=== PATIENT | male | born 1955 | race Caucasian/White ===

== ENCOUNTER 2023-05-31 08:40 | Outpatient (OUT) | payer MEDICARE, SELFPAY ==
--- NOTE | 2023-05-31 08:54 | PM.CN ---
Consult Note: HPI Data of Consult Patient: known to practice within the last 3 years Consult date: 05/31/23 Requesting Physician: CARINE LAZARO NP Primary Care Provider: Non-Staff Physician, MD Consult Narrative Narrative: Patient is here for f/u of chronic low back pain . Pain today is bilat lower lumbar area. He is still recieving good relief from RFA done 01/2022. He has stopped his gabapentin since last visit and is doing well wit this change. Denies new sensorimotor or bowel or bladder issues. Denies medication adverse SE. Pain medication regimen assists patient in better ability to complete ADLs. He did fall from a ladder 05/13. He was seen in the ED for this and had possible head CT done. He states he did not injure his back or neck. Last UDS was positive for thc. He states this was secondhand exposure. UDS completed today. cc:: CC: CARINE LAZARO NP Review of Systems ROS Status of ROS 10 or more systems reviewed and unremarkable except as noted in history and below Musculoskeletal Reports: back pain Exam Constitutional Documenting provider has reviewed patient's vital signs: yes Common normals: no apparent distress, average body habitus, oriented x3, no limitations, healthy appearing, alert and well nourished General appearance: cooperative, comfortable and well developed Orientation/consciousness: Yes awake, Yes oriented to person, Yes oriented to place and Yes oriented to time [facility]ENMT Common normals: normocephalic and moist oral mucous membranes Respiratory Common normals: normal respiratory effort, no retractions and no use of accessory muscles Effort & inspection: able to speak in complete sentences and symmetric chest movement Back & Pelvis Lumbar spine/lower back: normal to inspection, ROM limited, pain with ROM, paraspinal muscle tenderness and straight leg raise negative bilaterally Other: positive facet load pain bilat lumbar muscle strength 5/5 bilat LE with intact sensation Assessment and Plan Assessment and Plan (1) Lumbar spondylosis: Plan f/u in 3 months UDS pending
== END 2023-05-31 08:41 | disposition home or self-care (01) ==
LOC: PM 08:41
PROVIDERS: Visit Provider Nurse Practitioner
DX: M47.816 Spondylosis without myelopathy or radiculopathy, lumbar region (principal)
CPT/HCPCS: G0463

== ENCOUNTER 2023-08-23 08:50 | Outpatient (OUT) | payer MEDICARE, SELFPAY ==
--- NOTE | 2023-08-23 09:14 | P.CN_ITS ---
Consult Note: HPI Data of Consult Requesting Physician: Jenny Machuca NP Primary Care Provider: Non-Staff Physician, Consult Narrative Reason for consult: f/u Narrative: Neville Schmitz a pleasant 67 year old male presents for evaluation and management of chronic back pain. Today rating pain 3/10. Patient has noticed increase in low back pain over the last few months. Would like to discuss treatment options. Patient has benefitted from tylenol #3 BID PRN, ran out of mobic but experienced GERD with this. cc:: CC: Jenny Machuca NP Review of Systems ROS Status of ROS 10 or more systems reviewed and unremarkable except as noted in history and below Musculoskeletal Reports: back pain Meds Home Medications and Allergies Home Medications Medication Instructions Recorded Confirmed Type acetaminophen 300 mg-codeine 30 mg 1 tab PO BID 05/31/23 05/31/23 History tablet acetaminophen 325 mg capsule 325 mg PO Q6H PRN pain 05/31/23 05/31/23 History (Tylenol) aspirin 81 mg capsule 81 mg PO DAILY 05/31/23 05/31/23 History atorvastatin 80 mg tablet (Lipitor) 80 mg PO DAILY 05/31/23 05/31/23 History gabapentin 300 mg capsule 300 mg PO .HS 05/31/23 05/31/23 History Allergies Allergy/AdvReac Type Severity Reaction Status Date / Time No Known Drug Allergies Allergy Verified 05/31/23 09:45 Exam Constitutional Documenting provider has reviewed patient's vital signs: yes Common normals: no apparent distress, average body habitus, oriented x3, no limitations, healthy appearing, alert and well nourished General appearance: cooperative, comfortable and well developed Orientation/consciousness: Yes awake, Yes oriented to person, Yes oriented to place and Yes oriented to time HENDE Common normals: normocephalic and moist oral mucous membranes Respiratory Common normals: normal respiratory effort, no retractions and no use of accessory muscles Effort & inspection: able to speak in complete sentences and symmetric chest movement Back & Pelvis Thoracic spine/upper back: ROM limited, pain with ROM and thoracic spinal tenderness Lumbar spine/lower back: normal to inspection, ROM limited, pain with ROM, lumbar spinal tenderness and straight leg raise negative bilaterally Other: positive facet load pain bilat lumbar muscle strength 5/5 bilat LE with intact sensation Extremity Common normals: normal to inspection and full ROM Neuro Common normals: oriented x3, CN's II-XII intact bilaterally, moves all extremities, no focal motor deficits, no sensory deficits noted, deep tendon reflexes 2+ bilaterally and gait normal Assessment and Plan Assessment and Plan (1) GERD (gastroesophageal reflux disease): (2) Thoracic back pain: (3) Lumbar spondylosis: (4) Osteoarthritis: (5) Chronic prescription opiate use: Assessment and Plan: I feel these medications are improving the patient's quality of life and allow them to tolerate activities of daily living as well as participate in recreational activity.? The patient does not report intolerable side effects. The patient is NOT opioid naive and non-pharmacologic and non-opioid treatment has failed to significantly relieve the patient's pain and improve functionality. The patient has a diagnosis that is related to a somatic or visceral pain etiology. ? ?? I reviewed with the patient the potential risks and side effects with the use of? opioid medications including but not limited to respiratory depression,? sedation, and even . I verified the patient has access to naloxone should? these effects occur. I advised the patient to avoid the use of any other? sedation substances including alcohol, THC, and benzodiazepines while? taking opioid medications due to the risk of compounding side effects and? detrimental outcomes. I reviewed the FAMILY RESOURCE SPECIALIST, pain treatment agreement, urine? drug screen, and opioid start talking forms. The patient was advised to let? their family know they had Naloxone in case they would need to administer? the medication.? ?? A drug screen was completed within the last year, and no aberrancies were noted regarding their use of controlled substances. The patient understands they are subject to the terms and conditions of the pain contract that they have signed. ? ?? I have checked an OARRS report on this patient today and there are no aberrancies noted in the prescribing history.? Plan update xray imaging of thoracic and lumbar spine' start duloxetine 60mg HS avoid NSAIDs with hx of GERD and intolerance to NSAIDs continue OTC acetaminophen continue Tylenol #3 BID PRN moderate to severe pain continue HEP f/u 2 months, consider RFA
== END 2023-08-23 08:51 | disposition home or self-care (01) ==
LOC: PM 08:51
PROVIDERS: Visit Provider Nurse Practitioner
DX: K21.9 Gastro-esophageal reflux disease without esophagitis (principal); M54.6 Pain in thoracic spine; M47.816 Spondylosis without myelopathy or radiculopathy, lumbar region; M19.90 Unspecified osteoarthritis, unspecified site; Z79.899 Other long term (current) drug therapy
CPT/HCPCS: G0463

== ENCOUNTER 2023-10-25 08:50 | Outpatient (OUT) | payer OTHER, SELFPAY ==
--- NOTE | 2023-10-25 08:58 | PM.CN ---
Consult Note: HPI Data of Consult Patient: known to practice within the last 3 years Requesting Physician: Jenny Machuca NP Primary Care Provider: Non-Staff Physician, Consult Narrative Reason for consult: f/u Narrative: Neville Schmitz a pleasant 67 year old male presents for evaluation and management of chronic back pain. Today rating pain 2/10. Patient has noticed improvement in his pain since his last visit, finding benefit from duloxetine 30mg daily tylenol #3 BID PRN without side effects. cc:: CC: Jenny Machuca NP Review of Systems ROS Status of ROS 10 or more systems reviewed and unremarkable except as noted in history and below Musculoskeletal Reports: back pain Meds Home Medications and Allergies Home Medications Medication Instructions Recorded Confirmed Type acetaminophen 300 mg-codeine 30 mg 1 tab PO BID 05/31/23 05/31/23 History tablet acetaminophen 325 mg capsule 325 mg PO Q6H PRN pain 05/31/23 05/31/23 History (Tylenol) aspirin 81 mg capsule 81 mg PO DAILY 05/31/23 05/31/23 History atorvastatin 80 mg tablet (Lipitor) 80 mg PO DAILY 05/31/23 05/31/23 History gabapentin 300 mg capsule 300 mg PO .HS 05/31/23 05/31/23 History Allergies Allergy/AdvReac Type Severity Reaction Status Date / Time No Known Drug Allergies Allergy Verified 05/31/23 09:45 Exam Constitutional Documenting provider has reviewed patient's vital signs: yes Common normals: no apparent distress, oriented x3, healthy appearing, alert and well nourished General appearance: cooperative Orientation/consciousness: Yes awake, Yes oriented to person, Yes oriented to place and Yes oriented to time [facility] Common normals: normocephalic, hearing grossly normal bilaterally and moist oral mucous membranes Head and scalp: normocephalic Eye Common normals: PERRL Pupil: PERRL Neck & C-Spine Common normals: full ROM General: normal visual inspection Chest Common normals: inspection of chest normal Respiratory Common normals: normal respiratory effort, no retractions and no use of accessory muscles Effort & inspection: able to speak in complete sentences and symmetric chest movement Back & Pelvis Thoracic spine/upper back: ROM limited, pain with ROM and thoracic spinal tenderness Lumbar spine/lower back: normal to inspection, ROM limited, pain with ROM, lumbar spinal tenderness and straight leg raise negative bilaterally Other: positive facet load pain bilat lumbar muscle strength 5/5 bilat LE with intact sensation Extremity Common normals: normal to inspection and full ROM Neuro Common normals: oriented x3, CN's II-XII intact bilaterally, moves all extremities, no focal motor deficits, no sensory deficits noted, deep tendon reflexes 2+ bilaterally and gait normal Sensorium/orientation: alert Motor exam: strength 5/5 throughout and no movement abnormalities noted Psych Common normals: mental status grossly normal, thought process normal, cooperative, affect normal, speech normal and activity/motor behavior normal Speech: normal speech Thought process: normal thought process Results Additional Findings Additional findings: I have checked an OARRS report on this patient today and there are no aberrancies noted in the prescribing history.?? A drug screen was completed and reviewed within the last year, and if there has not been a drug screen completed we ordered one today to monitor higher risk, state monitored pain medication use. As part of providing excellent, safe, comprehensive care, the following was completed at our patient's visit: 1. A medication reconciliation and review to ensure accurate knowledge of current/active medications, including asking our patients to inform us about any [id number] medications or herbal remedies/nutritional supplements/alternative remedies. 2. A review to specifically ensure our patients have had annual screening for: elevated body mass index (BMI), tobacco use, screening for depression, and screening for unhealthy alcohol use. When screening is concerning, patients are provided with education and the specific recommendation to discuss the concerning health issue and treatment options with their primary care provider. Assessment and Plan Assessment and Plan (1) Lumbar spondylosis: (2) Thoracic back pain: (3) Osteoarthritis: (4) Chronic prescription opiate use: Assessment and Plan: I feel these medications are improving the patient's quality of life and allow them to tolerate activities of daily living as well as participate in recreational activity.? The patient does not report intolerable side effects. The patient is*NOT opioid naive and non-pharmacologic and non-opioid treatment has failed to significantly relieve the patient's pain and improve functionality. The patient has a diagnosis that is related to a somatic or visceral pain etiology. ? ?? I reviewed with the patient the potential risks and side effects with the use of? opioid medications including but not limited to respiratory depression,? sedation, and even . I verified the patient has access to naloxone should? these effects occur. I advised the patient to avoid the use of any other? sedation substances including alcohol, THC, and benzodiazepines while? taking opioid medications due to the risk of compounding side effects and? detrimental outcomes. I reviewed the MEDICAL LEGAL INVESTIGATOR, pain treatment agreement, urine? drug screen, and opioid start talking forms. The patient was advised to let? their family know they had Naloxone in case they would need to administer? the medication.? ?? A drug screen was completed within the last year, and no aberrancies were noted regarding their use of controlled substances. The patient understands they are subject to the terms and conditions of the pain contract that they have signed. ? ?? I have checked an OARRS report on this patient today and there are no aberrancies noted in the prescribing history.? (5) Myofascial pain: Plan continue current medications f/u 3 months
--- OUTSIDE RECORDS SUMMARY | 2023-10-25 09:08 | XMS_ITS | CCD ---
Author Name Unknown Address [address] [place] [address] Organization [facility] Care Team Providers Care Medical Physicist Name Role Phone MITZI GALEAS Admitting Unavailable ESQUIVEL SARAH L Primary Care Unavailable KATLIN KNOWLES Attending Unavailabl e PATTI ESQUIVELNY L Primary Care Unavailable Esquivel Sarah L Primary Care Provider Nicolasa MITCHELL Admitting Unavailable Nicolasa MITCHELL Attending Unavailable ESQUIVEL SARAH L Primary Care Unavailable Esquivel Sarah L Primary Care Provider JAYLON ., DR FRANCK Chaparro Admitting Unavailable IYER ., DR FRANCK Chaparro Attending Unavailable [facility] Primary Care Unavailable VALDEZ ., DORIE Consulting Unavailable IYER ., DR FRANCK Chaparro Admitting Unavailable IYER ., DR FRANCK hCaparro Attending Unavailable [facility] Primary Care Unavailable VALDEZ ., DORIE Consulting Unavailable IYER ., DR FRANCK Chaparro Admitting Unavailable IYER ., DR FRANCK Chaparro Attending Unavailable [facility] Primary Care Unavailable VALDEZ ., DORIE Consulting Unavailable IYER ., DR FRANCK Chaparro Admitting Unavailable IYER ., DR FRANCK Chaparro Attending Unavailable [facility] Primary Care Unavailable VALDEZ ., DORIE Consulting Unavailable LAKSHMIPATHY ., NARENDMOI Admitting Angelica vailable LAKSHMIPATHY ., JAYLEEN Attending Angelica vailable [facility] Primary Care Unavailable HALKER .CARINE Consulting Unavailable PHILIPPE OROSCO Referring Unavailable Medications Current Medications Medication Drug Class(es) Dates Sig (Normalized) Sig (Original) acetaminophen 300 mg / codeine phosphate 30 mg oral tablet (2 sources) Opioid Agonist Start: 06-20-2016 acetaminophen-codei ne (TYLENOL #3) 300-30 mg per tablet Take by mouth every 6 (six) hours as needed. 0 06/20/2016 Active aspirin 81 mg delayed release oral tablet (2 sources) Platelet Aggregation Inhibitor, Nonsteroidal Anti-inflammatory Drug take 1 tablet by mouth once daily aspirin 81 MG EC tablet Take 81 mg by mouth daily. 0 Active folic acid 1 mg oral tablet (2 sources) take 1 tablet by mouth once daily folic acid (FOLVITE) 1 MG tablet Take 1 mg by mouth daily. 0 Active methocarbamol 500 mg oral tablet (2 sources) Muscle Relaxant Start: 06-20-2016 take 1 tablet by mouth four times daily as needed methocarbamol (ROBAXIN) 500 MG tablet Take 500 mg by mouth 4 (four) times a day as needed. 0 06/20/2016 Active pravastatin sodium 40 mg oral tablet (2 sources) HMG-CoA Reductase Inhibitor take 1 tablet by mouth once daily pravastatin (PRAVACHOL) 40 MG tablet Take 40 mg by mouth daily. 0 Active Problems Active Problems Problem Classification Problem Date Documented Da te Episodic/Chronic Spondylosis; intervertebral disc disorders; other back problems (6 sources) Spondylosis without myelopathy or radiculopathy, lumbar region; Translations: [Other spondylosis with radiculopathy, lumbar region] Onset: 03-15-2022 Chronic Spondylosis; intervertebral disc disorders; other back problems (10 sources) Low back pain; Translations: [Intervertebral disc disorders with radiculopathy, lumbar region] Onset: 06-01-2022 Episodic Unclassified (4 sources) LOW BACK PAIN, UNSPECIFIED; Translations: [LOW BACK PAIN, UNSPECIFIED] Onset: 08-31-2022 Past or Other Problems Problem Classification Problem Date Documented Da te Episodic/Chronic Other connective tissue disease (1 source) Other muscle spasm; Translations: [OTHER MUSCLE SPASM] Onset: 03-15-2022 Episodic Unclassified (1 source) LOW BACK PAIN, UNSPECIFIED; Translations: [LOW BACK PAIN, UNSPECIFIED] Onset: 11-30-2022 Results Test Name Value Interpretation Reference Range Facility XR LUMBAR SPINE 4+ VIEWS WIT H FLEXION EXTENSIONon 09-18-2023 XR LUMBAR SPINE 4+ VIEWS WITH FLEXION EXTENSION FINDINGS: Anterior wedge compression fracture L1. Posterior disc space narrowing T12-L1 through L5-S1. Alignment maintained on flexion, extension, and neutral position. No bone lesion is identified. IMPRESSION: Impression: Anterior wedge compression fracture L1. Moderate degenerative change lumbar spine. ELECTRONICALLY SIGNED BY: Lan Rivas MD Normal Not Available XR THORACIC SPINE 2 VIEWSon 09-18-2023 XR THORACIC SPINE 2 VIEWS FINDINGS: Thoracic vertebral bodies are normal in height and alignment. No fracture, dislocation, bone lesion. Mild disc space narrowing upper thoracic spine. Remote internal fixation lower cervical spine. IMPRESSION: Impression: Mild degenerative change upper thoracic spine. ELECTRONICALLY SIGNED BY: Lan Rivas MD Normal Not Available TSH w/ Reflex to Free T4on 0 02-21-2022 TSH 1.180 uIU/mL Normal 0.400-4.500 [facility] [employer] Comment on above: Performed By: #### T SH reflex FT4 #### [facility] [address], [place] [id number] US Aorta Screeningon 022 US Aorta Screening FINDINGS: Proximal Aorta2.9 x 2.3 cm Mid Aorta1.6 x 2.1 cm Distal Aorta1.3 x 1.3 cm Right Common Iliac9 x 10 mm Left Common Iliac10 x 13 mm No aneurysmal dilatation is identified. No neighboring fluid collections are seen. IMPRESSION: No significant aneurysmal formation. Report reported and signed by Kenneth Kan on 01/27/2022 0911 Normal [facility] Comprehensive Metabolic Pane zee 01-20-2022 Albumin [Mass/Vol] 4.5 g/dL Normal 3.6-5.1 [facility] Comment on above: Performed By: #### L IPD, CMP #### [facility] [address], [place] [id number] Albumin/Globulin [Mass ratio] 2.4 {ratio} Normal 1.0-2.5 [facility] Comment on above: Performed By: #### L IPD, CMP #### [facility] [address], [place] [id number] ALP [Catalytic activity/Vol] 69 U/L Normal 40-129 [facility] Comment on above: Performed By: #### L IPD, CMP #### [facility] [address], [place] [id number] ALT [Catalytic activity/Vol] 23 U/L Normal 9-46 [facility] Comment on above: Result Comment: 09/21 Female reference range changed. Performed By: #### L IPD, CMP #### [facility] [address], [place] [id number] Anion gap [Moles/Vol] 15 mmol/L Normal 12-20 [facility] Comment on above: Result Comment: Javid ctive 10/27/2019 reference range changed. Performed By: #### L IPD, CMP #### [facility] [address] [facility] [place] [id number] AST [Catalytic activity/Vol] 18 U/L Normal 10-40 [facility] Comment on above: Performed By: #### L IPD, CMP #### [facility] [address] [facility] [place] [id number] Bilirubin [Mass/Vol] 0.80 mg/dL Normal 0.30-1.20 [facility] Comment on above: Performed By: #### L IPD, CMP #### [facility] [address], [place] [id number] BUN/CREA 25 Ratio High 6-22 [facility] Comment on above: Performed By: #### L IPD, CMP #### [facility] [address], [place] [id number] Calcium [Mass/Vol] 9.9 mg/dL Normal 8.6-10.2 [facility] Comment on above: Performed By: #### L IPD, CMP #### [facility] [address], [place] [id number] Chloride [Moles/Vol] 106 mmol/L Normal 98-107 [facility] Comment on above: Performed By: #### L IPD, CMP #### [facility] [address] [facility] [id number] CO2 [Moles/Vol] 25 mmol/L Normal 20-31 [facility] Comment on above: Performed By: #### L IPD, CMP #### [facility] [address] [facility] [place] [id number] Creatinine [Mass/Vol] 0.9 mg/dL Normal 0.7-1.4 [facility] Comment on above: Performed By: #### L IPD, CMP #### [facility] [address] [facility] [place] [id number] eGFRAA 102 mL/min/1.73m2 Normal >60 [facility] [employer] Comment on above: Performed By: #### L IPD, CMP #### [facility] [address], [place] [id number] eGFRNAA 84 mL/min/1.73m2 Normal >60 [facility] [employer] Comment on above: Performed By: #### L IPD, CMP #### [facility] [address], [place] [id number] Globulin (S) [Mass/Vol] 1.9 g/dL Normal 1.9-3.7 [facility] [employer] Comment on above: Performed By: #### L IPD, CMP #### [facility] [address], [place] [id number] Glucose [Mass/Vol] 101 mg/dL High 65-99 [facility] [employer] Comment on above: Result Comment: For FASTING Glucose --- ADA reference ranges: Normal 65-99 mg/dl Prediabetes 100-125 Diabetes >/= 126 Performed By: #### L IPD, CMP #### [facility] [address], [place] [id number] Potassium [Moles/Vol] 4.3 mmol/L Normal 3.5-5.5 [facility] [employer] Comment on above: Performed By: #### L IPD, CMP #### [facility] [address], [place] [id number] Protein [Mass/Vol] 6.4 g/dL Normal 6.1-8.1 [facility] [employer] Comment on above: Performed By: #### L IPD, CMP #### [facility] [address], [place] [id number] Sodium [Moles/Vol] 142 mmol/L Normal 135-146 [facility] [employer] Comment on above: Performed By: #### L IPD, CMP #### [facility] [address], [place] [id number] Urea nitrogen [Mass/Vol] 22 mg/dL Normal 7-25 [facility] [employer] Comment on above: Performed By: #### L IPD, CMP #### [facility] [address], [place] [id number] Lipid Panelon 01-20-2022 Cholesterol [Mass/Vol] 239 mg/dL High 125-200 [facility] Special[facility] Comment on above: Result Comment: Low risk < 200mg/dL Borderline risk 201-239 mg/dl High risk > or equal to 240 Performed By: #### L IPD, CMP #### [facility] [address], [place] [id number] Cholesterol in HDL [Mass/Vol] 66 mg/dL Normal >40 [facility] Special[facility] Comment on above: Result Comment: High Cardiovascular Risk HDL <40 mg/dL Low Cardiovascular Risk HDL > or equal to 60 mg/dl Performed By: #### L IPD, CMP #### [facility] [address], [place] [id number] Cholesterol in LDL [Mass/Vol] 149 mg/dL Normal [facility] Specialist Comment on above: Result Comment: LDL ATP III CLASSIFICATION LDL less than 100 mg/dl Optimal LDL 100-129 mg/dl Near or above optimal LDL 130-159 Borderline high LDL 160-189 High LDL greater than 189 mg/dl Very High Performed By: #### L IPD, CMP #### [facility] [address], [place] [id number] Cholesterol in VLDL [Mass/Vol] 24 mg/dL Normal [facility] Specialist Comment on above: Performed By: #### L IPD, CMP #### [facility] [address], [place] [id number] Cholesterol.total/Ch olesterol in HDL [Mass ratio] 4 {ratio} Normal [facility] Specialist Comment on above: Performed By: #### L IPD, CMP #### [facility] [address], [place] [id number] Triglyceride [Mass/Vol] 119 mg/dL Normal 30-150 [facility] Specialist Comment on above: Result Comment: TRIG ATPIII CLASSIFICATIONS TRIG less than 150 mg/dl Normal TRIG 150-199 mg/dl Borderline High TRIG 200-500 mg/dl High TRIG greather than 500 mg/dl Very High Performed By: #### L IPD, CMP #### [facility] [address], [place] [id number] PSA SCREEN (MEDICARE)on TPSA 1.110 ng/mL Normal <4.000 [facility] Comment on above: Result Comment: PSA Test Method: ECLIA/Bre e 601 Performed By: #### P [facility] #### [facility] [address], [place] [id number] CV IR EPIDURAL STEROID INJon 03-04-2020 Fluoroscopically guided lumbar epidural steroid injection as outlined above. [employer] Workstation ID: [id number] [facility] HISTORY/CLINICAL DATA: Lumbago EXAMINATION: VIA A POSTERIOR APPROACH 1. FLUOROSCOPICALLY GUIDED LUMBAR EPIDURAL STEROID INJECTION. COMPARISON: None. APPLICATION DEVELOPMENT SPECIALIST(S): Nicolasa Mitchell MD. PROCEDURE: FLUOROSCOPY TIME: 0.2 minutes. Ka, R, mGy: 2.0 mGy. Risks, benefits, and alternatives were discussed. Informed written consent was obtained. The patient was placed in the prone position. The back was prepped and draped in the usual sterile fashion. All elements of maximal sterile barrier techniques were followed and when used sterile ultrasound preparation was utilized. Pause and Confirm, timeout was performed. Under local anesthesia and fluoroscopic guidance a 22-gauge needle was directed into the L5-S1 interspace. Contrast was injected confirming needle position within the epidural space. 80 mg of Kenalog and 2 mL of 0.25% Sensorcaine were injected. This was followed by injection of 3 mL of preservative free saline. The needle was removed. Dressing was applied. The patient tolerated the procedure well without immediate postprocedural complications. [facility] Interface, Rad [facility] 03/04/2020 10:35 AM EDT HISTORY/CLINICAL DATA: Lumbago EXAMINATION: VIA A POSTERIOR APPROACH 1. FLUOROSCOPICALLY GUIDED LUMBAR EPIDURAL STEROID INJECTION. COMPARISON: None. APPLICATION DEVELOPMENT SPECIALIST(S): Nicolasa Mitchell MD. PROCEDURE: FLUOROSCOPY TIME: 0.2 minutes. Ka, R, mGy: 2.0 mGy. Risks, benefits, and alternatives were discussed. Informed written consent was obtained. The patient was placed in the prone position. The back was prepped and draped in the usual sterile fashion. All elements of maximal sterile barrier techniques were followed and when used sterile ultrasound preparation was utilized. Pause and Confirm, timeout was performed. Under local anesthesia and fluoroscopic guidance a 22-gauge needle was directed into the L5-S1 interspace. Contrast was injected confirming needle position within the epidural space. 80 mg of Kenalog and 2 mL of 0.25% Sensorcaine were injected. This was followed by injection of 3 mL of preservative free saline. The needle was removed. Dressing was applied. The patient tolerated the procedure well without immediate postprocedural complications. IMPRESSION: Fluoroscopically guided lumbar epidural steroid injection as outlined above. [employer] Workstation ID: [id number] [facility] PT/INRon 03-04-2020 INR Coag (PPP) [Relative time] 1.0 {INR} [facility] Interpretation and review of laboratory results Normal [facility] PT Coag (PPP) [Time] 12.4 s [facility] During the induction phase of oral anticoagulation, the INR may not reflect the anticoagulation status of the patient. Therapeutic ranges for INR's are: Most clinical situations: INR 2.0-3.0 Mechanical Prosthetic Valve: INR 2.5-3.5 Critical: INR >5.0 [facility] Platelet Counton 03-04-2020 Interpretation and review of laboratory results Normal [facility] Platelet mean volume (Bld) [Entitic vol] 11.0 fL 9 - 15.5 fL [facility] Platelets (Bld) [#/Vol] 178 10*3/uL [facility] CV IR EPIDURAL STEROID INJon 02-24-2020 CV IR EPIDURAL STEROID INJ HISTORY/CLINICAL DATA: Lumbago EXAMINATION: VIA A POSTERIOR APPROACH 1. FLUOROSCOPICALLY GUIDED LUMBAR EPIDURAL STEROID INJECTION. COMPARISON: None. APPLICATION DEVELOPMENT SPECIALIST(S): Nicolasa Mitchell MD. PROCEDURE: FLUOROSCOPY TIME: 0.2 minutes. Ka, R, mGy: 2.0 mGy. Risks, benefits, and alternatives were discussed. Informed written consent was obtained. The patient was placed in the prone position. The back was prepped and draped in the usual sterile fashion. All elements of maximal sterile barrier techniques were followed and when used sterile ultrasound preparation was utilized. Pause and Confirm, timeout was performed. Under local anesthesia and fluoroscopic guidance a 22-gauge needle was directed into the L5-S1 interspace. Contrast was injected confirming needle position within the epidural space. 80 mg of Kenalog and 2 mL of 0.25% Sensorcaine were injected. This was followed by injection of 3 mL of preservative free saline. The needle was removed. Dressing was applied. The patient tolerated the procedure well without immediate postprocedural complications. IMPRESSION: Fluoroscopically guided lumbar epidural steroid injection as outlined above. [employer] Workstation ID: [id number] Dictated by: Nicolasa MITCHELL on SunMarch 04, 2020 10:21:09 AM EDT Transcribed by: FIGUEROA GUTIERREZ on SunMarch 04, 2020 10:25:58 AM EDT Finalized by: Nicolasa MITCHELL on SunMarch 04, 2020 10:33:02 AM EDT Normal [facility] Vital Signs Date Time Vital Sign Value Performing Clinician Mera pritchard 03-04-2020 10:26-0400 Body Temperature 98.4 [degF] Nicolasa [facility] 03-04-2020 10:26-0400 BP Diastolic 83 mm[Hg] Nicolasa [facility] 03-04-2020 10:26-0400 BP Systolic 146 mm[Hg] [facility]-04-[facility] 10:26-0400 Pulse (Heart Rate) 53 /min [place] 03-04-2020 10:26-0400 Pulse Oximetry 97 % [place] 03-04-2020 10:26-0400 Respiratory Rate 14 /min [place] 03-04-2020 08:15-0400 BMI (Body Mass Index) 31.57 kg/m2 [place] 03-04-2020 08:15-0400 Body weight 99.79 kg [place] 03-04-2020 08:15-0400 Height 177.8 cm [place] Encounters Encounter Date Encounter Type Care Provider Facility Start: 09-18-2023 End: 09-19-2023 ambulatory PHILIPPE OROSCO Not Available Start: 03-01-2023 End: 03-02-2023 ambulatory JAYLEEN WRIGHT . Facility:[facility] Start: 11-30-2022 End: 12-01-[address] FRANCK IYER . Facility:[facility] Start: 08-24-2022 End: 08-25-[address] FRANCK IYER . Facility:[facility] Start: 06-01-2022 End: 06-02-[address] FRANCK IYER . Facility:[facility] Start: 03-09-2022 End: 03-10-[address] FRANCK IYER . Facility: Start: 12-16-2020 End: 12-16-2020 Orders Only Jayshree Solano Work Phone: [facility] Start: 03-04-2020 End: 03-04-2020 Patient encounter procedure Nicolasa MITCHELL [facility] Start: 03-04-2020 End: 03-04-2020 Subsequent hospital visit by physician Nicolasa Mitchell Work Phone: [facility] Comment on above: Lumbago Start: 06-24-2019 Patient encounter procedure KATLIN KNOWLES [facility] Start: 06-12-2019 End: 06-16-2019 Patient encounter procedure MITZI RosalesJenny DANIELSADAL [facility] Procedures Date Procedure Procedure Detail Performing Clinician Start: 03-04-2020 Epidural steroid injection Nicolasa Mitchell Work Phone: Start: 03-04-2020 Platelets [#/volume] in Blood by Automated count Nicolasa Mitchell Work Phone: Start: 03-04-2020 INR in Platelet poor plasma by Coagulation assay Nicolasa Mitchell Work Phone: Start: 06-10-2018 Colonoscopy Jayshree anaya Plan of Treatment Date Care Activity Detail Author Start: 06-10-2028 Screening for malign ant neoplasm of colon [facility] Start: 10-12-2025 Tetanus vaccination Tetanus: Every 1 0yrs [facility] Start: 06-22-2020 Influ[facility] Start: 2019 Pneumococcal vaccination Pneum ococcal Vaccine Age 65+ (1 of 2 - PCV13) [facility] Start: 12-07-2015 Administration of he rpes zoster vaccine Zoster Vaccines (2 of 3) [facility] Start: 2004 Screening for malign ant neoplasm of colon [facility] Start: 1972 Hepatitis C antibody , confirmatory test Hepatitis C Screening [facility] Start: 1970 COVID-19 Vaccine (1 of 2) COVID-19 V accine (1 of 2) [facility] Start: 1966 Adolescent depressio n screening assessment Depression Screening (PHQ9) [facility] Start: 1957 History and physical examination, annual for health [facility] Wellness Visit [facility] Start: 1954 Fall risk assessment Falls Risk Asse ssment [facility] Start: 1954 Hepatitis C antibody , confirmatory test Hepatitis C Screening [facility] Start: 1954 Prostate specific an tigen measurement PSA Level [facility] Start: 1954 US scan of abdominal aorta Abdominal Aortic Ultrasound [facility] Payers Date Payer Category Payer Unknown [id number] 2015 Unknown [employer] BCBS OUT OF STATE [facility] xxxxxxxxxxxxxx 2015-Present xxxxxxxxxxxxxx [id number] 2015 Unknown [employer] BCBS OUT OF STATE [facility] [id number] 2015-Present [id number] 2009 Unknown [id number] 1959 Unknown [id number] 1954 Unknown [id number] 1954 Unknown [id number] 1954 Unknown [id number] 1954 Unknown [id number] 1954 Unknown [id number] 1954 Unknown [id number] 1954 Unknown [id number] 1954 Unknown [id number] 1954 Unknown [id number] 9 1954 Unknown [id number] 9 Social History Date Type Detail Facility Start: 03-04-2020 End: 03-05-2020 Tobacco smoking status NHIS Former smoker [facility] Start: 03-04-2020 End: 03-05-2020 Alcohol intake Current drinker of alcohol (finding) [facility] Start: 10-02-2016 Alcohol Comment occasional [facility] Sex Assigned At Not on file [facility] Start: 03-05-2020 Tobacco use and exposure Never used [facility] Consultation note 11-30-2022 Note Date & Type Note Facility 11-30-2022 Note CONSULTATION CONSULTATION DATE: 11/30/2022 HISTORY OF PRESENT ILLNESS: This is a 67-year-old gentleman who returns to the clinic for a three month follow up for chronic lower back pain. He was last seen on 08/24/2022 and, at that time, he was having lower back pain that started to increase since his lumbar radiofrequency ablation that was completed in January of 2022. Today, with activity, he states his pain is 3-4/10. It is increased by pushing, pulling, standing, walking, housework and lifting. He does use [id number] menthol patches which help decrease his pain. At his last appointment he was started on gabapentin 300 mg q.h.s. and Mobic 50 mg daily. The patient took it for a short time but did not get refills. He did state he had relief with those medications. He does have bilateral anterior thigh hypoesthesia, but it does not go below the knee. Currently, he just takes a multivitamin and a baby aspirin. He denies any recent falls or injury. Patient's REVIEW OF SYSTEMS / PAST MEDICAL HISTORY / ALLERGIES and IMAGES have been reviewed and noted on the chart. PHYSICAL EXAM: VITAL SIGNS: Blood pressure is 146/69. Heart rate is 76. Temperature is 97.7. He is 5'10 , weighs 102 kg. GENERAL IMPRESSION: Pleasant, appropriate, in no acute distress. FOCUSED EXAM - BACK: Range of motion is functional in lateral rotation and flexion/extension. Reproduction of spinal axial pain noted on the left of L2, L3 and L4, L5 and mild to the same levels on the right. Left paravertebral muscles are taut. Suraj's point non-tender bilaterally with negative FABERs and compression test.. NEUROLOGICALLY: Patchy hypoesthesia to bilateral thighs along the L2, L3, L4 distribution. It does not extend below the knees. +2 patellar and Achilles reflexes bilaterally. MUSCULOSKELETAL: Motor is intact, 4/5 bilaterally. He ambulates unassisted with a stable, antalgic gait. DIAGNOSIS: Chronic lower back pain, lumbar spondylosis, lumbar degenerative disc disease, lumbar neuritis. PLAN: We will restart the patient on Mobic 15 mg daily and gabapentin 300 mg q. h.s. He will also be prescribed Tylenol #3 b.i.d. p.r.n. Education was given in regards to heat and stretches. I did discuss considering repeating the radiofrequency ablation at the one year sangeeta, which would be January 2023. At this time, patient would like to trial the medications. We will bring him back in three months' time, unless otherwise indicated. U-Tox will be done in the office today. [facility] Consultation note 08-24-2022 Note Date & Type Note Facility 08-24-2022 Note CONSULTATION CONSULTATION DATE: 08/24/2022 HISTORY OF PRESENT ILLNESS: This is a 66-year-old gentleman returning to the clinic for a three month follow up for his chronic lower back pain. His last office visit was on 06/01/2022 and, at that time, he received a right lumbar trigger point injection. The patient states it was very helpful and it lasted approximately four weeks. Medications include Mobic 15 mg daily which was initiated at his last office visit, gabapentin 300 mg q.h.s. Patient feels the Mobic is beneficial in addressing joint and lower back pain, and the patient recently ran out of gabapentin. He states he has noticed a difference with his radicular pain returning. 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 He does not use heat on his back, as he states it aggravates it. Occasionally, he will use ice. He denies any recent falls or injury. He does have diffuse hypoesthesia to bilateral lower extremities. Patient's REVIEW OF SYSTEMS / PAST MEDICAL HISTORY / ALLERGIES and IMAGES have been reviewed and they are noted on the chart. PHYSICAL EXAM: VITAL SIGNS: Blood pressure 130/75, heart rate is 63. Temperature is 97. He is 5'10 and weighs 99.6 kg. GENERAL IMPRESSION: Pleasant, appropriate, no acute distress. FOCUSED EXAM - BACK: Range of motion is functional in lateral rotation and flexion/extension. Paravertebral muscles are non-spasmodic. Minimal spinal axial pain to L4-L5 compression to the right and is non-radiating. Suraj's point is non-tender. Negative FABERs and compression test. MUSCULOSKELETAL: Motor is 4/5 and intact bilaterally. Does not use an assistive device to ambulate. He walks with a steady gait with no vasomotor weakness noted. NEUROLOGICAL: Diffuse polyneuropathy bilateral lower extremities to the level of the feet. +1 bilateral patellar and Achilles reflexes. DIAGNOSIS: Lumbar radiculitis, lumbar spondylosis, lumbar degenerative disc disease and chronic lower back pain. PLAN: We will restart his gabapentin 300 mg q.h.s. and maintain his Mobic at 15 mg daily. Education was given in regards to use of Aleve with the Mobic. I did stress the use of his vitamins and daily exercise outside of work. Patient will be seen in three months' time, unless otherwise indicated, and patient agrees with this plan. [facility] Consultation note 06-01-2022 Note Date & Type Note Facility 06-01-2022 Note CONSULTATION CONSULTATION DATE: 06/01/2022 This is a 66-year-old gentleman who returns to the clinic for a 3-month follow-up for his lower back pain and right hip pain. The patient had radiofrequency ablation of his lumbar area back in January of 2022. He has since reported presently 50 to 60% relief from those injections. The gentleman is very active in the summer months and due to increased activity, he feels his lower back pain is aggravated. 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 At rest his pain is 3 with overt exercise and activity. It will go up to 10. The pain is located in his right lower lumbar area and he is having radiating pain to his anterior lateral aspect of his right side that does not go below the knee. The numbness and paresthesia were initially mitigated with RFAs but it is returning. Medications include Robaxin 500 mg q.h.s., multivitamin, baby aspirin and Aleve p.r.n. He denies any vasomotor changes. REVIEW OF SYSTEMS, PAST MEDICAL HISTORY, ALLERGIES AND IMAGES: Have been reviewed and noted in the chart. PHYSICAL EXAM: VITAL SIGNS: Blood pressure 129/788, heart rate is 56, temperature is 97.7. Height is 5'10 , weighs 98 kg. GENERAL APPEARANCE: Pleasant, appropriate in no acute distress, while sitting in the room. FOCUSED EXAM: BACK: Range of motion is functional, lateral rotation and flexion/extension. Reproduction of spinoaxial pain to right, L4, L5 facet with radiating pain to the right buttock and lateral aspect of the right thigh, mid femur level. Paravertebral muscles are spasmodic to the right with the trigger point identified lateral to L4. MUSCULOSKELETAL: Motor is intact 4 out of 5 bilaterally. Good muscle tone. No vasomotor weakness. NEUROLOGICAL: Bilateral patellar reflexes are +2 bilaterally, patchy hypesthesia noted along L4-5 dermatome to the right but does not extend below the knee. DIAGNOSIS: Lumbar neuritis, lumbar spondylosis, lumbar degenerative disk, spinoaxial lower back pain, lumbar spasms. PLAN: The patient received right lumbar trigger point injections in the clinic today. We are going to trial him on gabapentin 300 mg q.h.s. to help his neuritis nerve pain. He will also be stared on Mobic 15 mg q. a.m. and it was stressed to the patient to take it with food. Vitamin importance and nutrition was discussed as well. The patient agrees with the plan of care and would like to proceed. We will see him in 2 months' time unless otherwise indicated. [facility] Consultation note 06-01-2022 Note Date & Type Note Facility 06-01-2022 Note CONSULTATION PROCEDURE DATE: 06/01/2022 PRE AND POSTOPERATIVE DIAGNOSIS: Lumbar paravertebral spasms. PROCEDURE: Right lumbar trigger point injections. Subsequent to obtaining informed consent, the patient was placed in the upright standing forward flexion position. Alcohol prep was used to sterilize the site. 25-gauge needle with 0.125% Marcaine and 40 mg of Kenalog was used in one location for a total of 3 mL. The needle was placed to rest inside the trigger zone, negative heme. Medication was injected slowly in the fan-like pattern and the patient tolerated the procedure well and will be followed up in the office. [facility] Consultation note 03-09-2022 Note Date & Type Note Facility 03-09-2022 Note CONSULTATION CONSULTATION DATE: 03/09/2022 This is a 66-year-old gentleman who returns to the clinic status post bilateral RFA of L2, L3 and L4, L5 completed on 01/31/2022 that afforded him at this time 50% relief. The patient states the radicular pain to his lower extremities has dissipated and he is able to be more active with chores around the house. He complains of soreness and some slight dull muscle tightness. He denies any new radicular pain or vasomotor changes. Morning hours are the worst for him but as he moves around during the day the pain decreases. Medications include multivitamins, magnesium, aspirin and Lipitor. Occasionally he will use an Aleve. He was on Baclofen in the past as a muscle relaxer but began taking a prior Robaxin prescription with he is finding helpful. He is requesting a refill of that today. REVIEW OF SYSTEMS, PAST MEDICAL HISTORY, ALLERGIES AND IMAGES: Have been reviewed and noted in the chart. PHYSICAL EXAM: VITAL SIGNS: Blood pressure 146/77, heart rate is 70, temperature is 97.5. Height is 5'10 , weighs 99 kg. GENERAL APPEARANCE: Pleasant and appropriate, no acute distress. Sitting in the chair. FOCUSED EXAM: BACK: Paravertebral muscles are taut but non-spasmodic. Range of motion is functional in lateral rotation and flexion/extension. No reproduction of spinoaxial pain to direct compression along the lumbar facets. Suraj's point is nontender. MUSCULOSKELETAL: Motor is intact, 4 out of 5 bilaterally. Good muscle tone. Stable gait. NEUROLOGICAL: Negative polyneuropathy, +1 bilateral patellar reflexes. DIAGNOSIS: Lumbar spondylosis, lumbar degenerative disk disease, spinoaxial lower back pain, paravertebral spasm. PLAN: A refill for Robaxin 500 mg q. day was given and the patient was instructed to take it at night. He is to continue with his stretches and is highly encouraged to start using heat with a menthol heat rub daily. Nutrition and vitamin importance was discussed. The patient agrees to the plan of care and we will see him in two months' time to re-evaluate. The patient agrees and all questions were answered. [facility] Signed and Approved by: DORIE VALDEZ . 03/13/2022 15:06:00 [facility] Clinical Note 01-27-2022 Note Date & Type Note Facility 01-27-2022 Note PROCEDURE: Without I V contrast axial helical 1.25 mm slice thickness low dose images of the chest performed for lung cancer screening. FINDINGS: No suspicious lung nodule, mass, or consolidation. No pleural or pericardial effusion. No significant mediastinal or hilar lymphadenopathy. IMPRESSION: Category 1: Negative LUNG- RADS: CATEGORIES Category 0: Incomplete: Additional imaging Categories 1 &2: Negative/Benign: Continue annual screening Category 3: Probable benign:6 months LDCT Category 3s:Clinically significant or potentially clinically significant findings Category 4A/B Suspicious: 4A: 3 month LDCT; PET/CT when >8 mm solid nodule component exists 4B: Chest CT w/wo contrast; PET/CT and/or biopsy Report reported and signed by Kenneth Kan on 01/27/2022 0938 [facility] Specialist Clinical Note 10-28-2021 Note Date & Type Note Facility 10-28-2021 Note PROCEDURE: [place] VCT 64, 5.0 mm slice axial images were acquire with coronal reconstruction through brain without contrast. HISTORY: Memory changes. FINDINGS: No worrisome intra- or extra-axial mass lesions, mass effect or hemorrhage are identified. No evidence of major vessel ischemia is noted. Ventricular size is normal for this age, and commensurate with the cerebral sulci. Deep basal ganglia calcifications, incidental finding. Calvarium, mastoid air cells, paranasal sinuses and orbital contents are unremarkable. IMPRESSION: 1. No intracranial hemorrhage, ischemia or mass effect. 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 * Lumbar Epidural Steroid Injections: General Info (Cuban) * Post-op Infection (Cuban) documented in this encounter Assessments Diagnosis Lumbago Additional Source Comments (unrecognized sect ion and content) No Status Records FoundNo Status Records FoundNo Status Records FoundNo Status Records FoundNo Status Records FoundNo Status Records Found INFORMATION SOURCE (unrecogn ized section and content) DATE CREATED AUTHOR 06/16/2019 [facility] DATE CREATED AUTHOR AUTHOR'S ORGANIZ ATION 06/25/2019 [facility] DATE CREATED AUTHOR AUTHOR'S ORGANIZ ATION 03/10/2020 [facility] DATE CREATED AUTHOR AUTHOR'S ORGANIZ ATION 02/23/2022 [facility] dical Specialist DATE CREATED AUTHOR AUTHOR'S ORGANIZ ATION 03/05/2023 [facility] DATE CREATED AUTHOR AUTHOR'S ORGANIZ ATION 09/24/2023 [facility] dical Specialists EPIC Reason for Visit (unrecogniz ed section and content) Status Reason Specialty Diagnoses / Procedures Referre d By Contact Referred To Contact Diagnoses Lumbago Lumbago [M54.5] Procedures IR EPIDURAL STEROID INJ Nicolasa Mitchell MD - 03/04/2020 10:11 AM EDT Procedure Notes (unrecognize d section and content) Vascular & Interventional Radiology Provided By [facility] (Diagnostic Radiology, Interventional and Neurointerventional Radiology and Vascular Medicine) Interventional Radiology Department @ [facility]: [phone] 14/05 VIR physician contact: [phone] Weekday VIR nurse practitioner contact @ [facility]: [phone] [facility]: [phone] [email or web address] [facility] DEVICE SALES CONSULTANT DIRECTORY PROCEDURE: Fluoroscopic guided lumbar epidural steroid injection @ L5-S1 PLAN: Repeat epidural steroid injection can be offered, as needed Date: 03/04/2020 Patient Name: Neville Schmitz Patient : 1955 Physician: Nicolasa Mitchell MD Sedation Plan: None [place] Protocol: Pre-Procedural verification: Correct patient, correct site and correct procedure confirmed. H&P or interval update complete and in medical record. Informed consent form completed and signed. Radiology images, labs and pathology reviewed with appropriate identifiers (when applicable). Site Marking: N/A Time Out: PERFORMED Technique: The site was prepped. With fluoroscopic guidance, a 22g spinal needle was advanced to the L5-S1 space via interlaminar technique. Kenalog and marcaine was injected. The needle was removed and a bandage was applied. The patient tolerated the procedure well without complication. Complications: None Full report to follow documented in this encounter FOR RECORDS PERTAINING TO PATIENTS WHO ARE OR HAVE BEEN ENROLLED IN A CHEMICAL DEPENDENCY/SUBSTANCEABUSE PROGRAM, SOME INFORMATION MAY BE OMITTED. This clinical summary was aggregated from multiple sources. Caution should be exercised in using it in the provision of clinical care. This summary normalizes information from multiple sources, and as a consequence, information in this document may materially change the coding, format and clinical context of patient data. In addition, data may be omitted in some cases. CLINICAL DECISIONS SHOULD BE BASED ON THE PRIMARY CLINICAL RECORDS. [employer] [facility]. provides no warranty or guarantee of the accuracy or completeness of information in this document.
== END 2023-10-25 08:51 | disposition home or self-care (01) ==
LOC: PM 08:52
PROVIDERS: Visit Provider Nurse Practitioner
DX: M47.816 Spondylosis without myelopathy or radiculopathy, lumbar region (principal); M54.6 Pain in thoracic spine; M19.90 Unspecified osteoarthritis, unspecified site; Z79.891 Long term (current) use of opiate analgesic; M79.18 Myalgia, other site
CPT/HCPCS: G0463

== ENCOUNTER 2024-01-23 08:43 | Outpatient (OUT) | payer OTHER, SELFPAY ==
--- NOTE | 2024-01-23 08:46 | PM.CN ---
Consult Note: HPI Data of Consult Patient: known to practice within the last 3 years Requesting Physician: Jenny Machuca NP Primary Care Provider: Non-Staff Physician, Consult Narrative Reason for consult: f/u Narrative: Neville Schmitz a pleasant 67 year old male presents for evaluation and management of chronic back pain. Today rating pain 2/10, pain increases to 8/10 at its worst. Patient continues to benefit from tylenol #3 BID PRN without side effects. Patient stopped duloxetine 30mg daily since last visit as he had severe brain fog and sexual dysfunction, patient reports they did significantly manage his pain and he would like to discuss retrialing. Prior visit pain was well controlled, patient notices mid thoracic and low back pain is increasing in intensity/frequency. Denies numbness/tingling/weakness BLE. cc:: CC: Jenny Machuca NP Review of Systems ROS Status of ROS 10 or more systems reviewed and unremarkable except as noted in history and below Musculoskeletal Reports: back pain Meds Home Medications and Allergies Home Medications ?Medication ?Instructions ?Recorded ?Confirmed ?Type acetaminophen 300 mg-codeine 30 mg 1 tab PO BID 05/31/23 05/31/23 History tablet acetaminophen 325 mg capsule 325 mg PO Q6H PRN pain 05/31/23 05/31/23 History (Tylenol) aspirin 81 mg capsule 81 mg PO DAILY 05/31/23 05/31/23 History atorvastatin 80 mg tablet (Lipitor) 80 mg PO DAILY 05/31/23 05/31/23 History gabapentin 300 mg capsule 300 mg PO .HS 05/31/23 05/31/23 History Allergies Allergy/AdvReac Type Severity Reaction Status Date / Time No Known Drug Allergies Allergy Verified 05/31/23 09:45 Exam Constitutional Documenting provider has reviewed patient's vital signs: yes Common normals: no apparent distress, oriented x3, healthy appearing, alert and well nourished General appearance: cooperative Orientation/consciousness: Yes awake, Yes oriented to person, Yes oriented to place and Yes oriented to time HENMT Common normals: normocephalic, hearing grossly normal bilaterally and moist oral mucous membranes Head and scalp: normocephalic Eye Common normals: PERRL Pupil: PERRL Neck & C-Spine Common normals: full ROM General: normal visual inspection Chest Common normals: inspection of chest normal Respiratory Common normals: normal respiratory effort, no retractions and no use of accessory muscles Effort & inspection: able to speak in complete sentences and symmetric chest movement Back & Pelvis Thoracic spine/upper back: ROM limited, pain with ROM and thoracic spinal tenderness Lumbar spine/lower back: normal to inspection, ROM limited, pain with ROM, lumbar spinal tenderness and straight leg raise negative bilaterally Other: positive facet load pain bilat lumbar and thoracic pain over T7,8,9 bilateral facet joints notable tenderness over L1 on exam muscle strength 5/5 bilat LE with intact sensation Extremity Common normals: normal to inspection and full ROM Neuro Common normals: oriented x3, CN's II-XII intact bilaterally, moves all extremities, no focal motor deficits, no sensory deficits noted, deep tendon reflexes 2+ bilaterally and gait normal Sensorium/orientation: alert Motor exam: strength 5/5 throughout and no movement abnormalities noted Psych Common normals: mental status grossly normal, thought process normal, cooperative, affect normal, speech normal and activity/motor behavior normal Speech: normal speech Thought process: normal thought process Results Additional Findings Additional findings: If on a controlled substance or opioids, I have checked an OARRS report on this patient and there are no aberrancies noted in the prescribing history.??If on a controlled substance or opioid a drug screen was completed and reviewed within the last year, and if there has not been a drug screen completed we ordered one today to monitor higher risk, state monitored pain medication use. As part of providing excellent, safe, comprehensive care, the following was completed at our patient's visit: 1. A medication reconciliation and review to ensure accurate knowledge of current/active medications, including asking our patients to inform us about any [id number] medications or herbal remedies/nutritional supplements/alternative remedies. 2. A review to specifically ensure our patients have had annual screening for screening for depression, screening for tobacco use, and screening for unhealthy alcohol use. For concerning screenings had a discussion with the patient, provided patient education, and recommended follow-up with primary care provider when appropriate. If patient noted with a risk of falling, they received education on strength, gait, and balance training to prevent future risk of falling. Assessment and Plan Assessment and Plan (1) Fracture of lumbar spine: Assessment and Plan: anterior wedge compression fx at L1 and moderate degenerative changes of lumbar spine noted on lumbar xray 09/13 (2) Lumbar spondylosis: (3) Thoracic back pain: (4) Osteoarthritis: (5) Chronic prescription opiate use: Assessment and Plan: I feel these medications are improving the patient's quality of life and allow them to tolerate activities of daily living as well as participate in recreational activity.? The patient does not report intolerable side effects. The patient is NOT opioid naive and non-pharmacologic and non-opioid treatment has failed to significantly relieve the patient's pain and improve functionality. The patient has a diagnosis that is related to a somatic or visceral pain etiology. ? ?? I reviewed with the patient the potential risks and side effects with the use of? opioid medications including but not limited to respiratory depression,? sedation, and even . I verified the patient has access to naloxone should? these effects occur. I advised the patient to avoid the use of any other? sedation substances including alcohol, THC, and benzodiazepines while? taking opioid medications due to the risk of compounding side effects and? detrimental outcomes. I reviewed the FINANCIAL OFFICER, pain treatment agreement, urine? drug screen, and opioid start talking forms. The patient was advised to let? their family know they had Naloxone in case they would need to administer? the medication.? ?? A drug screen was completed within the last year, and no aberrancies were noted regarding their use of controlled substances. The patient understands they are subject to the terms and conditions of the pain contract that they have signed. ? ?? I have checked an OARRS report on this patient today and there are no aberrancies noted in the prescribing history.? (6) Myofascial pain: Plan refer to Dr Shelton to discuss surgical options for L1 anterior wedge compression fx, patient hesitant to proceed with sx. restart duloxetine 20mg HS continue tylenol #3 BID PRN moderate to severe pain declining bilateral T7,8,9 facet medial branch blocks at this time, consider in the future f/u 3 months
--- OUTSIDE RECORDS SUMMARY | 2024-01-23 09:00 | XMS_ITS | CCD ---
Author Organization [facility] Care Team Providers Care Hostess Party Sales Representative Name Role Phone MITZI GALEAS Admitting Unavailable ESQUIVEL, SARAH L Primary Care Unavailable KATLIN KNOWLES Attending Unavailabl e ESQUIVEL, SARAH L Primary Care Unavailable Esquivel, Sarah L Primary Care Provider Nicolasa MITCHELL Admitting Unavailable Nicolasa MITCHELL Attending Unavailable ESQUIVEL, SARAH L Primary Care Unavailable Esquivel Sarah L Primary Care Provider JAYLON ., DR FRANCK Chaparro Admitting Unavailable IYER ., DR FRANCK Chaparro Attending Unavailable [facility] Primary Care Unavailable VALDEZ ., DORIE Consulting Unavailable IYER ., DR FRANCK Chaparro Admitting Unavailable IYER ., DR FRANCK Chaparro Attending Unavailable [facility] Primary Care Unavailable VALDEZ ., DORIE Consulting Unavailable IYER ., DR FRANCK Chaparro Admitting Unavailable IYER ., DR FRANCK Chaparro Attending Unavailable [facility] Primary Care Unavailable VALDEZ ., DORIE Consulting Unavailable IYER ., DR FRANCK Chaparro Admitting Unavailable IYER ., DR FRANCK Chaparro Attending Unavailable [facility] Primary Care Unavailable VALDEZ ., DORIE Consulting Unavailable LAKSHMIPATHY ., JAYLEEN Admitting Angelica vailable LAKSHMIPATHY ., JAYLEEN Attending Angelica vailable [facility] Primary Care Unavailable HALSOTO .CARINE Consulting Unavailable PHILIPPE OROSCO Referring Unavailable [...] 0 02-21-2022 TSH 1.180 uIU/mL Normal 0.400-4.500 [facility] Comment on above: Performed By: #### T SH reflex FT4 #### [facility] [address], [place] [id number] US Aorta Screeningon 022 US Aorta Screening FINDINGS: Proximal Aorta2.9 x 2.3 cm Mid Aorta1.6 x 2.1 cm Distal Aorta1.3 x 1.3 cm Right Common Iliac9 x 10 mm Left Common Iliac10 x 13 mm No aneurysmal dilatation is identified. No neighboring fluid collections are seen. IMPRESSION: No significant aneurysmal formation. Report reported and signed by Kenneth Kan on 01/27/2022 0911 Normal [facility] Comprehensive Metabolic Pane zee 01-20-2022 Albumin [Mass/Vol] 4.5 g/dL Normal 3.6-5.1 [facility] Comment on above: Performed By: #### L IPD, CMP #### [facility] [address], [place] [id number] Albumin/Globulin [Mass ratio] 2.4 {ratio} Normal 1.0-2.5 [facility] Comment on above: Performed By: #### L IPD, CMP #### [facility] [address], [place] [id number] ALP [Catalytic activity/Vol] 69 U/L Normal 40-129 [facility] Comment on above: Performed By: #### L IPD, CMP #### [facility] [address], [place] [id number] ALT [Catalytic activity/Vol] 23 U/L Normal 9-46 [facility] Comment on above: Result Comment: 09/21 Female reference range changed. Performed By: #### L IPD, CMP #### [facility] [address], [place] [id number] Anion gap [Moles/Vol] 15 mmol/L Normal 12-20 [facility] Special[facility] Comment on above: Result Comment: Effgarcía ctive 10/27/2019 reference range changed. Performed By: #### L IPD, CMP #### [facility] [address], [place] [id number] AST [Catalytic activity/Vol] 18 U/L Normal 10-40 [facility] Comment on above: Performed By: #### L IPD, CMP #### [facility] [address], [place] [id number] Bilirubin [Mass/Vol] 0.80 mg/dL Normal 0.30-1.20 [facility] Comment on above: Performed By: #### L IPD, CMP #### [facility] [address], [place] [id number] BUN/CREA 25 Ratio High 6-22 [facility] Comment on above: Performed By: #### L IPD, CMP #### [facility] [address], [place] [id number] Calcium [Mass/Vol] 9.9 mg/dL Normal 8.6-10.2 [facility] Comment on above: Performed By: #### L IPD, CMP #### [facility] [address], [place] [id number] Chloride [Moles/Vol] 106 mmol/L Normal 98-107 [facility] Comment on above: Performed By: #### L IPD, CMP #### [facility] [address], [place] [id number] CO2 [Moles/Vol] 25 mmol/L Normal 20-31 [facility] Comment on above: Performed By: #### L IPD, CMP #### [facility] [address], [place] [id number] Creatinine [Mass/Vol] 0.9 mg/dL Normal 0.7-1.4 [facility] Comment on above: Performed By: #### L IPD, CMP #### [facility] [address], [place] [id number] eGFRAA 102 mL/min/1.73m2 Normal >60 [facility] [place] [facility] Comment on above: Performed By: #### L IPD, CMP #### [facility] [address], [place] [id number] eGFRNAA 84 mL/min/1.73m2 Normal >60 [facility] Specialist Comment on above: Performed By: #### L IPD, CMP #### [facility] [address], [place] [id number] Globulin (S) [Mass/Vol] 1.9 g/dL Normal 1.9-3.7 [facility]ist Comment on above: Performed By: #### L IPD, CMP #### [facility] [address], [place] [id number] Glucose [Mass/Vol] 101 mg/dL High 65-99 [facility] Specialist Comment on above: Result Comment: For FASTING Glucose --- ADA reference ranges: Normal 65-99 mg/dl Prediabetes 100-125 Diabetes >/= 126 Performed By: #### L IPD, CMP #### [facility] [address], [place] [id number] Potassium [Moles/Vol] 4.3 mmol/L Normal 3.5-5.5 [facility] Comment on above: Performed By: #### L IPD, CMP #### [facility] [address], [place] [id number] Protein [Mass/Vol] 6.4 g/dL Normal 6.1-8.1 [facility] Comment on above: Performed By: #### L IPD, CMP #### [facility] [address], [place] [id number] Sodium [Moles/Vol] 142 mmol/L Normal 135-146 [facility]ist Comment on above: Performed By: #### L IPD, CMP #### [facility] [address], [place] [id number] Urea nitrogen [Mass/Vol] 22 mg/dL Normal 7-25 [facility] Comment on above: Performed By: #### L IPD, CMP #### [facility] [address], [place] [id number] Lipid Panelon 01-20-2022 Cholesterol [Mass/Vol] 239 mg/dL High 125-200 [facility] Comment on above: Result Comment: Low risk < 200mg/dL Borderline risk 201-239 mg/dl High risk > or equal to 240 Performed By: #### L IPD, CMP #### [facility] [address], [place] [id number] Cholesterol in HDL [Mass/Vol] 66 mg/dL Normal >40 [facility] Comment on above: Result Comment: High Cardiovascular Risk HDL <40 mg/dL Low Cardiovascular Risk HDL > or equal to 60 mg/dl Performed By: #### L IPD, CMP #### [facility] [address], [place] [id number] Cholesterol in LDL [Mass/Vol] 149 mg/dL Normal [facility] Comment on above: Result Comment: LDL ATP III CLASSIFICATION LDL less than 100 mg/dl Optimal LDL 100-129 mg/dl Near or above optimal LDL 130-159 Borderline high LDL 160-189 High LDL greater than 189 mg/dl Very High Performed By: #### L IPD, CMP #### [facility] [address], [place] [id number] Cholesterol in VLDL [Mass/Vol] 24 mg/dL Normal [facility] Comment on above: Performed By: #### L IPD, CMP #### [facility] [address], [place] [id number] Cholesterol.total/Ch olesterol in HDL [Mass ratio] 4 {ratio} Normal [facility] Comment on above: Performed By: #### L IPD, CMP #### [facility] [address], [place] [id number] Triglyceride [Mass/Vol] 119 mg/dL Normal 30-150 [facility] Comment on above: Result Comment: TRIG ATPIII CLASSIFICATIONS TRIG less than 150 mg/dl Normal TRIG 150-199 mg/dl Borderline High TRIG 200-500 mg/dl High TRIG greather than 500 mg/dl Very High Performed By: #### L IPD, CMP #### [facility] [address], [place] [id number] PSA SCREEN (MEDICARE)on TPSA 1.110 ng/mL Normal <4.000 [facility] Special[facility] Comment on above: Result Comment: PSA Test Method: ECLIA/Bre e 601 Performed By: #### P SA #### [facility] [address], [place] [id number] CV IR EPIDURAL STEROID INJon 03-04-2020 Fluoroscopically guided lumbar epidural steroid injection as outlined above. NICKY/sandhya Workstation ID: [id number] [facility] HISTORY/CLINICAL DATA: Lumbago EXAMINATION: VIA A POSTERIOR APPROACH 1. FLUOROSCOPICALLY GUIDED LUMBAR EPIDURAL STEROID INJECTION. COMPARISON: None. MANUAL TESTER(S): Nicolasa Mitchell MD. PROCEDURE: FLUOROSCOPY TIME: 0.2 [...] the procedure well without immediate postprocedural complications. [facility] Interface, Rad In Sandra Speechq - 03/04/2020 10:35 AM EDT HISTORY/CLINICAL DATA: Lumbago EXAMINATION: VIA A POSTERIOR APPROACH 1. FLUOROSCOPICALLY GUIDED LUMBAR EPIDURAL STEROID INJECTION. COMPARISON: None. MANUAL TESTER(S): Nicolasa Mitchell MD. PROCEDURE: FLUOROSCOPY TIME: 0.2 [...] lumbar epidural steroid injection as outlined above. [employer] Workstation ID: [id number] [facility] PT/INRon 03-04-2020 INR Coag (PPP) [Relative time] 1.0 {INR} [facility] Interpretation and review of laboratory results Normal [facility] PT Coag (PPP) [Time] 12.4 s [facility] During the induction phase of oral anticoagulation, the INR may not reflect the anticoagulation status of the patient. Therapeutic ranges for INR's are: Most clinical situations: INR 2.0-3.0 Mechanical Prosthetic Valve: INR 2.5-3.5 Critical: INR >5.[address] [facility] Platelet Counton 03-04-2020 Interpretation and review of laboratory results Normal [facility] Platelet mean volume (Bld) [Entitic vol] 11.0 fL 9 - 15.[address] [facility] Platelets (Bld) [#/Vol] 178 10*3/uL [facility] CV IR EPIDURAL STEROID INJon 02-24-2020 CV IR EPIDURAL STEROID INJ HISTORY/CLINICAL DATA: Lumbago EXAMINATION: VIA A POSTERIOR APPROACH 1. FLUOROSCOPICALLY GUIDED LUMBAR EPIDURAL STEROID INJECTION. COMPARISON: None. MANUAL TESTER(S): Nicolasa Mitchell MD. PROCEDURE: FLUOROSCOPY TIME: 0.2 [...] lumbar epidural steroid injection as outlined above. [employer] Workstation ID: [id number] Dictated by: Nicolasa MITCHELL on SunMarch 04, 2020 10:21:09 AM EDT Transcribed by: FIGUEROA GUTIERREZ on SunMarch 04, 2020 10:25:58 AM EDT Finalized by: Nicolasa MITCHELL on SunMarch 04, 2020 10:33:02 AM EDT Normal [facility] Vital Signs Date Time Vital Sign Value Performing Clinician Colini francheska 03-04-2020 10:26-0400 Body Temperature 98.4 [degF] Nicolasa [facility] 03-04-2020 10:26-0400 BP Diastolic 83 mm[Hg] Nicolasa [facility] 03-04-2020 10:26-0400 BP Systolic 146 mm[Hg] Nicolasa [facility] 03-04-2020 10:26-0400 Pulse (Heart Rate) 53 /min Jenny [facility] 03-04-2020 10:26-0400 Pulse Oximetry 97 % Nicolasa [facility] 03-04-2020 10:26-0400 Respiratory Rate 14 /[facility] 03-04-2020 08:15-0400 BMI (Body Mass Index) 31.57 kg/m2 [facility] 03-04-2020 08:15-0400 Body weight 99.79 kg [facility] 03-04-2020 08:15-0400 Height 177.8 cm [facility] Encounters Encounter Date Encounter Type Care Provider [...] End: 03-10-[address] FRANCK IYER . Facility:[facility] Start: 12-16-2020 End: 12-16-2020 Orders Only Jayshree Lynnette Solano Work Phone: [facility] Start: 03-04-2020 End: 03-04-2020 Patient encounter procedure Nicolasa MITCHELL [facility] Start: 03-04-2020 End: 03-04-2020 Subsequent hospital visit by physician Nicolasa Mitchell Work Phone: [facility] Comment on above: Lumbago Start: 06-24-2019 Patient encounter procedure KATLIN KNOWLES [facility] Start: 06-12-2019 End: 06-16-2019 Patient encounter procedure MITZI RosalesJenny DANIELSADAL [facility] Procedures Date Procedure Procedure Detail Performing [...] Screening for malign ant neoplasm of colon [facility] Start: 10-12-2025 Tetanus vaccination Tetanus: Every [address] [facility] Start: 06-22-2020 Influenza vaccination given [facility] Start: 2019 Pneumococcal vaccination Pneum ococcal Vaccine Age 65+ (1 of 2 - PCV13) [facility] Start: 12-07-2015 Administration of he rpes zoster vaccine Zoster Vaccines (2 of 3) [facility] Start: 2004 Screening for malign ant neoplasm of colon [facility] Start: 1972 Hepatitis C antibody , confirmatory test Hepatitis C Screening [facility] Start: 1970 COVID-19 Vaccine (1 of 2) COVID-19 V accine (1 of 2) [facility] Start: 1966 Adolescent depressio n screening assessment Depression Screening (PHQ9) [facility] Start: 1957 History and physical examination, annual for health maintenance Wellness Visit [facility] Start: 1954 Fall risk assessment Falls Risk Asse ssment [facility] Start: 1954 Hepatitis C antibody , confirmatory test Hepatitis C Screening [facility] Start: 1954 Prostate specific an tigen measurement PSA Level [facility] Start: 1954 US scan of abdominal aorta Abdominal Aortic Ultrasound [facility] Payers Date Payer Category Payer Unknown [id number] 2015 Unknown [employer] OUT OF STATE [facility] xxxxxxxxxxxxxx 2015-Present xxxxxxxxxxxxxx [id number] 2015 Unknown [employer] OUT OF STATE [facility] [id number] 2015-Present [id number] 2009 Unknown [id number] 1959 Unknown [id number] 1954 Unknown [id number] 1954 Unknown [id number] 1954 Unknown [id number] 1954 Unknown [id number] 1954 Unknown [id number] 1954 Unknown [id number] 1954 Unknown [id number] 1954 Unknown [id number] 1954 Unknown [id number] 9 1954 Unknown [id number] 9 Social History Date Type Detail Facility Start: 03-04-2020 End: 03-05-2020 Tobacco smoking status NHIS Former smoker [facility] Start: 03-04-2020 End: 03-05-2020 Alcohol intake Current drinker of alcohol (finding) [facility] Start: 10-02-2016 Alcohol Comment occasional [facility] Sex Assigned At Not on file [facility] Start: 03-05-2020 Tobacco use and exposure Never used [facility] Consultation note 11-30-2022 Note Date & Type [...] walking, housework and lifting. He does use [id number] menthol patches which help decrease his pain. [...] be done in the office today. [facility] Consultation note 08-24-2022 Note Date & Type [...] and patient agrees with this plan. 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 At [...] 2 months' time unless otherwise indicated. [facility] Consultation note 06-01-2022 Note Date & Type [...] be followed up in the office. [facility] Consultation note 03-09-2022 Note Date & Type [...] patient agrees and all questions were answered. PSYCHIATRIC Signed and Approved by: DORIE VALDEZ . 03/13/2022 15:06:00 [facility] Clinical Note 01-27-2022 Note Date & Type [...] signed by Kenneth Kan on 01/27/2022 0938 [facility] Clinical Note 10-28-2021 Note Date & Type Note Facility 10-28-2021 Note PROCEDURE: [facility] VCT 64, 5.0 mm slice axial images [...] signed by Kenneth Kan on 10/28/2021 0937 [facility] Summary Purpose Family History No Family History Records FoundNo Family History Records FoundNo Family History Records FoundNo Family History Records FoundNo Family History Records FoundNo Family History Records Found Advance Directives No Advanced Directives Records FoundDocuments on File Type Date Recorded Patient Art Handler Expl anation Advance Directives and Livin g Will 03/04/2020 8:02 AM Latest Code Status on File Code Status Date Activated Date Inactivated Comments Full Code - Unverified 03/04/2020 10:12 AM 03/04/2020 12 :43 PM Documents on File Type Date Recorded Patient Art Handler Expl anation Advance Directives and Livin g Will 03/04/2020 8:02 AM Latest Code Status on File Code Status Date Activated Date Inactivated Comments Full Code - Unverified 03/04/2020 10:12 AM 03/04/2020 12 :43 PM Discharge Instructions * Attachments The following attachments cannot be sent through Care Everywhere. * Lumbar Epidural Steroid Injections: General Info (Belizean) * Post-op Infection (Belizean) documented in this encounter Assessments Diagnosis Lumbago Additional Source Comments (unrecognized sect ion and content) No Status Records FoundNo Status Records FoundNo Status Records FoundNo Status Records FoundNo Status Records FoundNo Status Records Found INFORMATION SOURCE (unrecogn ized section and content) DATE CREATED AUTHOR 06/16/2019 [facility] DATE CREATED AUTHOR AUTHOR'S ORGANIZ ATION 06/25/2019 [facility] DATE CREATED AUTHOR AUTHOR'S ORGANIZ ATION 03/10/2020 [facility] DATE CREATED AUTHOR AUTHOR'S ORGANIZ ATION 02/23/2022 [facility] Specialist DATE CREATED AUTHOR AUTHOR'S ORGANIZ ATION 03/05/2023 [facility] DATE CREATED AUTHOR AUTHOR'S ORGANIZ ATION 09/24/2023 [facility] d[facility] Specialists EPIC Reason for Visit (unrecogniz ed section and content) Status Reason Specialty Diagnoses / Procedures Referre d By Contact Referred To Contact Diagnoses Lumbago Lumbago [M54.5] Procedures IR EPIDURAL STEROID INJ Nicolasa Mitchell MD - 03/04/2020 10:11 AM EDT Procedure Notes (unrecognize d section and content) Vascular & Interventional Radiology Provided By [facility] (Diagnostic Radiology, Interventional and Neurointerventional Radiology and Vascular Medicine) Interventional Radiology Department @ [facility]: [phone] 14/05 VIR physician contact: [phone]) Weekday VIR nurse practitioner contact @ [facility]: [phone] [facility]: [phone] [email or web address] [facility] [employer] DES[employer] PRINTER DIRECTORY PROCEDURE: Fluoroscopic guided lumbar epidural steroid injection @ L5-S1 PLAN: Repeat epidural steroid injection can be offered, as needed Date: 03/04/2020 Patient Name: Neville Schmitz Patient : 1955 Physician: Nicolasa Mitchell MD Sedation Plan: None [place] Protocol: Pre-Procedural verification: Correct patient, correct site [...] BE BASED ON THE PRIMARY CLINICAL RECORDS. [employer] [facility]. provides no warranty or guarantee of the accuracy or completeness of information in this document.
== END 2024-01-23 08:44 | disposition home or self-care (01) ==
PROVIDERS: Visit Provider Nurse Practitioner
DX: M48.56XA Collapsed vertebra, not elsewhere classified, lumbar region, initial encounter for fracture (principal); M47.816 Spondylosis without myelopathy or radiculopathy, lumbar region; M54.6 Pain in thoracic spine; M19.90 Unspecified osteoarthritis, unspecified site; Z79.891 Long term (current) use of opiate analgesic; M79.18 Myalgia, other site
CPT/HCPCS: G0463

== ENCOUNTER 2024-04-30 08:28 | Outpatient (OUT) | payer OTHER, SELFPAY ==
--- NOTE | 2024-04-30 08:43 | PM.CN ---
Consult Note: HPI Data of Consult Patient: known to practice within the last 3 years Requesting Physician: Jenny Machuca NP Primary Care Provider: Non-Staff Physician, Consult Narrative Reason for consult: f/u Narrative: Neville Schmitz a pleasant 67 year old male presents for evaluation and management of chronic back pain. Today rating pain 2/10, pain increases to 8/10 at its worst. Patient continues to benefit from tylenol #3 BID PRN without side effects. At last visit patient requested to restart duloxetine, no longer taking due to side effects. Patient has an upcoming appoint with Dr Doan, recent lumbar MRI without available results. Pain in low back constant, since our last visit has noticed increase in low back pain with numbness tingling to bilateral legs. cc:: CC: Jenny Machuca NP Review of Systems ROS Status of ROS 10 or more systems reviewed and unremarkable except as noted in history and below Musculoskeletal Reports: back pain Meds Home Medications and Allergies Home Medications ?Medication ?Instructions ?Recorded ?Confirmed ?Type acetaminophen 300 mg-codeine 30 mg 1 tab PO BID 05/31/23 05/31/23 History tablet acetaminophen 325 mg capsule 325 mg PO Q6H PRN pain 05/31/23 05/31/23 History (Tylenol) aspirin 81 mg capsule 81 mg PO DAILY 05/31/23 05/31/23 History atorvastatin 80 mg tablet (Lipitor) 80 mg PO DAILY 05/31/23 05/31/23 History gabapentin 300 mg capsule 300 mg PO .HS 05/31/23 05/31/23 History duloxetine 20 mg capsule,delayed 20 mg PO DAILY #30 caps 01/23/24 Rx release Allergies Allergy/AdvReac Type Severity Reaction Status Date / Time No Known Drug Allergies Allergy Verified 05/31/23 09:45 Exam Constitutional Documenting provider has reviewed patient's vital signs: yes Common normals: no apparent distress, oriented x3, healthy appearing, alert and well nourished General appearance: cooperative Orientation/consciousness: Yes awake, Yes oriented to person, Yes oriented to place and Yes oriented to time [facility] Common normals: normocephalic, hearing grossly normal bilaterally and moist oral mucous membranes Head and scalp: normocephalic Eye Common normals: PERRL Pupil: PERRL Neck & C-Spine Common normals: full ROM General: normal visual inspection Chest Common normals: inspection of chest normal Respiratory Common normals: normal respiratory effort, no retractions and no use of accessory muscles Effort & inspection: able to speak in complete sentences and symmetric chest movement Back & Pelvis Thoracic spine/upper back: ROM limited, pain with ROM and thoracic spinal tenderness Lumbar spine/lower back: normal to inspection, ROM limited, pain with ROM, lumbar spinal tenderness, straight leg raise positive right and straight leg raise positive left Other: positive facet load pain bilat lumbar and thoracic pain over T7,8,9 bilateral facet joints notable tenderness over L1 on exam muscle strength 4/5 in BLE, decreased sensation over bilateral L3,4,5 dermatomes. increase in heaviness, numbness, tingling with ambulation Extremity Common normals: normal to inspection and full ROM Neuro Common normals: oriented x3, CN's II-XII intact bilaterally, moves all extremities, no focal motor deficits, no sensory deficits noted and deep tendon reflexes 2+ bilaterally Sensorium/orientation: alert Motor exam: no movement abnormalities noted and strength abnormal Psych Common normals: mental status grossly normal, thought process normal, cooperative, affect normal, speech normal and activity/motor behavior normal Speech: normal speech Thought process: normal thought process Results Additional Findings Additional findings: If on a controlled substance or opioids, I have checked an [place] report on this patient and there are no aberrancies noted in the prescribing history.??If on a controlled substance or opioid a drug screen was completed and reviewed within the last year, and if there has not been a drug screen completed we ordered one today to monitor higher risk, state monitored pain medication use. As part of providing excellent, safe, comprehensive care, the following was completed at our patient's visit: 1. A medication reconciliation and review to ensure accurate knowledge of current/active medications, including asking our patients to inform us about any [id number] medications or herbal remedies/nutritional supplements/alternative remedies. 2. A review to specifically ensure our patients have had annual screening for screening for depression, screening for tobacco use, and screening for unhealthy alcohol use. For concerning screenings had a discussion with the patient, provided patient education, and recommended follow-up with primary care provider when appropriate. If patient noted with a risk of falling, they received education on strength, gait, and balance training to prevent future risk of falling. Assessment and Plan Assessment and Plan (1) Lumbar stenosis with neurogenic claudication: (2) Lumbar radiculopathy: (3) Fracture of lumbar spine: (4) Lumbar spondylosis: (5) Thoracic back pain: (6) Osteoarthritis: (7) Chronic prescription opiate use: Assessment and Plan: I feel these medications are improving the patient's quality of life and allow them to tolerate activities of daily living as well as participate in recreational activity.? The patient does not report intolerable side effects. The patient is NOT opioid naive and non-pharmacologic and non-opioid treatment has failed to significantly relieve the patient's pain and improve functionality. The patient has a diagnosis that is related to a somatic or visceral pain etiology. ? ?? I reviewed with the patient the potential risks and side effects with the use of? opioid medications including but not limited to respiratory depression,? sedation, and even . I verified the patient has access to naloxone should? these effects occur. I advised the patient to avoid the use of any other? sedation substances including alcohol, THC, and benzodiazepines while? taking opioid medications due to the risk of compounding side effects and? detrimental outcomes. I reviewed the [employer], pain treatment agreement, urine? drug screen, and opioid start talking forms. The patient was advised to let? their family know they had Naloxone in case they would need to administer? the medication.? ?? A drug screen was completed within the last year, and no aberrancies were noted regarding their use of controlled substances. The patient understands they are subject to the terms and conditions of the pain contract that they have signed. ? ?? I have checked an [place]AR[place] report on this patient today and there are no aberrancies noted in the prescribing history.? (8) Myofascial pain: Plan pending evaluation with Dr Doan, if non-surgical or no upcoming surgical plan would recommend bilateral L3-4 TFESI followed by bilateral L4-5 TFESI with lumbar stenosis with NC, moderate to severe multilevel foraminal narrowing noted on most recent MRI continue tylenol #3 BID PRN moderate to severe pain f/u 2 weeks after [facility]
== END 2024-04-30 08:29 | disposition home or self-care (01) ==
LOC: PM 08:28
PROVIDERS: Visit Provider Nurse Practitioner
DX: M48.062 Spinal stenosis, lumbar region with neurogenic claudication (principal); M47.26 Other spondylosis with radiculopathy, lumbar region; M54.6 Pain in thoracic spine; M19.90 Unspecified osteoarthritis, unspecified site; Z79.891 Long term (current) use of opiate analgesic; M84.48XA Pathological fracture, other site, initial encounter for fracture; M79.18 Myalgia, other site
CPT/HCPCS: G0463

== ENCOUNTER 2024-05-26 10:44 | Day surgery (SDC) | payer OTHER, SELFPAY ==
--- OUTSIDE RECORDS SUMMARY | 2024-05-26 11:00 | XMS_ITS | CCD ---
Author Organization [facility] Care Team Providers Care Spanish Interpreter/Translator Name Role Phone ADALMITZI Admitting Unavailable ESQUIVEL SARAH L Primary Care Unavailable KATLIN KNOWLES Attending Unavailabl e PATTI ESQUIVELNY L Primary Care Unavailable Sarah Esquivel L Primary Care Provider Nicolasa MITCHELL Admitting Unavailable Nicolasa MITCHELL Attending Unavailable ESQUIVEL SARAH L Primary Care Unavailable EsquivelPattiny L Primary Care Provider JAYLON ., DR FRANCK Chaparro Admitting Unavailable IYER ., DR FRANCK Chaparro Attending Unavailable [facility] KEN[facility] Primary Care Unavailable VALDEZ ., DORIE Consulting Unavailable IYER ., DR FRANCK Chaparro Admitting Unavailable IYER ., DR FRANCK Chaparro Attending Unavailable [facility] Primary Care Unavailable VALDEZ ., DORIE Consulting Unavailable IYER ., DR FRANCK Chaparro Admitting Unavailable IYER ., DR FRANCK Chaparro Attending Unavailable [facility] Primary Care Unavailable VALDEZ ., DORIE Consulting Unavailable IYER ., DR FRANCK Chaparro Admitting Unavailable IYER ., DR FRANCK Chaparro Attending Unavailable [facility] Primary Care Unavailable VALDEZ ., DORIE Consulting Unavailable LAKSHMIPATHY ., NARENDRANATH Admitting Angelica vailable LAKSHMIPATHY ., JAYLEEN Attending Angelica vailable [facility] Primary Care Unavailable HALSOTO .CARINE Consulting Unavailable BIBIANA MYERS Attending Unavailable PHILIPPE OROSCO Referring Unavailable RAYNA JACQUES Referring Unavailable Medications Current Medications Medication Drug [...] Test Name Value Interpretation Reference Range Facility MR LUMBAR SPINE WO CONTRASTo n 03-12-2024 MR LUMBAR SPINE WO CONTRAST EXAMINATION: MR LUMBAR SPINE WO CONTRAST HISTORY: Low back pain radiating into bilateral legs. TECHNIQUE: Routine lumbosacral spine MR protocol without gadolinium. CONTRAST: None. COMPARISON: Radiographs 09/18/2023. RESULT: Counting reference: Lumbosacral junction. For the purposes of this report, L5-S1 is considered the last well-formed disc space. 5 lumbar type vertebral bodies. Alignment: Mild S-shaped curvature. Bone marrow signal: No evidence for recent fracture. No pathologic marrow infiltration. Multiple Schmorl's nodes. Minimal chronic wedge deformity of L1. Conus: The conus is within normal limits of signal intensity and morphology. Paraspinal soft tissues: Colonic diverticulosis. Lower thoracic spine: Visualized lower thoracic canal and foramina without significant narrowing. T12-L1: No significant canal or foraminal narrowing. L1-L2: Disc bulge. Endplate osteophytes. Ligamentous hypertrophy. No significant canal or foraminal narrowing. L2-L3: Broad-based disc bulge. Endplate osteophytes. Ligamentous hypertrophy. Facet degenerative changes. Moderate canal narrowing with moderate bilateral foraminal narrowing. L3-L4: Broad-based disc bulge. Endplate osteophytes. Facet degenerative changes. Ligamentous hypertrophy. Moderate to severe bilateral foraminal narrowing without significant canal narrowing. L4-L5: Broad-based disc bulge. Endplate osteophytes. Facet degenerative changes. Ligamentous hypertrophy. Moderate to severe bilateral foraminal narrowing without significant canal narrowing. L5-S1: Disc bulge. Extensive facet degenerative changes. Mild bilateral foraminal narrowing without significant canal narrowing. Sacrum and iliac wings: The visualized sacrum and iliac wings are within normal limits. IMPRESSION: Multilevel degenerative changes lumbar spine as discussed. ELECTRONICALLY SIGNED BY: Marcos Augustine MD Normal Not Available XR LUMBAR SPINE 4+ VIEWS WIT H [...] TSH w/ Reflex to Free T4on 0 5-03-2022 TSH 1.180 uIU/mL Normal 0.400-4.500 [facility] Specialist Comment on above: Performed By: #### T SH reflex FT4 #### [facility] [address], [place] [id number] US Aorta Screeningon 022 US Aorta Screening FINDINGS: Proximal Aorta2.9 x 2.3 cm Mid Aorta1.6 x 2.1 cm Distal Aorta1.3 x 1.3 cm Right Common Iliac9 x 10 mm Left Common Iliac10 x 13 mm No aneurysmal dilatation is identified. No neighboring fluid collections are seen. IMPRESSION: No significant aneurysmal formation. Report reported and signed by Kenneth Kan on 01/27/2022 0911 Normal [facility] Comprehensive Metabolic Pane zee 01-20-2022 Albumin [Mass/Vol] 4.5 g/dL Normal 3.6-5.1 [facility] Comment on above: Performed By: #### L IPD, CMP #### [facility] [address], [place] [id number] Albumin/Globulin [Mass ratio] 2.4 {ratio} Normal 1.0-2.5 [facility] Comment on above: Performed By: #### L IPD, CMP #### [facility] [address], [place] [id number] ALP [Catalytic activity/Vol] 69 U/L Normal 40-129 [facility] Comment on above: Performed By: #### L IPD, CMP #### [facility] [address], [place] [id number] ALT [Catalytic activity/Vol] 23 U/L Normal 9-46 [facility] Comment on above: Result Comment: 09/21 Female reference range changed. Performed By: #### L IPD, CMP #### [facility] [address], [place] [id number] Anion gap [Moles/Vol] 15 mmol/L Normal 12-20 [facility] Specialist Comment on above: Result Comment: Effe ctive 10/27/2019 reference range changed. Performed By: #### L IPD, CMP #### [facility] [address], [place] [id number] AST [Catalytic activity/Vol] 18 U/L Normal 10-40 [facility] Comment on above: Performed By: #### L IPD, CMP #### [facility] [address], [place] [id number] Bilirubin [Mass/Vol] 0.80 mg/dL Normal 0.30-1.20 [facility] Comment on above: Performed By: #### L IPD, CMP #### [facility] [address], [place] [id number] BUN/CREA 25 Ratio High 6-22 [facility] Comment on above: Performed By: #### L IPD, CMP #### [facility] [address], [place] [id number] Calcium [Mass/Vol] 9.9 mg/dL Normal 8.6-10.2 [facility] Comment on above: Performed By: #### L IPD, CMP #### [facility] [address], [place] [id number] Chloride [Moles/Vol] 106 mmol/L Normal 98-107 [facility] Comment on above: Performed By: #### L IPD, CMP #### [facility] [address], [place] [id number] CO2 [Moles/Vol] 25 mmol/L Normal 20-31 [facility] Comment on above: Performed By: #### L IPD, CMP #### [facility] [address], [place] [id number] Creatinine [Mass/Vol] 0.9 mg/dL Normal 0.7-1.4 [facility] Comment on above: Performed By: #### L IPD, CMP #### [facility] [address], [place] [id number] eGFRAA 102 mL/min/1.73m2 Normal >60 [facility] Comment on above: Performed By: #### L IPD, CMP #### [facility] [address], [place] [id number] eGFRNAA 84 mL/min/1.73m2 Normal >60 [facility] Comment on above: Performed By: #### L IPD, CMP #### [facility] [address] [place], [place] [id number] Globulin (S) [Mass/Vol] 1.9 g/dL Normal 1.9-3.7 [facility] Comment on above: Performed By: #### L IPD, CMP #### [facility] [address], [place] [id number] Glucose [Mass/Vol] 101 mg/dL High 65-99 [facility] Portfolio Manager Comment on above: Result Comment: For FASTING Glucose --- ADA reference ranges: Normal 65-99 mg/dl Prediabetes 100-125 Diabetes >/= 126 Performed By: #### L IPD, CMP #### [facility] [address], [place] [id number] Potassium [Moles/Vol] 4.3 mmol/L Normal 3.5-5.5 [facility] Comment on above: Performed By: #### L IPD, CMP #### [facility] [address], [place] [id number] Protein [Mass/Vol] 6.4 g/dL Normal 6.1-8.1 [facility] [employer]folio Manager Comment on above: Performed By: #### L IPD, CMP #### [facility] [address], [place] [id number] Sodium [Moles/Vol] 142 mmol/L Normal 135-146 [facility] Portfolio Manager Comment on above: Performed By: #### L IPD, CMP #### [facility] [address], [place] [id number] Urea nitrogen [Mass/Vol] 22 mg/dL Normal 7-25 [facility] Comment on above: Performed By: #### L IPD, CMP #### [facility] [address], [place] [id number] Lipid Panelon 01-20-2022 Cholesterol [Mass/Vol] 239 mg/dL High 125-200 [facility] Comment on above: Result Comment: Low risk < 200mg/dL Borderline risk 201-239 mg/dl High risk > or equal to 240 Performed By: #### L IPD, CMP #### [facility] [address], [place] [id number] Cholesterol in HDL [Mass/Vol] 66 mg/dL Normal >40 [facility] Specialist Comment on above: Result Comment: High Cardiovascular Risk HDL <40 mg/dL Low Cardiovascular Risk HDL > or equal to 60 mg/dl Performed By: #### L IPD, CMP #### [facility] [address], [place] [id number] Cholesterol in LDL [Mass/Vol] 149 mg/dL Normal [facility] Specialist Comment on above: Result Comment: LDL ATP III CLASSIFICATION LDL less than 100 mg/dl Optimal LDL 100-129 mg/dl Near or above optimal LDL 130-159 Borderline high LDL 160-189 High LDL greater than 189 mg/dl Very High Performed By: #### L IPD, CMP #### [facility] [address], [place] [id number] Cholesterol in VLDL [Mass/Vol] 24 mg/dL Normal [facility] Specialist Comment on above: Performed By: #### L IPD, CMP #### [facility] [address], [place] [id number] Cholesterol.total/Ch olesterol in HDL [Mass ratio] 4 {ratio} Normal [facility] Specialist Comment on above: Performed By: #### L IPD, CMP #### [facility] [address], [place] [id number] Triglyceride [Mass/Vol] 119 mg/dL Normal 30-150 [facility] Specialist Comment on above: Result Comment: TRIG ATPIII CLASSIFICATIONS TRIG less than 150 mg/dl Normal TRIG 150-199 mg/dl Borderline High TRIG 200-500 mg/dl High TRIG greather than 500 mg/dl Very High Performed By: #### L IPD, CMP #### [facility] [address], [place] [id number] PSA SCREEN (MEDICARE)on TPSA 1.110 ng/mL Normal <4.000 [facility] Specialist Comment on above: Result Comment: PSA Test Method: ECLIA/Bre e 601 Performed By: #### P SA MC #### [facility] [address], [place] [id number] CV IR EPIDURAL STEROID INJon 03-04-2020 Fluoroscopically guided lumbar epidural steroid injection as outlined above. [facility] Workstation ID: [id number] [facility] HISTORY/CLINICAL DATA: Lumbago EXAMINATION: VIA A POSTERIOR APPROACH 1. FLUOROSCOPICALLY GUIDED LUMBAR EPIDURAL STEROID INJECTION. COMPARISON: None. SLURRY MIXER(S): Nicolasa Mitchell MD. PROCEDURE: FLUOROSCOPY TIME: 0.2 [...] the procedure well without immediate postprocedural complications. [facility] Interface, Rad In [facility] - 03/04/2020 10:35 AM EDT HISTORY/CLINICAL DATA: Lumbago EXAMINATION: VIA A POSTERIOR APPROACH 1. FLUOROSCOPICALLY GUIDED LUMBAR EPIDURAL STEROID INJECTION. COMPARISON: None. SLURRY MIXER(S): Nicolasa Mitchell MD. PROCEDURE: FLUOROSCOPY TIME: 0.2 [...] lumbar epidural steroid injection as outlined above. [facility] Workstation ID: [id number] [facility] PT/INRon 03-04-2020 INR Coag (PPP) [Relative time] 1.0 {INR} [facility] Interpretation and review of laboratory results Normal [facility] PT Coag (PPP) [Time] 12.4 s [facility] During the induction phase of oral anticoagulation, the INR may not reflect the anticoagulation status of the patient. Therapeutic ranges for INR's are: Most clinical situations: INR 2.0-3.0 Mechanical Prosthetic Valve: INR 2.5-3.5 Critical: INR >5.0 [facility] Platelet Counton 03-04-2020 Interpretation and review of laboratory results Normal [facility] Platelet mean volume (Bld) [Entitic vol] 11.0 fL 9 - 15.5 fL [facility] Platelets (Bld) [#/Vol] 178 10*3/uL [facility] CV IR EPIDURAL STEROID INJon 02-24-2020 CV IR EPIDURAL STEROID INJ HISTORY/CLINICAL DATA: Lumbago EXAMINATION: VIA A POSTERIOR APPROACH 1. FLUOROSCOPICALLY GUIDED LUMBAR EPIDURAL STEROID INJECTION. COMPARISON: None. SLURRY MIXER(S): Nicolasa Mitchell MD. PROCEDURE: FLUOROSCOPY TIME: 0.2 [...] lumbar epidural steroid injection as outlined above. [facility] Workstation ID: [id number] Dictated by: Nicolasa MITCHELL on SunMarch 04, 2020 10:21:09 AM EDT Transcribed by: FIGUEROA GUTIERREZ on SunMarch 04, 2020 10:25:58 AM EDT Finalized by: Nicolasa MITCHELL on SunMarch 04, 2020 10:33:02 AM EDT Normal [facility] Vital Signs Date Time Vital Sign Value Performing Clinician Faci francheska 03-04-2020 10:26-0400 Body Temperature 98.4 [degF] Nicolasa [facility] 03-04-2020 10:26-0400 BP [facility] 83 [facility]-04-[facility] 10:26-0400 BP Systolic 146 mm[Hg] Nicolasa [facility] 03-04-2020 10:26-0400 Pulse (Heart Rate) 53 /min Nicolasa [facility] 03-04-2020 10:26-0400 Pulse Oximetry 97 % Nicolasa [facility] 03-04-2020 10:26-0400 Respiratory Rate 14 /[facility] 03-04-2020 08:15-0400 BMI (Body Mass Index) 31.57 kg/m2 [facility] 03-04-2020 08:15-0400 Body [facility].79 [facility] 03-04-2020 08:15-0400 Height 177.8 cm [facility] Encounters Encounter Date Encounter Type Care Provider Facility Start: 03-12-2024 End: 03-13-2024 ambulatory DEENAAnuel Maribeth GEORGIE Not Available Start: 02-05-2024 End: 02-05-2024 ambulatory BIBIANA MYERS Not Available Start: 09-18-2023 End: 09-19-2023 ambulatory PHILIPPE OROSCO [...] 12-16-2020 Orders Only Jayshree Solano Work Phone: [facility] Start: 03-04-2020 End: 03-04-2020 Patient encounter procedure Nicolasa MITCHELL [facility] Start: 03-04-2020 End: 03-04-2020 Subsequent hospital visit by physician Nicolasa Mitchell Work Phone: [facility] Comment on above: Lumbago Start: 06-24-2019 Patient encounter procedure KATLIN KNOWLES [facility] Start: 06-12-2019 End: 06-16-2019 Patient encounter procedure MITZI GALEAS [facility] Procedures Date Procedure Procedure Detail Performing [...] Screening for malign ant neoplasm of colon [facility] Start: 10-12-2025 Tetanus vaccination Tetanus: Every 1 0yrs [facility] Start: 06-22-2020 Influenza vaccination given [facility] Start: 2019 Pneumococcal vaccination Pneum ococcal Vaccine Age 65+ (1 of 2 - PCV13) [facility] Start: 12-07-2015 Administration of he rpes zoster vaccine Zoster Vaccines (2 of 3) [facility] Start: 2004 Screening for malign ant neoplasm of colon [facility] Start: 1972 Hepatitis C antibody , confirmatory test Hepatitis C Screening [facility] Start: 1970 COVID-19 Vaccine (1 of 2) COVID-19 V accine (1 of 2) [facility] Start: 1966 Adolescent depressio n screening assessment Depression Screening (PHQ9) [facility] Start: 1957 History and physical examination, annual for health maintenance Wellness Visit [facility] Start: 1954 Fall risk assessment Falls Risk Asse ssment [facility] Start: 1954 Hepatitis C antibody , confirmatory test Hepatitis C Screening [facility] Start: 1954 Prostate specific an tigen measurement PSA Level [facility] Start: 1954 US scan of abdominal aorta Abdominal Aortic Ultrasound [facility] Payers Date Payer Category Payer Unknown [id number] 2015 Unknown [id number] 2015 Unknown [employer] BCBS OUT OF STATE [facility] xxxxxxxxxxxxxx 2015-Present xxxxxxxxxxxxxx [id number] 2015 Unknown [employer] BCBS [place] OF [place] [facility] [id number] 2015-Present [id number] 2009 Unknown [id number] 1959 Unknown [id number] 1954 Unknown [id number] 1954 Unknown [id number] 1954 Unknown [id number] [id number] 1954 Unknown [id number] [id number] 1954 Unknown [id number] [id number] 1954 Unknown [id number] [id number] 1954 Unknown [id number] [id number] 1954 Unknown [id number] [id number] 1954 Unknown [id number] [id number] 9 1954 Unknown [id number] [id number] 9 1954 Unknown [id number] [id number] 9 1954 Unknown [id number] 9 Social History Date Type Detail Facility Start: 03-04-2020 End: 03-05-2020 Tobacco smoking status NHIS Former smoker [facility] Start: 03-04-2020 End: 03-05-2020 Alcohol intake Current drinker of alcohol (finding) [facility] Start: 10-02-2016 Alcohol Comment occasional [facility] Sex Assigned At Not on file [facility] Start: 03-05-2020 Tobacco use and exposure Never used [facility] Consultation note 11-30-2022 Note Date & [...] walking, housework and lifting. He does use mhcp-[id number] menthol patches which help decrease his pain. [...] be done in the office today. [facility] Consultation note 08-24-2022 Note Date [...] and patient agrees with this plan. 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 At [...] 2 months' time unless otherwise indicated. [facility] Consultation note 06-01-2022 Note Date [...] be followed up in the office. [facility] Consultation note 03-09-2022 Note Date [...] patient agrees and all questions were answered. [facility] Signed and Approved by: DORIE VALDEZ . 03/13/2022 15:06:00 [facility] Clinical Note 01-27-2022 Note Date [...] 01/27/2022 0938 [facility] Specialist Clinical Note 10-28-2021 Note Date & Type Note Facility 10-28-2021 Note PROCEDURE: [employer] VCT 64, 5.0 mm slice axial images [...] signed by Kenneth Kan on 10/28/2021 0937 [facility] Summary Purpose Family History No Family History Records FoundNo Family History Records FoundNo Family History Records FoundNo Family History Records FoundNo Family History Records FoundNo Family History Records Found Advance Directives No Advanced Directives Records FoundDocuments on File Type Date Recorded 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 * Lumbar Epidural Steroid Injections: General Info (Sudanese) * Post-op Infection (Sudanese) documented in this encounter Assessments Diagnosis Lumbago Additional Source Comments (unrecognized sect ion and content) No Status Records FoundNo Status Records FoundNo Status Records FoundNo Status Records FoundNo Status Records FoundNo Status Records Found INFORMATION SOURCE (unrecogn ized section and content) DATE CREATED AUTHOR 06/16/2019 [facility] DATE CREATED AUTHOR AUTHOR'S ORGANIZ ATION 06/25/2019 [facility] DATE CREATED AUTHOR AUTHOR'S ORGANIZ ATION 03/10/2020 [facility] DATE CREATED AUTHOR AUTHOR'S ORGANIZ ATION 02/23/2022 [facility] DATE CREATED AUTHOR AUTHOR'S ORGANIZ ATION 03/05/2023 [facility] DATE CREATED AUTHOR AUTHOR'S ORGANIZ ATION 03/17/2024 [facility] EPIC Reason for Visit (unrecogniz ed section and content) Status Reason Specialty Diagnoses / Procedures Referre d By Contact Referred To Contact Diagnoses Lumbago Lumbago [M54.5] Procedures IR EPIDURAL STEROID INJ Nicolasa Mitchell MD - 03/04/2020 10:11 AM EDT Procedure Notes (unrecognize d section and content) Vascular & Interventional Radiology Provided By [facility] (Diagnostic Radiology, Interventional and Neurointerventional Radiology and Vascular Medicine) Interventional Radiology Department @ [facility]: [phone] 14/05 VIR physician contact: [phone]) Weekday VIR nurse practitioner contact @ [facility]: [phone] [facility]: [phone] [email or web address] [employer] JOURNALIST DIRECTORY PROCEDURE: Fluoroscopic guided lumbar epidural steroid injection @ L5-S1 PLAN: Repeat epidural steroid injection can be offered, as needed Date: 03/04/2020 Patient Name: Neville Schmitz Patient : 1955 Physician: Nicolasa Mitchell MD Sedation Plan: None [place] Protocol: Pre-Procedural verification: Correct patient, correct site [...] BE BASED ON THE PRIMARY CLINICAL RECORDS. [employer] provides no warranty or guarantee of the accuracy or completeness of information in this document.
[2024-05-26 11:06] VITALS: BP 156/80; PULSE 50; TEMP 36.2; O2SAT 96
[2024-05-26 11:32] VITALS: BP 186/77; PULSE 52; O2SAT 97
[2024-05-26 11:33] VITALS: BP 162/73; PULSE 49; O2SAT 98
[2024-05-26] MEDS: BUPIVACAINE HCL 0.25% PF 25 MG/10 ML VIAL INJ (11:34)
[2024-05-26] MEDS: 0.9 % SODIUM CHLORIDE 10 ML SYRINGE - SALINE FLUSH INJ (11:34)
[2024-05-26] MEDS: IOHEXOL 240 MG/ML - 10 ML VIAL INJ (11:35)
[2024-05-26] MEDS: LIDOCAINE HCL 2% 400 MG/20 ML MDV 5 ML INJ (11:35)
[2024-05-26] MEDS: DEXAMETHASONE SOD PHOS 10 MG/ML VIAL INJ (11:35)
--- NOTE | 2024-05-26 11:39 | W.PM.PROCNOT ---
Date of procedure: 05/26/24 Pre-op diagnosis: Pain due to lumbar stenosis with neurogenic claudication Post-op diagnosis: same as pre-op Procedure: Procedure: Bilateral L3-4 transforaminal epidural steroid injection Medications: Bupivacaine 0.25% 2cc, lidocaine 2% 1cc, dexamethasone 10mg The patient was seen and examined in the preoperative holding area.? Informed consent was obtained and placed on the chart.? Patient was brought to the medical procedure unit and placed in the prone position where a timeout was completed verifying the correct patient, procedure site, position, and planned special equipment using sterile aseptic technique.? Under direct fluoroscopic visualization a 25-gauge Quincke tipped spinal needle was advanced at level left L3-4 to the designated neural foramen where contrast dye was injected to show adequate spread.? There was no evidence of vascular or adverse uptake.? Epidural spread was appreciated.? The above-mentioned injectate was then placed in a 1.5 mL aliquot preceded by negative aspiration.? The needle was removed. The same procedure, at the same level, was completed on the opposite side. ? Patient was taken to the postprocedural recovery area and monitored for an appropriate length of time before found suitable for discharge in the accompaniment of a responsible adult. Anesthesia: Local Surgeon: Anamaria Pollock Pathology: none sent Condition: stable Disposition: no change
== END 2024-05-26 11:44 | disposition home or self-care (01) ==
LOC: SURGOUT 10:45
PROVIDERS: Visit Provider Anesthesiology
DX: M48.062 Spinal stenosis, lumbar region with neurogenic claudication (principal)
CPT/HCPCS: 64483; J0665; J1100; Q9966

== ENCOUNTER 2024-06-09 08:52 | Day surgery (SDC) | payer OTHER, SELFPAY ==
--- OUTSIDE RECORDS SUMMARY | 2024-06-09 09:06 | XMS_ITS | CCD ---
Author Organization [facility] Care Team Providers Care Assembly Cleaner Name Role Phone MITZI GALEAS Admitting Unavailable ESQUIVEL, SARAH L Primary Care Unavailable KATLIN KNOWLES Attending Unavailabl e ESQUIVEL, SARAH L Primary Care Unavailable Esquivel Sarah L Primary Care Provider Nicolasa MITCHELL Admitting Unavailable Nicolasa MITCHELL Attending Unavailable ESQUIVEL, SARAH L Primary Care Unavailable Esquivel, Sarah L Primary Care Provider JAYLON ., DR FRANCK Chaparro Admitting Unavailable IYER ., DR FRANCK Chaparro Attending Unavailable [facility] Primary Care Unavailable VALDEZ ., DORIE Consulting Unavailable IYER ., DR FRANCK Chaparro Admitting Unavailable IYER ., DR FRANCK Chaparro Attending Unavailable [facility] Primary Care Unavailable VALDEZ ., DORIE Consulting Unavailable IYER ., DR FRANCK Chaparro Admitting Unavailable IYER ., DR FRANCK Chaparro Attending Unavailable [facility] Primary Care Unavailable VALDEZ ., DORIE Consulting Unavailable IYER ., DR FRANCK Chaparro Admitting Unavailable IYER ., DR FRANCK Chaparro Attending Unavailable [facility] Primary Care Unavailable VALDEZ ., DORIE Consulting Unavailable LAKSHMIPATHY ., NARENDRANATH Admitting Angelica vailable LAKSHMIPATHY ., CARYATH Attending Angelica vailable [facility] Primary Care Unavailable HALKER .CARINE Consulting Unavailable BIBIANA MYERS Attending Unavailable PHILIPPE OROSCO Referring Unavailable RAYNA JACQUES Referring Unavailable Maris DAVID, Anamaria June Attending Unavailable Medications Current Medications Medication Drug Class(es) [...] 0 5-03-2022 TSH 1.180 uIU/mL Normal 0.400-4.500 [facility] [place] Comment on above: Performed By: #### T SH reflex FT4 #### [facility] [address], [place] [id number] US Aorta Screeningon 022 US Aorta Screening FINDINGS: Proximal Aorta2.9 x 2.3 cm Mid Aorta1.6 x 2.1 cm Distal Aorta1.3 x 1.3 cm Right Common Iliac9 x 10 mm Left Common Iliac10 x 13 mm No aneurysmal dilatation is identified. No neighboring fluid collections are seen. IMPRESSION: No significant aneurysmal formation. Report reported and signed by Kenneth Kan on 01/27/2022 0911 Normal [facility] Comprehensive Metabolic Pane zee 01-20-2022 Albumin [Mass/Vol] 4.5 g/dL Normal 3.6-5.1 [facility] Comment on above: Performed By: #### L IPD, CMP #### [facility] [address], [place] [id number] Albumin/Globulin [Mass ratio] 2.4 {ratio} Normal 1.0-2.5 [facility] Comment on above: Performed By: #### L IPD, CMP #### [facility] [address], [place] [id number] ALP [Catalytic activity/Vol] 69 U/L Normal 40-129 [facility] Comment on above: Performed By: #### L IPD, CMP #### [facility] [address], [place] [id number] ALT [Catalytic activity/Vol] 23 U/L Normal 9-46 [facility] Comment on above: Result Comment: 09/21 Female reference range changed. Performed By: #### L IPD, CMP #### [facility] [address], [place] [id number] Anion gap [Moles/Vol] 15 mmol/L Normal 12-20 [facility] Comment on above: Result Comment: Effe ctive 10/27/2019 reference range changed. Performed By: #### L IPD, CMP #### [facility] [address], [place] [id number] AST [Catalytic activity/Vol] 18 U/L Normal 10-40 [facility] Comment on above: Performed By: #### L IPD, CMP #### [facility] [address], [place] [id number] Bilirubin [Mass/Vol] 0.80 mg/dL Normal 0.30-1.[address] [facility] Comment on above: Performed By: #### L IPD, CMP #### [facility] [address], [place] [id number] BUN/CREA 25 Ratio High 6-22 [facility] Comment on above: Performed By: #### L IPD, CMP #### [facility] [address], [place] [id number] Calcium [Mass/Vol] 9.9 mg/dL Normal 8.6-10.2 [facility] Comment on above: Performed By: #### L IPD, CMP #### [facility] [address], [place] [id number] Chloride [Moles/Vol] 106 mmol/L Normal 98-[address] [facility] Comment on above: Performed By: #### L IPD, CMP #### [facility] [address], [place] [id number] CO2 [Moles/Vol] 25 mmol/L Normal 20-31 [facility] Comment on above: Performed By: #### L IPD, CMP #### [facility] [address], [place] [id number] Creatinine [Mass/Vol] 0.9 mg/dL Normal 0.7-1.4 [facility] Comment on above: Performed By: #### L IPD, CMP #### [facility] [address] [facility] [place] [id number] eGFRAA 102 mL/min/1.73m2 Normal >60 [facility] Comment on above: Performed By: #### L IPD, CMP #### [facility] [address] [facility] [place] [id number] eGFRNAA 84 mL/min/1.73m2 Normal >60 [facility] Comment on above: Performed By: #### L IPD, CMP #### [facility] [address] [place], [place] [id number] Globulin (S) [Mass/Vol] 1.9 g/dL Normal 1.9-3.7 [facility] Comment on above: Performed By: #### L IPD, CMP #### [facility] [address], [place] [id number] Glucose [Mass/Vol] 101 mg/dL High 65-99 [facility] Comment on above: Result Comment: For FASTING Glucose --- ADA reference ranges: Normal 65-99 mg/dl Prediabetes 100-125 Diabetes >/= 126 Performed By: #### L IPD, CMP #### [facility] [address], [place] [id number] Potassium [Moles/Vol] 4.3 mmol/L Normal 3.5-5.5 [facility] Comment on above: Performed By: #### L IPD, CMP #### [facility] [address], [place] [id number] Protein [Mass/Vol] 6.4 g/dL Normal 6.1-8.1 [facility] Comment on above: Performed By: #### L IPD, CMP #### [facility] [address], [place] [id number] Sodium [Moles/Vol] 142 mmol/L Normal 135-146 [facility] Comment on above: Performed By: #### L IPD, CMP #### [facility] [address], [place] [id number] Urea nitrogen [Mass/Vol] 22 mg/dL Normal 7-25 [facility] Comment on above: Performed By: #### L IPD, CMP #### [facility] [address], [place] [id number] Lipid Panelon 01-20-2022 Cholesterol [Mass/Vol] 239 mg/dL High 125-200 [facility] Comment on above: Result Comment: Low risk < 200mg/dL Borderline risk 201-239 mg/dl High risk > or equal to 240 Performed By: #### L IPD, CMP #### [facility] [address], [place] [id number] Cholesterol in HDL [Mass/Vol] 66 mg/dL Normal >40 [facility] Comment on above: Result Comment: High Cardiovascular Risk HDL <40 mg/dL Low Cardiovascular Risk HDL > or equal to 60 mg/dl Performed By: #### L IPD, CMP #### [facility] [address], [place] [id number] Cholesterol in LDL [Mass/Vol] 149 mg/dL Normal [facility] Comment on above: Result Comment: LDL ATP III CLASSIFICATION LDL less than 100 mg/dl Optimal LDL 100-129 mg/dl Near or above optimal LDL 130-159 Borderline high LDL 160-189 High LDL greater than 189 mg/dl Very High Performed By: #### L IPD, CMP #### [facility] [address], [place] [id number] Cholesterol in VLDL [Mass/Vol] 24 mg/dL Normal [facility] Comment on above: Performed By: #### L IPD, CMP #### [facility] [address], [place] [id number] Cholesterol.total/Ch olesterol in HDL [Mass ratio] 4 {ratio} Normal [facility] Comment on above: Performed By: #### L IPD, CMP #### [facility] [address], [place] [id number] Triglyceride [Mass/Vol] 119 mg/dL Normal 30-150 [facility] Comment on above: Result Comment: TRIG ATPIII CLASSIFICATIONS TRIG less than 150 mg/dl Normal TRIG 150-199 mg/dl Borderline High TRIG 200-500 mg/dl High TRIG greather than 500 mg/dl Very High Performed By: #### L IPD, CMP #### [facility] [address], [place] [id number] PSA SCREEN (MEDICARE)on TPSA 1.110 ng/mL Normal <4.000 [facility] Comment on above: Result Comment: PSA Test Method: ECLIA/Bre e 601 Performed By: #### P SA MC #### [facility] [address], [place] [id number] CV IR EPIDURAL STEROID INJon 03-04-2020 Fluoroscopically guided lumbar epidural steroid injection as outlined above. Kenandy/[employer] Workstation ID: [id number] [facility] HISTORY/CLINICAL DATA: Lumbago EXAMINATION: VIA A POSTERIOR APPROACH 1. FLUOROSCOPICALLY GUIDED LUMBAR EPIDURAL STEROID INJECTION. COMPARISON: None. RESIDENTIAL ADVISOR(S): Nicolasa Mitchell MD. PROCEDURE: FLUOROSCOPY TIME: 0.2 [...] the procedure well without immediate postprocedural complications. [facility] Interface, Rad In [facility] Speech - 03/04/2020 10:35 AM EDT HISTORY/CLINICAL DATA: Lumbago EXAMINATION: VIA A POSTERIOR APPROACH 1. FLUOROSCOPICALLY GUIDED LUMBAR EPIDURAL STEROID INJECTION. COMPARISON: None. RESIDENTIAL ADVISOR(S): Nicolasa Mitchell MD. PROCEDURE: FLUOROSCOPY TIME: 0.2 [...] lumbar epidural steroid injection as outlined above. [employer] Workstation ID: [id number] [facility] PT/INRon 03-04-2020 INR Coag (PPP) [Relative time] 1.0 {INR} [facility] Interpretation and review of laboratory results Normal [facility] PT Coag (PPP) [Time] 12.4 s [facility] During the induction phase of oral anticoagulation, the INR may not reflect the anticoagulation status of the patient. Therapeutic ranges for INR's are: Most clinical situations: INR 2.0-3.0 Mechanical Prosthetic Valve: INR 2.5-3.5 Critical: INR >5.0 [facility] Platelet Counton 03-04-2020 Interpretation and review of laboratory results Normal [facility] Platelet mean volume (Bld) [Entitic vol] 11.0 fL 9 - 15.5 fL [facility] Platelets (Bld) [#/Vol] 178 10*3/uL [facility] CV IR EPIDURAL STEROID INJon 02-24-2020 CV IR EPIDURAL STEROID INJ HISTORY/CLINICAL DATA: Lumbago EXAMINATION: VIA A POSTERIOR APPROACH 1. FLUOROSCOPICALLY GUIDED LUMBAR EPIDURAL STEROID INJECTION. COMPARISON: None. RESIDENTIAL ADVISOR(S): Nicolasa Mitchell MD. PROCEDURE: FLUOROSCOPY TIME: 0.2 [...] lumbar epidural steroid injection as outlined above. [employer] Workstation ID: [id number] Dictated by: Nicolasa MITCHELL on SunMarch 04, 2020 10:21:09 AM EDT Transcribed by: FIGUEROA GUTIERREZ on SunMarch 04, 2020 10:25:58 AM EDT Finalized by: Nicolasa MITCHELL on SunMarch 04, 2020 10:33:02 AM EDT Normal [facility] Vital Signs Date Time Vital Sign Value Performing Clinician Mera pritchard 03-04-2020 10:26-0400 Body Temperature 98.4 [degF] [facility] 03-04-2020 10:26-0400 BP Diastolic 83 mm[Hg] [facility] 03-04-2020 10:26-0400 BP Systolic 146 mm[Hg] [facility] 03-04-2020 10:26-0400 Pulse (Heart Rate) 53 /min [facility] 03-04-2020 10:26-0400 Pulse Oximetry 97 % [facility] 03-04-2020 10:26-0400 Respiratory Rate 14 /min [facility] 03-04-2020 08:15-0400 BMI (Body Mass Index) 31.57 kg/m2 [facility] 03-04-2020 08:15-0400 Body weight 99.79 kg [facility] 03-04-2020 08:15-0400 Height 177.8 cm [facility] Encounters Encounter Date Encounter Type Care Provider Facility Start: 05-26-2024 End: 05-26-2024 ambulatory Anamaria Pollock MD Facility: [facility] Start: 03-12-2024 End: 03-13-2024 ambulatory JOSE ANTONIOAGUSTIN Maribeth GEORGIE Not Available Start: 02-05-2024 End: [...] Start: 12-16-2020 End: 12-16-2020 Orders Only Jayshree Church [place] Work Phone: [facility] Start: 03-04-2020 End: 03-04-2020 Patient encounter procedure Nicolasa MITCHELL [facility] Start: 03-04-2020 End: 03-04-2020 Subsequent hospital visit by physician Nicolasa Mitchell Work Phone: [facility] Comment on above: Lumbago Start: 06-24-2019 Patient encounter procedure KATLIN KNOWLES [facility] Start: 06-12-2019 End: 06-16-2019 Patient encounter procedure MITZI Jackie GALEAS [facility] Procedures Date Procedure Procedure Detail [...] Screening for malign ant neoplasm of colon [facility] Start: 10-12-2025 Tetanus vaccination Tetanus: Every 1 0yrs [facility] Start: 06-22-2020 Influenza vaccination given [facility] Start: 2019 Pneumococcal vaccination Pneum ococcal Vaccine Age 65+ (1 of 2 - PCV13) [facility] Start: 12-07-2015 Administration of he rpes zoster vaccine Zoster Vaccines (2 of 3) [facility] Start: 2004 Screening for malign ant neoplasm of colon [facility] Start: 1972 Hepatitis C antibody , confirmatory test Hepatitis C Screening [facility] Start: 1970 COVID-19 Vaccine (1 of 2) COVID-19 V accine (1 of 2) [facility] Start: 1966 Adolescent depressio n screening assessment Depression Screening (PHQ9) [facility] Start: 1957 History and physical examination, annual for health maintenance Wellness Visit [facility] Start: 1954 Fall risk assessment Falls Risk Asse ssment [facility] Start: 1954 Hepatitis C antibody , confirmatory test Hepatitis C Screening [facility] Start: 1954 Prostate specific an tigen measurement PSA Level [facility] Start: 1954 US scan of abdominal aorta Abdominal Aortic Ultrasound [facility] Payers Date Payer Category Payer Unknown [id number] 2023 Medicare 2015 Unknown [id number] 2015 Unknown EFREM BCBS OUT OF [place] [facility] xxxxxxxxxxxxxx 2015-Present xxxxxxxxxxxxxx [id number] 2015 Unknown ANTHEM BCBS [place] OF [place] [facility] [id number] 2015-Present [id number] 2009 Unknown [id number] 1959 Unknown [id number] 1954 Unknown [id number] [id number] 1954 Unknown [id number] [id number] 1954 Unknown [id number] [id number] 1954 Unknown [id number] [id number] 1954 Unknown [id number] [id number] 1954 Unknown [id number] [id number] 1954 Unknown [id number] [id number] 1954 Unknown [id number] [id number] 1954 Unknown [id number] 2.16.840.1.135940.3.579.2.125 9 1954 Unknown [id number] 2.16.840.1.801399.3.579.2.125 9 1954 Unknown [id number] 2.16.840.1.470594.3.579.2.125 9 1954 Unknown [id number] 2.16.840.1.101632.3.579.2.125 9 1954 Unknown [id number] Social History Date Type Detail Facility Start: 03-04-2020 End: 03-05-2020 Tobacco smoking status NHIS Former smoker [facility] Start: 03-04-2020 End: 03-05-2020 Alcohol intake Current drinker of alcohol (finding) [facility] Start: 10-02-2016 Alcohol Comment occasional [facility] Sex Assigned At Not on file [facility] Start: 03-05-2020 Tobacco use and exposure Never used [facility] Consultation note 11-30-2022 Note Date & [...] walking, housework and lifting. He does use [id number] menthol patches which help decrease his pain. [...] be done in the office today. [facility] Consultation note 08-24-2022 Note Date & [...] and patient agrees with this plan. 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 At [...] 2 months' time unless otherwise indicated. [facility] Consultation note 06-01-2022 Note Date & [...] be followed up in the office. [facility] Consultation note 03-09-2022 Note Date & [...] by: DORIE VALDEZ . 03/13/2022 15:06:00 [facility] Clinical Note 01-27-2022 Note Date & [...] signed by Kenneth Kan on 01/27/2022 0938 [facility] Clinical Note 10-28-2021 Note Date & Type Note Facility 10-28-2021 Note PROCEDURE: [facility] VCT 64, 5.0 mm slice axial images [...] signed by Kenneth Kan on 10/28/2021 0937 [facility] [place] [facility] Summary Purpose Family History No Family History Records FoundNo Family History Records FoundNo Family History Records FoundNo Family History Records FoundNo Family History Records FoundNo Family History Records FoundNo Family History Records Found Advance Directives No Advanced Directives Records FoundDocuments on File Type Date Recorded Patient Die Filer Expl anation Advance Directives and Livin g Will 03/04/2020 8:02 AM Latest Code Status on File Code Status Date Activated Date Inactivated Comments Full Code - Unverified 03/04/2020 10:12 AM 03/04/2020 12 :43 PM Documents on File Type Date Recorded Patient Die Filer Expl anation Advance Directives and Livin g Will 03/04/2020 8:02 AM Latest Code Status on File Code Status Date Activated Date Inactivated Comments Full Code - Unverified 03/04/2020 10:12 AM 03/04/2020 12 :43 PM Discharge Instructions * Attachments The following attachments cannot be sent through Care Everywhere. * Lumbar Epidural Steroid Injections: General Info (Surinamese) * Post-op Infection (Surinamese) documented in this encounter Assessments Diagnosis Lumbago Additional Source Comments (unrecognized sect ion and content) No Status Records FoundNo Status Records FoundNo Status Records FoundNo Status Records FoundNo Status Records FoundNo Status Records FoundNo Status Records Found INFORMATION SOURCE (unrecogn ized section and content) DATE CREATED AUTHOR 06/16/2019 [facility] DATE CREATED AUTHOR AUTHOR'S ORGANIZ ATION 06/25/2019 [facility] DATE CREATED AUTHOR AUTHOR'S ORGANIZ ATION 03/10/2020 [facility] DATE CREATED AUTHOR AUTHOR'S ORGANIZ ATION 02/23/2022 [facility] DATE CREATED AUTHOR AUTHOR'S ORGANIZ ATION 03/05/2023 [facility] DATE CREATED AUTHOR AUTHOR'S ORGANIZ ATION 03/17/2024 [facility]ists EPIC DATE CREATED AUTHOR AUTHOR'S ORGANIZ ATION 06/09/2024 [facility] Reason for Visit (unrecogniz ed section and content) Status Reason Specialty Diagnoses / Procedures Referre d By Contact Referred To Contact Diagnoses Lumbago Lumbago [M54.5] Procedures IR EPIDURAL STEROID INJ Nicolasa Mitchell MD - 03/04/2020 10:11 AM EDT Procedure Notes (unrecognize d section and content) Vascular & Interventional Radiology Provided By [facility] (Diagnostic Radiology, Interventional and Neurointerventional Radiology and Vascular Medicine) Interventional Radiology Department @ [facility]: [phone] 14/05 VIR physician contact: [phone] Weekday VIR nurse practitioner contact @ [facility]: [phone] [facility]: [phone] [email or web address] PROCEDURE: Fluoroscopic guided lumbar epidural steroid injection @ L5-S1 PLAN: Repeat epidural steroid injection can be offered, as needed Date: 03/04/2020 Patient Name: Neville Schmitz Patient : 1955 Physician: Nicolasa Mitchell MD Sedation Plan: None [place] Protocol: Pre-Procedural verification: Correct patient, correct site [...] BE BASED ON THE PRIMARY CLINICAL RECORDS. [facility]. provides no warranty or guarantee of the accuracy or completeness of information in this document.
[2024-06-09 09:19] VITALS: BP 146/75; PULSE 50; TEMP 36.4; O2SAT 96
[2024-06-09] MEDS: 0.9 % SODIUM CHLORIDE 10 ML SYRINGE - SALINE FLUSH INJ (10:07)
[2024-06-09] MEDS: IOHEXOL 240 MG/ML - 10 ML VIAL INJ (10:07)
[2024-06-09] MEDS: BUPIVACAINE HCL 0.25% PF 25 MG/10 ML VIAL 2 ML INJ (10:07)
[2024-06-09] MEDS: LIDOCAINE HCL 2% 400 MG/20 ML MDV INJ (10:07)
[2024-06-09] MEDS: TRIAMCINOLONE ACETONIDE 40 MG/ML VIAL 80 MG INJ (10:08)
[2024-06-09 10:09] VITALS: BP 141/81; BP 143/66; PULSE 46; PULSE 48; O2SAT 97; O2SAT 98
--- NOTE | 2024-06-09 10:10 | W.PM.PROCNOT ---
Date of procedure: 06/09/24 Pre-op diagnosis: Pain due to lumbar stenosis with neurogenic claudication Post-op diagnosis: same as pre-op Procedure: Procedure: Bilateral L4-5 transforaminal epidural steroid injection Medications: Bupivacaine 0.25% 2cc, lidocaine 2% 1cc, kenalog 80mg The patient was seen and examined in the preoperative holding area.? Informed consent was obtained and placed on the chart.? Patient was brought to the medical procedure unit and placed in the prone position where a timeout was completed verifying the correct patient, procedure site, position, and planned special equipment using sterile aseptic technique.? Under direct fluoroscopic visualization a 25-gauge Quincke tipped spinal needle was advanced at level left L4-5 to the designated neural foramen where contrast dye was injected to show adequate spread.? There was no evidence of vascular or adverse uptake.? Epidural spread was appreciated.? The above-mentioned injectate was then placed in a 1.5 mL aliquot preceded by negative aspiration.? The needle was removed. The same procedure, at the same level, was completed on the opposite side. ? Patient was taken to the postprocedural recovery area and monitored for an appropriate length of time before found suitable for discharge in the accompaniment of a responsible adult. Anesthesia: Local Surgeon: Anamaria Pollock Pathology: none sent Condition: stable Disposition: no change
== END 2024-06-09 10:14 | disposition home or self-care (01) ==
LOC: SURGOUT 08:52
PROVIDERS: Visit Provider Anesthesiology
DX: M48.062 Spinal stenosis, lumbar region with neurogenic claudication (principal)
CPT/HCPCS: 64483; J0665; J3301; Q9966

== ENCOUNTER 2024-06-19 08:24 | Outpatient (OUT) | payer OTHER, SELFPAY ==
--- OUTSIDE RECORDS SUMMARY | 2024-06-19 08:28 | XMS_ITS | CCD ---
Author Organization [facility] Care Team Providers Care Support Staff Name Role Phone MITZI GALEAS Admitting Unavailable ESQUIVEL, SARAH L Primary Care Unavailable KATLIN KNOWLES Attending Unavailabl e ESQUIVEL, SARAH L Primary Care Unavailable Esquivel Sarah L Primary Care Provider Nicolasa MITCHELL Admitting Unavailable Nicolasa MITCHELL Attending Unavailable ESQUIVEL, SARAH L Primary Care Unavailable Esquivel, Sarah L Primary Care Provider [phone] JAYLON ., DR FRANCK Chaparro Admitting Unavailable IYER ., DR FRANCK Chaparro Attending Unavailable [facility] Primary Care Unavailable VALDEZ ., DORIE Consulting Unavailable IYER ., DR FRANCK Chaparro Admitting Unavailable IYER ., DR FRANCK Chaparro Attending Unavailable [facility] Primary Care Unavailable VALDEZ ., DORIE Consulting Unavailable IYER ., DR FRANCK Chaparro Admitting Unavailable IYER ., DR FRANCK Chaparro Attending Unavailable [facility] Primary Care Unavailable VALDEZ ., DORIE Consulting Unavailable IYER ., DR FRANCK Chaparro Admitting Unavailable IYER ., DR FRANCK Chaparro Attending Unavailable [facility] Primary Care Unavailable VALDEZ ., DORIE Consulting Unavailable LAKSHMIPATHY ., NARENDRANATH Admitting Angelica vailable LAKSHMIPATHY ., CARYATH Attending Angelica vailable [facility] Primary Care Unavailable HALKER .CARINE Consulting Unavailable [...] 0 5-03-2022 TSH 1.180 uIU/mL Normal 0.400-4.500 [facility] Comment on above: Performed By: #### T SH reflex FT4 #### [facility] [address] [place], [place] [id number] US Aorta Screeningon 022 US Aorta Screening FINDINGS: Proximal Aorta2.9 x 2.3 cm Mid Aorta1.6 x 2.1 cm Distal Aorta1.3 x 1.3 cm Right Common Iliac9 x 10 mm Left Common Iliac10 x 13 mm No aneurysmal dilatation is identified. No neighboring fluid collections are seen. IMPRESSION: No significant aneurysmal formation. Report reported and signed by Kenneth Kan on 01/27/2022 0911 Normal [facility] Comprehensive Metabolic Pane zee 01-20-2022 Albumin [Mass/Vol] 4.5 g/dL Normal 3.6-5.1 [facility] Comment on above: Performed By: #### L IPD, CMP #### [facility] [address] [place], [place] [id number] Albumin/Globulin [Mass ratio] 2.4 {ratio} Normal 1.0-2.5 [facility] Comment on above: Performed By: #### L IPD, CMP #### [facility] [address] [place], [place] [id number] ALP [Catalytic activity/Vol] 69 U/L Normal 40-129 [facility] Comment on above: Performed By: #### L IPD, CMP #### [facility] [address], [place] [id number] ALT [Catalytic activity/Vol] 23 U/L Normal 9-46 [facility] Comment on above: Result Comment: 09/21 Female reference range changed. Performed By: #### L IPD, CMP #### [facility] [address] [place], [place] [id number] Anion gap [Moles/Vol] 15 mmol/L Normal 12-20 [facility] Specialist Comment on above: Result Comment: Effe ctive 10/27/2019 reference range changed. Performed By: #### L IPD, CMP #### [facility] [address] [place], [place] [id number] AST [Catalytic activity/Vol] 18 U/L Normal 10-40 [facility] Comment on above: Performed By: #### L IPD, CMP #### [facility] [address], [place] [id number] Bilirubin [Mass/Vol] 0.80 mg/dL Normal 0.30-1.20 [facility] Comment on above: Performed By: #### L IPD, CMP #### [facility] [address] [place], [place] [id number] BUN/CREA 25 Ratio High 6-22 [facility] Comment on above: Performed By: #### L IPD, CMP #### [facility] [address] [place], [place] [id number] Calcium [Mass/Vol] 9.9 mg/dL Normal 8.6-10.2 [facility] Comment on above: Performed By: #### L IPD, CMP #### [facility] [address] [place], [place] [id number] Chloride [Moles/Vol] 106 mmol/L Normal 98-107 [facility] Comment on above: Performed By: #### L IPD, CMP #### [facility] [address], [place] [id number] CO2 [Moles/Vol] 25 mmol/L Normal 20-31 [facility] Comment on above: Performed By: #### L IPD, CMP #### [facility] [address], [place] [id number] Creatinine [Mass/Vol] 0.9 mg/dL Normal 0.7-1.4 [facility] Comment on above: Performed By: #### L IPD, CMP #### [facility] [address] [facility] [place] [id number] eGFRAA 102 mL/min/1.73m2 Normal >60 [facility] Comment on above: Performed By: #### L IPD, CMP #### [facility] [address] [facility] [place] [id number] eGFRNAA 84 mL/min/1.73m2 Normal >60 [facility] Comment on above: Performed By: #### L IPD, CMP #### [facility] [address] [place], [place] [id number] Globulin (S) [Mass/Vol] 1.9 g/dL Normal 1.9-3.7 [facility] Comment on above: Performed By: #### L IPD, CMP #### [facility] [address], [place] [id number] Glucose [Mass/Vol] 101 mg/dL High 65-99 [facility] Comment on above: Result Comment: For FASTING Glucose --- ADA reference ranges: Normal 65-99 mg/dl Prediabetes 100-125 Diabetes >/= 126 Performed By: #### L IPD, CMP #### [facility] [address], [place] [id number] Potassium [Moles/Vol] 4.3 mmol/L Normal 3.5-5.5 [facility] Comment on above: Performed By: #### L IPD, CMP #### [facility] [address] [place], [place] [id number] Protein [Mass/Vol] 6.4 g/dL Normal 6.1-8.1 [facility] Comment on above: Performed By: #### L IPD, CMP #### [facility] [address] [place], [place] [id number] Sodium [Moles/Vol] 142 mmol/L Normal 135-146 [facility] Comment on above: Performed By: #### L IPD, CMP #### [facility] [address] [place], [place] [id number] Urea nitrogen [Mass/Vol] 22 mg/dL Normal 7-25 [facility] Comment on above: Performed By: #### L IPD, CMP #### [facility] [address] [place], [place] [id number] Lipid Panelon 01-20-2022 Cholesterol [Mass/Vol] 239 mg/dL High 125-200 [facility] Comment on above: Result Comment: Low risk < 200mg/dL Borderline risk 201-239 mg/dl High risk > or equal to 240 Performed By: #### L IPD, CMP #### [facility] [address] [place], [place] [id number] Cholesterol in HDL [Mass/Vol] 66 mg/dL Normal >40 [facility] Specialist Comment on above: Result Comment: High Cardiovascular Risk HDL <40 mg/dL Low Cardiovascular Risk HDL > or equal to 60 mg/dl Performed By: #### L IPD, CMP #### [facility] [address] [place], [place] [id number] Cholesterol in LDL [Mass/Vol] 149 mg/dL Normal [facility] Specialist Comment on above: Result Comment: LDL ATP III CLASSIFICATION LDL less than 100 mg/dl Optimal LDL 100-129 mg/dl Near or above optimal LDL 130-159 Borderline high LDL 160-189 High LDL greater than 189 mg/dl Very High Performed By: #### L IPD, CMP #### [facility] [address] [place], [place] [id number] Cholesterol in VLDL [Mass/Vol] 24 mg/dL Normal [facility] Specialist Comment on above: Performed By: #### L IPD, CMP #### [facility] [address] [place], [place] [id number] Cholesterol.total/Ch olesterol in HDL [Mass ratio] 4 {ratio} Normal [facility] Specialist Comment on above: Performed By: #### L IPD, CMP #### [facility] [address] [place], [place] [id number] Triglyceride [Mass/Vol] 119 mg/dL Normal 30-150 [facility] Specialist Comment on above: Result Comment: TRIG ATPIII CLASSIFICATIONS TRIG less than 150 mg/dl Normal TRIG 150-199 mg/dl Borderline High TRIG 200-500 mg/dl High TRIG greather than 500 mg/dl Very High Performed By: #### L IPD, CMP #### [facility] [address] [place], [place] [id number] PSA SCREEN (MEDICARE)on TPSA 1.110 ng/mL Normal <4.000 [facility] Specialist Comment on above: Result Comment: PSA Test Method: ECLIA/Bre e 601 Performed By: #### P SA MC #### [facility] [address] [place], [place] [id number] CV IR EPIDURAL STEROID INJon 03-04-2020 Fluoroscopically guided lumbar epidural steroid injection as outlined above. [employer] Workstation ID: [id number] [facility] HISTORY/CLINICAL DATA: Lumbago EXAMINATION: VIA A POSTERIOR APPROACH 1. FLUOROSCOPICALLY GUIDED LUMBAR EPIDURAL STEROID INJECTION. COMPARISON: None. YARDER(S): Nicolasa Mitchell MD. PROCEDURE: FLUOROSCOPY TIME: 0.2 [...] the procedure well without immediate postprocedural complications. [facility] Interface, Rad In [facility] Speech - 03/04/2020 10:35 AM EDT HISTORY/CLINICAL DATA: Lumbago EXAMINATION: VIA A POSTERIOR APPROACH 1. FLUOROSCOPICALLY GUIDED LUMBAR EPIDURAL STEROID INJECTION. COMPARISON: None. YARDER(S): Nicolasa Mitchell MD. PROCEDURE: FLUOROSCOPY TIME: 0.2 [...] lumbar epidural steroid injection as outlined above. [employer] Workstation ID: [id number] [facility] PT/INRon 03-04-2020 INR Coag (PPP) [Relative time] 1.0 {INR} [facility] Interpretation and review of laboratory results Normal [facility] PT Coag (PPP) [Time] 12.4 s [facility] During the induction phase of oral anticoagulation, the INR may not reflect the anticoagulation status of the patient. Therapeutic ranges for INR's are: Most clinical situations: INR 2.0-3.0 Mechanical Prosthetic Valve: INR 2.5-3.5 Critical: INR >5.0 [facility] Platelet Counton 03-04-2020 Interpretation and review of laboratory results Normal [facility] Platelet mean volume (Bld) [Entitic vol] 11.0 fL 9 - 15.5 fL [facility] Platelets (Bld) [#/Vol] 178 10*3/uL [facility] CV IR EPIDURAL STEROID INJon 02-24-2020 CV IR EPIDURAL STEROID INJ HISTORY/CLINICAL DATA: Lumbago EXAMINATION: VIA A POSTERIOR APPROACH 1. FLUOROSCOPICALLY GUIDED LUMBAR EPIDURAL STEROID INJECTION. COMPARISON: None. YARDER(S): Nicolasa Mitchell MD. PROCEDURE: FLUOROSCOPY TIME: 0.2 [...] lumbar epidural steroid injection as outlined above. [employer] Workstation ID: [id number] Dictated by: Nicolasa MITCHELL on SunMarch 04, 2020 10:21:09 AM EDT Transcribed by: FIGUEROA GUTIERREZ on SunMarch 04, 2020 10:25:58 AM EDT Finalized by: Nicolasa MITCHELL on SunMarch 04, 2020 10:33:02 AM EDT Normal [facility] Vital Signs Date Time Vital Sign Value Performing Clinician Mera pritchard 03-04-2020 10:26-0400 Body Temperature 98.4 [degF] [facility] 03-04-2020 10:26-0400 BP Diastolic 83 mm[Hg] [facility] 03-04-2020 10:26-0400 BP Systolic 146 mm[Hg] [facility] 03-04-2020 10:26-0400 Pulse (Heart Rate) 53 /min [facility] 03-04-2020 10:26-0400 Pulse Oximetry 97 % [facility] 03-04-2020 10:26-0400 Respiratory Rate 14 /min [facility] 03-04-2020 08:15-0400 BMI (Body Mass Index) 31.57 kg/m2 [facility] 03-04-2020 08:15-0400 Body weight 99.79 kg [facility] 03-04-2020 08:15-0400 Height 177.8 cm [facility] Encounters Encounter Date Encounter Type Care Provider Facility Start: 05-26-2024 End: 05-26-2024 ambulatory Anamaria Pollock MD Facility: [facility] Start: 03-12-2024 End: 03-13-2024 ambulatory JOSE ANTONIOAGUSTIN Maribeth GEROGIE Not Available Start: 02-05-2024 End: 02-05-2024 ambulatory [...] Orders Only Jayshree Church [place] Work Phone: [facility] Start: 03-04-2020 End: 03-04-2020 Patient encounter procedure Nicolasa MITCHELL [facility] Start: 03-04-2020 End: 03-04-2020 Subsequent hospital visit by physician Nicolasa Mitchell Work Phone: [facility] Comment on above: Lumbago Start: 06-24-2019 Patient encounter procedure KATLIN KNOWLES [facility] Start: 06-12-2019 End: 06-16-2019 Patient encounter procedure MITZI Jackie GALEAS [facility] Procedures Date Procedure Procedure Detail Performing [...] Screening for malign ant neoplasm of colon [facility] Start: 10-12-2025 Tetanus vaccination Tetanus: Every 1 0yrs [facility] Start: 06-22-2020 Influenza vaccination given [facility] Start: 2019 Pneumococcal vaccination Pneum ococcal Vaccine Age 65+ (1 of 2 - PCV13) [facility] Start: 12-07-2015 Administration of he rpes zoster vaccine Zoster Vaccines (2 of 3) [facility] Start: 2004 Screening for malign ant neoplasm of colon [facility] Start: 1972 Hepatitis C antibody , confirmatory test Hepatitis C Screening [facility] Start: 1970 COVID-19 Vaccine (1 of 2) COVID-19 V accine (1 of 2) [facility] Start: 1966 Adolescent depressio n screening assessment Depression Screening (PHQ9) [facility] Start: 1957 History and physical examination, annual for health maintenance Wellness Visit [facility] Start: 1954 Fall risk assessment Falls Risk Asse ssment [facility] Start: 1954 Hepatitis C antibody , confirmatory test Hepatitis C Screening [facility] Start: 1954 Prostate specific an tigen measurement PSA Level [facility] Start: 1954 US scan of abdominal aorta Abdominal Aortic Ultrasound [facility] Payers Date Payer Category Payer Unknown [id number] 2023 Medicare 2015 Unknown [id number] 2015 Unknown EFREM BCBS OUT OF STATE [facility] xxxxxxxxxxxxxx 2015-Present xxxxxxxxxxxxxx [id number] 2015 Unknown ANTHEM BCBS OUT OF STATE [facility] [id number] 2015-Present [id number] 2009 Unknown [id number] 1959 Unknown [id number] 1954 Unknown [id number] 1954 Unknown [id number] [id number] 1954 Unknown [id number] [id number] 1954 Unknown [id number] [id number] 1954 Unknown [id number] [id number] 1954 Unknown [id number] [id number] 1954 Unknown [id number] [id number] 1954 Unknown [id number] [id number] 1954 Unknown [id number] 2.16.840.1.784962.3.579.2.125 9 1954 Unknown [id number] 2.16.840.1.973360.3.579.2.125 9 1954 Unknown [id number] 2.16.840.1.067085.3.579.2.125 9 1954 Unknown [id number] 2.16.840.1.346022.3.579.2.125 9 1954 Unknown [id number] Social History Date Type Detail Facility Start: 03-04-2020 End: 03-05-2020 Tobacco smoking status NHIS Former smoker [facility] Start: 03-04-2020 End: 03-05-2020 Alcohol intake Current drinker of alcohol (finding) [facility] Start: 10-02-2016 Alcohol Comment occasional [facility] Not on file [facility] Start: 03-05-2020 Tobacco use and exposure Never used [facility] Consultation note 11-30-2022 Note Date & Type [...] walking, housework and lifting. He does use vutq-can-[id number] menthol patches which help decrease his pain. [...] be done in the office today. [facility] Consultation note 08-24-2022 Note Date & [...] and patient agrees with this plan. 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 At [...] 2 months' time unless otherwise indicated. [facility] Consultation note 06-01-2022 Note Date & [...] be followed up in the office. [facility] Consultation note 03-09-2022 Note Date & [...] patient agrees and all questions were answered. [facility] Signed and Approved by: DORIE VALDEZ . 03/13/2022 15:06:00 [facility] Clinical Note 01-27-2022 Note Date & [...] signed by Kenneth Kan on 01/27/2022 0938 [facility] Clinical Note 10-28-2021 Note Date & Type Note Facility 10-28-2021 Note PROCEDURE: Nolio VCT 64, 5.0 mm slice axial images [...] effect. Report reported and signed by Kenneth aKn on 10/28/2021 0937 [place] [facility] Summary Purpose Family History No Family History Records FoundNo Family History Records FoundNo Family History Records FoundNo Family History Records FoundNo Family History Records FoundNo Family History Records FoundNo Family History Records Found Advance Directives No Advanced Directives Records FoundDocuments on File Type Date Recorded Patient Head Counselor Expl anation Advance Directives and Livin g Will 03/04/2020 8:02 AM Latest Code Status on File Code Status Date Activated Date Inactivated Comments Full Code - Unverified 03/04/2020 10:12 AM 03/04/2020 12 :43 PM Documents on File Type Date Recorded Patient Head Counselor Expl anation Advance Directives and Livin g Will 03/04/2020 8:02 AM Latest Code Status on File Code Status Date Activated Date Inactivated Comments Full Code - Unverified 03/04/2020 10:12 AM 03/04/2020 12 :43 PM Discharge Instructions * Attachments The following attachments cannot be sent through Care Everywhere. * Lumbar Epidural Steroid Injections: General Info (Zambian) * Post-op Infection (Zambian) documented in this encounter Assessments Diagnosis Lumbago Additional Source Comments (unrecognized sect ion and content) No Status Records FoundNo Status Records FoundNo Status Records FoundNo Status Records FoundNo Status Records FoundNo Status Records FoundNo Status Records Found INFORMATION SOURCE (unrecogn ized section and content) DATE CREATED AUTHOR 06/16/2019 [facility] DATE CREATED AUTHOR AUTHOR'S ORGANIZ ATION 06/25/2019 [facility] DATE CREATED AUTHOR AUTHOR'S ORGANIZ ATION 03/10/2020 [facility] DATE CREATED AUTHOR AUTHOR'S ORGANIZ ATION 02/23/2022 [facility] dical Specialist DATE CREATED AUTHOR AUTHOR'S ORGANIZ ATION 03/05/2023 [facility] DATE CREATED AUTHOR AUTHOR'S ORGANIZ ATION 03/17/2024 [facility] dical Specialists EPIC DATE CREATED AUTHOR AUTHOR'S ORGANIZ ATION 06/09/2024 [facility] Reason for Visit (unrecogniz ed section and content) Status Reason Specialty Diagnoses / Procedures Referre d By Contact Referred To Contact Diagnoses Lumbago Lumbago [M54.5] Procedures IR EPIDURAL STEROID INJ Nicolasa Mitchell MD - 03/04/2020 10:11 AM EDT Procedure Notes (unrecognize d section and content) Vascular & Interventional Radiology Provided By [facility] (Diagnostic Radiology, Interventional and Neurointerventional Radiology and Vascular Medicine) Interventional Radiology Department @ [facility]: [phone] 14/05 VIR physician contact: [phone]) Weekday VIR nurse practitioner contact @ [facility]: [phone] [facility]: [phone] [email or web address] [facility] [employer] HAND DIRECTORY PROCEDURE: Fluoroscopic guided lumbar epidural steroid injection @ L5-S1 PLAN: Repeat epidural steroid injection can be offered, as needed Date: 03/04/2020 Patient Name: Neville Schmitz Patient : 1955 Physician: Nicolasa Mitchell MD Sedation Plan: None [place] Protocol: Pre-Procedural verification: Correct patient, correct site [...] BE BASED ON THE PRIMARY CLINICAL RECORDS. [facility]. provides no warranty or guarantee of the accuracy or completeness of information in this document.
--- NOTE | 2024-06-19 08:48 | P.CN_ITS ---
Consult Note: HPI Data of Consult Patient: known to practice within the last 3 years Requesting Physician: Jenny Machuca NP Primary Care Provider: Non-Staff Physician, Consult Narrative Reason for consult: f/u Narrative: Neville Schmitz a pleasant 67 year old male presents for evaluation and management of chronic back pain. Today rating pain 1/10, pain increases to 5/10 at its worst. Patient continues to benefit from tylenol #3 BID PRN without side effects. failed duloxetine due to side effects. Patient did not f/u with Dr Doan and elected to proceed with bilateral L3-4 TFESI and bilateral L4-5 TFESI under fluoroscopy with >80% improvement ongoing in pain and functional improvement. Patient reports these are the best injections he has ever had and is having significant improvement. Low back and middle back pain continues to increase with long periods of strenuous activity and overdoing it. cc:: CC: Jenny Machuca NP Review of Systems ROS Status of ROS 10 or more systems reviewed and unremark able except as noted in history and below Musculoskeletal Reports: back pain Meds Home Medications and Allergies Home Medications ?Medication ?Instructions ?Recorded ?Confirmed ?Type acetaminophen 300 mg-codeine 30 mg 1 tab PO BID 05/31/23 06/09/24 History tablet acetaminophen 325 mg capsule 325 mg PO Q6H PRN pain 05/31/23 06/09/24 History (Tylenol) aspirin 81 mg capsule 81 mg PO DAILY 05/31/23 06/09/24 History atorvastatin 80 mg tablet (Lipitor) 80 mg PO DAILY 05/31/23 06/09/24 History duloxetine 20 mg capsule,delayed 20 mg PO DAILY #30 caps 01/23/24 06/09/24 Rx release Allergies Allergy/AdvReac Type Severity Reaction Status Date / Time No Known Drug Allergies Allergy Verified 06/09/24 09:25 Exam Constitutional Documenting provider has reviewed patient's vital signs: yes Common normals: no apparent distress, oriented x3, healthy appearing, alert and well nourished General appearance: cooperative Orientation/consciousness: Yes awake, Yes oriented to person, Yes oriented to place and Yes oriented to time HENMT Common normals: normocephalic, hearing grossly normal bilaterally and moist oral mucous membranes Head and scalp: normocephalic Eye Common normals: PERRL Pupil: PERRL Neck & C-Spine Common normals: full ROM General: normal visual inspection Chest Common normals: inspection of chest normal Respiratory Common normals: normal respiratory effort, no retractions and no use of accessory muscles Effort & inspection: able to speak in complete sentences and symmetric chest movement Back & Pelvis Thoracic spine/upper back: ROM limited, pain with ROM and thoracic spinal tenderness Lumbar spine/lower back: normal to inspection, ROM limited and straight leg raise negative bilaterally Other: positive facet load pain bilat lumbar and thoracic pain over T7,8,9 bilateral facet joints notable tenderness over L1 on exam muscle strength 5/5 in BLE, sensation intact BLE Extremity Common normals: normal to inspection and full ROM Neuro Common normals: oriented x3, CN's II-XII intact bilaterally, moves all extremities, no focal motor deficits, no sensory deficits noted and deep tendon reflexes 2+ bilaterally Sensorium/orientation: alert Motor exam: strength 5/5 throughout and no movement abnormalities noted Psych Common normals: mental status grossly normal, thought process normal, cooperative, affect normal, speech normal and activity/motor behavior normal Speech: normal speech Thought process: normal thought process Results Additional Findings Additional findings: If on a controlled substance or opioids, I have checked an [place] report on this patient and there are no aberrancies noted in the prescribing history.??If on a controlled substance or opioid a drug screen was completed and reviewed within the last year, and if there has not been a drug screen completed we ordered one today to monitor higher risk, state monitored pain medication use. As part of providing excellent, safe, comprehensive care, the following was completed at our patient's visit: 1. A medication reconciliation and review to ensure accurate knowledge of current/active medications, including asking our patients to inform us about any [id number] medications or herbal remedies/nutritional supplements/alternative remedies. 2. A review to specifically ensure our patients have had annual screening for screening for depression, screening for tobacco use, and screening for unhealthy alcohol use. For concerning screenings had a discussion with the patient, provided patient education, and recommended follow-up with primary care provider when appropriate. If patient noted with a risk of falling, they received education on strength, gait, and balance training to prevent future risk of falling. Assessment and Plan Assessment and Plan (1) Lumbar stenosis with neurogenic claudication: (2) Lumbar radiculopathy: (3) Fracture of lumbar spine: (4) Lumbar spondylosis: (5) Thoracic back pain: (6) Osteoarthritis: (7) Chronic prescription opiate use: Assessment and Plan: I feel these medications are improving the patient's quality of life and allow them to tolerate activities of daily living as well as participate in recreational activity.? The patient does not report intolerable side effects. The patient is NOT opioid naive and non-pharmacologic and non-opioid treatment has failed to significantly relieve the patient's pain and improve functionality. The patient has a diagnosis that is related to a somatic or visceral pain etiology. ? ?? I reviewed with the patient the potential risks and side effects with the use of? opioid medications including but not limited to respiratory depression,? sedation, and even . I verified the patient has access to naloxone should? these effects occur. I advised the patient to avoid the use of any other? sedation substances including alcohol, THC, and benzodiazepines while? taking opioid medications due to the risk of compounding side effects and? detrimental outcomes. I reviewed the [employer], pain treatment agreement, urine? drug screen, and opioid start talking forms. The patient was advised to let? their family know they had Naloxone in case they would need to administer? the medication.? ?? A drug screen was completed within the last year, and no aberrancies were noted regarding their use of controlled substances. The patient understands they are subject to the terms and conditions of the pain contract that they have signed. ? ?? I have checked an [facility] report on this patient today and there are no aberrancies noted in the prescribing history.? (8) Myofascial pain: Plan pain well controlled at this time, defer additional injection therapy or NS consult continue tylenol #3 BID PRN moderate to severe pain f/u 3 months, sooner if needed
== END 2024-06-19 08:25 | disposition home or self-care (01) ==
LOC: PM 08:25
PROVIDERS: Visit Provider Nurse Practitioner
DX: M48.062 Spinal stenosis, lumbar region with neurogenic claudication (principal); M54.16 Radiculopathy, lumbar region; M47.816 Spondylosis without myelopathy or radiculopathy, lumbar region; M54.6 Pain in thoracic spine; Z79.891 Long term (current) use of opiate analgesic; M47.9 Spondylosis, unspecified
CPT/HCPCS: G0463

== ENCOUNTER 2024-09-17 07:58 | Outpatient (OUT) | payer OTHER, SELFPAY ==
--- OUTSIDE RECORDS SUMMARY | 2024-09-17 08:18 | XMS_ITS | CCD ---
Author Organization [facility] Care Team Providers Care Library Helper Name Role Phone MITZI GALEAS Admitting Unavailable ESQUIVEL SARAH L Primary Care Unavailable KATLIN KNOWLES Attending Unavailabl e SARAH ESQUIVEL Primary Care Unavailable Sarah Esquivel Primary Care Provider Nicolasa MITCHELL Admitting Unavailable Nicolasa MITCHELL Attending Unavailable ESQUIVELPATTINY L Primary Care Unavailable Sarah Esquivel L Primary Care Provider JAYLON ., DR FRANCK Chaparro Admitting Unavailable IYER ., DR FRANCK Chaparro Attending Unavailable [facility] Primary Care Unavailable VALDEZ ., DORIE Consulting Unavailable IYER ., DR FRANCK Chaparro Admitting Unavailable IYER ., DR FRANCK Chaparro Attending Unavailable [facility] Primary Care Unavailable VALDEZ ., DORIE Consulting Unavailable IYER ., DR FRANCK Chaparro Admitting Unavailable IYER ., DR FRANCK Chaparro Attending Unavailable [facility] Primary Care Unavailable VALDEZ ., DORIE Consulting Unavailable IYER ., DR FRANCK Chaparro Admitting Unavailable IYER ., DR FRANCK Chaparro Attending Unavailable [facility] Primary Care Unavailable VALDEZ ., DORIE Consulting Unavailable LAKSHMIPATHY ., NARENDRANATH Admitting Angelica vailable LAKSHMIPATHY ., NARENDEDDIEATH Attending Angelica vailable [facility] Primary Care Unavailable HALSOTO .CARINE Consulting Unavailable RUTH MYERS Attending Unavailable PHILIPPE OROSCO Referring Unavailable RAYNA JACQUES Referring Unavailable Maris DAVID, Anamaria June Attending Unavailable Maris DAVID, Anamaria June Attending Unavailable Ruth Myers MD Primary Care Provider Ruth Myers MD Primary Care Provider Ruth Myers MD Unavailable RUTH MYERS Referring Unavailable RUTH MYERS Primary Care Unavailable MITALI MARES Attending Unavailable MITALI MARES Referring Unavailable RUTH MYERS Primary Care Unavailable EMILIE FORMAN Admitting Unavailable EMILIE FORMAN Attending Unavailable EMILIE FORMAN Referring Unavailable RUTH MYERS Primary Care Unavailable DIYA NAVARRETE Attending Unavailable RUTH MYERS Primary Care Unavailable RUTH MYERS Referring Unavailable RUTH MYERS Primary Care Unavailable EMILIE FORMAN Admitting Unavailable EMILIE FORMAN Attending Unavailable RUTH MYERS Primary Care Unavailable MITALI MARES Attending Unavailable RUTH MYRES Primary Care Unavailable Medications Current Medications Medication Drug Class(es) Dates Sig (Normalized) Sig (Original) 8 hr acetaminophen 650 mg extended release oral tablet (2 sources) take 1 tablet by mouth every eight hours as needed for pain acetaminophen (TYLENOL) 650 mg 8 hr tablet Take 1 tablet (650 mg total) by mouth every 8 (eight) hours as needed for pain. Active acetaminophen 300 mg / codeine phosphate 30 mg oral tablet (7 sources) Opioid Agonist Start: 06-20-2016 acetaminophen-codei ne (TYLENOL #3) 300-30 mg per tablet Take by mouth every 6 (six) hours as needed. 06/20/2016 Active take 1 tablet by paul th twice daily as needed acetaminophen-codeine (Tylenol w/ Codein e #3) 300-30 MG tablet Take 1 tablet by mouth 2 (two) times a day as needed Active ascorbic acid 500 mg oral tablet (1 source) Vitamin C ascorbic acid, v itamin C, (VITAMIN C) 500 mg tablet Take 2 tablets (1,000 mg total) by mouth. Active aspirin 81 mg delayed release oral tablet (7 sources) Platelet Aggregation Inhibitor, Nonsteroidal Anti-inflammatory Drug take 1 tablet by mouth in the morning aspirin 81 MG EC tablet Take 81 mg by mouth in the morning. Active atorvastatin 20 mg oral tablet (4 sources) HMG-CoA Reductase Inhibitor Start: 08-26-20 24 take 1 tablet by mouth once daily atorvastatin (Lipitor) 20 MG tablet Indications: Mixed hyperlipidemia (CMS/HCC) Take 1 tablet (20 mg) by mouth Daily 90 tablet 08/26/2024 Active Start: 08-18-2024 End: 08-26-2024 take 1 tablet by mouth once daily atorvastatin (Lipitor) 20 MG tablet Indications: Mixed hyperlipidemia (CMS/HCC) TAKE 1 TABLET BY MOUTH EVERY DAY 90 tablet 08/18/2024 08/26/2024 Discontinued (Reorder) docosahexaenoic acid 120 mg / eicosapentaenoic acid 180 mg oral capsule (3 sources) take 1 capsule by mouth in the morning omega-3 (Fish Oil) 1000 MG capsule Take 1,000 mg by mouth in the morning. Active DULoxetine 20 mg delayed release oral capsule (3 sources) Serotonin and Norepinephrine Reuptake Inhibitor Start: 01-23-20 take 1 capsule by mouth once daily DULoxetine (Cymbalta) [address] capsule Take 20 mg by mouth Daily 01/23/2024 Active folic acid 0.4 mg oral tablet (6 sources) End: 07-29-20 24 take 1 tablet by mouth in the morning folic acid (Folvite) 400 MCG tablet Take 400 mcg by mouth in the morning. Active take 1 tablet by mouth once faith y folic acid (FOLVITE) 1 MG tablet Take 1 mg by mouth daily. 0 Active Homeopathic Products (Clear Tinnitus) capsule (3 sources) Homeopathic Prod ucts (Clear Tinnitus) capsule Take by mouth. flaninoid Active ibuprofen 100 mg oral tablet (2 sources) Nonsteroidal Anti-inflammatory Drug take 1 tablet by mouth every six hours as needed for pain ibuprofen (ADVIL,MOTRIN) 100 MG tablet Take 1 tablet (100 mg total) by mouth every 6 (six) hours as needed for pain. Active LIONS YESENIA MUSHROOM 1 PO DAILY (3 sources) Start: 08-22-20 23 LIONS YESENIA MUSHROOM 1 PO DAILY 08/22/2023 Active melatonin 10 mg oral capsule (5 sources) take 1 capsule by mouth at bedtime Melatonin 10 MG capsule Take 10 mg by mouth at bedtime. Active methocarbamol 500 mg oral tablet (3 sources) Muscle Relaxant Start: 06-20-20 16 End: 07-29-20 24 take 1 tablet by mouth four times daily as needed methocarbamol (ROBAXIN) 500 MG tablet Take 500 mg by mouth 4 (four) times a day as needed. 0 06/20/2016 Active Misc Natural Products (BRA[employer]ONG [employer] SUPPORT PO) (3 sources) [facility] Natural Pro ducts (BRAINSTRONG MEMORY SUPPORT PO) Take by mouth. Once a day in the evening neurvia Active naproxen sodium 220 mg oral tablet (3 sources) Nonsteroidal Anti-inflammatory Drug take 1 tablet by mouth in the morning naproxen sodium (Aleve) 220 MG tablet Take 220 mg by mouth in the morning and 220 mg in the evening. Take with meals. Active NON FORMULARY (2 sources) NON FORMULARY enrique bach supplement Active omega 2-qbr-czn-fish oil (Fish OiL) 300-1,000 mg capsule (2 sources) omega 3-dha-epa- fish oil (Fish OiL) 300-1,000 mg capsule Take by mouth daily. Active 24 hr oxybutynin chloride 5 mg extended release oral tablet (3 sources) Cholinergic Muscarinic Antagonist Start: 03-12-20 24 take 1 tablet by mouth once daily oxybutynin XL (Ditropan-XL) 5 MG 24 hr tablet Indications: Urinary incontinence, unspecified type TAKE 1 TABLET BY MOUTH EVERY DAY DO NOT CRUSH,CHEW OR SPLIT 90 tablet 1 03/12/2024 Active polyethylene glycol 3350 35267 mg powder for oral solution (3 sources) Osmotic Laxative polyethylene gl ycol, PEG, 3350 (MiraLax) 17 GM/SCOOP powder Take 17 g by mouth in the morning. Active pravastatin sodium 80 mg oral tablet (4 sources) HMG-CoA Reductase Inhibitor Start: 10-31-19 18 take 0.5 tablet by mouth in the morning pravastatin (PRAVACHOL) 80 mg tablet Take 0.5 tablets (40 mg total) by mouth in the morning. 1 10/31/2017 Active take 1 tablet by mouth once faith y pravastatin (PRAVACHOL) 40 MG tablet Take 40 mg by mouth daily. 0 Active vitamin e 180 mg oral capsule (3 sources) take 1 capsule by mo uth in the morning vitamin E 180 MG (400 UNIT) capsule Take 180 mg by mouth in the morning. Active Completed/Discontinued Medications Medication Drug Class(es) Dates Sig (Normalized) Sig (Original) moxifloxacin (1 source) Quinolone Antimicrobial Start: 08-19-2024 End: 09-09-2024 moxifloxacin HCl (MOXIFLOXACIN 0.5%-PREDNISOLONE 1%-BROMFENAC 0.09% DROPS - BUDERER ) Administer 1 drop to the right eye in the morning and 1 drop before bedtime. Do all this for 30 days. One drop twice a day to operative eye for one week, then daily for three weeks.. 08/19/2024 09/09/2024 Discontinued Problems Active Problems Problem Classification Problem Date Documented Da te Episodic/Chronic Cataract (1 source) Cataract Onset: 08-19-2024 Disorders of lipid metabolism (7 sources) Mixed hyperlipidemia; Translations: [Mixed hyperlipidemia] Onset: 05-17-2023 05-17-2023 Chronic Genitourinary symptoms and ill-defined conditions (3 sources) Dribbling of urine; Translations: [Post-void dribbling] Onset: 05-17-2023 05-17-2023 Chronic Other nervous system disorders (3 sources) Chronic pain; Translations: [Other chronic pain] Onset: 05-17-2023 05-17-2023 Chronic Spondylosis; intervertebral disc disorders; other back problems (20 sources) Spondylosis without myelopathy or radiculopathy, lumbar region; Translations: [Other spondylosis with radiculopathy, lumbar region] Onset: 12-31-2017 Chronic Unclassified (4 sources) LOW BACK PAIN, UNSPECIFIED; Translations: [LOW BACK PAIN, UNSPECIFIED] Onset: 08-31-2022 Past or Other Problems Problem Classification Problem Date Documented Da te Episodic/Chronic Other connective tissue disease (1 source) Other muscle spasm; Translations: [OTHER MUSCLE SPASM] Onset: 03-15-2022 Episodic Other ear and sense organ disorders (3 sources) Bilateral tinnitus; Translations: [Tinnitus, bilateral] Onset: 05-17-2023 05-17-2023 Episodic Other gastrointestinal disorders (3 sources) Slow transit constipation; Translations: [Slow transit constipation] Onset: 05-17-2023 05-17-2023 Episodic Phlebitis; thrombophlebitis and thromboembolism (3 sources) Deep venous thrombosis of lower extremity; Translations: [Acute embolism and thrombosis of unspecified deep veins of unspecified lower extremity] Onset: 08-29-2012 Resolved: 02-05-2024 02-05-2024 Episodic Residual codes; unclassified (3 sources) Memory impairment; Translations: [Other amnesia] Onset: 05-17-2023 05-17-2023 Episodic Spondylosis; intervertebral disc disorders; other back problems (16 sources) Low back pain; Translations: [Intervertebral disc disorders with radiculopathy, lumbar region] Onset: 06-01-2022 Episodic Unclassified (1 source) LOW BACK PAIN, UNSPECIFIED; Translations: [LOW BACK PAIN, UNSPECIFIED] Onset: 11-30-2022 Results Test Name Value Interpretation Reference Range Facility ECG 12 leadon 07-29-2024 TRACEMASTERVUE [facility] MR LUMBAR SPINE WO CONTRASTo n 03-12-2024 [...] 0 02-21-2022 TSH 1.180 uIU/mL Normal 0.400-4.500 [facility] [employer] Comment on above: Performed By: #### T SH reflex FT4 #### [facility] [address], [place] [id number] US Aorta Screeningon 022 US Aorta Screening FINDINGS: Proximal Aorta2.9 x 2.3 cm Mid Aorta1.6 x 2.1 cm Distal Aorta1.3 x 1.3 cm Right Common Iliac9 x 10 mm Left Common Iliac10 x 13 mm No aneurysmal dilatation is identified. No neighboring fluid collections are seen. IMPRESSION: No significant aneurysmal formation. Report reported and signed by Kenneth Kan on 01/27/2022 0911 Normal [facility] Comprehensive Metabolic Pane zee 01-20-2022 Albumin [Mass/Vol] 4.5 g/dL Normal 3.6-5.1 [facility] Comment on above: Performed By: #### L IPD, CMP #### [facility] [address] [place], [place] [id number] Albumin/Globulin [Mass ratio] 2.4 {ratio} Normal 1.0-2.5 [facility] Comment on above: Performed By: #### L IPD, CMP #### [facility] [address], [place] [id number] ALP [Catalytic activity/Vol] 69 U/L Normal 40-129 [facility] Comment on above: Performed By: #### L IPD, CMP #### [facility] [address], [place] [id number] ALT [Catalytic activity/Vol] 23 U/L Normal 9-46 [facility] Comment on above: Result Comment: 09/21 Female reference range changed. Performed By: #### L IPD, CMP #### [facility] [address], [place] [id number] Anion gap [Moles/Vol] 15 mmol/L Normal 12-20 [facility] Comment on above: Result Comment: Effe ctive 10/27/2019 reference range changed. Performed By: #### L IPD, CMP #### [facility] [address] [place], [place] [id number] AST [Catalytic activity/Vol] 18 U/L Normal 10-40 [facility] Comment on above: Performed By: #### L IPD, CMP #### [facility] [address] [place], [place] [id number] Bilirubin [Mass/Vol] 0.80 mg/dL Normal 0.30-1.20 [facility] Comment on above: Performed By: #### L IPD, CMP #### [facility] [address] [place], [place] [id number] BUN/CREA 25 Ratio High 6-22 [facility] Comment on above: Performed By: #### L IPD, CMP #### [facility] [address] [place], [place] [id number] Calcium [Mass/Vol] 9.9 mg/dL Normal 8.6-10.2 [facility] Comment on above: Performed By: #### L IPD, CMP #### [facility] [address] [place], [place] [id number] Chloride [Moles/Vol] 106 mmol/L Normal 98-107 [facility] Comment on above: Performed By: #### L IPD, CMP #### [facility] [address] [place], [place] [id number] CO2 [Moles/Vol] 25 mmol/L Normal 20-31 [facility] Comment on above: Performed By: #### L IPD, CMP #### [facility] [address] [place], [place] [id number] Creatinine [Mass/Vol] 0.9 mg/dL Normal 0.7-1.4 [facility] [employer] Comment on above: Performed By: #### L IPD, CMP #### [facility] [address], [place] [id number] eGFRAA 102 mL/min/1.73m2 Normal >60 [facility] Comment on above: Performed By: #### L IPD, CMP #### [facility] [address], [place] [id number] eGFRNAA 84 mL/min/1.73m2 Normal >60 [facility] Comment on above: Performed By: #### L IPD, CMP #### [facility] [address], [place] [id number] Globulin (S) [Mass/Vol] 1.9 g/dL Normal 1.9-3.7 [facility] [employer] Comment on above: Performed By: #### L IPD, CMP #### [facility] [address], [place] [id number] Glucose [Mass/Vol] 101 mg/dL High 65-99 [facility] [employer] Comment on above: Result Comment: For FASTING Glucose --- ADA reference ranges: Normal 65-99 mg/dl Prediabetes 100-125 Diabetes >/= 126 Performed By: #### L IPD, CMP #### [facility] [address] [place], [place] [id number] Potassium [Moles/Vol] 4.3 mmol/L Normal 3.5-5.5 [facility] [employer] Comment on above: Performed By: #### L IPD, CMP #### [facility] [address] [place], [place] [id number] Protein [Mass/Vol] 6.4 g/dL Normal 6.1-8.1 [facility] [employer] Comment on above: Performed By: #### L IPD, CMP #### [facility] [address] [place], [place] [id number] Sodium [Moles/Vol] 142 mmol/L Normal 135-146 [facility] [employer] Comment on above: Performed By: #### L IPD, CMP #### [facility] [address] [place], [place] [id number] Urea nitrogen [Mass/Vol] 22 mg/dL Normal 7-25 [facility] Comment on above: Performed By: #### L IPD, CMP #### [facility] [address] [place], [place] [id number] Lipid Panelon 01-20-2022 Cholesterol [Mass/Vol] 239 mg/dL High 125-200 [facility] [employer] Comment on above: Result Comment: Low risk < 200mg/dL Borderline risk 201-239 mg/dl High risk > or equal to 240 Performed By: #### L IPD, CMP #### [facility] [address] [place], [place] [id number] Cholesterol in HDL [Mass/Vol] 66 mg/dL Normal >40 [facility] [employer] Comment on above: Result Comment: High Cardiovascular Risk HDL <40 mg/dL Low Cardiovascular Risk HDL > or equal to 60 mg/dl Performed By: #### L IPD, CMP #### [facility] [address] [place], [place] [id number] Cholesterol in LDL [Mass/Vol] 149 mg/dL Normal [facility] Comment on above: Result Comment: LDL ATP III CLASSIFICATION LDL less than 100 mg/dl Optimal LDL 100-129 mg/dl Near or above optimal LDL 130-159 Borderline high LDL 160-189 High LDL greater than 189 mg/dl Very High Performed By: #### L IPD, CMP #### [facility] [address] [place], [place] [id number] Cholesterol in VLDL [Mass/Vol] 24 mg/dL Normal [facility] Comment on above: Performed By: #### L IPD, CMP #### [facility] [address] [place], [place] [id number] Cholesterol.total/C holesterol in HDL [Mass ratio] 4 {ratio} Normal [facility] Comment on above: Performed By: #### L IPD, CMP #### [facility] [address] [place], [place] [id number] Triglyceride [Mass/Vol] 119 mg/dL Normal 30-150 [facility] [employer] Comment on above: Result Comment: TRIG ATPIII CLASSIFICATIONS TRIG less than 150 mg/dl Normal TRIG 150-199 mg/dl Borderline High TRIG 200-500 mg/dl High TRIG greather than 500 mg/dl Very High Performed By: #### L IPD, [facility] #### [facility] [address] [place], [place] [id number] PSA SCREEN (MEDICARE)on TPSA 1.110 ng/mL Normal <4.000 [facility] Comment on above: Result Comment: PSA Test Method: ECLIA/Bre e 601 Performed By: #### P SA #### [facility] [address] [place], [place] [id number] CV IR EPIDURAL STEROID INJon 03-04-2020 Fluoroscopically guided lumbar epidural steroid injection as outlined above. [employer] Workstation ID: [id number] [facility] HISTORY/CLINICAL DATA: Lumbago EXAMINATION: VIA A POSTERIOR APPROACH 1. FLUOROSCOPICALLY GUIDED LUMBAR EPIDURAL STEROID INJECTION. COMPARISON: None. SPEEDER TENDER(S): Nicolasa Mitchell MD. PROCEDURE: FLUOROSCOPY TIME: 0.2 [...] the procedure well without immediate postprocedural complications. [facility] Interface, Rad In Fuji Speechq - 03/04/2020 10:35 AM EDT HISTORY/CLINICAL DATA: Lumbago EXAMINATION: VIA A POSTERIOR APPROACH 1. FLUOROSCOPICALLY GUIDED LUMBAR EPIDURAL STEROID INJECTION. COMPARISON: None. SPEEDER TENDER(S): Nicolasa Mitchell MD. PROCEDURE: FLUOROSCOPY TIME: 0.2 [...] lumbar epidural steroid injection as outlined above. [employer] Workstation ID: [id number] [facility] PT/INRon 03-04-2020 INR Coag (PPP) [Relative time] 1.0 {INR} [facility] Interpretation and review of laboratory results Normal [facility] PT Coag (PPP) [Time] 12.4 s [facility] During the induction phase of oral anticoagulation, the INR may not reflect the anticoagulation status of the patient. Therapeutic ranges for INR's are: Most clinical situations: INR 2.0-3.0 Mechanical Prosthetic Valve: INR 2.5-3.5 Critical: INR >5.0 [facility] Platelet Counton 03-04-2020 Interpretation and review of laboratory results Normal [facility] Platelet mean volume (Bld) [Entitic vol] 11.0 fL 9 - 15.5 fL [facility] Platelets (Bld) [#/Vol] 178 10*3/uL [facility] CV IR EPIDURAL STEROID INJon 02-24-2020 CV IR EPIDURAL STEROID INJ HISTORY/CLINICAL DATA: Lumbago EXAMINATION: VIA A POSTERIOR APPROACH 1. FLUOROSCOPICALLY GUIDED LUMBAR EPIDURAL STEROID INJECTION. COMPARISON: None. SPEEDER TENDER(S): Nicolasa Mitchell MD. PROCEDURE: FLUOROSCOPY TIME: 0.2 [...] lumbar epidural steroid injection as outlined above. [facility] Workstation ID: [id number] Dictated by: Nicolasa MITCHELL on SunMarch 04, 2020 10:21:09 AM EDT Transcribed by: FIGUEROA GUTIERREZ on SunMarch 04, 2020 10:25:58 AM EDT Finalized by: Nicolasa MITCHELL on SunMarch 04, 2020 10:33:02 AM EDT Normal [facility] Vital Signs Date Time Vital Sign Value Performing Clinician Facility 07-29-2024 10:040 Body height 175.3 cm [facility] 2 [facility] 07-29-2024 10:0400 Body mass index (BMI) [Ratio] 30.27 kg/m2 [address] 07-29-2024 10:0400 Body weight 92.[address] 03-04-2020 10:26-0400 Body Temperature 98.4 [degF] [facility] 03-04-2020 10:26-0400 BP Diastolic 83 mm[Hg] [facility] 03-04-2020 10:26-0400 BP Systolic 146 mm[Hg] [facility] 03-04-2020 10:26-0400 Pulse (Heart Rate) 53 /min [facility] 03-04-2020 10:26-0400 Pulse Oximetry 97 % [facility] 03-04-2020 10:26-0400 Respiratory Rate 14 /min [facility] 03-04-2020 08:15-0400 BMI (Body Mass Index) 31.57 kg/m2 [facility] 03-04-2020 08:15-0400 [facility]-04-[facility] 08:15-0400 Height 177.8 cm [facility] Encounters Encounter Date Encounter Type Care Provider Facility Start: 09-10-2024 End: 09-10-2024 Telephone encounter Ruth Myers MD Work Phone: [facility] Start: 09-09-2024 End: 09-09-2024 Evaluation and management of inpatient MITALI MARES [facility] Start: 09-09-2024 End: 09-09-2024 Evaluation and management of inpatient EMILIE FORMAN [facility] Start: 09-08-2024 End: 09-08-2024 ambulatory [facility] Pat Phone Call Provider 1 [facility] - Pre Admit Start: 09-08-2024 End: 09-08-2024 ambulatory RUTH Rosario [facility] Start: 08-26-2024 End: 08-26-2024 Telephone encounter Ruth Myers MD Work Phone: [facility] Comment on above: Mixed hyperlipidemia (CMS/HCC) Start: 08-19-2024 End: 08-19-2024 Evaluation and management of inpatient DIYA NAVARRETE [facility] Start: 08-19-2024 End: 08-19-2024 Evaluation and management of inpatient EMILIE FORMAN [facility] Start: 07-29-2024 End: 07-29-2024 Patient encounter procedure [facility] Pre-Admission Testing 2 [facility] - Pre Ad[facility] Comment on above: Preop examination (P rimary Dx) Start: 07-29-2024 End: 07-29-2024 Preprocedural examination done [facility] 2 [facility] Start: 07-29-2024 End: 07[facility]29[facility]: 07-[facility]24 Encounter for other preprocedural examination RUTH LOUIS [facility] Start: 06-09-2024 End: 06-09-2024 ambulatory Anamaria Pollock MD Facility: [place] Start: 05-26-2024 End: 05-26-2024 ambulatory Anamaria Pollock MD Facility: [facility] Start: 03-12-2024 End: 03-13-2024 ambulatory RAYNA JACQUES Not Available Start: 02-05-2024 End: 02-05-2024 ambulatory RUTH BHATTIHMAN Not Available Start: 09-18-2023 End: 09-19-2023 ambulatory [...] 12-16-2020 Orders Only Jayshree Solano Work Phone: [facility] Start: 03-04-2020 End: 03-04-2020 Patient encounter procedure Nicolasa MITCHELL [facility] Start: 03-04-2020 End: 03-04-2020 Subsequent hospital visit by physician Nicolasa Mitchell Work Phone: [facility] Comment on above: Lumbago Start: 06-24-2019 Patient encounter procedure KATLIN P. [facility] Ambulatory Start: 06-12-2019 End: 06-16-2019 Patient encounter procedure MITZI Jackie ADAL [facility] Procedures Date Procedure Procedure Detail Performing [...] Screening for malign ant neoplasm of colon [facility] Start: 10-12-2025 DTaP,Tdap and Td Vac cines (2 - Td or Tdap) DTaP,Tdap and Td Vaccines (2 - Td or Tdap) [facility] Start: 10-12-2025 Tetanus vaccination Tetanus: Every 1 0yrs [facility] Start: 09-09-2025 Adult BMI Screening Adult BMI Screen ing [facility] Start: 09-09-2025 Tobacco Screening Tobacco Screening [facility] Start: 07-29-2025 Adult BMI Screening Adult BMI Screen ing [facility] Start: 07-29-2025 Tobacco Screening Tobacco Screening [facility] Start: 02-04-2025 Medicare Annual Well ness (AWV) Medicare Annual Wellness (AWV) [facility] Start: 09-09-2024 End: 09-09-2024 Admission to same day surgery center 09/09/2024 2:15 PM EST - 09/09/2024 3:00 PM EST Surgery [facility] [address] [place] [id number] Emilie Forman MD [address] [place] [id number] EXTRACTION CATARACT INTRAOCULAR LENS [26764 (CPT )] [facility] Comment on above: EXTRACTION CATARACT INTRAOCULAR LENS [01934 (CPT )] Start: 09-09-2024 Subsequent hospital visit by physician 09/09/2024 2:15 PM EST Hospital Encounter [facility] [address] [place] [address] Emilie Forman MD [address] [place], [place] [id number] [facility] Start: 09-09-2024 End: 09-09-2024 Xcapsl ctrc rmvl insj io lens prosth w/o ecp [facility] Start: 09-08-2024 End: 09-08-2024 ambulatory 09/08/2024 3:50 PM EST Support Visit [facility] - Pre Admit [address] [place] [id number] [facility] Start: 08-19-2024 End: 08-19-2024 Admission to same day surgery center 08/19/2024 3:00 PM EDT - 08/19/2024 3:45 PM EDT Surgery [facility] [address] [place] [id number] Emilie Forman MD [address] [place] [address] [phone] EXTRACTION CATARACT INTRAOCULAR LENS [66682 (CPT )] [facility] Comment on above: EXTRACTION CATARACT INTRAOCULAR LENS [41206 (CPT )] Start: 08-19-2024 End: 08-19-2024 Anesthesia consultation 08/19/2024 3:00 PM EDT Anesthesia Event [facility] [address] [place] [id number] Diya Navarrete, DO [address] [place] [address] [facility] Start: 08-19-2024 Subsequent hospital visit by physician 08/19/2024 3:00 PM EDT Hospital Encounter [facility] [address] [place] [address] Emilie Forman MD [address] [place] [address] [phone] [facility] Start: 08-19-2024 End: 08-19-2024 Xcapsl ctrc rmvl insj io lens prosth w/o ecp EXTRACTION CATARACT INTRAOCULAR LENS cataract right eye 08/19/2024 3:00 PM EDT [facility] Start: 06-22-2024 Influenza vaccination Influenza Vacc ine (#1) [facility] Start: 06-22-2020 Influenza vaccinatio n given [facility] Start: 2019 Abdominal aortic ane urysm screening Abdominal Aortic Aneurysm (AAA) Screen [facility] Start: 2019 Fall Risk Screening Fall Risk Screen ing [facility] Start: 2019 Pneumococcal vaccination Pneum ococcal Vaccine Age 65+ (1 of 2 - PCV13) [facility] Start: 12-07-2015 Administration of he rpes zoster vaccine Zoster Vaccines (2 of 3) [facility] Start: 12-07-2015 Administration of varicella zoster vaccine Zoster (Shingles) Vaccine (2 of 3) [facility] Start: 2004 Screening for malign ant neoplasm of colon [facility] Start: 1972 Adult BMI Follow Up Plan Adult BMI Follow Up Plan [facility] Start: 1972 Hepatitis C antibody , confirmatory test Hepatitis C Screening [facility] Start: 1970 COVID-19 Vaccine (1 of 2) COVI D-19 Vaccine (1 of 2) [facility] Start: 1966 Adolescent depressio n screening assessment [facility] Start: 1957 History and physical examination, annual for health maintenance Wellness Visit [facility] Start: 1954 Fall risk assessment Falls Risk Asse ssment [facility] Start: 1954 Hepatitis C antibody , confirmatory test Hepatitis C Screening [facility] Start: 1954 Medicare Annual Well ness Visit Medicare Annual Wellness Visit [facility] Start: 1954 Prostate specific an tigen measurement PSA Level [facility] Start: 1954 Screening for malign ant neoplasm of colon [facility] Start: 1954 US scan of abdominal aorta Abdominal Aortic Ultrasound [facility] Immunizations Immunization Date Immunization Notes Care Provider Spencer gomez 07-16-2023 Influenza, Seasonal, Quadrivalent, Adjuvanted Ruth Myers MD Work Phone: [facility] Work Phone: 07-16-2023 influenza virus vacc ine, unspecified formulation Ruth Myers MD Work Phone: [facility] 07-11-2022 Influenza, High-dose Seasonal, Quadrivalent, Preservative Free Ruth Myers MD Work Phone: [facility] 01-27-2022 Pneumococcal Conjuga te PCV 20 Ruth Myers MD Work Phone: [facility] 07-22-2021 Influenza, High-dose Seasonal, Quadrivalent, Preservative Free Ruth Myers MD Work Phone: [facility] 07-22-2020 Influenza, Seasonal, Quadrivalent, Adjuvanted Ruth Myers MD Work Phone: [facility] 08-29-2019 influenza, injectabl e, quadrivalent, preservative free Ruth Myers MD Work Phone: [facility] 08-22-2018 influenza, injectabl e, quadrivalent, preservative free Ruth Myers MD Work Phone: [facility] 08-03-2017 influenza, seasonal, injectable Ruth Myers MD Work Phone: [facility] 10-12-2015 pneumococcal polysaccharide vaccine, 23 valent Ruth Myers MD Work Phone: [facility] 10-12-2015 tetanus toxoid, redu desmond diphtheria toxoid, and acellular pertussis vaccine, adsorbed Ruth Myers MD Work Phone: [facility] 10-12-2015 zoster vaccine, live Reggie Myers MD Work Phone: [facility] 10-12-2015 zoster vaccine, unspecified formulation [facility] 2 [facility] Payers Date Payer Category Payer Medicare (Managed Care) [facility] [id number] 2023 Medicare [facility] [id number] 2023 Medicare 2023 Unknown [id number] 2015 Unknown [id number] 2015 Unknown ANTHEM BCBS OUT OF STATE [facility] xxxxxxxxxxxxxx 2015-Present xxxxxxxxxxxxxx [id number] 2015 Unknown ANTHEM BC[place] OUT OF [place] [facility] [id number] 2015-Present [id number]. [id number] 2009 Unknown [id number] 1959 Unknown [id number] 1954 Unknown [id number] 2.16.840.1.728611.3.579.2. 900 1954 Unknown [id number] 2.16.840.1.812443.3.579.2. 903 1954 Unknown [id number] 2.16.840.1.256155.3.579.2. 902 1954 Unknown [id number] 2.16.840.1.890853.3.579.2. 593 1954 Unknown [id number] 2.16.840.1.294808.3.579.2. 593 1954 Unknown [id number] 2.16.840.1.462612.3.579.2. 593 1954 Unknown [id number] 2.16.840.1.255996.3.579.2. 593 1954 Unknown [id number] 2.16.840.1.274325.3.579.2. 593 1954 Unknown [id number] 2.16.840.1.555858.3.579.2. 1259 1954 Unknown [id number] 2.16.840.1.702974.3.579.2. 1259 1954 Unknown [id number] 2.16.840.1.723908.3.579.2. 1259 1954 Unknown [id number] 2.16.840.1.257207.3.579.2. 1259 1954 Unknown [id number] 2.16.840.1.892409.3.579.2. 196 1954 Unknown [id number] 2.16.840.1.437734.3.579.2. 196 1954 Unknown [id number] 2.16.840.1.105984.3.579.2. 1286 1954 Unknown [id number] 2.16.840.1.737898.3.579.2. 1286 1954 Unknown [id number] 2.16.840.1.386367.3.579.2. 1286 1954 Unknown [id number] 2.16.840.1.170714.3.579.2. 1286 1954 Unknown [id number] 2.16.840.1.926410.3.579.2. 1286 1954 Unknown [id number] 2..840.1.303502.3.579.2. 1286 1954 Unknown [id number] 2.16.840.1.675651.3.579.2. 1286 1954 Unknown [id number] 2..840.1.099058.3.579.2. 1286 1954 Unknown [id number] 2.16.840.1.957140.3.579.2. 1286 Social History Date Type Detail Facility Start: 03-04-2020 End: 02-05-2024 Tobacco smoking status NHIS Former smoker [facility] Start: 03-04-2020 End: 08-20-2024 Alcohol intake Current drinker of alcohol (finding) [facility] Start: 10-02-2016 Alcohol Comment occasional [facility] Start: 1955 Sex Assigned At Not on file [facility] Start: 03-05-2020 End: 02-05-2024 Tobacco use and exposure Never used [facility] Start: 1972 End: 2003 History of tobacco use Current smoker [facility] Start: 02-04-2024 End: 07-29-2024 History of Social function [facility] Start: 02-04-2024 End: 07-29-2024 Tobacco use panel [facility] Childcare Unknown [facility] Start: 04-30-2018 Alcohol Comment 1-2 a day [facility] Start: 1972 End: 2003 History of tobacco use Cigarette Smoker [facility] Start: 02-05-2024 Alcoholic beverage intake Ex-drinker (finding) [facility] Do you belong to any clubs or organizations such as muslim groups, unions, fraternal or athletic groups, or school groups? No [facility] Are you now , , , , never or living with a partner? [facility] How often to you hav e a drink containing alcohol? 2-3 time sa week [facility] How many standard dr inks containing alcohol do you have on a typical day? 3 or 4 [facility] How often do you hav e 6 or more drinks on 1 occasion? Monthly [facility] How hard is it for y ou to pay for the very basics like food, housing, medical care, and heating Not very hard [facility] Do you feel stress - tense, restless, nervous, or anxious, or unable to sleep at night because your mind is troubled all the time - these days [OSQ] Not at all [facility] (I/We) worried wheth er (my/our) food would run out before (I/we) got money to buy more. Never true [facility] Start: 05-16-2023 Alcohol Comment Caffeine intake: more than 4 cups per day coffee [facility] Start: 1955 Sex assigned at Male [facility] Start: 01-03-2023 Gender identity Identifies as male gender (finding) [facility] Start: 03-11-2023 Sexual orientation Heterosexual (finding) [facility] Start: 05-27-2015 Sex Male (finding) [facility] Medical Equipment Procedure Code Equipment Code Equipment Origin al Text Equipment Identifier Dates Lens Iol [id number]. [address] [facility] [id number] - [id number] - [id number] Start: 08-19-2024 Lens Iol [id number]. [address] [facility] [id number] - [id number] - [id number]_[facility] Start: 09-09-2024 Clinical Notes 10-28-2021 to 09-10-2024 Telephone Encounter - Flory Mark - 09/10/2024 1:40 PM ESTTelephone Encounter - Flory Mark - 09/10/2024 1:40 PM ESTPerioperative Nursing Note - Jessica Perez RN - 09/08/2024 3:50 PM EST Note Date & Type Note Facility 09-10-2024 Telephone encounter Note Pt cannot get his Atorvastatin filled because it says he picked it up in July at the [facility]. He has no idea who that is that called it in.. and when I google her name, she works in [facility], which is 3 hrs [place] mins away from [place]. I am going to first call [facility] and make sure the bday matches the pt (pt said there is another person in [place] with his name) [facility] is closed for lunch right now and I'm going to lunch :) So I told pt I will call them when I return from lunch and give him a call back to let him know what I find out. Just documenting. [facility] 09-10-2024 Miscellaneous Notes Pt cannot get his Atorvastatin filled because it says he picked it up in July at the [facility]. He has no idea who that dr is that called it in.. and when I google her name, she works in [employer] [facility], which is 3 hrs [place] 55 mins away from [place]. I am going to first call [facility] and make sure the bday matches the pt (pt said there is another person in [place] with his name) [facility] is closed for lunch right now and I'm going to lunch :) So I told pt I will call them when I return from lunch and give him a call back to let him know what I find out. Just documenting. documented in this encounter [facility] 09-08-2024 Miscellaneous Notes Preoperative Education Checklist- General Surgery date: 09/09/24 Surgery time: 1415 Arrival time: 1215 1. Bring a photo ID and your insurance card with you the day of surgery. You will check in at the main lobby registration desk as soon as you walk in the entrance. 2. If you have a Living Will/Durable Power of Product Marketing Intern for Health Care that is not on file here, please bring a copy the day of surgery. 3. Please wash your face with baby shampoo prior to procedure as instructed by your physician. 4. NO powder, lotion, perfume/cologne, aftershave, make-up, nail andorran on at least one finger, deodorant, or hair products after you have bathed. 5. Nothing to eat or drink (not even water, gum, mints, or hard candy!) AFTER midnight prior to your surgery. 6. Take only medications that you are instructed to on the morning of surgery with a TINY SIP OF WATER. 7. If you have an inhaler, use it routinely. 8. Choose a responsible adult that will be able to drive you home when you are discharged from your hospital stay for your surgery. You must NOT drive any vehicle or operate any machinery for 24 hours after surgery. 9. When you dress for your appointment, please wear comfortable clothing. 10. Do NOT wear jewelry, watches, or any piercings or metal for surgery. 11. Do NOT wear contact lenses for surgery- glasses are okay if needed. 12. The anesthesiologist will talk with you the day of surgery and will ask you to sign a Consent Form. 13. Refrain from smoking or any type of tobacco use for at least 8 hours or marijuana for 24 hours prior to arrival for your surgery. 14. Notify your surgeon if you develop any illness before your surgery. 15. If you have any questions prior to surgery, please call the Preadmission Testing office at [phone], Mon.-Fri. 7 a.m.-3 p.m. Leave a voicemail if needed. Pre-Surgery Instructions: Medication Instructions acetaminophen (TYLENOL) 650 mg 8 hr tablet Stop taking 0 days prior to procedure acetaminophen-codeine (TYLENOL #3) 300-30 mg per tablet Stop taking 0 days prior to procedure aspirin 81 mg Stop taking 0 days prior to procedure ibuprofen (ADVIL,MOTRIN) 100 MG tablet Stop taking 0 days prior to procedure melatonin 10 mg capsule Stop taking 0 days prior to procedure moxifloxacin HCl (MOXIFLOXACIN 0.5%-PREDNISOLONE 1%-BROMFENAC 0.09% DROPS - BUDERER ) Stop taking 0 days prior to procedure NON FORMULARY Stop taking 0 days prior to procedure omega 2-clu-ssa-fish oil (Fish OiL) 300-1,000 mg capsule Stop taking 0 days prior to procedure pravastatin (PRAVACHOL) 80 mg tablet Stop taking 0 days prior to procedure documented in this encounter [facility] 09-08-2024 Nurse Note Preoperative Education Checklist- General Surgery date: 09/09/24 Surgery time: 1415 Arrival time: 1215 1. Bring a photo ID and your insurance card with you the day of surgery. You will check in at the main lobby registration desk as soon as you walk in the entrance. 2. If you have a Living Will/Durable Power of Product Marketing Intern for Health Care that is not on file here, please bring a copy the day of surgery. 3. Please wash your face with baby shampoo prior to procedure as instructed by your physician. 4. NO powder, lotion, perfume/cologne, aftershave, make-up, nail andorran on at least one finger, deodorant, or hair products after you have bathed. 5. Nothing to eat or drink (not even water, gum, mints, or hard candy!) AFTER midnight prior to your surgery. 6. Take only medications that you are instructed to on the morning of surgery with a TINY SIP OF WATER. 7. If you have an inhaler, use it routinely. 8. Choose a responsible adult that will be able to drive you home when you are discharged from your hospital stay for your surgery. You must NOT drive any vehicle or operate any machinery for 24 hours after surgery. 9. When you dress for your appointment, please wear comfortable clothing. 10. Do NOT wear jewelry, watches, or any piercings or metal for surgery. 11. Do NOT wear contact lenses for surgery- glasses are okay if needed. 12. The anesthesiologist will talk with you the day of surgery and will ask you to sign a Consent Form. 13. Refrain from smoking or any type of tobacco use for at least 8 hours or marijuana for 24 hours prior to arrival for your surgery. 14. Notify your surgeon if you develop any illness before your surgery. 15. If you have any questions prior to surgery, please call the Preadmission Testing office at [phone], Mon.-Fri. 7 a.m.-3 p.m. Leave a voicemail if needed. Pre-Surgery Instructions: Medication Instructions acetaminophen (TYLENOL) 650 mg 8 hr tablet Stop taking 0 days prior to procedure acetaminophen-codeine (TYLENOL #3) 300-30 mg per tablet Stop taking 0 days prior to procedure aspirin 81 mg Stop taking 0 days prior to procedure ibuprofen (ADVIL,MOTRIN) 100 MG tablet Stop taking 0 days prior to procedure melatonin 10 mg capsule Stop taking 0 days prior to procedure moxifloxacin HCl (MOXIFLOXACIN 0.5%-PREDNISOLONE 1%-BROMFENAC 0.09% DROPS - BUDERER ) Stop taking 0 days prior to procedure NON FORMULARY Stop taking 0 days prior to procedure omega 1-ohb-cfo-fish oil (Fish OiL) 300-1,000 mg capsule Stop taking 0 days prior to procedure pravastatin (PRAVACHOL) 80 mg tablet Stop taking 0 days prior to procedure [facility] 08-26-2024 Telephone encounter Note Patient is requesting atorvastatin- he thinks it was increased to 40mg. Uses [facility] in [place]. Thank you. [facility] 08-26-2024 Miscellaneous Notes Patient is requesting atorvastatin- he thinks it was increased to 40mg. Uses [facility] [place]. Thank you. documented in this encounter [facility] 07-29-2024 Instructions Jessica Perez RN - 07/29/2024 11:15 AM EDT Preoperative Education Checklist- General Surgery date: 08/19/24 Surgery time: 3:00 p.m. Arrival time: 1:00 p.m. 1. Bring a photo ID and your insurance card with you the day of surgery. You will check in at the main lobby registration desk as soon as you walk in the entrance. 2. If you have a Living Will/Durable Power of Product Marketing Intern for Health Care that is not on file here, please bring a copy the day of surgery. 3. Please wash your face with baby shampoo prior to procedure as instructed by your physician. 4. NO powder, lotion, perfume/cologne, aftershave, make-up, nail andorran on at least one finger, deodorant, or hair products after you have bathed. 5. Nothing to eat or drink (not even water, gum, mints, or hard candy!) AFTER midnight prior to your surgery. 6. Take only medications that you are instructed to on the morning of surgery with a TINY SIP OF WATER. 7. If you have an inhaler, use it routinely. 8. Choose a responsible adult that will be able to drive you home when you are discharged from your hospital stay for your surgery. You must NOT drive any vehicle or operate any machinery for 24 hours after surgery. 9. When you dress for your appointment, please wear comfortable clothing. 10. Do NOT wear jewelry, watches, or any piercings or metal for surgery. 11. Do NOT wear contact lenses for surgery- glasses are okay if needed. 12. The anesthesiologist will talk with you the day of surgery and will ask you to sign a Consent Form. 13. Refrain from smoking or any type of tobacco use for at least 8 hours or marijuana for 24 hours prior to arrival for your surgery. 14. Notify your surgeon if you develop any illness before your surgery. 15. If you have any questions prior to surgery, please call the Preadmission Testing office at [phone], Mon.-Fri. 7 a.m.-3 p.m. Leave a voicemail if needed. Pre-Surgery Instructions: Medication Instructions acetaminophen (TYLENOL) 650 mg 8 hr tablet Stop taking 0 days prior to procedure acetaminophen-codeine (TYLENOL #3) 300-30 mg per tablet Stop taking 0 days prior to procedure ascorbic acid, vitamin C, (VITAMIN C) 500 mg tablet Stop taking 0 days prior to procedure aspirin 81 mg Stop taking 0 days prior to procedure ibuprofen (ADVIL,MOTRIN) 100 MG tablet Stop taking 0 days prior to procedure melatonin 10 mg capsule Stop taking 0 days prior to procedure NON FORMULARY Stop taking 0 days prior to procedure omega 4-mcb-wax-fish oil (Fish OiL) 300-1,000 mg capsule Stop taking 0 days prior to procedure pravastatin (PRAVACHOL) 80 mg tablet Stop taking 0 days prior to procedure [facility] Miscellaneous Notes Preoperative Education Checklist- General Surgery date: 08/19/24 Surgery time: 3:00 p.m. Arrival time: 1:00 p.m. 1. Bring a photo ID and your insurance card with you the day of surgery. You will check in at the main lobby registration desk as soon as you walk in the entrance. 2. If you have a Living Will/Durable Power of Product Marketing Intern for Health Care that is not on file here, please bring a copy the day of surgery. 3. Please wash your face with baby shampoo prior to procedure as instructed by your physician. 4. NO powder, lotion, perfume/cologne, aftershave, make-up, nail andorran on at least one finger, deodorant, or hair products after you have bathed. 5. Nothing to eat or drink (not even water, gum, mints, or hard candy!) AFTER midnight prior to your surgery. 6. Take only medications that you are instructed to on the morning of surgery with a TINY SIP OF WATER. 7. If you have an inhaler, use it routinely. 8. Choose a responsible adult that will be able to drive you home when you are discharged from your hospital stay for your surgery. You must NOT drive any vehicle or operate any machinery for 24 hours after surgery. 9. When you dress for your appointment, please wear comfortable clothing. 10. Do NOT wear jewelry, watches, or any piercings or metal for surgery. 11. Do NOT wear contact lenses for surgery- glasses are okay if needed. 12. The anesthesiologist will talk with you the day of surgery and will ask you to sign a Consent Form. 13. Refrain from smoking or any type of tobacco use for at least 8 hours or marijuana for 24 hours prior to arrival for your surgery. 14. Notify your surgeon if you develop any illness before your surgery. 15. If you have any questions prior to surgery, please call the Preadmission Testing office at [phone], Mon.-Fri. 7 a.m.-3 p.m. Leave a voicemail if needed. Pre-Surgery Instructions: Medication Instructions acetaminophen (TYLENOL) 650 mg 8 hr tablet Stop taking 0 days prior to procedure acetaminophen-codeine (TYLENOL #3) 300-30 mg per tablet Stop taking 0 days prior to procedure ascorbic acid, vitamin C, (VITAMIN C) 500 mg tablet Stop taking 0 days prior to procedure aspirin 81 mg Stop taking 0 days prior to procedure ibuprofen (ADVIL,MOTRIN) 100 MG tablet Stop taking 0 days prior to procedure melatonin 10 mg capsule Stop taking 0 days prior to procedure NON FORMULARY Stop taking 0 days prior to procedure omega 2-sju-pcl-fish oil (Fish OiL) 300-1,000 mg capsule Stop taking 0 days prior to procedure pravastatin (PRAVACHOL) 80 mg tablet Stop taking 0 days prior to procedure Surgical instructions reviewed. Patient verbalized understanding. [facility] Nurse Note Preoperative Education Checklist- General Surgery date: 08/19/24 Surgery time: 3:00 p.m. Arrival time: 1:00 p.m. 1. Bring a photo ID and your insurance card with you the day of surgery. You will check in at the main [place] registration desk as soon as you walk in the entrance. 2. If you have a Living Will/Durable Power of Product Marketing Intern for Health Care that is not on file here, please bring a copy the day of surgery. 3. Please wash your face with baby shampoo prior to procedure as instructed by your physician. 4. NO powder, lotion, perfume/cologne, aftershave, make-up, nail andorran on at least one finger, deodorant, or hair products after you have bathed. 5. Nothing to eat or drink (not even water, gum, mints, or hard candy!) AFTER midnight prior to your surgery. 6. Take only medications that you are instructed to on the morning of surgery with a TINY SIP OF WATER. 7. If you have an inhaler, use it routinely. 8. Choose a responsible adult that will be able to drive you home when you are discharged from your hospital stay for your surgery. You must NOT drive any vehicle or operate any machinery for 24 hours after surgery. 9. When you dress for your appointment, please wear comfortable clothing. 10. Do NOT wear jewelry, watches, or any piercings or metal for surgery. 11. Do NOT wear contact lenses for surgery- glasses are okay if needed. 12. The anesthesiologist will talk with you the day of surgery and will ask you to sign a Consent Form. 13. Refrain from smoking or any type of tobacco use for at least 8 hours or marijuana for 24 hours prior to arrival for your surgery. 14. Notify your surgeon if you develop any illness before your surgery. 15. If you have any questions prior to surgery, please call the [facility] office at [phone], Mon.-Fri. 7 a.m.-3 p.m. Leave a voicemail if needed. Pre-Surgery Instructions: Medication Instructions acetaminophen (TYLENOL) 650 mg 8 hr tablet Stop taking 0 days prior to procedure acetaminophen-codeine (TYLENOL #3) 300-30 mg per tablet Stop taking 0 days prior to procedure ascorbic acid, vitamin C, (VITAMIN C) 500 mg tablet Stop taking 0 days prior to procedure aspirin 81 mg Stop taking 0 days prior to procedure ibuprofen (ADVIL,MOTRIN) 100 MG tablet Stop taking 0 days prior to procedure melatonin 10 mg capsule Stop taking 0 days prior to procedure NON FORMULARY Stop taking 0 days prior to procedure omega 9-gxc-aff-fish oil (Fish OiL) 300-1,000 mg capsule Stop taking 0 days prior to procedure pravastatin (PRAVACHOL) 80 mg tablet Stop taking 0 days prior to procedure [facility] 07-29-2024 Nurse Note Surgical instructions reviewed. Patient verbalized understanding. [facility] 11-30-2022 Note CONSULTATION CONSULTATION DATE: 11/30/2022 HISTORY [...] walking, housework and lifting. He does use [id number] menthol patches which help decrease his pain. [...] be done in the office today. [facility] 08-24-2022 Note CONSULTATION CONSULTATION DATE: 08/24/2022 HISTORY [...] and patient agrees with this plan. 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 At [...] 2 months' time unless otherwise indicated. [facility] 06-01-2022 Note CONSULTATION PROCEDURE DATE: 06/01/2022 PRE [...] be followed up in the office. [facility] 03-09-2022 Note CONSULTATION CONSULTATION DATE: 03/09/2022 This [...] patient agrees and all questions were answered. [facility] Signed and Approved by: DORIE VALDEZ . 03/13/2022 15:06:00 [facility] 01-27-2022 Note PROCEDURE: Without I V contrast [...] signed by Kenneth Kan on 01/27/2022 0938 [facility] 10-28-2021 Note PROCEDURE: [employer] VCT 64, 5.0 mm slice axial images [...] signed by Kenneth Kan on 10/28/2021 0937 [facility] Evaluation note Diagnosis Preop examination- Primary Unspecified pre-operative examination Preop examination Unspecified pre-operative examination [facility] Diagnosis Mixed hyperlipidemia (CMS/HCC) Mixed hyperlipidemia documented in this encounter [facility]Not on filedocumented in [facility] Summary Purpose Family History No Family History Records FoundNo Family History Records FoundNo Family History Records FoundNo Family History Records FoundNo Family History Records FoundNo Family History Records FoundNo Family History Records FoundNo Family History Records Found Advance Directives Documents on File Type Date 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 * Lumbar Epidural Steroid Injections: General Info (Kazakh) * Post-op Infection (Kazakh) documented in this encounter Assessments Diagnosis Lumbago Reason for Referral Specialty Diagnoses / Procedures Referred By Contac t Referred To Contact Diagnoses Preop examination Procedures ECG 12 lead Mitali Mares MD [address] [place] [address] Referral ID Status Reason Start Date Expiration Date V isits Requested Visits Authorized [id number] Pending Review 07/22/2024 07/22/2025 1 1 Additional Source Comments (unrecognized sect ion and content) No Status Records FoundNo Status Records FoundNo Status Records FoundNo Status Records FoundNo Status Records FoundNo Status Records FoundNo Status Records FoundNo Status Records Found INFORMATION SOURCE (unrecogn ized section and content) DATE CREATED AUTHOR 06/16/2019 [facility] DATE CREATED AUTHOR AUTHOR'S ORGANIZ ATION 06/25/2019 [facility] DATE CREATED AUTHOR AUTHOR'S ORGANIZ ATION 03/10/2020 [facility] DATE CREATED AUTHOR AUTHOR'S ORGANIZ ATION 02/23/2022 [facility] dical Specialist DATE CREATED AUTHOR AUTHOR'S ORGANIZ ATION 03/05/2023 [facility] DATE CREATED AUTHOR AUTHOR'S ORGANIZ ATION 03/17/2024 [facility] dical Specialists [facility] DATE CREATED AUTHOR AUTHOR'S ORGANIZ ATION 06/20/2024 [facility] DATE CREATED AUTHOR AUTHOR'S ORGANIZ ATION 09/10/2024 [facility] Reason for Visit (unrecogniz ed section and content) Status Reason Specialty Diagnoses / Procedures Referre d By Contact Referred To Contact Diagnoses Lumbago Lumbago [M54.5] Procedures IR EPIDURAL STEROID INJ Nicolasa Mitchell MD - 03/04/2020 10:11 AM EDT Procedure Notes (unrecognize d section and content) Vascular & Interventional Radiology Provided By [facility] (Diagnostic Radiology, Interventional and Neurointerventional Radiology and Vascular Medicine) Interventional Radiology Department @ [facility]: [phone] 14/05 VIR physician contact: [phone]) Weekday VIR nurse practitioner contact @ [facility]: [phone] [facility]: [phone] [email or web address] [facility] HOISTING ENGINEER DIRECTORY PROCEDURE: Fluoroscopic guided lumbar epidural steroid injection @ L5-S1 PLAN: Repeat epidural steroid injection can be offered, as needed Date: 03/04/2020 Patient Name: Neville Schmitz Patient : 1955 Physician: Nicolasa Mitchell MD Sedation Plan: None [place] Protocol: Pre-Procedural verification: Correct patient, correct site [...] report to follow documented in this encounter Care Teams (unrecognized sec tion and content) Library Helper Relationship Specialty Start Date End Date Ruth Myers MD [address] [facility] [place] [address] PCP - General Family Medicine 12/31/17 Library Helper Relationship Specialty Start Date End Date Ruth Myers MD [address] [place] [address] PCP - General Family Medicine 05/10/23 Ruth Myers MD [address] [place] [address] PCP - Devoted 10/22/23 Library Helper Relationship Specialty Start Date End Date Ruth Myers MD [address] [place] [address] PCP - General Family Medicine 05/10/23 Ruth Myers MD [address] [place] [address] PCP - Devoted 10/22/23 Library Helper Relationship Specialty Start Date End Date Ruth Myers MD [address] [place] [address] PCP - General Family Medicine 12/31/17 FOR RECORDS PERTAINING TO PATIENTS WHO ARE [...] BE BASED ON THE PRIMARY CLINICAL RECORDS. [facility] [employer] [facility]. provides no warranty or guarantee of the accuracy or completeness of information in this document.
--- NOTE | 2024-09-17 08:38 | P.CN_ITS ---
Consult Note: HPI Data of Consult Patient: known to practice within the last 3 years Requesting Physician: Jenny Machuca NP Primary Care Provider: Non-Staff Physician, Consult Narrative Reason for consult: f/u Narrative: Neville Schmitz a pleasant 69 year old male presents for evaluation and management of chronic back pain. Today rating pain 1/10, pain increases to 7/10 at its worst. Patient continues to benefit from tylenol #3 BID PRN without side effects. failed to benefit from HEP greater than 6 weeks. pt failed duloxetine due to side effects. Patient did not f/u with Dr Doan after 02/29/24 per pt, and elected to proceed with bilateral L3-4 TFESI and bilateral L4-5 TFESI under fluoroscopy with >80% improvement ongoing in pain and functional improvement. Patient reports these are the best injections he has ever had and is having significant improvement. Low back and middle back pain continues to increase with long periods of strenuous activity and overdoing it. cc:: CC: Jenny Machuca NP Review of Systems ROS Status of ROS 10 or more systems reviewed and unremark able except as noted in history and below Musculoskeletal Reports: back pain Meds Home Medications and Allergies Home Medications ?Medication ?Instructions ?Recorded ?Confirmed ?Type acetaminophen 300 mg-codeine 30 mg 1 tab PO BID 05/31/23 06/09/24 History tablet acetaminophen 325 mg capsule 325 mg PO Q6H PRN pain 05/31/23 06/09/24 History (Tylenol) aspirin 81 mg capsule 81 mg PO DAILY 05/31/23 06/09/24 History atorvastatin 80 mg tablet (Lipitor) 40 mg PO DAILY 05/31/23 06/19/24 History Allergies Allergy/AdvReac Type Severity Reaction Status Date / Time No Known Drug Allergies Allergy Verified 06/09/24 09:25 Exam Constitutional Documenting provider has reviewed patient's vital signs: yes Common normals: no apparent distress, oriented x3, healthy appearing, alert and well nourished General appearance: cooperative Orientation/consciousness: Yes awake, Yes oriented to person, Yes oriented to place and Yes oriented to time HENNH Common normals: normocephalic, hearing grossly normal bilaterally and moist oral mucous membranes Head and scalp: normocephalic Eye Common normals: PERRL Pupil: PERRL Neck & C-Spine Common normals: full ROM General: normal visual inspection Chest Common normals: inspection of chest normal Respiratory Common normals: normal respiratory effort, no retractions and no use of accessory muscles Effort & inspection: able to speak in complete sentences and symmetric chest movement Back & Pelvis Thoracic spine/upper back: ROM limited, pain with ROM and thoracic spinal tenderness Lumbar spine/lower back: normal to inspection, ROM limited and straight leg raise negative bilaterally Other: positive facet load pain bilat lumbar and thoracic pain over T7,8,9 bilateral facet joints increased pain L4-S1 facet joints muscle strength 5/5 in BLE, sensation intact BLE Extremity Common normals: normal to inspection and full ROM Neuro Common normals: oriented x3, CN's II-XII intact bilaterally, moves all extremities, no focal motor deficits, no sensory deficits noted and deep tendon reflexes 2+ bilaterally Sensorium/orientation: alert Motor exam: strength 5/5 throughout and no movement abnormalities noted Psych Common normals: mental status grossly normal, thought process normal, cooperative, affect normal, speech normal and activity/motor behavior normal Speech: normal speech Thought process: normal thought process Assessment and Plan Assessment and Plan (1) Lumbar spondylosis: (2) Lumbar stenosis with neurogenic claudication: Assessment and Plan: >80% improvement ongoing from prior ESIs (3) Thoracic back pain: (4) Osteoarthritis: (5) Chronic prescription opiate use: Assessment and Plan: I feel these medications are improving the patient's quality of life and allow them to tolerate activities of daily living as well as participate in recreational activity.? The patient does not report intolerable side effects. The patient is NOT opioid naive and non-pharmacologic and non-opioid treatment has failed to significantly relieve the patient's pain and improve functionality. The patient has a diagnosis that is related to a somatic or visceral pain etiology. ? ?? I reviewed with the patient the potential risks and side effects with the use of? opioid medications including but not limited to respiratory depression,? sedation, and even . I verified the patient has access to naloxone should? these effects occur. I advised the patient to avoid the use of any other? sedation substances including alcohol, THC, and benzodiazepines while? taking opioid medications due to the risk of compounding side effects and? detrimental outcomes. I reviewed the TOOL DRAWING CHECKER, pain treatment agreement, urine? drug screen, and opioid start talking forms. The patient was advised to let? their family know they had Naloxone in case they would need to administer? the medication.? ?? A drug screen was completed within the last year, and no aberrancies were noted regarding their use of controlled substances. The patient understands they are subject to the terms and conditions of the pain contract that they have signed. ? ?? I have checked an OARRS report on this patient today and there are no aberrancies noted in the prescribing history.? (6) Myofascial pain: Plan bilateral L4-5 L5-S1 MBB x2 working towards RFA, risks vs benefits reviewed defer NS consult per pt request continue tylenol #3 BID PRN moderate to severe pain f/u after each injection
== END 2024-09-17 07:59 | disposition home or self-care (01) ==
LOC: PM 07:58
PROVIDERS: Visit Provider Nurse Practitioner
DX: M47.816 Spondylosis without myelopathy or radiculopathy, lumbar region (principal); M48.062 Spinal stenosis, lumbar region with neurogenic claudication; M54.6 Pain in thoracic spine; M19.90 Unspecified osteoarthritis, unspecified site; Z79.891 Long term (current) use of opiate analgesic; M79.18 Myalgia, other site
CPT/HCPCS: G0463

== ENCOUNTER 2024-10-06 08:38 | Day surgery (SDC) | payer OTHER, SELFPAY ==
[2024-10-06 08:50] VITALS: BP 142/72; PULSE 55; TEMP 36.4; O2SAT 97
[2024-10-06 09:11] VITALS: BP 151/70; BP 153/70; PULSE 50; O2SAT 95
[2024-10-06] MEDS: LIDOCAINE HCL 2% 400 MG/20 ML MDV 8 ML INJ (09:15)
[2024-10-06] MEDS: BUPIVACAINE HCL 0.25% PF 25 MG/10 ML VIAL 2 ML INJ (09:15)
--- NOTE | 2024-10-06 09:15 | W.PM.PROCNOT ---
Date of procedure: 10/06/24 Pre-op diagnosis: Pain due to lumbar spondylosis without myelopathy Post-op diagnosis: same as pre-op Procedure: Procedure: Bilateral L4-5, L5-S1 medial branch block Medications: Bupivacaine 0.25% 6cc The patient was seen and examined in the preoperative holding area.? An informed consent was obtained and placed on the chart.? The patient was brought to the medical procedure unit and placed in the prone position.? A timeout was completed verifying correct patient, procedure site, positioning, plan, and special equipment.? Using aseptic technique, the needle was placed at left L4. Under direct fluoroscopic visualization a Quincke-tipped spinal needle was advanced to the junction of the superior articulating process with the transverse process at the designated medial branch segment.? Preceded by negative aspiration, the above-mentioned injectate was placed in 1 mL aliquots.? The procedure was repeated at left L5, S1.? The needle was removed and insertion site was covered. The same procedure, at the same levels, was completed on the right side. The patient was taken to the postprocedural recovery area and monitored for an appropriate length of time before found suitable for discharge in the company of a responsible adult. Anesthesia: Local Surgeon: Anamaria Pollock Pathology: none sent Condition: stable Disposition: no change
== END 2024-10-06 09:21 | disposition home or self-care (01) ==
LOC: SURGOUT 08:40
PROVIDERS: Visit Provider Anesthesiology
DX: M47.816 Spondylosis without myelopathy or radiculopathy, lumbar region (principal)
CPT/HCPCS: 64493; 64494; J0665

== ENCOUNTER 2024-10-09 09:49 | Outpatient (OUT) | payer OTHER, SELFPAY ==
--- NOTE | 2024-10-09 09:59 | P.CN_ITS ---
Consult Note: HPI Data of Consult Patient: known to practice within the last 3 years Requesting Physician: Jenny Machuca NP Primary Care Provider: Non-Staff Physician, Consult Narrative Reason for consult: f/u Narrative: Neville Schmitz a pleasant 69 year old male presents for evaluation and management of chronic back pain. Today rating pain 1/10, pain increases to 7/10 at its worst. Patient continues to benefit from tylenol #3 BID PRN without side effects. failed to benefit from HEP greater than 6 weeks. pt failed duloxetine due to side effects. Low back and middle back pain continues to increase with long periods of strenuous activity and overdoing it. recently underwent bilateral L4-5 L5-S1 MBB #1 with >90% improvement immediately following and day after injection. noticed improvement in ability to stand and walk distances. pt was stung by a bee near his right eye yesterday, has notable swelling and redness around his under eye. utilizing PRN benadryl. has an appointment with an blacksmith apprentice today. cc:: CC: Jenny Machuca NP Review of Systems ROS Status of ROS 10 or more systems reviewed and unremark able except as noted in history and below Musculoskeletal Reports: back pain Meds Home Medications and Allergies Home Medications ?Medication ?Instructions ?Recorded ?Confirmed ?Type acetaminophen 300 mg-codeine 30 mg 1 tab PO BID 05/31/23 10/06/24 History tablet acetaminophen 325 mg capsule 325 mg PO Q6H PRN pain 05/31/23 10/06/24 History (Tylenol) aspirin 81 mg capsule 81 mg PO DAILY 05/31/23 10/06/24 History atorvastatin 80 mg tablet (Lipitor) 40 mg PO DAILY 05/31/23 10/06/24 History Allergies Allergy/AdvReac Type Severity Reaction Status Date / Time No Known Drug Allergies Allergy Verified 10/06/24 09:07 Exam Constitutional Documenting provider has reviewed patient's vital signs: yes Common normals: no apparent distress, oriented x3, healthy appearing, alert and well nourished General appearance: cooperative Orientation/consciousness: Yes awake, Yes oriented to person, Yes oriented to place and Yes oriented to time HENND Common normals: normocephalic, hearing grossly normal bilaterally and moist oral mucous membranes Head and scalp: normocephalic Eye Other: edema to right lower eye lid and periorbital, redness noted surround the edema. warm to touch Neck & C-Spine Common normals: full ROM General: normal visual inspection Chest Common normals: inspection of chest normal Respiratory Common normals: normal respiratory effort, no retractions and no use of accessory muscles Effort & inspection: able to speak in complete sentences and symmetric chest movement Back & Pelvis Thoracic spine/upper back: ROM limited, pain with ROM and thoracic spinal tenderness Lumbar spine/lower back: normal to inspection, ROM limited and straight leg raise negative bilaterally Other: positive facet load pain bilat lumbar and thoracic pain over T7,8,9 bilateral facet joints increased pain L4-S1 facet joints muscle strength 5/5 in BLE, sensation intact BLE Extremity Common normals: normal to inspection and full ROM Neuro Common normals: oriented x3, CN's II-XII intact bilaterally, moves all extremities, no focal motor deficits, no sensory deficits noted and deep tendon reflexes 2+ bilaterally Sensorium/orientation: alert Motor exam: strength 5/5 throughout and no movement abnormalities noted Psych Common normals: mental status grossly normal, thought process normal, cooperative, affect normal, speech normal and activity/motor behavior normal Speech: normal speech Thought process: normal thought process Assessment and Plan Assessment and Plan (1) Lumbar spondylosis: (2) Lumbar stenosis with neurogenic claudication: Assessment and Plan: >80% improvement ongoing from prior ESIs (3) Thoracic back pain: (4) Osteoarthritis: (5) Chronic prescription opiate use: Assessment and Plan: I feel these medications are improving the patient's quality of life and allow them to tolerate activities of daily living as well as participate in recr eational activity.? The patient does not report intolerable side effects. The patient is NOT opioid naive and non-pharmacologic and non-opioid treatment has failed to significantly relieve the patient's pain and improve functionality. The patient has a diagnosis that is related to a somatic or visceral pain etiology. ? ?? I reviewed with the patient the potential risks and side effects with the use of? opioid medications including but not limited to respiratory depression,? sedation, and even . I verified the patient has access to naloxone should? these effects occur. I advised the patient to avoid the use of any other? sedation substances including alcohol, THC, and benzodiazepines while? taking opioid medications due to the risk of compounding side effects and? detrimental outcomes. I reviewed the SOCIAL WORK PROFESSOR, pain treatment agreement, urine? drug screen, and opioid start talking forms. The patient was advised to let? their family know they had Naloxone in case they would need to administer? the medication.? ?? A drug screen was completed within the last year, and no aberrancies were noted regarding their use of controlled substances. The patient understands they are subject to the terms and conditions of the pain contract that they have signed. ? ?? I have checked an OARRS report on this patient today and there are no aberrancies noted in the prescribing history.? (6) Myofascial pain: Plan bilateral L4-5 L5-S1 MBB x2 working towards RFA, risks vs benefits reviewed defer NS consult per pt request continue tylenol #3 BID PRN moderate to severe pain I left a for the PCP office per pt request, pt needs to be seen by PCP for potential cellulitis of the periorbital area. pt will call again when he gets home, is having difficulty with his cell phone. does have an appointment with blacksmith apprentice today. f/u after each injection
--- OUTSIDE RECORDS SUMMARY | 2024-10-09 10:03 | XMS_ITS | CCD ---
Author Organization [facility] Care Team Providers Care Flap Curer Name Role Phone MITZI GALEAS Admitting Unavailable ESQUIVEL SARAH L Primary Care Unavailable KATLIN KNOWLES Attending Unavailabl e SARAH ESQUIVEL Primary Care Unavailable Sarah Esquivel Primary Care Provider Nicolasa MITCHELL Admitting Unavailable Nicolasa MITCHELL Attending Unavailable ESQUIVELPATTINY L Primary Care Unavailable Sarah Esquivel L Primary Care Provider JAYLON ., DR FRANCK Chaparro Admitting Unavailable IYER ., DR FRANCK Chaparro Attending Unavailable [facility] Primary Care Unavailable VALDEZ ., DORIE Consulting Unavailable IYER ., DR FRANCK Chaparro Admitting Unavailable IYER ., DR FRANCK Chaparro Attending Unavailable [facility] Primary Care Unavailable VALDEZ ., DORIE Consulting Unavailable IYER ., DR FRANCK Chaparro Admitting Unavailable IYER ., DR FRANCK Chaparro Attending Unavailable [facility] Primary Care Unavailable VALDEZ ., DORIE Consulting Unavailable IYER ., DR FRANCK Chaparro Admitting Unavailable IYER ., DR FRANCK Chaparro Attending Unavailable [facility] Primary Care Unavailable VALDEZ ., DORIE Consulting Unavailable LAKSHMIPATHY ., NARENDRANATH Admitting Angelica vailable LAKSHMIPATHY ., NARENDEDDIEATH Attending Angelica vailable [facility] [place] Primary Care Unavailable IVETH .CARINE Consulting Unavailable RUTH MYERS Attending Unavailable PHILIPPE OROSCO Referring Unavailable RAYNA JACQUES Referring Unavailable Maris DAVID, Anamaria June Attending Unavailable Maris DAVID, Anamaria June Attending Unavailable Ruth Myers MD Primary Care Provider [phone] Ruth Myers MD Primary Care Provider uRth Myers MD Unavailable RUTH MYERS Referring Unavailable [...] Care Unavailable MITALI MARES Attending Unavailable RUTH MYERS Primary Care Unavailable Medications Current Medications Medication [...] Active take 1 tablet by mouth once fiath y folic acid (FOLVITE) 1 MG tablet [...] Products (BRAINSTRONG MEMORY SUPPORT PO) (3 sources) [facility] Natural Pro ducts (BRAINSTRONG MEMORY SUPPORT PO) [...] NON FORMULARY enrique bach supplement Active omega 2-cfc-qqc-fish oil (Fish OiL) 300-1,000 mg capsule (2 [...] tablet 1 03/12/2024 Active polyethylene glycol 3350 02225 mg powder for oral solution (3 sources) [...] 0 02-21-2022 TSH 1.180 uIU/mL Normal 0.400-4.500 [facility] [employer] Comment on above: Performed By: #### T SH reflex FT4 #### [facility] [address], [place] [id number] US Aorta Screeningon 022 US Aorta Screening FINDINGS: Proximal Aorta2.9 x 2.3 cm Mid Aorta1.6 x 2.1 cm Distal Aorta1.3 x 1.3 cm Right Common Iliac9 x 10 mm Left Common Iliac10 x 13 mm No aneurysmal dilatation is identified. No neighboring fluid collections are seen. IMPRESSION: No significant aneurysmal formation. Report reported and signed by Kenneth Kan on 01/27/2022 0911 Normal [facility] Special[facility] Comprehensive Metabolic Pane zee 01-20-2022 Albumin [Mass/Vol] 4.5 g/dL Normal 3.6-5.1 [facility] Comment on above: Performed By: #### L IPD, CMP #### [facility] [address], [place] [id number] Albumin/Globulin [Mass ratio] 2.4 {ratio} Normal 1.0-2.5 [facility] Comment on above: Performed By: #### L IPD, CMP #### [facility] [address], [place] [id number] ALP [Catalytic activity/Vol] 69 U/L Normal 40-129 [facility] Comment on above: Performed By: #### L IPD, CMP #### [facility] [address], [place] [id number] ALT [Catalytic activity/Vol] 23 U/L Normal 9-46 [facility] Comment on above: Result Comment: 09/21 Female reference range changed. Performed By: #### L IPD, CMP #### [facility] [address], [place] [id number] Anion gap [Moles/Vol] 15 mmol/L Normal 12-20 [facility] Comment on above: Result Comment: Effe ctive 10/27/2019 reference range changed. Performed By: #### L IPD, CMP #### [facility] [address], [place] [id number] AST [Catalytic activity/Vol] 18 U/L Normal 10-40 [facility] Comment on above: Performed By: #### L IPD, CMP #### [facility] [address], [place] [id number] Bilirubin [Mass/Vol] 0.80 mg/dL Normal 0.30-1.20 [facility] Comment on above: Performed By: #### L IPD, CMP #### [facility] [address], [place] [id number] BUN/CREA 25 Ratio High 6-22 [facility] Comment on above: Performed By: #### L IPD, CMP #### [facility] [address], [place] [id number] Calcium [Mass/Vol] 9.9 mg/dL Normal 8.6-10.2 [facility] Comment on above: Performed By: #### L IPD, CMP #### [facility] [address], [place] [id number] Chloride [Moles/Vol] 106 mmol/L Normal 98-107 [facility] Comment on above: Performed By: #### L IPD, CMP #### [facility] [address], [place] [id number] CO2 [Moles/Vol] 25 mmol/L Normal 20-31 [facility] Comment on above: Performed By: #### L IPD, CMP #### [facility] [address], [place] [id number] Creatinine [Mass/Vol] 0.9 mg/dL Normal 0.7-1.4 [facility] [employer] Comment on above: Performed By: #### L IPD, CMP #### [facility] [address], [place] [id number] eGFRAA 102 mL/min/1.73m2 Normal >60 [facility] Specialist Comment on above: Performed By: #### L IPD, CMP #### [facility] [address], [place] [id number] eGFRNAA 84 mL/min/1.73m2 Normal >60 [facility] Comment on above: Performed By: #### L IPD, CMP #### [facility] [address], [place] [id number] Globulin (S) [Mass/Vol] 1.9 g/dL Normal 1.9-3.7 [facility] [employer] Comment on above: Performed By: #### L IPD, CMP #### [facility] [address], [place] [id number] Glucose [Mass/Vol] 101 mg/dL High 65-99 [facility] [employer] Comment on above: Result Comment: For FASTING Glucose --- ADA reference ranges: Normal 65-99 mg/dl Prediabetes 100-125 Diabetes >/= 126 Performed By: #### L IPD, CMP #### [facility] [address], [place] [id number] Potassium [Moles/Vol] 4.3 mmol/L Normal 3.5-5.5 [facility] [employer] Comment on above: Performed By: #### L IPD, CMP #### [facility] [address], [place] [id number] Protein [Mass/Vol] 6.4 g/dL Normal 6.1-8.1 [facility] [employer] Comment on above: Performed By: #### L IPD, CMP #### [facility] [address], [place] [id number] Sodium [Moles/Vol] 142 mmol/L Normal 135-146 [facility] [employer] Comment on above: Performed By: #### L IPD, CMP #### [facility] [address], [place] [id number] Urea nitrogen [Mass/Vol] 22 mg/dL Normal 7-25 [facility] Comment on above: Performed By: #### L IPD, CMP #### [facility] [address], [place] [id number] Lipid Panelon 01-20-2022 Cholesterol [Mass/Vol] 239 mg/dL High 125-200 [facility] [employer] Comment on above: Result Comment: Low risk < 200mg/dL Borderline risk 201-239 mg/dl High risk > or equal to 240 Performed By: #### L IPD, CMP #### [facility] [address], [place] [id number] Cholesterol in HDL [Mass/Vol] 66 mg/dL Normal >40 [facility] [employer] Comment on above: Result Comment: High Cardiovascular Risk HDL <40 mg/dL Low Cardiovascular Risk HDL > or equal to 60 mg/dl Performed By: #### L IPD, CMP #### [facility] [address], [place] [id number] Cholesterol in LDL [Mass/Vol] 149 mg/dL Normal [facility] Comment on above: Result Comment: LDL ATP III CLASSIFICATION LDL less than 100 mg/dl Optimal LDL 100-129 mg/dl Near or above optimal LDL 130-159 Borderline high LDL 160-189 High LDL greater than 189 mg/dl Very High Performed By: #### L IPD, CMP #### [facility] [address], [place] [id number] Cholesterol in VLDL [Mass/Vol] 24 mg/dL Normal [facility] Comment on above: Performed By: #### L IPD, CMP #### [facility] [address], [place] [id number] Cholesterol.total/C holesterol in HDL [Mass ratio] 4 {ratio} Normal [facility] Comment on above: Performed By: #### L IPD, CMP #### [facility] [address], [place] [id number] Triglyceride [Mass/Vol] 119 mg/dL Normal 30-150 [facility] [employer] Comment on above: Result Comment: TRIG ATPIII CLASSIFICATIONS TRIG less than 150 mg/dl Normal TRIG 150-199 mg/dl Borderline High TRIG 200-500 mg/dl High TRIG greather than 500 mg/dl Very High Performed By: #### L IPD, [facility] #### [facility] [address], [place] [id number] PSA SCREEN (MEDICARE)on TPSA 1.110 ng/mL Normal <4.000 [facility] Comment on above: Result Comment: PSA Test Method: ECLIA/Bre e 601 Performed By: #### P SA #### [facility] [address], [place] [id number] CV IR EPIDURAL STEROID INJon 03-04-2020 Fluoroscopically guided lumbar epidural steroid injection as outlined above. [employer] Workstation ID: [id number] [facility] HISTORY/CLINICAL DATA: Lumbago EXAMINATION: VIA A POSTERIOR APPROACH 1. FLUOROSCOPICALLY GUIDED LUMBAR EPIDURAL STEROID INJECTION. COMPARISON: None. [employer] COUNTER MANAGER(S): Nicolasa Mitchell MD. PROCEDURE: FLUOROSCOPY TIME: 0.2 [...] the procedure well without immediate postprocedural complications. [facility] Interface, Rad In [employer] - 03/04/2020 10:35 AM EDT HISTORY/CLINICAL DATA: Lumbago EXAMINATION: VIA A POSTERIOR APPROACH 1. FLUOROSCOPICALLY GUIDED LUMBAR EPIDURAL STEROID INJECTION. COMPARISON: None. [employer] SAL[employer] COUNTER MANAGER(S): Nicolasa Mitchell MD. PROCEDURE: FLUOROSCOPY TIME: 0.2 [...] lumbar epidural steroid injection as outlined above. [employer] Workstation ID: [id number] [facility] PT/INRon 03-04-2020 INR Coag (PPP) [Relative time] 1.0 {INR} [facility] Interpretation and review of laboratory results Normal [facility] PT Coag (PPP) [Time] 12.[address] [facility] During the induction phase of oral anticoagulation, the INR may not reflect the anticoagulation status of the patient. Therapeutic ranges for INR's are: Most clinical situations: INR 2.0-3.0 Mechanical Prosthetic Valve: INR 2.5-3.5 Critical: INR >5.0 [facility] Platelet Counton 03-04-2020 Interpretation and review of laboratory results Normal [facility] Platelet mean volume (Bld) [Entitic vol] 11.0 fL 9 - 15.[address] [facility] Platelets (Bld) [#/Vol] 178 10*3/uL [facility] CV IR EPIDURAL STEROID INJon 02-24-2020 CV IR EPIDURAL STEROID INJ HISTORY/CLINICAL DATA: Lumbago EXAMINATION: VIA A POSTERIOR APPROACH 1. FLUOROSCOPICALLY GUIDED LUMBAR EPIDURAL STEROID INJECTION. COMPARISON: None. [employer] COUNTER MANAGER(S): Nicolasa Mitchell MD. PROCEDURE: FLUOROSCOPY TIME: 0.2 [...] lumbar epidural steroid injection as outlined above. [employer] Workstation ID: [id number] Dictated by: Nicolasa MITCHELL on SunMarch 04, 2020 10:21:09 AM EDT Transcribed by: FIGUEROA GUTIERREZ on SunMarch 04, 2020 10:25:58 AM EDT Finalized by: Nicolasa MITCHELL on SunMarch 04, 2020 10:33:02 AM EDT Normal [facility] Vital Signs Date Time Vital Sign Value Performing Clinician Facility 07-29-2024 10:040 Body height 175.3 cm [facility] 2 [facility] 07-29-2024 10:0400 Body mass index (BMI) [Ratio] 30.27 kg/m2 [address] 07-29-2024 10:0400 Body weight 92.[address] 03-04-2020 10:26-0400 Body Temperature 98.4 [degF] [facility] 03-04-2020 10:26-0400 BP Diastolic 83 mm[Hg] [facility] 03-04-2020 10:26-0400 BP Systolic 146 mm[Hg] [facility] 03-04-2020 10:26-0400 Pulse (Heart Rate) 53 /min [facility] 03-04-2020 10:26-0400 Pulse Oximetry 97 % [facility] 03-04-2020 10:26-0400 Respiratory Rate 14 /min [facility] 03-04-2020 08:15-0400 BMI (Body Mass Index) 31.57 kg/m2 [facility] 03-04-2020 08:15-0400 [facility]-04-2020 08:15-0400 Height 177.8 cm [facility] Encounters Encounter Date Encounter Type Care Provider Facility Start: 09-10-2024 End: 09-10-2024 Telephone encounter Ruth Myers MD Work Phone: [facility] Start: 09-09-2024 End: 09-09-2024 Evaluation and management of inpatient MITALI MARES [facility] Start: 09-09-2024 End: 09-09-2024 Evaluation and management of inpatient EMILIE FORMAN [facility] Start: 09-08-2024 End: 09-08-2024 ambulatory [facility] Pat Phone Call Provider 1 [facility] - Pre Admit Start: 09-08-2024 End: 09-08-2024 ambulatory RUTH Rosario [facility] Start: 08-26-2024 End: 08-26-2024 Telephone encounter Ruth Myers MD Work Phone: [facility] Comment on above: Mixed hyperlipidemia (CMS/HCC) Start: 08-19-2024 End: 08-19-2024 Evaluation and management of inpatient DIYA NAVARRETE [facility] Start: 08-19-2024 End: 08-19-2024 Evaluation and management of inpatient EMILEI FORMAN [facility] Start: 07-29-2024 End: 07-29-2024 Patient encounter procedure [facility] Pre-Admission Testing 2 [facility] - Pre Admit Comment on above: Preop examination (P rimary Dx) Start: 07-29-2024 End: 07-29-2024 Preprocedural examination done [facility] 2 [facility] Start: 07-29-2024 End: 07-29-2024 [facility]: 07-29-2024 Encounter for other preprocedural examination RUTH LOUIS [facility] Start: 06-09-2024 End: 06-09-2024 ambulatory Anamaria Pollock MD Facility: [facility] Start: 05-26-2024 End: 05-26-2024 ambulatory Anamaria Pollock MD Facility: [facility] Start: 03-12-2024 End: 03-13-2024 ambulatory RAYNA JACQUSE Not Available Start: 02-05-2024 End: 02-05-2024 ambulatory [...] 12-16-2020 Orders Only Jayshree Solano Work Phone: [facility] Start: 03-04-2020 End: 03-04-2020 Patient encounter procedure Nicolasa MITCHELL [facility] Start: 03-04-2020 End: 03-04-2020 Subsequent hospital visit by physician Nicolasa Mitchell Work Phone: [facility] Comment on above: Lumbago Start: 06-24-2019 Patient encounter procedure [facility] Start: 06-12-2019 End: 06-16-2019 Patient encounter procedure MITZI Jackie [facility] Procedures Date Procedure Procedure Detail Performing [...] Screening for malign ant neoplasm of colon [facility] Start: 10-12-2025 DTaP,Tdap and Td Vac cines (2 - Td or Tdap) DTaP,Tdap and Td Vaccines (2 - Td or Tdap) [facility] Start: 10-12-2025 Tetanus vaccination Tetanus: Every [address] [facility] Start: 09-09-2025 Adult BMI Screening Adult BMI Screen ing [facility] Start: 09-09-2025 Tobacco Screening Tobacco Screening [facility] Start: 07-29-2025 Adult BMI Screening Adult BMI Screen ing [facility] Start: 07-29-2025 Tobacco Screening Tobacco Screening [facility] Start: 02-04-2025 Medicare Annual Well ness (AWV) Medicare Annual Wellness (AWV) [facility] Start: 09-09-2024 End: 09-09-2024 Admission to same day surgery center 09/09/2024 2:15 PM EST - 09/09/2024 3:00 PM EST Surgery [facility] [address] [place] [phone] Emilie Forman MD [address] [place] [id number] EXTRACTION CATARACT INTRAOCULAR LENS [96790 (CPT )] [facility] Comment on above: EXTRACTION CATARACT INTRAOCULAR LENS [35385 (CPT )] Start: 09-09-2024 Subsequent hospital visit by physician 09/09/2024 2:15 PM EST Hospital Encounter [facility] [address] [place] [address] Emilie Forman MD [address], [place] [id number] [facility] Start: 09-09-2024 End: 09-09-2024 Xcapsl ctrc rmvl insj io lens prosth w/o ecp [facility] Start: 09-08-2024 End: 09-08-2024 ambulatory 09/08/2024 3:50 PM EST Support Visit [facility] - Pre Admit [address] [place] [phone] [facility] - Pre Admit Start: 08-19-2024 End: 08-19-2024 Admission to same day surgery center 08/19/2024 3:00 PM EDT - 08/19/2024 3:45 PM EDT Surgery [facility] - Surgery [address] [place] [phone] Emilie Forman MD [address] [place] [address] [phone] EXTRACTION CATARACT INTRAOCULAR LENS [11857 (CPT )] [facility] Comment on above: EXTRACTION CATARACT INTRAOCULAR LENS [20940 (CPT )] Start: 08-19-2024 End: 08-19-2024 Anesthesia consultation 08/19/2024 3:00 PM EDT Anesthesia Event [facility] - Surgery [address] [place] [phone] Diya Navarrete, DO [address] [place] [address] [facility] - Surgery Start: 08-19-2024 Subsequent hospital visit by physician 08/19/2024 3:00 PM EDT Hospital Encounter [facility] - Surgery [address] [place] [address] Emilie Forman MD [address] [place] [phone] [facility] - Surgery Start: 08-19-2024 End: 08-19-2024 Xcapsl ctrc rmvl insj io lens prosth w/o ecp EXTRACTION CATARACT INTRAOCULAR LENS cataract right eye 08/19/2024 3:00 PM ED[facility] Start: 06-22-2024 Influenza vaccination Influenza Vacc ine (#1) [facility] Start: 06-22-2020 Influenza vaccinatio n given [facility] Start: 2019 Abdominal aortic ane urysm screening Abdominal Aortic Aneurysm (AAA) Screen [facility] Start: 2019 Fall Risk Screening Fall Risk Screen ing [facility] Start: 2019 Pneumococcal vaccination Pneum ococcal Vaccine Age 65+ (1 of 2 - PCV13) [facility] Start: 12-07-2015 Administration of he rpes zoster vaccine Zoster Vaccines (2 of 3) [facility] Start: 12-07-2015 Administration of varicella zoster vaccine Zoster (Shingles) Vaccine (2 of 3) [facility] Start: 2004 Screening for malign ant neoplasm of colon [facility] Start: 1972 Adult BMI Follow Up Plan Adult BMI Follow Up Plan [facility] Start: 1972 Hepatitis C antibody , confirmatory test Hepatitis C Screening [facility] Start: 1970 COVID-19 Vaccine (1 of 2) COVI D-19 Vaccine (1 of 2) [facility] Start: 1966 Adolescent depressio n screening assessment [facility] Start: 1957 History and physical examination, annual for health maintenance Wellness Visit [facility] Start: 1954 Fall risk assessment Falls Risk Asse ssment [facility] Start: 1954 Hepatitis C antibody , confirmatory test Hepatitis C Screening [facility] Start: 1954 Medicare Annual Well ness Visit Medicare Annual Wellness Visit [facility] Start: 1954 Prostate specific an tigen measurement PSA Level [facility] Start: 1954 Screening for malign ant neoplasm of colon [facility] Start: 1954 US scan of abdominal aorta Abdominal Aortic Ultrasound [facility] Immunizations Immunization Date Immunization Notes Care Provider Spencer gomez 07-16-2023 Influenza, Seasonal, Quadrivalent, Adjuvanted Ruth Myers MD Work Phone: [facility] Work Phone: 07-16-2023 influenza virus vacc ine, unspecified formulation Ruth Myers MD Work Phone: [facility] 07-11-2022 Influenza, High-dose Seasonal, Quadrivalent, Preservative Free Ruth Myers MD Work Phone: [facility] 01-27-2022 Pneumococcal Conjuga te PCV 20 Ruth Myers MD Work Phone: [facility] 07-22-2021 Influenza, High-dose Seasonal, Quadrivalent, Preservative Free Ruth Myers MD Work Phone: [facility] 07-22-2020 Influenza, Seasonal, Quadrivalent, Adjuvanted Ruth Myers MD Work Phone: [facility] 08-29-2019 influenza, injectabl e, quadrivalent, preservative free Ruth Myers MD Work Phone: [facility] 08-22-2018 influenza, injectabl e, quadrivalent, preservative free Ruth Myers MD Work Phone: [facility] 08-03-2017 influenza, seasonal, injectable Ruth Myers MD Work Phone: [facility] 10-12-2015 pneumococcal polysaccharide vaccine, 23 valent Ruth Myers MD Work Phone: [facility] 10-12-2015 tetanus toxoid, redu desmond diphtheria toxoid, and acellular pertussis vaccine, adsorbed Ruth Myers MD Work Phone: [facility] 10-12-2015 zoster vaccine, live Reggie Myers MD Work Phone: [facility] 10-12-2015 zoster vaccine, unspecified formulation [facility] 2 [facility] Payers Date Payer Category Payer Medicare (Managed Care) [facility] [id number] 2023 Medicare [facility] [id number] 2023 Medicare 2023 Unknown [id number] 2015 Unknown [id number] 2015 Unknown [place]THE[place] BC[place] OUT OF [place] [facility] [place]x 2015-Present xxxxxxxxxxxxxx [id number] 2015 Unknown ANTHEM BC[place] [facility] [id number] 2015-Present [id number]. [id number] 2009 Unknown [id number] 1959 Unknown [id number] 1954 Unknown [id number] 2.16.840.1.404383.3.579.2. 900 1954 Unknown [id number] 2.16.840.1.585930.3.579.2. 903 1954 Unknown [id number] 2.16.840.1.139633.3.579.2. 902 1954 Unknown [id number] 2.16.840.1.686423.3.579.2. 593 1954 Unknown [id number] 2.16.840.1.034366.3.579.2. 593 1954 Unknown [id number] 2.16.840.1.744139.3.579.2. 593 1954 Unknown [id number] 2.16.840.1.286869.3.579.2. 593 1954 Unknown [id number] 2.16.840.1.962189.3.579.2. 593 1954 Unknown [id number] 2.16.840.1.317773.3.579.2. 1259 1954 Unknown [id number] 2.16.840.1.329715.3.579.2. 1259 1954 Unknown [id number] 2.16.840.1.060440.3.579.2. 1259 1954 Unknown [id number] 2.16.840.1.040505.3.579.2. 1259 1954 Unknown [id number] 2.16.840.1.540478.3.579.2. 196 1954 Unknown [id number] 2.16.840.1.210120.3.579.2. 196 1954 Unknown [id number] 2.16.840.1.531700.3.579.2. 1286 1954 Unknown [id number] 2.16.840.1.636218.3.579.2. 1286 1954 Unknown [id number] 2.16.840.1.792735.3.579.2. 1286 1954 Unknown [id number] 2.16.840.1.608037.3.579.2. 1286 1954 Unknown [id number] 2.16.840.1.730378.3.579.2. 1286 1954 Unknown [id number] 2..840.1.194960.3.579.2. 1286 1954 Unknown [id number] 2.16.840.1.063655.3.579.2. 1286 1954 Unknown [id number] 2..840.1.812627.3.579.2. 1286 1954 Unknown [id number] 2.16.840.1.220472.3.579.2. 1286 Social History Date Type Detail Facility Start: 03-04-2020 End: 02-05-2024 Tobacco smoking status NHIS Former smoker [facility] Start: 03-04-2020 End: 08-20-2024 Alcohol intake Current drinker of alcohol (finding) [facility] Start: 10-02-[address] [facility] Start: 1955 Sex Assigned At Not on file [facility] Start: 03-05-2020 End: 02-05-2024 Tobacco use and exposure Never used [facility] Start: 1972 End: 2003 History of tobacco use Current smoker [facility] Start: 02-04-2024 End: 07-29-2024 History of Social function [facility] Start: 02-04-2024 End: 07-29-2024 Tobacco use panel [facility] Childcare Unknown [facility] Start: 04-30-2018 Alcohol Comment 1-2 a day [facility] Start: 1972 End: 2003 History of tobacco use Cigarette Smoker [facility] Start: 02-05-2024 Alcoholic beverage intake Ex-drinker (finding) [facility] Healthca re Do you belong to any clubs or organizations such as confucianism groups, unions, fraternal or athletic groups, or [...] Healthcare Start: 1955 Sex assigned at Male [facility] Start: 01-03-2023 Gender identity Identifies as male gender (finding) [facility] Start: 03-11-2023 Sexual orientation Heterosexual (finding) [facility] Start: 05-27-2015 Sex Male (finding) [facility] Medical Equipment Procedure Code Equipment Code Equipment Origin al Text Equipment Identifier Dates Lens Iol [id number]. 220 [facility] [id number] - [id number] - [id number] Start: 08-19-2024 Lens Iol [id number]. 220 [facility] 459321 - [id number] - [id number] Start: 09-09-2024 Clinical Notes 10-28-2021 to 09-10-2024 [...] picked it up in July at the [facility]. He has no idea who that is that called it in.. and when I google her name, she works in [facility], which is 3 hrs [place] 55 mins away from [place]. I am going to first call [facility] and make sure the bday matches the pt (pt said there is another person in [place] with his name) [facility] is closed for lunch right now and I'm going to lunch :) So I told pt I will call them when I return from lunch and give him a call back to let him know what I find out. Just documenting. [facility] 09-10-2024 Miscellaneous Notes Pt cannot get his Atorvastatin filled because it says he picked it up in July at the [facility]. He has no idea who that dr is that called it in.. and when I google her name, she works in [facility], which is 3 hrs [place] 55 mins away from [place]. I am going to first call [facility] and make sure the bday matches the pt (pt said there is another person in [place] with his name) [facility] is closed for lunch right now and I'm going to lunch :) So I told pt I will call them when I return from lunch and give him a call back to let him know what I find out. Just documenting. documented in this encounter [facility] 09-08-2024 Miscellaneous Notes Preoperative Education Checklist- General Surgery date: 09/09/24 Surgery time: 1415 Arrival time: 1215 1. Bring a photo ID and your insurance card with you the day of surgery. You will check in at the main lobby registration desk as soon as you walk in the entrance. 2. If you have a Living Will/Durable Power of Janitorial Tech for Health Care that is not on file here, please bring a copy the day of surgery. 3. Please wash your face with baby shampoo prior to procedure as instructed by your physician. 4. NO powder, lotion, perfume/cologne, aftershave, make-up, nail kosovan on at least one finger, deodorant, or [...] please call the Preadmission Testing office at [phone], Mon.-Fri. 7 a.m.-3 p.m. Leave a voicemail [...] taking 0 days prior to procedure omega 9-otl-wyp-fish oil (Fish OiL) 300-1,000 mg capsule Stop taking 0 days prior to procedure pravastatin (PRAVACHOL) 80 mg tablet Stop taking 0 days prior to procedure documented in this encounter [facility] 09-08-2024 Nurse Note Preoperative Education Checklist- General Surgery date: 09/09/24 Surgery time: 1415 Arrival time: 1215 1. Bring a photo ID and your insurance card with you the day of surgery. You will check in at the main lobby registration desk as soon as you walk in the entrance. 2. If you have a Living Will/Durable Power of Janitorial Tech for Health Care that is not on file here, please bring a copy the day of surgery. 3. Please wash your face with baby shampoo prior to procedure as instructed by your physician. 4. NO powder, lotion, perfume/cologne, aftershave, make-up, nail kosovan on at least one finger, deodorant, or [...] please call the Preadmission Testing office at [phone], Mon.-Fri. 7 a.m.-3 p.m. Leave a voicemail [...] taking 0 days prior to procedure omega 2-pou-mic-fish oil (Fish OiL) 300-1,000 mg capsule Stop taking 0 days prior to procedure pravastatin (PRAVACHOL) 80 mg tablet Stop taking 0 days prior to procedure [facility] 08-26-2024 Telephone encounter Note Patient is requesting atorvastatin- he thinks it was increased to 40mg. Uses [facility] [place]. Thank you. [facility] 08-26-2024 Miscellaneous Notes Patient is requesting atorvastatin- he thinks it was increased to 40mg. [facility]ses [facility] [place]. Thank you. documented in this encounter [facility] 07-29-2024 Instructions Jessica Perez RN - 07/29/2024 [...] you have a Living Will/Durable Power of Janitorial Tech for Health Care that is not on file here, please bring a copy the day of surgery. 3. Please wash your face with baby shampoo prior to procedure as instructed by your physician. 4. NO powder, lotion, perfume/cologne, aftershave, make-up, nail kosovan on at least one finger, deodorant, or [...] please call the Preadmission Testing office at [phone], Mon.-Fri. 7 a.m.-3 p.m. Leave a voicemail [...] taking 0 days prior to procedure omega 2-ugx-nux-fish oil (Fish OiL) 300-1,000 mg capsule Stop taking 0 days prior to procedure pravastatin (PRAVACHOL) 80 mg tablet Stop taking 0 days prior to procedure [facility]24 Miscellaneous Notes Preoperative Education Checklist- General Surgery date: 08/19/24 Surgery time: 3:00 p.m. Arrival time: 1:00 p.m. 1. Bring a photo ID and your insurance card with you the day of surgery. You will check in at the main lobby registration desk as soon as you walk in the entrance. 2. If you have a Living Will/Durable Power of Janitorial Tech for Health Care that is not on file here, please bring a copy the day of surgery. 3. Please wash your face with baby shampoo prior to procedure as instructed by your physician. 4. NO powder, lotion, perfume/cologne, aftershave, make-up, nail kosovan on at least one finger, deodorant, or [...] please call the Preadmission Testing office at [phone], Mon.-Fri. 7 a.m.-3 p.m. Leave a voicemail [...] taking 0 days prior to procedure omega 5-hbw-wcj-fish oil (Fish OiL) 300-1,000 mg capsule Stop taking 0 days prior to procedure pravastatin (PRAVACHOL) 80 mg tablet Stop taking 0 days prior to procedure Surgical instructions reviewed. Patient verbalized understanding. [facility] Nurse Note Preoperative Education Checklist- General Surgery date: 08/19/24 Surgery time: 3:00 p.m. Arrival time: 1:00 p.m. 1. Bring a photo ID and your insurance card with you the day of surgery. You will check in at the main [employer] registration desk as soon as you walk in the entrance. 2. If you have a Living Will/Durable Power of Janitorial Tech for Health Care that is not on file here, please bring a copy the day of surgery. 3. Please wash your face with baby shampoo prior to procedure as instructed by your physician. 4. NO powder, lotion, perfume/cologne, aftershave, make-up, nail kosovan on at least one finger, deodorant, or [...] please call the Preadmission Testing office at [phone], Mon.-Fri. 7 a.m.-3 p.m. Leave a voicemail [...] taking 0 days prior to procedure omega 3-hki-pwt-fish oil (Fish OiL) 300-1,000 mg capsule Stop taking 0 days prior to procedure pravastatin (PRAVACHOL) 80 mg tablet Stop taking 0 days prior to procedure [facility] 07-29-2024 Nurse Note Surgical instructions reviewed. Patient verbalized understanding. [facility] 11-30-2022 Note CONSULTATION CONSULTATION DATE: 11/30/2022 [...] walking, housework and lifting. He does use gazl-gpf-xbavhbk menthol patches which help decrease his pain. [...] be done in the office today. [facility] 08-24-2022 Note CONSULTATION CONSULTATION DATE: 08/24/2022 [...] and patient agrees with this plan. 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 At [...] 2 months' time unless otherwise indicated. [facility] 06-01-2022 Note CONSULTATION PROCEDURE DATE: 06/01/2022 [...] be followed up in the office. [facility] 03-09-2022 Note CONSULTATION CONSULTATION DATE: 03/09/2022 [...] patient agrees and all questions were answered. [facility] Signed and Approved by: DORIE VALDEZ . 03/13/2022 15:06:00 [facility] 01-27-2022 Note PROCEDURE: Without I V contrast [...] signed by Kenneth Kan on 01/27/2022 0938 [facility] Specialist 10-28-2021 Note PROCEDURE: FLS Energy VCT 64, 5.0 mm slice axial images [...] signed by Kenneth Kan on 10/28/2021 0937 [facility] Evaluation note Diagnosis Preop examination- Primary Unspecified pre-operative examination Preop examination Unspecified pre-operative examination [facility] Diagnosis Mixed hyperlipidemia (CMS/HCC) Mixed hyperlipidemia documented in this encounter [facility] Purpose Family History No Family History Records FoundNo Family History Records FoundNo Family History Records FoundNo Family History Records FoundNo Family History Records FoundNo Family History Records FoundNo Family History Records FoundNo Family History Records Found Advance Directives Documents on File Type Date Recorded 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 Expl 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 * Lumbar Epidural Steroid Injections: General Info (Arabic) * Post-op Infection (Arabic) documented in this encounter Assessments Diagnosis Lumbago Reason for Referral Specialty Diagnoses / Procedures Referred By Contac t Referred To Contact Diagnoses Preop examination Procedures ECG 12 lead Mitali Mares MD [address] [place] [address] Referral ID Status Reason Start Date Expiration Date V isits Requested Visits Authorized [id number] Pending Review 07/22/2024 07/22/2025 1 1 Additional Source Comments (unrecognized sect ion and content) No Status Records FoundNo Status Records FoundNo Status Records FoundNo Status Records FoundNo Status Records FoundNo Status Records FoundNo Status Records FoundNo Status Records Found INFORMATION SOURCE (unrecogn ized section and content) DATE CREATED AUTHOR 06/16/2019 [facility] DATE CREATED AUTHOR AUTHOR'S ORGANIZ ATION 06/25/2019 [facility] DATE CREATED AUTHOR AUTHOR'S ORGANIZ ATION 03/10/2020 [facility] DATE CREATED AUTHOR AUTHOR'S ORGANIZ ATION 02/23/2022 [facility] dical Specialist DATE CREATED AUTHOR AUTHOR'S ORGANIZ ATION 03/05/2023 [facility]ital DATE CREATED AUTHOR AUTHOR'S ORGANIZ ATION 03/17/2024 [facility] dical Specialists [facility] DATE CREATED AUTHOR AUTHOR'S ORGANIZ ATION 06/20/2024 [facility] DATE CREATED AUTHOR AUTHOR'S ORGANIZ ATION 09/10/2024 [facility] Reason for Visit (unrecogniz ed section and content) Status Reason Specialty Diagnoses / Procedures Referre d By Contact Referred To Contact Diagnoses Lumbago Lumbago [M54.5] Procedures IR EPIDURAL STEROID INJ Nicolasa Mitchell MD - 03/04/2020 10:11 AM EDT Procedure Notes (unrecognize d section and content) Vascular & Interventional Radiology Provided By [facility] (Diagnostic Radiology, Interventional and Neurointerventional Radiology and Vascular Medicine) Interventional Radiology Department @ [facility]: [phone] 14/05 VIR physician contact: [phone]) Weekday VIR nurse practitioner contact @ [facility]: [phone] [facility]: [phone] [email or web address] [facility] HAND CEMENTER DIRECTORY PROCEDURE: Fluoroscopic guided lumbar epidural steroid injection @ L5-S1 PLAN: Repeat epidural steroid injection can be offered, as needed Date: 03/04/2020 Patient Name: Neville Schmitz Patient : 1955 Physician: Nicolasa Mitchell MD Sedation Plan: None [place] Protocol: Pre-Procedural verification: Correct patient, correct site [...] Care Teams (unrecognized sec tion and content) Flap Curer Relationship Specialty Start Date End Date Ruth Myers MD [address] [facility] [place] [address] PCP - General Family Medicine 12/31/17 Flap Curer Relationship Specialty Start Date End Date Ruth Myers MD [address] [place] [address] PCP - General Family Medicine 05/10/23 Ruth Myers MD [address] [place] [address] PCP - Devoted 10/22/23 Flap Curer Relationship Specialty Start Date End Date Ruth Myers MD [address] [place] [address] PCP - General Family Medicine 05/10/23 Ruth Myers MD [address] [place] [address] PCP - Devoted 10/22/23 Flap Curer Relationship Specialty Start Date End Date Ruth Myers MD [address] [place] [address] PCP - General Family Medicine 12/31/17 FOR [...] BE BASED ON THE PRIMARY CLINICAL RECORDS. [facility] [employer] [facility]. provides no warranty or guarantee of the accuracy or completeness of information in this document.
== END 2024-10-09 09:50 | disposition home or self-care (01) ==
LOC: PM 09:50
PROVIDERS: Visit Provider Nurse Practitioner
DX: M47.816 Spondylosis without myelopathy or radiculopathy, lumbar region (principal); M48.062 Spinal stenosis, lumbar region with neurogenic claudication; M54.6 Pain in thoracic spine; M19.90 Unspecified osteoarthritis, unspecified site; Z79.891 Long term (current) use of opiate analgesic; M79.18 Myalgia, other site
CPT/HCPCS: G0463

== ENCOUNTER 2024-11-03 09:42 | Day surgery (SDC) | payer MEDICARE, SELFPAY ==
--- OUTSIDE RECORDS SUMMARY | 2024-11-03 09:52 | XMS_ITS | CCD ---
Author Organization [facility] Care Team Providers Care Blue Line Hanger Name Role Phone MITZI GALEAS Admitting Unavailable SARAH ESQUIVEL Primary Care Unavailable KATLIN KNOWLES Attending Unavailabl e SARAH ESQUIVEL Primary Care Unavailable Sarah Esquivel Primary Care Provider Nicolasa MITCHELL Admitting Unavailable Nicolasa MITCHELL Attending Unavailable SARAH ESQUIVEL Primary Care Unavailable Sarah Esquivel L Primary [...] IYER ., DR FRANCK Chaparro Attending Unavailable [facility], [place] Primary Care Unavailable VALDEZ ., DORIE Consulting Unavailable IYER ., DR FRANCK Chaparro Admitting Unavailable IYER ., DR FRANCK Chaparro Attending Unavailable [facility] Primary Care Unavailable VALDEZ ., DORIE Consulting Unavailable LAKSHMIPATHY ., NARENDRANATH Admitting Angelica vailable LAKSHMIPATHY ., NARENDEDDIEATH Attending Angelica vailable [facility], [place] Primary Care Unavailable HALKER .CARINE Consulting Unavailable RUTH MYERS Attending Unavailable PHILIPPE OROSCO Referring Unavailable RAYNA JACQUES Referring Unavailable Ruth Myers MD Primary Care Provider Ruth Myers MD Primary Care Provider Ruth Myers MD Unavailable [phone] RUTH MYERS Referring Unavailable RUTH MYERS Primary [...] Attending Unavailable RUTH MYERS Primary Care Unavailable Maris DAIVD, Anamaria June Attending Unavailable Maris DAVID, Anamaria [...] / codeine phosphate 30 mg oral tablet (8 sources) Opioid Agonist Start: 06-20-2016 acetaminophen-codei ne (TYLENOL #3) 300-30 mg per tablet Take by mouth every 6 (six) hours as needed. 06/20/2016 Active take 1 tablet by paul twice daily as needed acetaminophen-codeine (Tylenol w/ Codein e #3) 300-30 MG tablet Take 1 tablet by mouth 2 (two) times a day as needed Active ascorbic acid 500 mg oral tablet (1 source) Vitamin C ascorbic acid, vitamin C, (VITAMIN C) 500 mg tablet Take 2 tablets (1,000 mg total) by mouth. Active aspirin 81 mg delayed release oral tablet (8 sources) Platelet Aggregation Inhibitor, Nonsteroidal Anti-inflammatory Drug take 1 tablet by mouth in the morning aspirin 81 MG EC tablet Take 81 mg by mouth in the morning. Active atorvastatin 20 mg oral tablet (5 sources) HMG-CoA Reductase Inhibitor Start: End: take 1 tablet by mouth once daily atorvastatin (Lipitor) 20 MG tablet Indications: Mixed hyperlipidemia (CMS/HCC) Take 1 tablet (20 mg) by mouth Daily 90 tablet 08/26/2024 Active docosahexaenoic acid 120 mg / eicosapentaenoic acid 180 mg oral capsule (4 sources) take 1 capsule by mouth in the morning omega-3 (Fish Oil) 1000 MG capsule Take 1,000 mg by mouth in the morning. Active DULoxetine 20 mg delayed release oral capsule (4 sources) Serotonin and Norepinephrine Reuptake Inhibitor Start: take 1 capsule by mouth once daily DULoxetine (Cymbalta) [address] capsule Take 20 mg by mouth Daily 01/23/2024 Active folic acid 0.4 mg oral tablet (7 sources) End: take 1 tablet by mouth in the morning folic acid (Folvite) 400 MCG tablet Take 400 mcg by mouth in the morning. Active take 1 tablet by mouth once faith y folic acid (FOLVITE) 1 MG tablet Take 1 mg by mouth daily. 0 Active Homeopathic Products (Clear Tinnitus) capsule (4 sources) Homeopathic Prod ucts (Clear Tinnitus) capsule Take by mouth. flaninoid Active ibuprofen 100 mg oral tablet (2 sources) Nonsteroidal Anti-inflammatory Drug take 1 tablet by mouth every six hours as needed for pain ibuprofen (ADVIL,MOTRIN) 100 MG tablet Take 1 tablet (100 mg total) by mouth every 6 (six) hours as needed for pain. Active LIONS YESENIA MUSHROOM 1 PO DAILY (4 sources) Start: 08-22-20 23 LIONS YESENIA MUSHROOM 1 PO DAILY 08/22/2023 Active melatonin 10 mg oral capsule (6 sources) take 1 capsule by mouth at [...] Misc Natural Products (BRAINSTRONG MEMORY SUPPORT PO) (4 sources) Misc Natural Pro ducts (BRAINSTRONG MEMORY SUPPORT PO) Take by mouth. Once a day in the evening neurvia Active naproxen sodium 220 mg oral tablet (4 sources) Nonsteroidal Anti-inflammatory Drug take 1 tablet by mouth in the morning naproxen sodium (Aleve) 220 MG tablet Take 220 mg by mouth in the morning and 220 mg in the evening. Take with meals. Active NON FORMULARY (2 sources) NON FORMULARY enrique bach supplement Active omega 3-awu-vtw-fish oil (Fish OiL) 300-1,000 mg capsule (2 sources) omega 3-dha-epa- fish oil (Fish OiL) 300-1,000 mg capsule Take by mouth daily. Active 24 hr oxybutynin chloride 5 mg extended release oral tablet (5 sources) Cholinergic Muscarinic Antagonist Start: 09-26-20 End: 10-08-20 take 1 tablet by mouth once daily oxybutynin XL (Ditropan-XL) 5 MG 24 hr tablet Indications: Urinary incontinence, unspecified type TAKE 1 TABLET BY MOUTH EVERY DAY DO NOT CRUSH,CHEW OR SPLIT 90 tablet 10/08/2024 Active Start: 03-12-2024 take 1 tablet by once daily oxybutynin XL (Ditropan-XL) 5 MG 24 hr tablet Indications: Urinary incontinence, unspecified type TAKE 1 TABLET BY MOUTH EVERY DAY DO NOT CRUSH,CHEW OR SPLIT 90 tablet 1 03/12/2024 Active polyethylene glycol 3350 39464 mg powder for oral solution (4 sources) Osmotic Laxative polyethylene gl ycol, PEG, 3350 (MiraLax) 17 GM/SCOOP powder Take 17 g by mouth in the morning. Active pravastatin sodium 80 mg oral tablet (4 sources) HMG-CoA Reductase Inhibitor Start: 8 take 0.5 tablet by mouth in the morning pravastatin (PRAVACHOL) 80 mg tablet Take 0.5 tablets (40 mg total) by mouth in the morning. 1 10/31/2017 Active take 1 tablet by mouth once faith y pravastatin (PRAVACHOL) 40 MG tablet Take 40 mg by mouth daily. 0 Active vitamin e 180 mg oral capsule (4 sources) take 1 capsule by mo uth [...] Cataract Onset: 08-19-2024 Disorders of lipid metabolism (9 sources) Mixed hyperlipidemia; Translations: [Mixed hyperlipidemia] Onset: 05-17-2023 05-17-2023 Chronic Genitourinary symptoms and ill-defined conditions (5 sources) Dribbling of urine; Translations: [Post-void dribbling] Onset: 05-17-2023 05-17-2023 Chronic Other nervous system disorders (4 sources) Chronic pain; Translations: [Other chronic pain] [...] Episodic Other ear and sense organ disorders (4 sources) Bilateral tinnitus; Translations: [Tinnitus, bilateral] Onset: 05-17-2023 05-17-2023 Episodic Other gastrointestinal disorders (4 sources) Slow transit constipation; Translations: [Slow transit constipation] Onset: 05-17-2023 05-17-2023 Episodic Phlebitis; thrombophlebitis and thromboembolism (4 sources) Deep venous thrombosis of lower extremity; Translations: [Acute embolism and thrombosis of unspecified deep veins of unspecified lower extremity] Onset: 08-29-2012 Resolved: 02-05-2024 02-05-2024 Episodic Residual codes; unclassified (4 sources) Memory impairment; Translations: [Other amnesia] Onset: 05-17-2023 05-17-2023 Episodic Spondylosis; intervertebral disc disorders; other back problems (18 sources) Low back pain; Translations: [Intervertebral disc [...] 0 02-21-2022 TSH 1.180 uIU/mL Normal 0.400-4.500 [facility] Director Of Student Life Comment on above: Performed By: #### T SH reflex FT4 #### [facility] [address], [place] [id number] US Aorta Screeningon 022 US Aorta Screening FINDINGS: Proximal Aorta2.9 x 2.3 cm Mid Aorta1.6 x 2.1 cm Distal Aorta1.3 x 1.3 cm Right Common Iliac9 x 10 mm Left Common Iliac10 x 13 mm No aneurysmal dilatation is identified. No neighboring fluid collections are seen. IMPRESSION: No significant aneurysmal formation. Report reported and signed by Kenneth Kan on 01/27/2022 0911 Normal [facility] Specialist Comprehensive Metabolic Pane zee 01-20-2022 Albumin [Mass/Vol] 4.5 g/dL Normal 3.6-5.1 [facility] Specialist Comment on above: Performed By: #### L IPD, CMP #### [facility] [address], [place] [id number] Albumin/Globulin [Mass ratio] 2.4 {ratio} Normal 1.0-2.5 [facility] Comment on above: Performed By: #### L IPD, CMP #### [facility] [address], [place] [id number] ALP [Catalytic activity/Vol] 69 U/L Normal 40-129 [facility] Specialist Comment on above: Performed By: #### L IPD, CMP #### [facility] [address], [place] [id number] ALT [Catalytic activity/Vol] 23 U/L Normal 9-46 [facility] Specialist Comment on above: Result Comment: 09/21 Female reference range changed. Performed By: #### L IPD, CMP #### [facility] [address], [place] [id number] Anion gap [Moles/Vol] 15 mmol/L Normal 12-20 [facility] Specialist Comment on above: Result Comment: Effe ctive 10/27/2019 reference range changed. Performed By: #### L IPD, CMP #### [facility] [address], [place] [id number] AST [Catalytic activity/Vol] 18 U/L Normal 10-40 [facility] Specialist Comment on above: Performed By: #### L IPD, CMP #### [facility] [address], [place] [id number] Bilirubin [Mass/Vol] 0.80 mg/dL Normal 0.30-1.20 [facility] Specialist Comment on above: Performed By: #### L IPD, CMP #### [facility] [address], [place] [id number] BUN/CREA 25 Ratio High 6-22 [facility] Specialist Comment on above: Performed By: #### L IPD, CMP #### [facility] [address], [place] [id number] Calcium [Mass/Vol] 9.9 mg/dL Normal 8.6-10.2 [facility] Comment on above: Performed By: #### L IPD, CMP #### [facility] [address], [place] [id number] Chloride [Moles/Vol] 106 mmol/L Normal 98-107 [facility] Specialist Comment on above: Performed By: #### L IPD, CMP #### [facility] [address], [place] [id number] CO2 [Moles/Vol] 25 mmol/L Normal 20-31 [facility] Specialist Comment on above: Performed By: #### L IPD, CMP #### [facility] [address], [place] [id number] Creatinine [Mass/Vol] 0.9 mg/dL Normal 0.7-1.4 [facility] Specialist Comment on above: Performed By: #### L IPD, CMP #### [facility] [address], [place] [id number] eGFRAA 102 mL/min/1.73m2 Normal >60 [facility] Specialist Comment on above: Performed By: #### L IPD, CMP #### [facility] [address], [place] [id number] eGFRNAA 84 mL/min/1.73m2 Normal >60 [facility] Specialist Comment on above: Performed By: #### L IPD, CMP #### [facility] [address], [place] [id number] Globulin (S) [Mass/Vol] 1.9 g/dL Normal 1.9-3.7 [facility] Specialist Comment on above: Performed By: #### L IPD, CMP #### [facility] [address], [place] [id number] Glucose [Mass/Vol] 101 mg/dL High 65-99 [facility] Director Of Student Life Comment on above: Result Comment: For FASTING Glucose --- ADA reference ranges: Normal 65-99 mg/dl Prediabetes 100-125 Diabetes >/= 126 Performed By: #### L IPD, CMP #### [facility] [address], [place] [id number] Potassium [Moles/Vol] 4.3 mmol/L Normal 3.5-5.5 [facility] Director Of Student Life Comment on above: Performed By: #### L IPD, CMP #### [facility] [address], [place] [id number] Protein [Mass/Vol] 6.4 g/dL Normal 6.1-8.1 [facility] Director Of Student Life Comment on above: Performed By: #### L IPD, CMP #### [facility] [address], [place] [id number] Sodium [Moles/Vol] 142 mmol/L Normal 135-146 [facility] Comment on above: Performed By: #### L IPD, CMP #### [facility] [address], [place] [id number] Urea nitrogen [Mass/Vol] 22 mg/dL Normal 7-25 [facility] Specialist Comment on above: Performed By: #### L IPD, CMP #### [facility] [address], [place] [id number] Lipid Panelon 01-20-2022 Cholesterol [Mass/Vol] 239 mg/dL High 125-200 [facility] Specialist Comment on above: Result Comment: Low risk < 200mg/dL Borderline risk 201-239 mg/dl High risk > or equal to 240 Performed By: #### L IPD, CMP #### [facility] [address], [place] [id number] Cholesterol in HDL [Mass/Vol] 66 mg/dL Normal >40 [facility] Specialist Comment on above: Result Comment: High Cardiovascular Risk HDL <40 mg/dL Low Cardiovascular Risk HDL > or equal to 60 mg/dl Performed By: #### L IPD, CMP #### [facility] [address], [place] [id number] Cholesterol in LDL [Mass/Vol] 149 mg/dL Normal [facility] Comment on above: Result Comment: LDL ATP III CLASSIFICATION LDL less than 100 mg/dl Optimal LDL 100-129 mg/dl Near or above optimal LDL 130-159 Borderline high LDL 160-189 High LDL greater than 189 mg/dl Very High Performed By: #### L IPD, CMP #### [facility] [address], [place] [id number] Cholesterol in VLDL [Mass/Vol] 24 mg/dL Normal [facility] Comment on above: Performed By: #### L IPD, CMP #### [facility] [address], [place] [id number] Cholesterol.total/C holesterol in HDL [Mass ratio] 4 {ratio} Normal [facility] Specialist Comment on above: Performed By: #### L IPD, CMP #### [facility] [address], [place] [id number] Triglyceride [Mass/Vol] 119 mg/dL Normal 30-150 [facility] Director Of Student Life Comment on above: Result Comment: TRIG ATPIII CLASSIFICATIONS TRIG less than 150 mg/dl Normal TRIG 150-199 mg/dl Borderline High TRIG 200-500 mg/dl High TRIG greather than 500 mg/dl Very High Performed By: #### L IPD, [facility] #### [facility] [address], [place] [id number] PSA SCREEN (MEDICARE)on TPSA 1.110 ng/mL Normal <4.000 [facility] Specialist Comment on above: Result Comment: PSA Test Method: ECLIA/Bre e 601 Performed By: #### P SA #### [facility] [address], [place] [id number] CV IR EPIDURAL STEROID INJon 03-04-2020 Fluoroscopically guided lumbar epidural steroid injection as outlined above. [employer] Workstation ID: [id number] [facility] HISTORY/CLINICAL DATA: Lumbago EXAMINATION: VIA A POSTERIOR APPROACH 1. FLUOROSCOPICALLY GUIDED LUMBAR EPIDURAL STEROID INJECTION. COMPARISON: None. GLOBAL COMPENSATION MANAGER(S): Nicolasa Mitchell MD. PROCEDURE: FLUOROSCOPY TIME: [...] the procedure well without immediate postprocedural complications. [facility] Interface, Rad In [employer] - 03/04/2020 10:35 AM EDT HISTORY/CLINICAL DATA: Lumbago EXAMINATION: VIA A POSTERIOR APPROACH 1. FLUOROSCOPICALLY GUIDED LUMBAR EPIDURAL STEROID INJECTION. COMPARISON: None. GLOBAL COMPENSATION MANAGER(S): Nicolasa Mitchell MD. PROCEDURE: FLUOROSCOPY TIME: [...] lumbar epidural steroid injection as outlined above. [employer] Workstation ID: [id number] [facility] PT/INRon 03-04-2020 INR Coag (PPP) [Relative time] 1.0 {INR} [facility] Interpretation and review of laboratory results Normal [facility] PT Coag (PPP) [Time] 12.4 s [facility] During the induction phase of oral anticoagulation, the INR may not reflect the anticoagulation status of the patient. Therapeutic ranges for INR's are: Most clinical situations: INR 2.0-3.0 Mechanical Prosthetic Valve: INR 2.5-3.5 Critical: INR >5.0 [facility] Platelet Counton 03-04-2020 Interpretation and review of laboratory results Normal [facility] Platelet mean volume (Bld) [Entitic vol] 11.0 fL 9 - 15.5 fL [facility] Platelets (Bld) [#/Vol] 178 10*3/uL [facility] CV IR EPIDURAL STEROID INJon 02-24-2020 CV IR EPIDURAL STEROID INJ HISTORY/CLINICAL DATA: Lumbago EXAMINATION: VIA A POSTERIOR APPROACH 1. FLUOROSCOPICALLY GUIDED LUMBAR EPIDURAL STEROID INJECTION. COMPARISON: None. GLOBAL COMPENSATION MANAGER(S): Nicolasa Mitchell MD. PROCEDURE: FLUOROSCOPY TIME: [...] lumbar epidural steroid injection as outlined above. [employer] Workstation ID: [id number] Dictated by: Nicolasa MITCHELL on SunMarch 04, 2020 10:21:09 AM EDT Transcribed by: FIGUEROA GUTIERREZ on SunMarch 04, 2020 10:25:58 AM EDT Finalized by: Nicolasa MITCHELL on SunMarch 04, 2020 10:33:02 AM EDT Normal [facility] Vital Signs Date Time Vital Sign Value Performing Clinician Facility 07-29-2024 10:040 Body height 175.[address] 07-29-2024 10:0400 Body mass index (BMI) [Ratio] 30.27 kg/m2 [address] 07-29-2024 10:040 Body weight 92.[address] 03-04-2020 10:26040 Body Temperature 98.4 [degF] [facility] 03-04-2020 10:26-0400 BP Diastolic 83 mm[Hg] [facility] 03-04-2020 10:26-0400 BP Systolic 146 mm[Hg] [facility] 03-04-2020 10:26-0400 Pulse (Heart Rate) 53 /min [facility] 03-04-2020 10:26-0400 Pulse Oximetry 97 % [facility] 03-04-2020 10:260400 Respiratory Rate 14 /min [facility] 03-04-2020 08:15-0400 BMI (Body Mass Index) 31.57 kg/m2 [facility] 03-04-2020 08:15-0400 Body weight 99.79 kg J. James [facility] 03-04-2020 08: Height 177.8 cm [facility] Encounters Encounter Date Encounter Type Care Provider Facility Start: 10-08-2024 End: 10-20-2024 Refill Ruth Myers MD Work Phone: [facility] Comment on above: Urinary incontinence , unspecified type Start: 10-06-2024 End: 10-06-2024 ambulatory Anamaria Pollock MD Facility:[facility] Start: 09-10-2024 End: 09-10-2024 Telephone encounter Ruth Myers MD Work Phone: [facility] Start: 09-09-2024 End: 09-09-2024 Evaluation and management of inpatient MITALI Rosales SUZAN [facility] Start: 09-09-2024 End: 09-09-2024 Evaluation and management of inpatient EMILIE FORMAN [facility] Start: 09-08-2024 End: 09-08-[address] [facility] Pat Phone Call Provider 1 [facility] - Pre Admit Start: 09-08-2024 End: 09-08-2024 ambulatory [facility] Start: 08-26-2024 End: 08-26-2024 Telephone encounter Ruth Myers MD Work Phone: [facility] Comment on above: Mixed hyperlipidemia (CMS/HCC) Start: 08-19-2024 End: 08-19-2024 Evaluation and management of inpatient DIYA NAVARRETE [facility] Start: 08-19-2024 End: 08-19-2024 Evaluation and management of inpatient EMILIE FORMAN [facility] Start: 07-29-2024 End: 07-29-2024 Patient encounter procedure [facility] Pre-Admission Testing 2 [facility] - Pre Admit Comment on above: Preop examination (P rimary Dx) Start: 07-29-2024 End: 07-29-2024 Preprocedural examination done Pm 2 [facility] Start: 07-29-2024 End: 07-29-2024 ambulatory MITALI MARES [facility] Start: 07-29-2024 Encounter for other preprocedural examination RUTH LOUIS [facility] Start: 06-09-2024 End: 06-09-2024 ambulatory Anamaria Pollock MD Facility:[facility] Start: 05-26-2024 End: 05-26-2024 ambulatory Anamaria Pollock MD Facility:[facility] Start: 03-12-2024 End: 03-13-2024 ambulatory RAYNA JACQUES Not Available Start: 02-05-2024 End: 02-05-2024 ambulatory RUTH LOUIS Not Available Start: 09-18-2023 End: 09-19-2023 ambulatory [...] 12-16-2020 Orders Only Jayshree Solano Work Phone: [facility] Start: 03-04-2020 End: 03-04-2020 Patient encounter procedure Nicolasa MITCHELL [facility] Start: 03-04-2020 End: 03-04-2020 Subsequent hospital visit by physician Nicolasa Mitchell Work Phone: [facility] Comment on above: Lumbago Start: 06-24-2019 Patient encounter procedure KATLIN Moffett [facility] Start: 06-12-2019 End: 06-16-2019 Patient encounter procedure MITZI GALEAS [facility] Procedures Date Procedure Procedure Detail Performing Clinician [...] for malign ant neoplasm of colon [facility] Start: 10-12-2025 DTaP,Tdap and Td Vac cines (2 - Td or Tdap) DTaP,Tdap and Td Vaccines (2 - Td or Tdap) [facility] Start: 10-12-2025 Tetanus vaccination Tetanus: Every 1 0yrs [facility] Start: 09-09-2025 Adult BMI Screening Adult BMI Screen ing [facility] Start: 09-09-2025 Tobacco Screening Tobacco Screening [facility] Start: 07-29-2025 Adult BMI Screening Adult BMI Screen ing [facility] Start: 07-29-2025 Tobacco Screening Tobacco Screening [facility] Start: 02-04-2025 Medicare Annual Well ness (AWV) Medicare Annual Wellness (AWV) [facility] Start: 09-09-2024 End: 09-09-2024 Admission to same day surgery center 09/09/2024 2:15 PM EST - 09/09/2024 3:00 PM EST Surgery [facility] Surgery [address] [place] [address] Emilie Forman MD [facility] [place] [address] EXTRACTION CATARACT INTRAOCULAR LENS [94871 (CPT )] [facility] Comment on above: EXTRACTION CATARACT INTRAOCULAR LENS [45028 (CPT )] Start: 09-09-2024 Subsequent hospital visit by physician 09/09/2024 2:15 PM EST Hospital Encounter [facility] [address] [place] [phone] Emilie Forman MD [address] [place] [id number] [facility] Start: 09-09-2024 End: 09-09-2024 Xcapsl ctrc rmvl insj io lens prosth w/o ecp [facility] Start: 09-08-2024 End: 09-08-2024 ambulatory 09/08/2024 3:50 PM EST Support Visit [facility] - Pre Admit [address] [place] [phone] [facility] - Pre Admit Start: 08-19-2024 End: 08-19-2024 Admission to same day surgery center 08/19/2024 3:00 PM EDT - 08/19/2024 3:45 PM EDT Surgery [facility] [address] [place] [phone] Emilie Forman MD [address] [place] [id number] EXTRACTION CATARACT INTRAOCULAR LENS [74177 (CPT )] [facility] Comment on above: EXTRACTION CATARACT INTRAOCULAR LENS [51017 (CPT )] Start: 08-19-2024 End: 08-19-2024 Anesthesia consultation 08/19/2024 3:00 PM EDT Anesthesia Event [facility] [address] [place] [phone] Diya Navarrete, DO [address] [place] [address] [facility] Start: 08-19-2024 Subsequent hospital visit by physician 08/19/2024 3:00 PM EDT Hospital Encounter [facility] - Surgery [address] [place] [phone] Emilie Forman MD [address] [place], [place] [phone] [facility] Start: 08-19-2024 End: 08-19-2024 Xcapsl ctrc rmvl insj io lens prosth w/o ecp EXTRACTION CATARACT INTRAOCULAR LENS cataract right eye 08/19/2024 3:00 PM EDT [facility] Start: 06-22-2024 Influenza vaccination Influenza Vacc ine (#1) [facility] Start: 06-22-2020 Influenza vaccinatio n given [facility] Start: 2019 Abdominal aortic ane urysm screening Abdominal Aortic Aneurysm (AAA) Screen [facility] Start: 2019 Fall Risk Screening Fall Risk Screen ing [facility] Start: 2019 Pneumococcal vaccination Pneum ococcal Vaccine Age 65+ (1 of 2 - PCV13) [facility] Start: 12-07-2015 Administration of he rpes zoster vaccine Zoster Vaccines (2 of 3) [facility] Start: 12-07-2015 Administration of varicella zoster vaccine Zoster (Shingles) Vaccine (2 of 3) [facility] Start: 2004 Screening for malign ant neoplasm of colon [facility] Start: 1972 Adult BMI Follow Up Plan Adult BMI Follow Up Plan [facility] Start: 1972 Hepatitis C antibody , confirmatory test Hepatitis C Screening [facility] Start: 1970 COVID-19 Vaccine (1 of 2) COVI D-19 Vaccine (1 of 2) [facility] Start: 1966 Adolescent depressio n screening assessment [facility] Start: 1957 History and physical examination, annual for health maintenance Wellness Visit [facility] Start: 1954 Fall risk assessment Falls Risk Asse ssment [facility] Start: 1954 Hepatitis C antibody , confirmatory test Hepatitis C Screening [facility] Start: 1954 Medicare Annual Well ness Visit Medicare Annual Wellness Visit [facility] Start: 1954 Prostate specific an tigen measurement PSA Level [facility] Start: 1955 Screening for malign ant neoplasm of colon [facility] Start: 1955 US scan of abdominal aorta Abdominal Aortic Ultrasound [facility] Immunizations Immunization Date Immunization Notes Care Provider Spencer gomez 07-16-2023 Influenza, Seasonal, Quadrivalent, Adjuvanted Ruth Myers MD Work Phone: [facility] Work Phone: 07-16-2023 influenza virus vacc ine, unspecified formulation Ruth Myers MD Work Phone: [facility] 07-11-2022 Influenza, High-dose Seasonal, Quadrivalent, Preservative Free Ruth Myers MD Work Phone: [facility] 01-27-2022 Pneumococcal Conjuga te PCV 20 Ruth Myers MD Work Phone: [facility] 07-22-2021 Influenza, High-dose Seasonal, Quadrivalent, Preservative Free Ruth Myers MD Work Phone: [facility] 07-22-2020 Influenza, Seasonal, Quadrivalent, Adjuvanted Ruth Myers MD Work Phone: [facility] 08-29-2019 influenza, injectabl e, quadrivalent, preservative free Ruth Myers MD Work Phone: [facility] 08-22-2018 influenza, injectabl e, quadrivalent, preservative free Ruth Myers MD Work Phone: [facility] 08-03-2017 influenza, seasonal, injectable Ruth Myers MD Work Phone: [facility] 10-12-2015 pneumococcal polysaccharide vaccine, 23 valent Ruth Myers MD Work Phone: [facility] 10-12-2015 tetanus toxoid, redu desmond diphtheria toxoid, and acellular pertussis vaccine, adsorbed Ruth Myers MD Work Phone: [facility] 10-12-2015 zoster vaccine, live Reggie Myers MD Work Phone: [facility] 10-12-2015 zoster vaccine, unspecified formulation [facility] 2 [facility] Payers Date Payer Category Payer Medicare (Managed Care) [employer] [id number] 2023 Medicare HMO [facility] [id number] 2023 Medicare [id number]. [id number] 2023 Unknown [id number] 2015 Unknown [id number] 2015 Unknown ANTHEM BCBS OUT OF STATE [facility] xxxxxxxxxxxxxx 2015-Present xxxxxxxxxxxxxx [id number]. [id number] 2015 Unknown ANTHEM BCBS OUT OF STATE [facility] [id number] 2015-Present [id number]. [id number] 2009 Unknown [id number] 1959 Unknown [id number] 1954 Unknown [id number] 2.16.840.1.805697.3.579.2. 900 1954 Unknown [id number] 2.16.840.1.605665.3.579.2. 903 1954 Unknown [id number] 2.16.840.1.614128.3.579.2. 902 1954 Unknown [id number] 2.16.840.1.624791.3.579.2. 593 1954 Unknown [id number] 2.16.840.1.182762.3.579.2. 593 1954 Unknown [id number] 2.16.840.1.188912.3.579.2. 593 1954 Unknown [id number] 2.16.840.1.034715.3.579.2. 593 1954 Unknown [id number] 2.16.840.1.887516.3.579.2. 593 1954 Unknown [id number] 2.16.840.1.961559.3.579.2. 1259 1954 Unknown [id number] 2.16.840.1.051071.3.579.2. 1259 1954 Unknown [id number] 2.16.840.1.576635.3.579.2. 1259 1954 Unknown [id number] 2.16.840.1.308622.3.579.2. 1259 1954 Unknown [id number] 2.16.840.1.160358.3.579.2. 1286 1954 Unknown [id number] 2.16.840.1.721789.3.579.2. 1286 1954 Unknown [id number] 2.16.840.1.523331.3.579.2. 1286 1954 Unknown [id number] 2.16.840.1.240653.3.579.2. 1286 1954 Unknown [id number] 2.16.840.1.623800.3.579.2. 1286 1954 Unknown [id number] 2.16.840.1.345867.3.579.2. 1286 1954 Unknown [id number] 2.16.840.1.792244.3.579.2. 1286 1954 Unknown [id number] 2.16.840.1.824469.3.579.2. 1286 1954 Unknown [id number] 2.16.840.1.219433.3.579.2. 1286 1954 Unknown [id number] 2.16.840.1.054932.3.579.2. 196 1954 Unknown [id number] 2.16.840.1.404660.3.579.2. 196 1954 Unknown [id number] 2.16.840.1.084440.3.579.2. 196 Social History Date Type Detail Facility Start: 03-04-2020 End: 02-05-2024 Tobacco smoking status NHIS Former smoker [facility] Start: 03-04-2020 End: 08-20-2024 Alcohol intake Current drinker of alcohol (finding) [facility] Start: 10-02-2016 Alcohol Comment occasional [facility] Start: 1955 Sex Assigned At Not on file [facility] Start: 03-05-2020 End: 02-05-2024 Tobacco use and exposure Never used [facility] Start: 1972 End: 2003 History of tobacco use Current smoker [facility] Start: 02-04-2024 End: 07-29-2024 History of Social function [facility] Start: 02-04-2024 End: 07-29-2024 Tobacco use panel [facility] Start: 04-30-2018 Alcohol Comment 1-2 a day [facility] Start: 1972 End: 2003 History of tobacco use Cigarette Smoker [facility] Start: 02-05-2024 Alcoholic beverage intake Ex-drinker (finding) [facility] Do you belong to any clubs or organizations such as evangelical groups, unions, fraternal or athletic groups, or [...] more than 4 cups per day coffee [facility] Start: 1955 Sex assigned at Male [facility] Start: 01-03-2023 Gender identity Identifies as male gender (finding) [facility] Start: 03-11-2023 Sexual orientation Heterosexual (finding) [facility] Start: 05-27-2015 Sex Male (finding) [facility] Medical Equipment Procedure Code Equipment Code Equipment Origin al Text Equipment Identifier Dates Lens Iol [id number]. [address] [facility] [id number] - [id number] - [id number] Start: 08-19-2024 Lens Iol [id number]. [address] [facility] [id number] - [id number] - [id number] Start: 09-09-2024 Clinical Notes 10-28-2021 to 10-08-2024 Telephone Encounter - Ruth Myers MD - 10/08/2024 4:25 PM ESTTelephone Encounter - Ruth Myers MD - 10/08/2024 4:25 PM ESTTelephone Encounter - Flory Mark - 09/10/2024 1:40 PM EST Note Date & Type Note Facility 10-08-2024 Telephone encounter Note Approving, but needs appt for additional refills. [facility] 10-08-2024 Miscellaneous Notes Approving, but needs appt for additional refills. documented in this encounter [facility] 09-10-2024 Telephone encounter Note Pt cannot get his Atorvastatin filled because it says he picked it up in July at the [facility]. He has no idea who that dr is that called it in.. and when I google her name, she works in [facility], which is 3 hrs [place] mins away from [place]. I am going to first call [facility] and make sure the bday matches the pt (pt said there is another person in [place] with his name) [facility] is closed for lunch right now and I'm going to lunch :) So I told pt I will call them when I return from lunch and give him a call back to let him know what I find out. Just documenting. [facility] 09-10-2024 Miscellaneous Notes Pt cannot get his Atorvastatin filled because it says he picked it up in July at the [facility]. He has no idea who that dr is that called it in.. and when I google her name, she works in [facility], which is 3 hrs [place] 55 mins away from [place]. I am going to first call [facility] and make sure the bday matches the pt (pt said there is another person in [place] with his name) [facility] is closed for lunch right now and I'm going to lunch :) So I told pt I will call them when I return from lunch and give him a call back to let him know what I find out. Just documenting. documented in this encounter [facility] 09-08-2024 Miscellaneous Notes Preoperative Education Checklist- General Surgery date: 09/09/24 Surgery time: 1414 Arrival time: 1215 1. Bring a photo ID and your insurance card with you the day of surgery. You will check in at the main lobby registration desk as soon as you walk in the entrance. 2. If you have a Living Will/Durable Power of Sales Representative [employer] that is not on file here, please bring a copy the day of surgery. 3. Please wash your face with baby shampoo prior to procedure as instructed by your physician. 4. NO powder, lotion, perfume/cologne, aftershave, make-up, nail emirati on at least one finger, deodorant, or [...] please call the [facility] office at [phone], Mon.-Fri. 7 a.m.-3 p.m. Leave a voicemail [...] taking 0 days prior to procedure omega 2-dxk-xlp-fish oil (Fish OiL) 300-1,000 mg capsule Stop taking 0 days prior to procedure pravastatin (PRAVACHOL) 80 mg tablet Stop taking 0 days prior to procedure documented in this encounter [facility] 09-08-2024 Nurse Note Preoperative Education Checklist- General Surgery date: 09/09/24 Surgery time: 1415 Arrival time: 1215 1. Bring a photo ID and your insurance card with you the day of surgery. You will check in at the main lobby registration desk as soon as you walk in the entrance. 2. If you have a Living Will/Durable Power of Sales Representative [employer] that is not on file here, please bring a copy the day of surgery. 3. Please wash your face with baby shampoo prior to procedure as instructed by your physician. 4. NO powder, lotion, perfume/cologne, aftershave, make-up, nail emirati on at least one finger, deodorant, or [...] please call the [facility] office at [phone], Mon.-Fri. 7 a.m.-3 p.m. Leave a voicemail [...] taking 0 days prior to procedure omega 7-gtm-gvc-fish oil (Fish OiL) 300-1,000 mg capsule Stop taking 0 days prior to procedure pravastatin (PRAVACHOL) 80 mg tablet Stop taking 0 days prior to procedure [facility] 08-26-2024 Telephone encounter Note Patient is requesting atorvastatin- he thinks it was increased to 40mg. Uses [facility] [place]. Thank you. [facility] 08-26-2024 Miscellaneous Notes Patient is requesting atorvastatin- he thinks it was increased to 40mg. [facility]ses [facility] [place]. Thank you. documented in this encounter [facility] 07-29-2024 Instructions Jessica Perez RN - 07/29/2024 [...] you have a Living Will/Durable Power of Sales Representative [employer] that is not on file here, please bring a copy the day of surgery. 3. Please wash your face with baby shampoo prior to procedure as instructed by your physician. 4. NO powder, lotion, perfume/cologne, aftershave, make-up, nail emirati on at least one finger, deodorant, or [...] please call the [facility] office at [phone], Mon.-Fri. 7 a.m.-3 p.m. Leave a voicemail [...] taking 0 days prior to procedure omega 9-lss-vka-fish oil (Fish OiL) 300-1,000 mg capsule Stop taking 0 days prior to procedure pravastatin (PRAVACHOL) 80 mg tablet Stop taking 0 days prior to procedure documented in this encounter [facility] 07-29-2024 Miscellaneous Notes Preoperative Education Checklist- General Surgery date: 08/19/24 Surgery time: 3:00 p.m. Arrival time: 1:00 p.m. 1. Bring a photo ID and your insurance card with you the day of surgery. You will check in at the main lobby registration desk as soon as you walk in the entrance. 2. If you have a Living Will/Durable Power of Sales Representative [employer] that is not on file here, please bring a copy the day of surgery. 3. Please wash your face with baby shampoo prior to procedure as instructed by your physician. 4. NO powder, lotion, perfume/cologne, aftershave, make-up, nail emirati on at least one finger, deodorant, or [...] please call the P[facility] Testing office at [phone], Mon.-Fri. 7 a.m.-3 p.m. Leave a voicemail [...] taking 0 days prior to procedure omega 3-qax-lbz-fish oil (Fish OiL) 300-1,000 mg capsule Stop taking 0 days prior to procedure pravastatin (PRAVACHOL) 80 mg tablet Stop taking 0 days prior to procedure Surgical instructions reviewed. Patient verbalized understanding. documented in this encounter [facility] 07-29-2024 Nurse Note Preoperative Education Checklist- General Surgery date: 08/19/24 Surgery time: 3:00 p.m. Arrival time: 1:00 p.m. 1. Bring a photo ID and your insurance card with you the day of surgery. You will check in at the main lobby registration desk as soon as you walk in the entrance. 2. If you have a Living Will/Durable Power of Sales Representative [employer] that is not on file here, please bring a copy the day of surgery. 3. Please wash your face with baby shampoo prior to procedure as instructed by your physician. 4. NO powder, lotion, perfume/cologne, aftershave, make-up, nail emirati on at least one finger, deodorant, or [...] please call the Preadmission Testing office at [phone], Mon.-Fri. 7 a.m.-3 p.m. Leave a voicemail [...] taking 0 days prior to procedure omega 8-cog-gyx-fish oil (Fish OiL) 300-1,000 mg capsule Stop taking 0 days prior to procedure pravastatin (PRAVACHOL) 80 mg tablet Stop taking 0 days prior to procedure T [facility] 07-29-2024 Nurse Note Surgical instructions reviewed. Patient verbalized understanding. [facility] 11-30-2022 Note CONSULTATION CONSULTATION DATE: 11/30/2022 [...] walking, housework and lifting. He does use cvls-are-etafxik menthol patches which help decrease his pain. [...] be done in the office today. [facility] 08-24-2022 Note CONSULTATION CONSULTATION DATE: 08/24/2022 HISTORY [...] and patient agrees with this plan. 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 At [...] 2 months' time unless otherwise indicated. [facility] 06-01-2022 Note CONSULTATION PROCEDURE DATE: 06/01/2022 PRE [...] be followed up in the office. [facility] 03-09-2022 Note CONSULTATION CONSULTATION DATE: 03/09/2022 This [...] patient agrees and all questions were answered. [facility] Signed and Approved by: DORIE VALDEZ . 03/13/2022 15:06:00 [facility] 01-27-2022 Note PROCEDURE: Without I V [...] signed by Kenneth Kan on 01/27/2022 0938 [facility] Of [employer] 10-28-2021 Note PROCEDURE: [employer] VCT 64, 5.0 mm slice axial images [...] signed by Kenneth Kan on 10/28/2021 0937 [facility] [employer] Evaluation note Diagnosis Preop examination- Primary Unspecified pre-operative examination Preop examination Unspecified pre-operative examination documented in this encounter [facility]* Diagnosis Mixed hyperlipidemia (CMS/HCC) Mixed hyperlipidemia [facility] Diagnosis Urinary incontinence, unspecified type documented in this encounter [facility]ructionsNot on filedocumented in [facility] Summary Purpose Family History No Family History Records FoundNo Family History Records FoundNo Family History Records FoundNo Family History Records FoundNo Family History Records FoundNo Family History Records FoundNo Family History Records FoundNo Family History Records Found Advance Directives Documents on File Type Date Recorded Patient Programs Manager Expl anation Advance Directives and Livin g Will 03/04/2020 8:02 AM Latest Code Status on File Code Status Date Activated Date Inactivated Comments Full Code - Unverified 03/04/2020 10:12 AM 03/04/2020 12 :43 PM Documents on File Type Date Recorded Patient Programs Manager Expl anation Advance Directives and Livin g [...] Procedures ECG 12 lead Mitali Mares MD [address] [place] [address] Referral ID Status Reason Start Date Expiration Date V isits Requested Visits Authorized [id number] Pending Review 07/22/2024 07/22/2025 1 1 Additional Source Comments (unrecognized sect ion and content) No Status Records FoundNo Status Records FoundNo Status Records FoundNo Status Records FoundNo Status Records FoundNo Status Records FoundNo Status Records FoundNo Status Records Found INFORMATION SOURCE (unrecogn ized section and content) DATE CREATED AUTHOR 06/16/2019 [facility] DATE CREATED AUTHOR AUTHOR'S ORGANIZ ATION 06/25/2019 [facility] DATE CREATED AUTHOR AUTHOR'S ORGANIZ ATION 03/10/2020 [facility] DATE CREATED AUTHOR AUTHOR'S ORGANIZ ATION 02/23/[address] [facility] dical Specialist DATE CREATED AUTHOR AUTHOR'S ORGANIZ ATION 03/05/2023 [facility] DATE CREATED AUTHOR AUTHOR'S ORGANIZ ATION 03/17/[address] [facility] dical Specialists EPIC DATE CREATED AUTHOR AUTHOR'S ORGANIZ ATION 09/10/2024 [facility] DATE CREATED AUTHOR AUTHOR'S ORGANIZ ATION 10/15/2024 [facility] Reason for Visit (unrecogniz ed section and content) Status Reason Specialty Diagnoses / Procedures Referre d By Contact Referred To Contact Diagnoses Lumbago Lumbago [M54.5] Procedures IR EPIDURAL STEROID INJ Nicolasa Mitchell MD - 03/04/2020 10:11 AM EDT Procedure Notes (unrecognize d section and content) Vascular & Interventional Radiology Provided By [facility] (Diagnostic Radiology, Interventional and Neurointerventional Radiology and Vascular Medicine) Interventional Radiology Department @ [facility]: [phone] 14/05 VIR physician contact: [phone]) Weekday VIR nurse practitioner contact @ [facility]: [phone] [facility]: [phone] [email or web address] [facility] ICE CREAM CHEF DIRECTORY PROCEDURE: Fluoroscopic guided lumbar epidural steroid injection @ L5-S1 PLAN: Repeat epidural steroid injection can be offered, as needed Date: 03/04/2020 Patient Name: Neville Schmitz Patient : 1955 Physician: Nicolasa Mitchell MD Sedation Plan: None Stanley Protocol: Pre-Procedural verification: Correct patient, correct site [...] Care Teams (unrecognized sec tion and content) [employer] Relationship Specialty Start Date End Date Ruth Myers MD [address] [place] [address] PCP - General Family Medicine 12/31/17 [employer] Relationship Specialty Start Date End Date Ruth Myers MD [address] [facility] [place] [address] PCP - General Family Medicine 05/10/23 Ruth Myers MD [address] [place] [address] PCP - [facility] 10/22/23 [employer] Relationship Specialty Start Date End Date Ruth Myers MD [address] [place] [address] PCP - General Family Medicine 05/10/23 Ruth Myers MD [address] [place] [address] PCP - [facility] 10/22/23 [employer] Relationship Specialty Start Date End Date Ruth Myers MD [address] [place] [address] PCP - General Family Medicine 12/31/17 [employer] Relationship Specialty Start Date End Date Ruth Myers MD [address] [place] [address] PCP - General Family Medicine 05/10/23 Ruth Myers MD [address] [place] [address] PCP - [facility] 10/22/23 FOR RECORDS PERTAINING TO PATIENTS WHO ARE [...] BE BASED ON THE PRIMARY CLINICAL RECORDS. [facility] adjust [facility]. provides no warranty or guarantee of the accuracy or completeness of information in this document.
[2024-11-03 10:02] VITALS: BP 152/79; PULSE 57; TEMP 36.3; O2SAT 96
[2024-11-03 10:51] VITALS: BP 159/70; PULSE 54; O2SAT 95
[2024-11-03] MEDS: BUPIVACAINE HCL 0.25% PF 25 MG/10 ML VIAL 6 ML INJ (10:52)
[2024-11-03] MEDS: LIDOCAINE HCL 2% 400 MG/20 ML MDV INJ (10:52)
[2024-11-03 10:53] VITALS: BP 149/70; PULSE 52; O2SAT 96
--- NOTE | 2024-11-03 10:54 | W.PM.PROCNOT ---
Date of procedure: 11/03/24 Pre-op diagnosis: Pain due to lumbar spondylosis without myelopathy Post-op diagnosis: same as pre-op Procedure: Procedure: Bilateral L4-5, L5-S1 medial branch block Medications: Bupivacaine 0.25% 6cc The patient was seen and examined in the preoperative holding area.? An informed consent was obtained and placed on the chart.? The patient was brought to the medical procedure unit and placed in the prone position.? A timeout was completed verifying correct patient, procedure site, positioning, plan, and special equipment.? Using aseptic technique, the needle was placed at left L4. Under direct fluoroscopic visualization a Quincke-tipped spinal needle was advanced to the junction of the superior articulating process with the transverse process at the designated medial branch segment.? Preceded by negative aspiration, the above-mentioned injectate was placed in 1 mL aliquots.? The procedure was repeated at left L5, S1.? The needle was removed and insertion site was covered. The same procedure, at the same levels, was completed on the right side. The patient was taken to the postprocedural recovery area and monitored for an appropriate length of time before found suitable for discharge in the company of a responsible adult. Anesthesia: Local Surgeon: Anamaria Pollock Pathology: none sent Condition: stable Disposition: no change
== END 2024-11-03 11:00 | disposition home or self-care (01) ==
PROVIDERS: Visit Provider Anesthesiology
DX: M47.816 Spondylosis without myelopathy or radiculopathy, lumbar region (principal)
CPT/HCPCS: 64493; 64494; J0665

== ENCOUNTER 2024-11-06 09:05 | Outpatient (OUT) | payer MEDICARE, SELFPAY ==
--- NOTE | 2024-11-06 09:23 | PM.CN ---
Consult Note: HPI Data of Consult Patient: known to practice within the last 3 years Requesting Physician: Jenny Machuca NP Primary Care Provider: Non-Staff Physician, MD Consult Narrative Reason for consult: f/u Narrative: Neville Schmitz a pleasant 69 year old male presents for evaluation and management of chronic back pain. Today rating pain 3/10, pain increases to 7/10 at its worst. Patient continues to benefit from tylenol #3 BID PRN without side effects. failed to benefit from HEP greater than 6 weeks. pt failed duloxetine due to side effects. Low back and middle back pain continues to increase with long periods of strenuous activity and overdoing it. recently underwent bilateral L4-5 L5-S1 MBB #1 and #2 with >80% improvement immediately following and day after injection. noticed improvement in ability to stand and walk distances. cc:: CC: Jenny Machuca NP Review of Systems ROS Status of ROS 10 or more systems reviewed and unremarkable except as noted in history and below Musculoskeletal Reports: back pain PFSH PFSH Medical History Hydrocele ?N43.3 - Hydrocele, unspecified (ICD-10) Jaw fracture ?S02.609A - Fracture of mandible, unspecified, initial encounter for closed fracture (ICD-10) High cholesterol ?E78.00 - Pure hypercholesterolemia, unspecified (ICD-10) Surgical History H/O hernia repair ?Z98.890 - Other specified postprocedural states (ICD-10) ?Z87.19 - Personal history of other diseases of the digestive system (ICD-10) History of appendectomy ?Z90.49 - Acquired absence of other specified parts of digestive tract (ICD-10) History of fusion of cervical spine ?Z98.1 - Arthrodesis status (ICD-10) Meds Home Medications and Allergies Home Medications ?Medication ?Instructions ?Recorded ?Confirmed ?Type acetaminophen 300 mg-codeine 30 mg 1 tab PO BID 05/31/23 11/03/24 History tablet acetaminophen 325 mg capsule 325 mg PO Q6H PRN pain 05/31/23 11/03/24 History (Tylenol) aspirin 81 mg capsule 81 mg PO DAILY 05/31/23 11/03/24 History atorvastatin 80 mg tablet (Lipitor) 40 mg PO DAILY 05/31/23 11/03/24 History Allergies Allergy/AdvReac Type Severity Reaction Status Date / Time No Known Drug Allergies Allergy Verified 11/03/24 10:08 Exam Constitutional Documenting provider has reviewed patient's vital signs: yes Common normals: no apparent distress, oriented x3, healthy appearing, alert and well nourished General appearance: cooperative Orientation/consciousness: Yes awake, Yes oriented to person, Yes oriented to place and Yes oriented to time HENMT Common normals: normocephalic, hearing grossly normal bilaterally and moist oral mucous membranes Head and scalp: normocephalic Eye Common normals: PERRL Pupil: PERRL Neck & C-Spine Common normals: full ROM General: normal visual inspection Chest Common normals: inspection of chest normal Respiratory Common normals: normal respiratory effort, no retractions and no use of accessory muscles Effort & inspection: able to speak in complete sentences and symmetric chest movement Back & Pelvis Thoracic spine/upper back: ROM limited, pain with ROM and thoracic spinal tenderness Lumbar spine/lower back: normal to inspection, ROM limited and straight leg raise negative bilaterally Other: positive facet load pain bilat lumbar and thoracic pain over T7,8,9 bilateral facet joints increased pain L4-S1 facet joints muscle strength 5/5 in BLE, sensation intact BLE Extremity Common normals: normal to inspection and full ROM Neuro Common normals: oriented x3, CN's II-XII intact bilaterally, moves all extremities, no focal motor deficits, no sensory deficits noted and deep tendon reflexes 2+ bilaterally Sensorium/orientation: alert Motor exam: strength 5/5 throughout and no movement abnormalities noted Psych Common normals: mental status grossly normal, thought process normal, cooperative, affect normal, speech normal and activity/motor behavior normal Speech: normal speech Thought process: normal thought process Results Additional Findings Additional findings: If on a controlled substance or opioids, I have checked an [place] report on this patient and there are no aberrancies noted in the prescribing history.??If on a controlled substance or opioid a drug screen was completed and reviewed within the last year, and if there has not been a drug screen completed we ordered one today to monitor higher risk, state monitored pain medication use. As part of providing excellent, safe, comprehensive care, the following was completed at our patient's visit: 1. A medication reconciliation and review to ensure accurate knowledge of current/active medications, including asking our patients to inform us about any [id number] medications or herbal remedies/nutritional supplements/alternative remedies. 2. A review to specifically ensure our patients have had annual screening for screening for depression, screening for tobacco use, and screening for unhealthy alcohol use. For concerning screenings had a discussion with the patient, provided patient education, and recommended follow-up with primary care provider when appropriate. If patient noted with a risk of falling, they received education on strength, gait, and balance training to prevent future risk of falling. Portions of this note may have been carried over from the previous visit and updated as appropriate. Please note this office utilizes paper charting in addition to the electronic medical record. A list of current medications, vitals, and PMH is available there as the clinical staff outside of myself do not have access to [email or web address] charting during the clinic day operations. As part of providing quality comprehensive care the current medications, vitals, and PMH were reviewed in the paper chart. Assessment and Plan Assessment and Plan (1) Lumbar spondylosis: Assessment and Plan: The patient has had over 3 months of moderate to severe low back pain with functional impairment and inadequate response to conservative care including NSAIDS (unless there are contraindication such as concurrent blood thinners), multiple oral or topical pain medications, and home exercise program/physical therapy.? Patient has completed >6 weeks of guided home exercise program and/or formal physical therapy program without relief of their symptoms.? I have reviewed the imaging of the lumbar spine and no red flags were identified.? The imaging reveals radiographic findings consistent with lumbar spondylosis The Oswestry Disability Index was completed, and the patient scored a 20%.? The patient noted the following:?? moderate pain, pain impacting ability to stand walk and sleep. We discussed the risks and benefits of the procedure with the patient, and we are NOT planning on using sedation as outlined in the guidelines from Medicare unless there is a documented reason that sedation would be strongly recommended.?The procedure will be completed with fluoroscopic guidance.? (2) Lumbar stenosis with neurogenic claudication: Assessment and Plan: >80% improvement ongoing from prior ESIs (3) Thoracic back pain: (4) Osteoarthritis: (5) Chronic prescription opiate use: Assessment and Plan: I feel these medications are improving the patient's quality of life and allow them to tolerate activities of daily living as well as participate in recreational activity.? The patient does not report intolerable side effects. The patient is NOT opioid naive and non-pharmacologic and non-opioid treatment has failed to significantly relieve the patient's pain and improve functionality. The patient has a diagnosis that is related to a somatic or visceral pain etiology. ? ?? I reviewed with the patient the potential risks and side effects with the use of? opioid medications including but not limited to respiratory depression,? sedation, and even . I verified the patient has access to naloxone should? these effects occur. I advised the patient to avoid the use of any other? sedation substances including alcohol, THC, and benzodiazepines while? taking opioid medications due to the risk of compounding side effects and? detrimental outcomes. I reviewed the [employer], pain treatment agreement, urine? drug screen, and opioid start talking forms. The patient was advised to let? their family know they had Naloxone in case they would need to administer? the medication.? ?? A drug screen was completed within the last year, and no aberrancies were noted regarding their use of controlled substances. The patient understands they are subject to the terms and conditions of the pain contract that they have signed. ? ?? I have checked an [place]AR[place] report on this patient today and there are no aberrancies noted in the prescribing history.? (6) Myofascial pain: Plan bilateral L4-5 L5-S1 medial branch RFA under fluoroscopy defer NS consult per pt request continue tylenol #3 BID PRN moderate to severe pain, risks vs benefits reviewed f/u 1 month after RFA complete
--- OUTSIDE RECORDS SUMMARY | 2024-11-06 09:23 | XMS_ITS | CCD ---
Author Organization [facility] Care Team Providers Care Bureau Director Name Role Phone MITZI GALEAS Admitting Unavailable SARAH ESQUIVEL Primary Care Unavailable KATLIN KNOWLES Attending Unavailabl e SARAH ESQUIVEL Primary Care Unavailable Sarah Esquivel Primary Care Provider Nicolasa MITCHELL Admitting Unavailable Nicolasa MITCHELL Attending Unavailable SARAH ESQUIVEL Primary Care Unavailable Sarah Esquivel L Primary Care Provider JAYLON ., DR FRANCK Chaparro Admitting Unavailable IYER ., DR FRANCK Chaparro Attending Unavailable [facility] Primary Care Unavailable VALDEZ ., DORIE Consulting Unavailable IYER ., DR FRANCK Chaparro Admitting Unavailable IYER ., DR FRANCK Chaparro Attending Unavailable [facility] Primary Care Unavailable VALDEZ ., DORIE Consulting Unavailable IYER ., DR FRANCK Chaparro Admitting Unavailable IYER ., DR FRANCK Chaparro Attending Unavailable [facility], [place] Primary Care Unavailable VALDEZ ., DORIE Consulting Unavailable IYER ., DR FRANCK Chaparro Admitting Unavailable IYER ., DR FRANCK Chaparro Attending Unavailable [facility] Primary Care Unavailable VALDEZ ., DORIE Consulting Unavailable LAKSHMIPATHY ., NARENDRANATH Admitting Angelica vailable LAKSHMIPATHY ., NARENDEDDIEATH Attending Angelica vailable [facility], [place] Primary Care Unavailable HALKER .CARINE Consulting Unavailable RUTH MYERS Attending Unavailable PHILIPPE OROSCO Referring Unavailable RAYNA JACQUES Referring Unavailable Ruth Myers MD Primary Care Provider [phone] Ruth Myers MD Primary Care Provider Ruth Myers MD Unavailable [phone] RUTH MYERS Referring Unavailable RUTH MYERS Primary Care Unavailable MITALI MARES Attending Unavailable MITALI MARES Referring Unavailable RUTH MYERS Primary Care Unavailable EMILIE FORMAN Admitting Unavailable EMILIE FORMAN Attending Unavailable EMILIE FORMAN Referring Unavailable RUTH MEYRS Primary Care Unavailable DIYA NAVARRETE Attending Unavailable RUTH MYERS Primary Care Unavailable RUTH MYERS Referring Unavailable RUTH MYERS Primary Care Unavailable EMILIE FORMAN Admitting Unavailable EMILIE FORMAN Attending Unavailable RUTH MYERS Primary Care Unavailable MITALI MARES Attending Unavailable RUTH MYERS Primary Care Unavailable Maris DAVID, Anamaria June Attending Unavailable [...] NON FORMULARY enrique bach supplement Active omega 3-wsj-qjl-fish oil (Fish OiL) 300-1,000 mg capsule (2 [...] tablet 1 03/12/2024 Active polyethylene glycol 3350 82121 mg powder for oral solution (4 sources) [...] 0 02-21-2022 TSH 1.180 uIU/mL Normal 0.400-4.500 [facility] Client Experience Administrator Comment on above: Performed By: #### T SH reflex FT4 #### [facility] [address] [place], [place] [id number] US Aorta Screeningon 022 US Aorta Screening FINDINGS: Proximal Aorta2.9 x 2.3 cm Mid Aorta1.6 x 2.1 cm Distal Aorta1.3 x 1.3 cm Right Common Iliac9 x 10 mm Left Common Iliac10 x 13 mm No aneurysmal dilatation is identified. No neighboring fluid collections are seen. IMPRESSION: No significant aneurysmal formation. Report reported and signed by Kenneth Kan on 01/27/2022 0911 Normal [facility] Specialist Comprehensive Metabolic Pane zee 01-20-2022 Albumin [Mass/Vol] 4.5 g/dL Normal 3.6-5.1 [facility] Specialist Comment on above: Performed By: #### L IPD, CMP #### [facility] [address] [place], [place] [id number] Albumin/Globulin [Mass ratio] 2.4 {ratio} Normal 1.0-2.5 [facility] Comment on above: Performed By: #### L IPD, CMP #### [facility] [address] [place], [place] [id number] ALP [Catalytic activity/Vol] 69 U/L Normal 40-129 [facility] Specialist Comment on above: Performed By: #### L IPD, CMP #### [facility] [address] [place], [place] [id number] ALT [Catalytic activity/Vol] 23 U/L Normal 9-46 [facility] Specialist Comment on above: Result Comment: 09/21 Female reference range changed. Performed By: #### L IPD, CMP #### [facility] [address] [place], [place] [id number] Anion gap [Moles/Vol] 15 mmol/L Normal 12-20 [facility] Specialist Comment on above: Result Comment: Effe ctive 10/27/2019 reference range changed. Performed By: #### L IPD, CMP #### [facility] [address] [place], [place] [id number] AST [Catalytic activity/Vol] 18 U/L Normal 10-40 [facility] Specialist Comment on above: Performed By: #### L IPD, CMP #### [facility] [address] [place], [place] [id number] Bilirubin [Mass/Vol] 0.80 mg/dL Normal 0.30-1.20 [facility] Specialist Comment on above: Performed By: #### L IPD, CMP #### [facility] [address] [place], [place] [id number] BUN/CREA 25 Ratio High 6-22 [facility] Specialist Comment on above: Performed By: #### L IPD, CMP #### [facility] [address] [place], [place] [id number] Calcium [Mass/Vol] 9.9 mg/dL Normal 8.6-10.2 [facility] Comment on above: Performed By: #### L IPD, CMP #### [facility] [address] [place], [place] [id number] Chloride [Moles/Vol] 106 mmol/L Normal 98-107 [facility] Specialist Comment on above: Performed By: #### L IPD, CMP #### [facility] [address] [place], [place] [id number] CO2 [Moles/Vol] 25 mmol/L Normal 20-31 [facility] Specialist Comment on above: Performed By: #### L IPD, CMP #### [facility] [address] [place], [place] [id number] Creatinine [Mass/Vol] 0.9 mg/dL Normal 0.7-1.4 [facility] Specialist Comment on above: Performed By: #### L IPD, CMP #### [facility] [address] [place], [place] [id number] eGFRAA 102 mL/min/1.73m2 Normal >60 [facility] Specialist Comment on above: Performed By: #### L IPD, CMP #### [facility] [address] [place], [place] [id number] eGFRNAA 84 mL/min/1.73m2 Normal >60 [facility] Specialist Comment on above: Performed By: #### L IPD, CMP #### [facility] [address] [place], [place] [id number] Globulin (S) [Mass/Vol] 1.9 g/dL Normal 1.9-3.7 [facility] Specialist Comment on above: Performed By: #### L IPD, CMP #### [facility] [address] [place], [place] [id number] Glucose [Mass/Vol] 101 mg/dL High 65-99 [facility] Client Experience Administrator Comment on above: Result Comment: For FASTING Glucose --- ADA reference ranges: Normal 65-99 mg/dl Prediabetes 100-125 Diabetes >/= 126 Performed By: #### L IPD, CMP #### [facility] [address] [place], [place] [id number] Potassium [Moles/Vol] 4.3 mmol/L Normal 3.5-5.5 [facility] Client Experience Administrator Comment on above: Performed By: #### L IPD, CMP #### [facility] [address] [place], [place] [id number] Protein [Mass/Vol] 6.4 g/dL Normal 6.1-8.1 [facility] Client Experience Administrator Comment on above: Performed By: #### L IPD, CMP #### [facility] [address] [place], [place] [id number] Sodium [Moles/Vol] 142 mmol/L Normal 135-146 [facility] Comment on above: Performed By: #### L IPD, CMP #### [facility] [address] [place], [place] [id number] Urea nitrogen [Mass/Vol] 22 mg/dL Normal 7-25 [facility] Specialist Comment on above: Performed By: #### L IPD, CMP #### [facility] [address] [place], [place] [id number] Lipid Panelon 01-20-2022 Cholesterol [Mass/Vol] 239 mg/dL High 125-200 [facility] Specialist Comment on above: Result Comment: Low risk < 200mg/dL Borderline risk 201-239 mg/dl High risk > or equal to 240 Performed By: #### L IPD, CMP #### [facility] [address] [place], [place] [id number] Cholesterol in HDL [Mass/Vol] 66 mg/dL Normal >40 [facility] Specialist Comment on above: Result Comment: High Cardiovascular Risk HDL <40 mg/dL Low Cardiovascular Risk HDL > or equal to 60 mg/dl Performed By: #### L IPD, CMP #### [facility] [address] [place], [place] [id number] Cholesterol in LDL [Mass/Vol] 149 mg/dL Normal [facility] Comment on above: Result Comment: LDL ATP III CLASSIFICATION LDL less than 100 mg/dl Optimal LDL 100-129 mg/dl Near or above optimal LDL 130-159 Borderline high LDL 160-189 High LDL greater than 189 mg/dl Very High Performed By: #### L IPD, CMP #### [facility] [address] [place], [place] [id number] Cholesterol in VLDL [Mass/Vol] 24 mg/dL Normal [facility] Comment on above: Performed By: #### L IPD, CMP #### [facility] [address] [place], [place] [id number] Cholesterol.total/C holesterol in HDL [Mass ratio] 4 {ratio} Normal [facility] Specialist Comment on above: Performed By: #### L IPD, CMP #### [facility] [address] [place], [place] [id number] Triglyceride [Mass/Vol] 119 mg/dL Normal 30-150 [facility] Client Experience Administrator Comment on above: Result Comment: TRIG ATPIII CLASSIFICATIONS TRIG less than 150 mg/dl Normal TRIG 150-199 mg/dl Borderline High TRIG 200-500 mg/dl High TRIG greather than 500 mg/dl Very High Performed By: #### L IPD, [facility] #### [facility] [address] [place], [place] [id number] PSA SCREEN (MEDICARE)on TPSA 1.110 ng/mL Normal <4.000 [facility] Specialist Comment on above: Result Comment: PSA Test Method: ECLIA/Bre e 601 Performed By: #### P SA #### [facility] [address] [place], [place] [id number] CV IR EPIDURAL STEROID INJon 03-04-2020 Fluoroscopically guided lumbar epidural steroid injection as outlined above. [employer] Workstation ID: [id number] [facility] HISTORY/CLINICAL DATA: Lumbago EXAMINATION: VIA A POSTERIOR APPROACH 1. FLUOROSCOPICALLY GUIDED LUMBAR EPIDURAL STEROID INJECTION. COMPARISON: None. CODE ENFORCEMENT INSPECTOR(S): Nicolasa Mitchell MD. PROCEDURE: FLUOROSCOPY TIME: 0.2 [...] the procedure well without immediate postprocedural complications. [facility] Interface, Rad In Fuji Speechq - 03/04/2020 10:35 AM EDT HISTORY/CLINICAL DATA: Lumbago EXAMINATION: VIA A POSTERIOR APPROACH 1. FLUOROSCOPICALLY GUIDED LUMBAR EPIDURAL STEROID INJECTION. COMPARISON: None. CODE ENFORCEMENT INSPECTOR(S): Nicolasa Mitchell MD. PROCEDURE: FLUOROSCOPY TIME: 0.2 [...] lumbar epidural steroid injection as outlined above. [employer] Workstation ID: [id number] [facility] PT/INRon 03-04-2020 INR Coag (PPP) [Relative time] 1.0 {INR} [facility] Interpretation and review of laboratory results Normal [facility] PT Coag (PPP) [Time] 12.4 s [facility] During the induction phase of oral anticoagulation, the INR may not reflect the anticoagulation status of the patient. Therapeutic ranges for INR's are: Most clinical situations: INR 2.0-3.0 Mechanical Prosthetic Valve: INR 2.5-3.5 Critical: INR >5.0 [facility] Platelet Counton 03-04-2020 Interpretation and review of laboratory results Normal [facility] Platelet mean volume (Bld) [Entitic vol] 11.0 fL 9 - 15.5 fL [facility] Platelets (Bld) [#/Vol] 178 10*3/uL [facility] CV IR EPIDURAL STEROID INJon 02-24-2020 CV IR EPIDURAL STEROID INJ HISTORY/CLINICAL DATA: Lumbago EXAMINATION: VIA A POSTERIOR APPROACH 1. FLUOROSCOPICALLY GUIDED LUMBAR EPIDURAL STEROID INJECTION. COMPARISON: None. CODE ENFORCEMENT INSPECTOR(S): Nicolasa Mitchell MD. PROCEDURE: FLUOROSCOPY TIME: 0.2 [...] lumbar epidural steroid injection as outlined above. [employer] Workstation ID: [id number] Dictated by: Nicolasa MITCHELL on SunMarch 04, 2020 10:21:09 AM EDT Transcribed by: FIGUEROA GUTIERREZ on SunMarch 04, 2020 10:25:58 AM EDT Finalized by: Nicolasa MITCHELL on SunMarch 04, 2020 10:33:02 AM EDT Normal [facility] Vital Signs Date Time Vital Sign Value Performing Clinician Facility 07-29-2024 10:040 Body height 175.[address] 07-29-2024 10:0400 Body mass index (BMI) [Ratio] 30.27 kg/m2 [address] 07-29-2024 10:040 Body weight 92.[address] 03-04-2020 10:26040 Body Temperature 98.4 [degF] [facility] 03-04-2020 10:26-0400 BP Diastolic 83 mm[Hg] [facility] 03-04-2020 10:26-0400 BP Systolic 146 mm[Hg] [facility] 03-04-2020 10:26-0400 Pulse (Heart Rate) 53 /min [facility] 03-04-2020 10:26-0400 Pulse Oximetry 97 % [facility] 03-04-2020 10:260400 Respiratory Rate 14 /min [facility] 03-04-2020 08:15-0400 BMI (Body Mass Index) 31.57 kg/m2 [facility] 03-04-2020 08:15-0400 Body weight 99.79 kg [facility] 03-04-2020 08: Height 177.8 cm [facility] Encounters Encounter Date Encounter Type Care Provider Facility Start: 10-08-2024 End: 10-20-2024 Refill Ruth Myers MD Work Phone: [facility] Comment on above: Urinary incontinence , unspecified type Start: 10-06-2024 End: 10-06-2024 ambulatory Anamaria Pollock MD Facility:[facility] Start: 09-10-2024 End: 09-10-2024 Telephone encounter Ruth Myers MD Work Phone: [facility] Start: 09-09-2024 End: 09-09-2024 Evaluation and management of inpatient MITALI Rosales SUZAN [facility] Start: 09-09-2024 End: 09-09-2024 Evaluation and management of inpatient EMILIE FORMAN [facility] Start: 09-08-2024 End: 09-08-2024 ambulatory [facility] Pat Phone Call Provider 1 [facility] - Pre Admit Start: 09-08-2024 End: 09-08-[address] [facility] Start: 08-26-2024 End: 08-26-2024 Telephone encounter Ruth Myers MD Work Phone: [facility] Comment on above: Mixed hyperlipidemia (CMS/HCC) Start: 08-19-2024 End: 08-19-2024 Evaluation and management of inpatient DIYA NAVARRETE [facility] Start: 08-19-2024 End: 08-19-2024 Evaluation and management of inpatient EMILIE FORMAN [facility] Start: 07-29-2024 End: 07-29-2024 Patient encounter procedure [facility] Pre-Admission Testing 2 [facility] - Pre Admit Comment on above: Preop examination (P rimary Dx) Start: 07-29-2024 End: 07-29-2024 Preprocedural examination done Pm 2 [facility] Start: 07-29-2024 End: 07-29-2024 ambulatory MITALI MARES [facility] Start: 07-29-2024 Encounter for other preprocedural examination RUTH LOUIS [facility] Start: 06-09-2024 End: 06-09-2024 ambulatory Anamaria Pollock MD Facility:[facility] Start: 05-26-2024 End: 05-26-2024 ambulatory Anamaria Pollock MD Facility:[facility] Start: 03-12-2024 End: 03-13-2024 ambulatory RAYNA JACQUES [...] 12-16-2020 Orders Only Jayshree Solano Work Phone: [facility] Start: 03-04-2020 End: 03-04-2020 Patient encounter procedure Nicolasa MITCHELL [facility] Start: 03-04-2020 End: 03-04-2020 Subsequent hospital visit by physician Nicolasa Mitchell Work Phone: [facility] Comment on above: Lumbago Start: 06-24-2019 Patient encounter procedure KATLIN Moffett [facility] Start: 06-12-2019 End: 06-16-2019 Patient encounter procedure MITZI GALEAS [facility] Procedures Date Procedure Procedure Detail Performing [...] Screening for malign ant neoplasm of colon [facility] Start: 10-12-2025 DTaP,Tdap and Td Vac cines (2 - Td or Tdap) DTaP,Tdap and Td Vaccines (2 - Td or Tdap) [facility] Start: 10-12-2025 Tetanus vaccination Tetanus: Every 1 0yrs [facility] Start: 09-09-2025 Adult BMI Screening Adult BMI Screen ing [facility] Start: 09-09-2025 Tobacco Screening Tobacco Screening [facility] Start: 07-29-2025 Adult BMI Screening Adult BMI Screen ing [facility] Start: 07-29-2025 Tobacco Screening Tobacco Screening [facility] Start: 02-04-2025 Medicare Annual Well ness (AWV) Medicare Annual Wellness (AWV) [facility] Start: 09-09-2024 End: 09-09-2024 Admission to same day surgery center 09/09/2024 2:15 PM EST - 09/09/2024 3:00 PM EST Surgery [facility] - Surgery [address] [place] [address] Emilie Forman MD [facility] [place] [address] EXTRACTION CATARACT INTRAOCULAR LENS [57815 (CPT )] [facility] - Surgery Comment on above: EXTRACTION CATARACT INTRAOCULAR LENS [67871 (CPT )] Start: 09-09-2024 Subsequent hospital visit by physician 09/09/2024 2:15 PM EST Hospital Encounter [facility] Surgery [address] [place] [phone] Emilie Forman MD [address] [place] [id number] [facility] Surgery Start: 09-09-2024 End: 09-09-2024 Xcapsl ctrc rmvl insj io lens prosth w/o ecp [facility] Start: 09-08-2024 End: 09-08-2024 ambulatory 09/08/2024 3:50 PM EST Support Visit [facility] - Pre Admit [address] [place] [phone] [facility] - Pre Admit Start: 08-19-2024 End: 08-19-2024 Admission to same day surgery center 08/19/2024 3:00 PM EDT - 08/19/2024 3:45 PM EDT Surgery [facility] Surgery [address] [place] [phone] Emilie Forman MD [address] [place] [id number] EXTRACTION CATARACT INTRAOCULAR LENS [80317 (CPT )] [facility] Surgery Comment on above: EXTRACTION CATARACT INTRAOCULAR LENS [75309 (CPT )] Start: 08-19-2024 End: 08-19-2024 Anesthesia consultation 08/19/2024 3:00 PM EDT Anesthesia Event [facility] Surgery [address] [place] [phone] Diya Navarrete, DO [address] [place] [address] [facility] Surgery Start: 08-19-2024 Subsequent hospital visit by physician 08/19/2024 3:00 PM EDT Hospital Encounter [facility] - Surgery [address] [place] [phone] Emilie Forman MD [address] [place], [place] [id number] [facility] - Surgery Start: 08-19-2024 End: 08-19-2024 Xcapsl ctrc rmvl insj io lens prosth w/o ecp EXTRACTION CATARACT INTRAOCULAR LENS cataract right eye 08/19/2024 3:00 PM EDT [facility] Start: 06-22-2024 Influenza vaccination Influenza Vacc ine (#1) [facility] Start: 06-22-2020 Influenza vaccinatio n given [facility] Start: 2019 Abdominal aortic ane urysm screening Abdominal Aortic Aneurysm (AAA) Screen [facility] Start: 2019 Fall Risk Screening Fall Risk Screen ing [facility] Start: 2019 Pneumococcal vaccination Pneum ococcal Vaccine Age 65+ (1 of 2 - PCV13) [facility] Start: 12-07-2015 Administration of he rpes zoster vaccine Zoster Vaccines (2 of 3) [facility] Start: 12-07-2015 Administration of varicella zoster vaccine Zoster (Shingles) Vaccine (2 of 3) [facility] Start: 2004 Screening for malign ant neoplasm of colon [facility] Start: 1972 Adult BMI Follow Up Plan Adult BMI Follow Up Plan [facility] Start: 1972 Hepatitis C antibody , confirmatory test Hepatitis C Screening [facility] Start: 1970 COVID-19 Vaccine (1 of 2) COVI D-19 Vaccine (1 of 2) [facility] Start: 1966 Adolescent depressio n screening assessment [facility] Start: 1957 History and physical examination, annual for health maintenance Wellness Visit [facility] Start: 1954 Fall risk assessment Falls Risk Asse ssment [facility] Start: 1954 Hepatitis C antibody , confirmatory test Hepatitis C Screening [facility] Start: 1954 Medicare Annual Well ness Visit Medicare Annual Wellness Visit [facility] Start: 1954 Prostate specific an tigen measurement PSA Level [facility] Start: 1954 Screening for malign ant neoplasm of colon [facility] Start: 1954 US scan of abdominal aorta Abdominal Aortic Ultrasound [facility] Immunizations Immunization Date Immunization Notes Care Provider Spencer gomez 07-16-2023 Influenza, Seasonal, Quadrivalent, Adjuvanted Ruth Myers MD Work Phone: [facility] Work Phone: 07-16-2023 influenza virus vacc ine, unspecified formulation Ruth Myers MD Work Phone: [facility] 07-11-2022 Influenza, High-dose Seasonal, Quadrivalent, Preservative Free Ruth Myers MD Work Phone: [facility] 01-27-2022 Pneumococcal Conjuga te PCV 20 Ruth Myers MD Work Phone: [facility] 07-22-2021 Influenza, High-dose Seasonal, Quadrivalent, Preservative Free Ruth Myers MD Work Phone: [facility] 07-22-2020 Influenza, Seasonal, Quadrivalent, Adjuvanted Ruth Myers MD Work Phone: [facility] 08-29-2019 influenza, injectabl e, quadrivalent, preservative free Ruth Myers MD Work Phone: [facility] 08-22-2018 influenza, injectabl e, quadrivalent, preservative free Ruth Myers MD Work Phone: [facility] 08-03-2017 influenza, seasonal, injectable Ruth Myers MD Work Phone: [facility] 10-12-2015 pneumococcal polysaccharide vaccine, 23 valent Ruth Myers MD Work Phone: [facility] 10-12-2015 tetanus toxoid, redu desmond diphtheria toxoid, and acellular pertussis vaccine, adsorbed Ruth Myers MD Work Phone: [facility] 10-12-2015 zoster vaccine, live Reggie Myers MD Work Phone: [facility] 10-12-2015 zoster vaccine, unspecified formulation [facility] 2 [facility] Payers Date Payer Category Payer Medicare (Managed Care) [employer] [id number] 2023 Medicare HMO [facility] [employer] [id number] 2023 Medicare [id number] 2023 Unknown [id number] 2015 Unknown [id number] 2015 Unknown ANTHEM BCBS OUT OF STATE [employer] xxxxxxxxxxxxxx 2015-Present xxxxxxxxxxxxxx [id number] 2015 Unknown ANTHEM [employer] [id number] 2015-Present [id number]. [id number] 2009 Unknown [id number] 1959 Unknown [id number] 1954 Unknown [id number] 2.16.840.1.904793.3.579.2. 900 1954 Unknown [id number] 2.16.840.1.735588.3.579.2. 903 1954 Unknown [id number] 2.16.840.1.441256.3.579.2. 902 1954 Unknown [id number] 2.16.840.1.174634.3.579.2. 593 1954 Unknown [id number] 2.16.840.1.003883.3.579.2. 593 1954 Unknown [id number] 2.16.840.1.717078.3.579.2. 593 1954 Unknown [id number] 2.16.840.1.072099.3.579.2. 593 1954 Unknown [id number] 2.16.840.1.777982.3.579.2. 593 1954 Unknown [id number] 2.16.840.1.352275.3.579.2. 1259 1954 Unknown [id number] 2.16.840.1.542100.3.579.2. 1259 1954 Unknown [id number] 2.16.840.1.017326.3.579.2. 1259 1954 Unknown [id number] 2.16.840.1.719881.3.579.2. 1259 1954 Unknown [id number] 2.16.840.1.663352.3.579.2. 1286 1954 Unknown [id number] 2.16.840.1.951198.3.579.2. 1286 1954 Unknown [id number] 2.16.840.1.000381.3.579.2. 1286 1954 Unknown [id number] 2.16.840.1.411231.3.579.2. 1286 1954 Unknown [id number] 2.16.840.1.374103.3.579.2. 1286 1954 Unknown [id number] 2.16.840.1.266995.3.579.2. 1286 1954 Unknown [id number] 2.16.840.1.327458.3.579.2. 1286 1954 Unknown [id number] 2.16.840.1.766074.3.579.2. 1286 1954 Unknown [id number] 2.16.840.1.609403.3.579.2. 1286 1954 Unknown [id number] 2.16.840.1.471913.3.579.2. 196 1954 Unknown [id number] 2.16.840.1.643614.3.579.2. 196 1954 Unknown [id number] 2.16.840.1.653488.3.579.2. 196 Social History Date Type Detail Facility Start: 03-04-2020 End: 02-05-2024 Tobacco smoking status NHIS Former smoker [facility] Start: 03-04-2020 End: 08-20-2024 Alcohol intake Current drinker of alcohol (finding) [facility] [facility] Start: 10-02-2016 Alcohol Comment occasional [facility] Start: 1955 Sex Assigned At Not on file [facility] Start: 03-05-2020 End: 02-05-2024 Tobacco use and exposure Never used [facility] Start: 1972 End: 2003 History of tobacco use Current smoker [facility] Start: 02-04-2024 End: 07-29-2024 History of Social function [facility] Start: 02-04-2024 End: 07-29-2024 Tobacco use panel [facility] Unknown [facility] Start: 04-30-2018 Alcohol Comment 1-2 a day [facility] Start: 1972 End: 2003 History of tobacco use Cigarette Smoker [facility] Start: 02-05-2024 Alcoholic beverage intake Ex-drinker (finding) [facility] Do you belong to any clubs or organizations such as sabianist groups, unions, fraternal or athletic groups, or [...] more than 4 cups per day coffee [facility] Start: 1955 Sex assigned at Male [facility] Start: 01-03-2023 Gender identity Identifies as male gender (finding) [facility] Start: 03-11-2023 Sexual orientation Heterosexual (finding) [facility] Start: 05-27-2015 Sex Male (finding) [facility] Medical Equipment Procedure Code Equipment Code Equipment Origin al Text Equipment Identifier Dates Lens Iol [id number]. [address] [facility] [id number] - [id number] - [id number] Start: 08-19-2024 Lens Iol [id number]. [address] [facility] [id number] - [id number] - [id number] Start: 09-09-2024 Clinical Notes 10-28-2021 to 10-08-2024 Telephone Encounter - Ruth Myers MD - 10/08/2024 4:25 PM ESTTelephone Encounter - Ruth Myers MD - 10/08/2024 4:25 PM ESTTelephone Encounter - Flory Mark - 09/10/2024 1:40 PM EST Note Date & Type Note Facility 10-08-2024 Telephone encounter Note Approving, but needs appt for additional refills. [facility] 10-08-2024 Miscellaneous Notes Approving, but needs appt for additional refills. documented in this encounter [facility] 09-10-2024 Telephone encounter Note Pt cannot get his Atorvastatin filled because it says he picked it up in July at the [facility]. He has no idea who that dr is that called it in.. and when I google her name, she works in [facility], which is 3 hrs [place] 55 mins away from [place]. I am going to first call [facility] and make sure the bday matches the pt (pt said there is another person in [place] with his name) [facility] is closed for lunch right now and I'm going to lunch :) So I told pt I will call them when I return from lunch and give him a call back to let him know what I find out. Just documenting. [facility] 09-10-2024 Miscellaneous Notes Pt cannot get his Atorvastatin filled because it says he picked it up in July at the [facility]. He has no idea who that dr is that called it in.. and when I google her name, she works in [facility], which is 3 hrs and 55 mins away from [place]. I am going to first call [facility] and make sure the bday matches the pt (pt said there is another person in [place] with his name) [facility] is closed for lunch right now and I'm going to lunch :) So I told pt I will call them when I return from lunch and give him a call back to let him know what I find out. Just documenting. documented in this encounter [facility] 09-08-2024 Miscellaneous Notes Preoperative Education Checklist- General Surgery date: 09/09/24 Surgery time: 1414 Arrival time: 1215 1. Bring a photo ID and your insurance card with you the day of surgery. You will check in at the main lobby registration desk as soon as you walk in the entrance. 2. If you have a Living Will/Durable Power of Economic Development Manager for Health Care that is not on file here, please bring a copy the day of surgery. 3. Please wash your face with baby shampoo prior to procedure as instructed by your physician. 4. NO powder, lotion, perfume/cologne, aftershave, make-up, nail zambian on at least one finger, deodorant, or [...] please call the [facility] office at [phone], Mon.-Fri. 7 a.m.-3 p.m. Leave a voicemail [...] taking 0 days prior to procedure omega 3-jwk-ehh-fish oil (Fish OiL) 300-1,000 mg capsule Stop taking 0 days prior to procedure pravastatin (PRAVACHOL) 80 mg tablet Stop taking 0 days prior to procedure documented in this encounter [facility] 09-08-2024 Nurse Note Preoperative Education Checklist- General Surgery date: 09/09/24 Surgery time: 1415 Arrival time: 1215 1. Bring a photo ID and your insurance card with you the day of surgery. You will check in at the main lobby registration desk as soon as you walk in the entrance. 2. If you have a Living Will/Durable Power of Economic Development Manager for Health Care that is not on file here, please bring a copy the day of surgery. 3. Please wash your face with baby shampoo prior to procedure as instructed by your physician. 4. NO powder, lotion, perfume/cologne, aftershave, make-up, nail zambian on at least one finger, deodorant, or [...] please call the [facility] office at [phone], Mon.-Fri. 7 a.m.-3 p.m. Leave a voicemail [...] taking 0 days prior to procedure omega 5-ywe-yay-fish oil (Fish OiL) 300-1,000 mg capsule Stop taking 0 days prior to procedure pravastatin (PRAVACHOL) 80 mg tablet Stop taking 0 days prior to procedure [facility] [employer] 08-26-2024 Telephone encounter Note Patient is requesting atorvastatin- he thinks it was increased to 40mg. [facility]ses [facility] [place]. Thank you. [facility] 08-26-2024 Miscellaneous Notes Patient is requesting atorvastatin- he thinks it was increased to 40mg. [facility]ses [facility] [place] Thank you. documented in this encounter [facility] 07-29-2024 Instructions Jessica Perez RN - 07/29/2024 [...] you have a Living Will/Durable Power of Economic Development Manager for Health Care that is not on file here, please bring a copy the day of surgery. 3. Please wash your face with baby shampoo prior to procedure as instructed by your physician. 4. NO powder, lotion, perfume/cologne, aftershave, make-up, nail zambian on at least one finger, deodorant, or [...] please call the [facility] office at [phone], Mon.-Fri. 7 a.m.-3 p.m. Leave a voicemail [...] taking 0 days prior to procedure omega 6-afb-iit-fish oil (Fish OiL) 300-1,000 mg capsule Stop taking 0 days prior to procedure pravastatin (PRAVACHOL) 80 mg tablet Stop taking 0 days prior to procedure documented in this encounter [facility] 07-29-2024 Miscellaneous Notes Preoperative Education Checklist- General Surgery date: 08/19/24 Surgery time: 3:00 p.m. Arrival time: 1:00 p.m. 1. Bring a photo ID and your insurance card with you the day of surgery. You will check in at the main lobby registration desk as soon as you walk in the entrance. 2. If you have a Living Will/Durable Power of Economic Development Manager for Health Care that is not on file here, please bring a copy the day of surgery. 3. Please wash your face with baby shampoo prior to procedure as instructed by your physician. 4. NO powder, lotion, perfume/cologne, aftershave, make-up, nail zambian on at least one finger, deodorant, or [...] please call the [facility] Testing office at [phone], Mon.-Fri. 7 a.m.-3 p.m. Leave a voicemail [...] taking 0 days prior to procedure omega 4-qyh-wak-fish oil (Fish OiL) 300-1,000 mg capsule Stop taking 0 days prior to procedure pravastatin (PRAVACHOL) 80 mg tablet Stop taking 0 days prior to procedure Surgical instructions reviewed. Patient verbalized understanding. documented in this encounter [facility] 07-29-2024 Nurse Note Preoperative Education Checklist- General Surgery date: 08/19/24 Surgery time: 3:00 p.m. Arrival time: 1:00 p.m. 1. Bring a photo ID and your insurance card with you the day of surgery. You will check in at the main lobby registration desk as soon as you walk in the entrance. 2. If you have a Living Will/Durable Power of Economic Development Manager for Health Care that is not on file here, please bring a copy the day of surgery. 3. Please wash your face with baby shampoo prior to procedure as instructed by your physician. 4. NO powder, lotion, perfume/cologne, aftershave, make-up, nail zambian on at least one finger, deodorant, or [...] please call the Preadmission Testing office at [phone], Mon.-Fri. 7 a.m.-3 p.m. Leave a voicemail [...] taking 0 days prior to procedure omega 8-nwm-zqw-fish oil (Fish OiL) 300-1,000 mg capsule Stop taking 0 days prior to procedure pravastatin (PRAVACHOL) 80 mg tablet Stop taking 0 days prior to procedure [facility] 07-29-2024 Nurse Note Surgical instructions reviewed. Patient verbalized understanding. [facility] 11-30-2022 Note CONSULTATION CONSULTATION DATE: 11/30/2022 [...] walking, housework and lifting. He does use vrda-fnd-qjtbaxr menthol patches which help decrease his pain. [...] be done in the office today. [facility] 08-24-2022 Note CONSULTATION CONSULTATION DATE: 08/24/2022 HISTORY [...] and patient agrees with this plan. 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 [...] 2 months' time unless otherwise indicated. [facility] 06-01-2022 Note CONSULTATION PROCEDURE DATE: 06/01/2022 PRE [...] be followed up in the office. [facility] 03-09-2022 Note CONSULTATION CONSULTATION DATE: 03/09/2022 This [...] Approved by: DORIE VALDEZ . 03/13/2022 15:06:00 [facility] 01-27-2022 Note PROCEDURE: Without I V contrast [...] signed by Kenneth Kan on 01/27/2022 0938 [facility] Client Experience Administrator 10-28-2021 Note PROCEDURE: [facility] VCT 64, 5.0 mm slice axial images [...] signed by Kenneth Kan on 10/28/2021 0937 [facility] Client Experience Administrator Evaluation note Diagnosis Preop examination- Primary Unspecified pre-operative examination Preop examination Unspecified pre-operative examination [facility] Mixed hyperlipidemia (CMS/HCC) Mixed hyperlipidemia [facility] Diagnosis Urinary incontinence, unspecified type documented in this encounter [facility]ructionsNot on filedocumented [facility] Summary Purpose Family History No Family History Records FoundNo Family History Records FoundNo Family History Records FoundNo Family History Records FoundNo Family History Records FoundNo Family History Records FoundNo Family History Records FoundNo Family History Records Found Advance Directives Documents on File Type Date Recorded Patient [employer] Expl anation Advance Directives and Livin g Will 03/04/2020 8:02 AM Latest Code Status on File Code Status Date Activated Date Inactivated Comments Full Code - Unverified 03/04/2020 10:12 AM 03/04/2020 12 :43 PM Documents on File Type Date 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 * Lumbar Epidural Steroid Injections: General Info (Kittitian) * Post-op Infection (Kittitian) documented in this encounter Assessments Diagnosis Lumbago Reason for Referral Specialty Diagnoses / Procedures Referred By Contac t Referred To Contact Diagnoses Preop examination Procedures ECG 12 lead Mitali Mares MD [address] [place] [address] Referral ID Status Reason Start Date Expiration Date V isits Requested Visits Authorized [id number] Pending Review 07/22/2024 07/22/2025 1 1 Additional Source Comments (unrecognized sect ion and content) No Status Records FoundNo Status Records FoundNo Status Records FoundNo Status Records FoundNo Status Records FoundNo Status Records FoundNo Status Records FoundNo Status Records Found INFORMATION SOURCE (unrecogn ized section and content) DATE CREATED AUTHOR 06/16/2019 [facility] DATE CREATED AUTHOR AUTHOR'S ORGANIZ ATION 06/25/2019 [facility] DATE CREATED AUTHOR AUTHOR'S ORGANIZ ATION 03/10/2020 [facility] DATE CREATED AUTHOR AUTHOR'S ORGANIZ ATION 02/23/2022 [facility] dical Specialist DATE CREATED AUTHOR AUTHOR'S ORGANIZ ATION 03/05/2023 [facility] DATE CREATED AUTHOR AUTHOR'S ORGANIZ ATION 03/17/2024 [facility] dical Specialists EPIC DATE CREATED AUTHOR AUTHOR'S ORGANIZ ATION 09/10/2024 [facility] DATE CREATED AUTHOR AUTHOR'S ORGANIZ ATION 10/15/2024 [facility] Reason for Visit (unrecogniz ed section and content) Status Reason Specialty Diagnoses / Procedures Referre d By Contact Referred To Contact Diagnoses Lumbago Lumbago [M54.5] Procedures IR EPIDURAL STEROID INJ Nicolasa Mitchell MD - 03/04/2020 10:11 AM EDT Procedure Notes (unrecognize d section and content) Vascular & Interventional Radiology Provided By [facility] (Diagnostic Radiology, Interventional and Neurointerventional Radiology and Vascular Medicine) Interventional Radiology Department @ [facility]: [phone] 14/05 VIR physician contact: [phone]) Weekday VIR nurse practitioner contact @ [facility]: [phone] [facility]: [phone] [email or web address] [facility] PARKING LOT SUPERVISOR DIRECTORY PROCEDURE: Fluoroscopic guided lumbar epidural steroid injection @ L5-S1 PLAN: Repeat epidural steroid injection can be offered, as needed Date: 03/04/2020 Patient Name: Neville Schmitz Patient : 1955 Physician: Nicolasa Mitchell MD Sedation Plan: None [place] Protocol: Pre-Procedural verification: Correct patient, correct site [...] Care Teams (unrecognized sec tion and content) Bureau Director Relationship Specialty Start Date End Date Ruth Myers MD [address] [place] [address] PCP - General Family Medicine 12/31/17 Bureau Director Relationship Specialty Start Date End Date Ruth Myers MD [address] [place] [address] PCP - General Family Medicine 05/10/23 Ruth Myers MD [address] [place] [address] PCP - Devoted 10/22/23 Bureau Director Relationship Specialty Start Date End Date Ruth Myers MD [address] [place] [address] PCP - General Family Medicine 05/10/23 Ruth Myers MD [address] [place] [address] PCP - Devoted 10/22/23 Bureau Director Relationship Specialty Start Date End Date Ruth Myers MD [address] [place] [address] PCP - General Family Medicine 12/31/17 Bureau Director Relationship Specialty Start Date End Date Ruth Myers MD [address] [place] [address] PCP - General Family Medicine 05/10/23 Ruth Myers MD [address] [place] [address] PCP - [facility]oted 10/22/23 FOR RECORDS PERTAINING [...] BE BASED ON THE PRIMARY CLINICAL RECORDS. [facility] [employer] [facility]. provides no warranty or guarantee of the accuracy or completeness of information in this document.
== END 2024-11-06 09:06 | disposition home or self-care (01) ==
LOC: PM 09:06
PROVIDERS: Visit Provider Nurse Practitioner
DX: M47.816 Spondylosis without myelopathy or radiculopathy, lumbar region (principal); M48.062 Spinal stenosis, lumbar region with neurogenic claudication; M54.6 Pain in thoracic spine; M19.90 Unspecified osteoarthritis, unspecified site; Z79.891 Long term (current) use of opiate analgesic; M79.18 Myalgia, other site
CPT/HCPCS: G0463

== ENCOUNTER 2024-11-17 07:01 | Day surgery (SDC) | payer MEDICARE, SELFPAY ==
--- OUTSIDE RECORDS SUMMARY | 2024-11-17 07:04 | XMS_ITS | CCD ---
Author Organization [facility] Care Team Providers Care Accreditation Specialist Name Role Phone MITZI GALEAS Admitting Unavailable ESQUIVEL SARAH L Primary Care Unavailable KATLIN KNOWLES Attending Unavailabl e PATTI ESQUIVELNY L Primary Care Unavailable EsquivelSarah L Primary Care Provider Nicolasa MITCHELL Admitting Unavailable Nicolasa MITCHELL Attending Unavailable ESQUIVEL SARHA L Primary Care Unavailable EsquivelPattiny L Primary Care Provider JAYLON ., DR FRANCK Chaparro Admitting Unavailable IYER ., DR FRANCK Chaparro Attending Unavailable [facility] Primary Care Unavailable VALDEZ ., DORIE Consulting Unavailable IYER ., DR FRANCK Chaparro Admitting Unavailable IYER ., DR FRANCK Chaparro Attending Unavailable [facility] Primary Care Unavailable VALDEZ ., DORIE Consulting Unavailable IYER ., DR FRANCK Chaparro Admitting Unavailable IYER ., DR FRANCK Chaparro Attending Unavailable [facility], KENZIE Primary Care Unavailable VALDEZ ., DORIE Consulting Unavailable IYER ., DR FRANCK Chaparro Admitting Unavailable IYER ., DR FRANCK Chaparro Attending Unavailable [facility] Primary Care Unavailable VALDEZ ., DORIE Consulting Unavailable LAKSHMIPATHY ., NARENDRANATH Admitting Angelica vailable LAKSHMIPATHY ., NARENDEDDIEATH Attending Angelica vailable [facility], RICE Primary Care Unavailable HALKER .CARINE Consulting Unavailable RUTH MYERS Attending Unavailable PHILIPPE OROSCO Referring Unavailable RAYNA JACQUES Referring Unavailable Ruth Myers MD Primary Care Provider [phone] Ruth Myers MD Primary Care Provider Ruth Myers MD Unavailable [phone] RUTH MYERS Referring Unavailable RUTH MYERS [...] tablet (5 sources) HMG-CoA Reductase Inhibitor Start: 10 End: take 1 tablet by mouth once [...] NON FORMULARY enrique bach supplement Active omega 7-zit-pcy-fish oil (Fish OiL) 300-1,000 mg capsule (2 sources) omega 3-dha-epa- fish oil (Fish OiL) 300-1,000 mg capsule Take by mouth daily. Active 24 hr oxybutynin chloride 5 mg extended release oral tablet (5 sources) Cholinergic Muscarinic Antagonist Start: 09-26-20 End: 10-08-20 24 take 1 tablet by mouth once [...] tablet 1 03/12/2024 Active polyethylene glycol 3350 25760 mg powder for oral solution (4 sources) [...] 02-21-2022 TSH 1.180 uIU/mL Normal 0.400-4.500 [facility] [employer] Comment on above: Performed By: #### T SH reflex FT4 #### [facility] [address], [place] [id number] US Aorta Screeningon 022 US Aorta Screening FINDINGS: Proximal Aorta2.9 x 2.3 cm Mid Aorta1.6 x 2.1 cm Distal Aorta1.3 x 1.3 cm Right Common Iliac9 x 10 mm Left Common Iliac10 x 13 mm No aneurysmal dilatation is identified. No neighboring fluid collections are seen. IMPRESSION: No significant aneurysmal formation. Report reported and signed by Kenneth Kan on 01/27/2022 0911 Normal [facility] Comprehensive Metabolic Pane zee 01-20-2022 Albumin [Mass/Vol] 4.5 g/dL Normal 3.6-5.1 [facility] [employer] Comment on above: Performed By: #### L IPD, CMP #### [facility] [address], [place] [id number] Albumin/Globulin [Mass ratio] 2.4 {ratio} Normal 1.0-2.5 [facility] Comment on above: Performed By: #### L IPD, CMP #### [facility] [address], [place] [id number] ALP [Catalytic activity/Vol] 69 U/L Normal 40-129 [facility] Comment on above: Performed By: #### L IPD, CMP #### [facility] [address], [place] [id number] ALT [Catalytic activity/Vol] 23 U/L Normal 9-46 [facility] Comment on above: Result Comment: 09/21 Female reference range changed. Performed By: #### L IPD, CMP #### [facility] [address] [facility] [place] [id number] Anion gap [Moles/Vol] 15 mmol/L Normal 12-20 [facility] Comment on above: Result Comment: Effe ctive 10/27/2019 reference range changed. Performed By: #### L IPD, CMP #### [facility] [address], [place] [id number] AST [Catalytic activity/Vol] 18 U/L Normal 10-40 [facility] Comment on above: Performed By: #### L IPD, CMP #### [facility] [address], [place] [id number] Bilirubin [Mass/Vol] 0.80 mg/dL Normal 0.30-1.20 [facility] Comment on above: Performed By: #### L IPD, CMP #### [facility] [address], [place] [id number] BUN/CREA 25 Ratio High 6-22 [facility] Comment on above: Performed By: #### L IPD, CMP #### [facility] [address], [place] [id number] Calcium [Mass/Vol] 9.9 mg/dL Normal 8.6-10.2 [facility] Comment on above: Performed By: #### L IPD, CMP #### [facility] [address], [place] [id number] Chloride [Moles/Vol] 106 mmol/L Normal 98-107 [facility] Comment on above: Performed By: #### L IPD, CMP #### [facility] [address], [place] [id number] CO2 [Moles/Vol] 25 mmol/L Normal 20-31 [facility] [employer] Installer Comment on above: Performed By: #### L IPD, CMP #### [facility] [address], [place] [id number] Creatinine [Mass/Vol] 0.9 mg/dL Normal 0.7-1.4 [facility] Comment on above: Performed By: #### L IPD, CMP #### [facility] [address], [place] [id number] eGFRAA 102 mL/min/1.73m2 Normal >60 [facility] Comment on above: Performed By: #### L IPD, CMP #### [facility] [address], [place] [id number] eGFRNAA 84 mL/min/1.73m2 Normal >60 [facility] Con[employer] Installer Comment on above: Performed By: #### L IPD, CMP #### [facility] [address], [place] [id number] Globulin (S) [Mass/Vol] 1.9 g/dL Normal 1.9-3.7 [facility] [employer] Install[employer] Comment on above: Performed By: #### L IPD, CMP #### [facility] [address], [place] [id number] Glucose [Mass/Vol] 101 mg/dL High 65-99 [facility] Con[employer] Installer Comment on above: Result Comment: For FASTING Glucose --- ADA reference ranges: Normal 65-99 mg/dl Prediabetes 100-125 Diabetes >/= 126 Performed By: #### L IPD, CMP #### [facility] [address], [place] [id number] Potassium [Moles/Vol] 4.3 mmol/L Normal 3.5-5.5 [facility] [employer] Installer Comment on above: Performed By: #### L IPD, CMP #### [facility] [address], [place] [id number] Protein [Mass/Vol] 6.4 g/dL Normal 6.1-8.1 [facility] Con[employer] Installer Comment on above: Performed By: #### L IPD, CMP #### [facility] [address], [place] [id number] Sodium [Moles/Vol] 142 mmol/L Normal 135-146 [facility] Comment on above: Performed By: #### L IPD, CMP #### [facility] [address], [place] [id number] Urea nitrogen [Mass/Vol] 22 mg/dL Normal 7-25 [facility] Comment on above: Performed By: #### L IPD, CMP #### [facility] [address], [place] [id number] Lipid Panelon 01-20-2022 Cholesterol [Mass/Vol] 239 mg/dL High 125-200 [facility] Comment on above: Result Comment: Low risk < 200mg/dL Borderline risk 201-239 mg/dl High risk > or equal to 240 Performed By: #### L IPD, CMP #### [facility] [address], [place] [id number] Cholesterol in HDL [Mass/Vol] 66 mg/dL Normal >40 [facility] Comment on above: Result Comment: High Cardiovascular Risk HDL <40 mg/dL Low Cardiovascular Risk HDL > or equal to 60 mg/dl Performed By: #### L IPD, CMP #### [facility] [address], [place] [id number] Cholesterol in LDL [Mass/Vol] 149 mg/dL Normal [facility] Comment on above: Result Comment: LDL ATP III CLASSIFICATION LDL less than 100 mg/dl Optimal LDL 100-129 mg/dl Near or above optimal LDL 130-159 Borderline high LDL 160-189 High LDL greater than 189 mg/dl Very High Performed By: #### L IPD, CMP #### [facility] [address], [place] [id number] Cholesterol in VLDL [Mass/Vol] 24 mg/dL Normal [facility] Comment on above: Performed By: #### L IPD, CMP #### [facility] [address], [place] [id number] Cholesterol.total/C holesterol in HDL [Mass ratio] 4 {ratio} Normal [facility] Comment on above: Performed By: #### L IPD, CMP #### [facility] [address], [place] [id number] Triglyceride [Mass/Vol] 119 mg/dL Normal 30-150 [facility] Con[employer] Installer Comment on above: Result Comment: TRIG ATPIII CLASSIFICATIONS TRIG less than 150 mg/dl Normal TRIG 150-199 mg/dl Borderline High TRIG 200-500 mg/dl High TRIG greather than 500 mg/dl Very High Performed By: #### L IPD, [facility] #### [facility] [address], [place] [id number] PSA SCREEN (MEDICARE)on TPSA 1.110 ng/mL Normal <4.000 [facility] Con[employer]or Installer Comment on above: Result Comment: PSA Test Method: ECLIA/Bre e 601 Performed By: #### P SA #### [facility] [address], [place] [id number] CV IR EPIDURAL STEROID INJon 03-04-2020 Fluoroscopically guided lumbar epidural steroid injection as outlined above. theDrop Workstation ID: [id number] [facility] HISTORY/CLINICAL DATA: Lumbago EXAMINATION: VIA A POSTERIOR APPROACH 1. FLUOROSCOPICALLY GUIDED LUMBAR EPIDURAL STEROID INJECTION. COMPARISON: None. CHILD AND ADOLESCENT PSYCHOLOGIST(S): Nicolasa Mitchell MD. PROCEDURE: FLUOROSCOPY TIME: 0.2 [...] the procedure well without immediate postprocedural complications. [facility] Interface, Rad In Edwardi Speechq - 03/04/2020 10:35 AM EDT HISTORY/CLINICAL DATA: Lumbago EXAMINATION: VIA A POSTERIOR APPROACH 1. FLUOROSCOPICALLY GUIDED LUMBAR EPIDURAL STEROID INJECTION. COMPARISON: None. CHILD AND ADOLESCENT PSYCHOLOGIST(S): Nicolasa Mitchell MD. PROCEDURE: FLUOROSCOPY TIME: 0.2 [...] lumbar epidural steroid injection as outlined above. theDrop Workstation ID: [id number] [facility] PT/INRon 03-04-2020 INR Coag (PPP) [Relative time] 1.0 {INR} [facility] Interpretation and review of laboratory results Normal [facility] PT Coag (PPP) [Time] 12.4 s [facility] During the induction phase of oral anticoagulation, the INR may not reflect the anticoagulation status of the patient. Therapeutic ranges for INR's are: Most clinical situations: INR 2.0-3.0 Mechanical Prosthetic Valve: INR 2.5-3.5 Critical: INR >5.0 [facility] Platelet Counton 03-04-2020 Interpretation and review of laboratory results Normal [facility] Platelet mean volume (Bld) [Entitic vol] 11.0 fL 9 - 15.5 fL [facility] Platelets (Bld) [#/Vol] 178 10*3/uL [facility] CV IR EPIDURAL STEROID INJon 02-24-2020 CV IR EPIDURAL STEROID INJ HISTORY/CLINICAL DATA: Lumbago EXAMINATION: VIA A POSTERIOR APPROACH 1. FLUOROSCOPICALLY GUIDED LUMBAR EPIDURAL STEROID INJECTION. COMPARISON: None. CHILD AND ADOLESCENT PSYCHOLOGIST(S): Nicolasa Mitchell MD. PROCEDURE: FLUOROSCOPY TIME: 0.2 [...] lumbar epidural steroid injection as outlined above. [employer] Workstation ID: [id number] Dictated by: Nicolasa MITCHELL on SunMarch 04, 2020 10:21:09 AM EDT Transcribed by: FIGUEROA GUTIERREZ on SunMarch 04, 2020 10:25:58 AM EDT Finalized by: Nicolasa MITCHELL on SunMarch 04, 2020 10:33:02 AM EDT Normal [facility] Vital Signs Date Time Vital Sign Value Performing Clinician Facility 07-29-2024 10:040 Body height 175.[address] 07-29-2024 10:0400 Body mass index (BMI) [Ratio] 30.27 kg/m2 [address] 07-29-2024 10:040 Body weight 92.[address] 03-04-2020 10:0400 Body Temperature 98.4 [degF] [facility] 03-04-2020 10:260400 BP Diastolic 83 mm[Hg] [facility] 03-04-2020 10:260400 BP Systolic 146 mm[Hg] [facility] 03-04-2020 10:26-0400 Pulse (Heart Rate) 53 /min [facility] 03-04-2020 10:26-0400 Pulse Oximetry 97 % [facility] 03-04-2020 10:260400 Respiratory Rate 14 /min [facility] 03-04-2020 08:15-0400 BMI (Body Mass Index) 31.57 kg/m2 [facility] 03-04-2020 08:15-0400 Body weight 99.79 kg Nicolasa Mitchell [facility] 03-04-2020 08: Height 177.8 [facility] Encounter Date Encounter Type Care Provider Facility Start: 11-03-2024 End: 11-03-2024 ambulatory Anamaria Pollock MD Facility:[facility] Start: 10-08-2024 End: 10-20-2024 Refill Ruth Myers MD Work Phone: [facility] Comment on above: Urinary incontinence , unspecified type Start: 10-06-2024 End: 10-06-2024 ambulatory Anamaria Pollock MD Facility:[facility] Start: 09-10-2024 End: 09-10-2024 Telephone encounter Ruth Myers MD Work Phone: [facility] Start: 09-09-2024 End: 09-09-2024 Evaluation and management of inpatient MITALI Rosales SUZAN [facility] Start: 09-09-2024 End: 09-09-2024 Evaluation and management of inpatient EMILIENAV FORMAN [facility] Start: 09-08-2024 End: 09-08-2024 ambulatory Pm Pat Phone Call Provider 1 [facility] - Pre Admit Start: 09-08-2024 End: 09-08-2024 ambulatory RUTH BHATTIHMAN [facility] Start: 08-26-2024 End: 08-26-2024 Telephone encounter Ruth Myers MD Work Phone: [facility] Comment on above: Mixed hyperlipidemia (CMS/HCC) Start: 08-19-2024 End: 08-19-2024 Evaluation and management of inpatient DIYA NAVARRETE [facility] Start: 08-19-2024 End: 08-19-2024 Evaluation and management of inpatient EMILIE FORMAN [facility] Start: 07-29-2024 End: 07-29-2024 Patient encounter procedure [facility] Pre-Admission Testing 2 [facility] - Pre Admit Comment on above: Preop examination (P rimary Dx) Start: 07-29-2024 End: 07-29-2024 Preprocedural examination done Pm 2 [facility] Start: 07-29-2024 End: 07-29-2024 ambulatory MITALI MARES [facility] Start: 07-29-2024 Encounter for other preprocedural examination RUTH MYERS [facility] Start: 06-09-2024 End: 06-09-2024 ambulatory Anamaria Pollock MD Facility:[facility] Start: 05-26-2024 End: 05-26-2024 ambulatory Anamaria Pollock MD Facility:[facility] Start: 03-12-2024 End: 03-13-2024 ambulatory DEENAAnuel Maribeth GEORGIE Not Available Start: 02-05-2024 End: 02-05-2024 ambulatory RUTHAUSTIN MARTINIAN Not Available Start: 09-18-2023 End: 09-19-2023 ambulatory [...] Orders Only Jayshree Lynnette Solano Work Phone: [facility] Start: 03-04-2020 End: 03-04-2020 Patient encounter procedure Nicolasa MITCHELL [facility] Start: 03-04-2020 End: 03-04-2020 Subsequent hospital visit by physician Nicolasa Mitchell Work Phone: [facility] Comment on above: Lumbago Start: 06-24-2019 Patient encounter procedure KATLIN KNOWLES [facility] Start: 06-12-2019 End: 06-16-2019 Patient encounter procedure MITZI GALEAS [facility] Procedures Date Procedure Procedure Detail Performing [...] Screening for malign ant neoplasm of colon [facility] Start: 10-12-2025 DTaP,Tdap and Td Vac cines (2 - Td or Tdap) DTaP,Tdap and Td Vaccines (2 - Td or Tdap) [facility] Start: 10-12-2025 Tetanus vaccination Tetanus: Every 1 0yrs [facility] Start: 09-09-2025 Adult BMI Screening Adult BMI Screen ing [facility] Start: 09-09-2025 Tobacco Screening Tobacco Screening [facility] Start: 07-29-2025 Adult BMI Screening Adult BMI Screen ing [facility] Start: 07-29-2025 Tobacco Screening Tobacco Screening [facility] Start: 02-04-2025 Medicare Annual Well ness (AWV) Medicare Annual Wellness (AWV) [facility] Start: 09-09-2024 End: 09-09-2024 Admission to same day surgery center 09/09/2024 2:15 PM EST - 09/09/2024 3:00 PM EST Surgery [facility] - Surgery [address] [place] [address] Emilie Forman MD [facility] [place] [address] EXTRACTION CATARACT INTRAOCULAR LENS [28651 (CPT )] [facility] - Surgery Comment on above: EXTRACTION CATARACT INTRAOCULAR LENS [73418 (CPT )] Start: 09-09-2024 Subsequent hospital visit by physician 09/09/2024 2:15 PM EST Hospital Encounter [facility] - Surgery [address] [place] [address] Emilie Forman MD [address] [place], [place] [phone] [facility] - Surgery Start: 09-09-2024 End: 09-09-2024 Xcapsl ctrc rmvl insj io lens prosth w/o ecp [facility] Start: 09-08-2024 End: 09-08-2024 ambulatory 09/08/2024 3:50 PM EST Support Visit [facility] Admit [address] [place] [phone] [facility] - Pre Admit Start: 08-19-2024 End: 08-19-2024 Admission to same day surgery center 08/19/2024 3:00 PM EDT - 08/19/2024 3:[address] [facility] [address] [place] [phone] Emilie Forman MD [address] [place] [phone] EXTRACTION CATARACT INTRAOCULAR LENS [25137 (CPT )] [facility] Comment on above: EXTRACTION CATARACT INTRAOCULAR LENS [24146 (CPT )] Start: 08-19-2024 End: 08-19-2024 Anesthesia consultation 08/19/2024 3:00 PM EDT Anesthesia Event [facility] [address] [place] [phone] Diya Navarrete, DO [address] [place] [address] [facility] Surgery Start: 08-19-2024 Subsequent hospital visit by physician 08/19/2024 3:00 PM EDT Hospital Encounter [facility] Surgery [address] [place] [phone] Emilie Forman MD [address] [place] [address] [facility] Surgery Start: 08-19-2024 End: 08-19-2024 Xcapsl ctrc rmvl insj io lens prosth w/o ecp EXTRACTION CATARACT INTRAOCULAR LENS cataract right eye 08/19/2024 3:00 PM EDT [facility] Start: 06-22-2024 Influenza vaccination Influenza Vacc ine (#1) [facility] Start: 06-22-2020 Influenza vaccinatio n given [facility] Start: 2019 Abdominal aortic ane urysm screening Abdominal Aortic Aneurysm (AAA) Screen [facility] Start: 2019 Fall Risk Screening Fall Risk Screen ing [facility] Start: 2019 Pneumococcal vaccination Pneum ococcal Vaccine Age 65+ (1 of 2 - PCV13) [facility] Start: 12-07-2015 Administration of he rpes zoster vaccine Zoster Vaccines (2 of 3) [facility] Start: 12-07-2015 Administration of varicella zoster vaccine Zoster (Shingles) Vaccine (2 of 3) [facility] Start: 2004 Screening for malign ant neoplasm of colon [facility] Start: 1972 Adult BMI Follow Up Plan Adult BMI Follow Up Plan [facility] Start: 1972 Hepatitis C antibody , confirmatory test Hepatitis C Screening [facility] Start: 1970 COVID-19 Vaccine (1 of 2) COVI D-19 Vaccine (1 of 2) [facility] Start: 1966 Adolescent depressio n screening assessment [facility] Start: 1957 History and physical examination, annual for health maintenance Wellness Visit [facility] Start: 1954 Fall risk assessment Falls Risk Asse ssment [facility] Start: 1954 Hepatitis C antibody , confirmatory test Hepatitis C Screening [facility] Start: 1954 Medicare Annual Well ness Visit Medicare Annual Wellness Visit [facility] Start: 1954 Prostate specific an tigen measurement PSA Level [facility] Start: 1954 Screening for malign ant neoplasm of colon [facility] Start: 1954 US scan of abdominal aorta Abdominal Aortic Ultrasound [facility] Immunizations Immunization Date Immunization Notes Care Provider Fa cility 07-16-2023 Influenza, Seasonal, Quadrivalent, Adjuvanted Ruth Myers MD Work Phone: [facility] Work Phone: 07-16-2023 influenza virus vacc ine, unspecified formulation Ruht Myers MD Work Phone: [facility] 10-12-2015 zoster vaccine, unspecified formulation [facility] 2 [facility] Payers Date Payer Category Payer Medicare (Managed Care) [facility] [id number] 2023 Medicare HMO [employer] [id number] 2023 Medicare [id number]. [id number] 2023 Unknown [id number] 2015 Unknown [id number] 2015 Unknown [place]THEM BC[place] [facility] [place]xxxxx 2015-Present xxxxxxxxxxxxxx [id number]. [id number] 2015 Unknown ANTHEM BC[place] [facility] [id number] 2015-Present [id number]. [id number] 2009 Unknown [id number] 1959 Unknown [id number] 1954 Unknown [id number] 2.16.840.1.328009.3.579.2. 900 1954 Unknown [id number] 2.16.840.1.738422.3.579.2. 903 1954 Unknown [id number] 2.16.840.1.475268.3.579.2. 902 1954 Unknown [id number] 2.16.840.1.637270.3.579.2. 593 1954 Unknown [id number] 2.16.840.1.438497.3.579.2. 593 1954 Unknown [id number] 2.16.840.1.082272.3.579.2. 593 1954 Unknown [id number] 2.16.840.1.022982.3.579.2. 593 1954 Unknown [id number] 2.16.840.1.954809.3.579.2. 593 1954 Unknown [id number] 2.16.840.1.997186.3.579.2. 1259 1954 Unknown [id number] 2.16.840.1.351352.3.579.2. 1259 1954 Unknown [id number] 2.16.840.1.031947.3.579.2. 1259 1954 Unknown [id number] 2.16.840.1.312166.3.579.2. 1259 1954 Unknown [id number] 2.16.840.1.034938.3.579.2. 1286 1954 Unknown [id number] 2.16.840.1.720531.3.579.2. 1286 1954 Unknown [id number] 2.16.840.1.078964.3.579.2. 1286 1954 Unknown [id number] 2.16.840.1.630820.3.579.2. 1285 1954 Unknown [id number] 2.16.840.1.861921.3.579.2. 128 1954 Unknown [id number] 2.16.840.1.600525.3.579.2. 1285 1954 Unknown [id number] 2.16.840.1.622496.3.579.2. 1286 1954 Unknown [id number] 2.16.840.1.162280.3.579.2. 128 1954 Unknown [id number] 2.16.840.1.907508.3.579.2. 1286 1954 Unknown [id number] 2.16.840.1.038339.3.579.2. 196 1954 Unknown [id number] 2.16.840.1.174852.3.579.2. 196 1954 Unknown [id number] 2.16840.1.702011.3.579.2. 196 1954 Unknown [id number] 2.16.840.1.104950.3.579.2. 196 Social History Date Type Detail Facility Start: 03-04-2020 End: 02-05-2024 Tobacco smoking status NHIS Former smoker [facility] Start: 03-04-2020 End: 08-20-2024 Alcohol intake Current drinker of alcohol (finding) [facility] Start: 10-02-2016 Alcohol Comment [facility] Start: 1955 Sex Assigned At Not on file [facility] Start: 03-05-2020 End: 02-05-2024 Tobacco use and exposure Never used [facility] Start: 1972 End: 2003 History of tobacco use Current smoker [facility] Start: 02-04-2024 End: 07-29-2024 History of Social function [facility] Start: 02-04-2024 End: 07-29-2024 Tobacco use panel [facility] Unknown [facility] Start: 04-30-2018 Alcohol Comment 1-2 a day [facility] Start: 1972 End: 2003 History of tobacco use Cigarette Smoker [facility] Start: 02-05-2024 Alcoholic beverage intake Ex-drinker (finding) [facility] Do you belong to any clubs or organizations such as buddhist groups, unions, fraternal or athletic groups, or [...] Not at all [facility] (I/We) worried nav er (my/our) food would run out before (I/we) got money to buy more. Never true [facility] Start: 05-16-2023 Alcohol Comment Caffeine intake: more than 4 cups per day coffee [facility] Start: 1955 Sex assigned at Male [facility] Start: 01-03-2023 Gender identity Identifies as male gender (finding) [facility] Start: 03-11-2023 Sexual orientation Heterosexual (finding) [facility] Start: 05-27-2015 Sex Male (finding) [facility] Medical Equipment Procedure Code Equipment Code Equipment Origin al Text Equipment Identifier Dates Lens Iol [id number] [facility] [id number] - [id number] - [id number] Start: 08-19-2024 Lens [id number] [id number] - [id number] [phone] [id number] Start: 09-09-2024 Clinical Notes 10-28-2021 to 10-08-2024 Telephone Encounter - Ruth Myers MD - 10/08/2024 4:25 PM ESTTelephone Encounter - Ruth Myers MD - 10/08/2024 4:25 PM ESTTelephone Encounter - Flory Mark - 09/10/2024 1:40 PM EST Note Date & Type Note Facility 10-08-2024 Telephone encounter Note Approving, but needs appt for additional refills. [facility] 10-08-2024 Miscellaneous Notes Approving, but needs appt for additional refills. documented in this encounter [facility] 09-10-2024 Telephone encounter Note Pt cannot get his Atorvastatin filled because it says he picked it up in July at the [facility]. He has no idea who that dr is that called it in.. and when I google her name, she works in [facility], which is 3 hrs [place] 55 mins away from [place]. I am going to first call [facility] and make sure the bday matches the pt (pt said there is another person in [place] with his name) [facility] is closed for lunch right now [...] it up in July at the [facility]. He has no idea who that dr is that called it in.. and when I google her name, she works in [facility], which is 3 hrs [place] 55 mins away from [place]. I am going to first call [facility] and make sure the bday matches the pt (pt said there is another person in [place] with his name) [facility] is closed for lunch right now [...] you have a Living Will/Durable Power of Car Body Inspector for Health Care that is not on file here, please bring a copy the day of surgery. 3. Please wash your face with baby shampoo prior to procedure as instructed by your physician. 4. NO powder, lotion, perfume/cologne, aftershave, make-up, nail ugandan on at least one finger, deodorant, or [...] please call the P[facility] office at [phone], Mon.-Fri. 7 a.m.-3 p.m. Leave a voicemail [...] taking 0 days prior to procedure omega 5-scc-cll-fish oil (Fish OiL) 300-1,000 mg capsule Stop taking 0 days prior to procedure pravastatin (PRAVACHOL) 80 mg tablet Stop taking 0 days prior to procedure documented in this encounter [facility] 09-08-2024 Nurse Note Preoperative Education Checklist- General Surgery date: 09/09/24 Surgery time: 1415 Arrival time: 1215 1. Bring a photo ID and your insurance card with you the day of surgery. You will check in at the main lobby registration desk as soon as you walk in the entrance. 2. If you have a Living Will/Durable Power of Car Body Inspector for Health Care that is not on file here, please bring a copy the day of surgery. 3. Please wash your face with baby shampoo prior to procedure as instructed by your physician. 4. NO powder, lotion, perfume/cologne, aftershave, make-up, nail ugandan on at least one finger, deodorant, or [...] please call the Preadmission Testing office at [phone], Mon.-Fri. 7 a.m.-3 p.m. Leave a voicemail [...] taking 0 days prior to procedure omega 3-ocg-pud-fish oil (Fish OiL) 300-1,000 mg capsule Stop taking 0 days prior to procedure pravastatin (PRAVACHOL) 80 mg tablet Stop taking 0 days prior to procedure [facility] 08-26-2024 Telephone encounter Note Patient is requesting [...] you have a Living Will/Durable Power of Car Body Inspector for Health Care that is not on file here, please bring a copy the day of surgery. 3. Please wash your face with baby shampoo prior to procedure as instructed by your physician. 4. NO powder, lotion, perfume/cologne, aftershave, make-up, nail ugandan on at least one finger, deodorant, or [...] please call the Preadmission Testing office at [phone], Mon.-Fri. 7 a.m.-3 p.m. Leave a voicemail [...] taking 0 days prior to procedure omega 3-bce-raw-fish oil (Fish OiL) 300-1,000 mg capsule Stop taking 0 days prior to procedure pravastatin (PRAVACHOL) 80 mg tablet Stop taking 0 days prior to procedure documented in this encounter [facility] 07-29-2024 Miscellaneous Notes Preoperative Education Checklist- General Surgery date: 08/19/24 Surgery time: 3:00 p.m. Arrival time: 1:00 p.m. 1. Bring a photo ID and your insurance card with you the day of surgery. You will check in at the main lobby registration desk as soon as you walk in the entrance. 2. If you have a Living Will/Durable Power of Car Body Inspector for Health Care that is not on file here, please bring a copy the day of surgery. 3. Please wash your face with baby shampoo prior to procedure as instructed by your physician. 4. NO powder, lotion, perfume/cologne, aftershave, make-up, nail ugandan on at least one finger, deodorant, or [...] please call the Preadmission Testing office at [phone], Mon.-Fri. 7 a.m.-3 p.m. Leave a voicemail [...] taking 0 days prior to procedure omega 2-sod-oyz-fish oil (Fish OiL) 300-1,000 mg capsule Stop taking 0 days prior to procedure pravastatin (PRAVACHOL) 80 mg tablet Stop taking 0 days prior to procedure Surgical instructions reviewed. Patient verbalized understanding. documented in this encounter [facility] [employer] [facility] 07-29-2024 Nurse Note Preoperative Education Checklist- General Surgery date: 08/19/24 Surgery time: 3:00 p.m. Arrival time: 1:00 p.m. 1. Bring a photo ID and your insurance card with you the day of surgery. You will check in at the main lobby registration desk as soon as you walk in the entrance. 2. If you have a Living Will/Durable Power of Car Body Inspector for Health Care that is not on file here, please bring a copy the day of surgery. 3. Please wash your face with baby shampoo prior to procedure as instructed by your physician. 4. NO powder, lotion, perfume/cologne, aftershave, make-up, nail ugandan on at least one finger, deodorant, or [...] please call the Preadmission Testing office at [phone], Mon.-Fri. 7 a.m.-3 p.m. Leave a voicemail [...] taking 0 days prior to procedure omega 4-cee-irk-fish oil (Fish OiL) 300-1,000 mg capsule Stop taking 0 days prior to procedure pravastatin (PRAVACHOL) 80 mg tablet Stop taking 0 days prior to procedure [facility] 07-29-2024 Nurse Note Surgical instructions reviewed. Patient verbalized understanding. [facility] 11-30-2022 Note CONSULTATION CONSULTATION DATE: 11/30/2022 HISTORY [...] walking, housework and lifting. He does use kbag-[id number] menthol patches which help decrease his pain. [...] be done in the office today. [facility] 08-24-2022 Note CONSULTATION CONSULTATION DATE: 08/24/2022 [...] and patient agrees with this plan. [facility] 06-01-2022 Note CONSULTATION CONSULTATION DATE: 06/01/2022 [...] Activities such as pushing pulling, standing, walking, document reviewer hours and lifting aggravate his pain. At [...] 2 months' time unless otherwise indicated. [facility] 06-01-2022 Note CONSULTATION PROCEDURE DATE: 06/01/2022 [...] be followed up in the office. [facility] 03-09-2022 Note CONSULTATION CONSULTATION DATE: 03/09/2022 [...] patient agrees and all questions were answered. [facility] Signed and Approved by: DORIE VALDEZ . 03/13/2022 15:06:00 [facility] 01-27-2022 Note PROCEDURE: Without I V [...] signed by Kenneth Kan on 01/27/2022 [id number] [facility] Conveyor Installer 10-28-2021 Note PROCEDURE: [employer] VCT 64, 5.0 mm slice axial images [...] signed by Kenneth Kan on 10/28/2021 0937 [facility] Conveyor Installer Evaluation note Diagnosis Preop examination- Primary Unspecified pre-operative examination Preop examination Unspecified pre-operative examination [facility] Mixed hyperlipidemia (CMS/HCC) Mixed hyperlipidemia [facility] Diagnosis Urinary incontinence, unspecified type documented in this encounter [facility]ructionsNot on filedocumented [facility] Purpose Family History No Family History Records FoundNo Family History Records FoundNo Family History Records FoundNo Family History Records FoundNo Family History Records FoundNo Family History Records FoundNo Family History Records FoundNo Family History Records Found Advance Directives No Advanced Directives Records FoundDocuments on File Type Date Recorded Patient Frame Wirer Expl anation Advance Directives and Livin g Will 03/04/2020 8:02 AM Latest Code Status on File Code Status Date Activated Date Inactivated Comments Full Code - Unverified 03/04/2020 10:12 AM 03/04/2020 12 :43 PM Documents on File Type Date Recorded Patient Frame Wirer Expl anation Advance Directives and Livin g Will 03/04/2020 8:02 AM Latest Code Status on File Code Status Date Activated Date Inactivated Comments Full Code - Unverified 03/04/2020 10:12 AM 03/04/2020 12 :43 PM Discharge Instructions * Attachments The following attachments cannot be sent through Care Everywhere. * Lumbar Epidural Steroid Injections: General Info (Luxembourger) * Post-op Infection (Luxembourger) documented in this encounter Assessments Diagnosis Lumbago Reason for Referral Specialty Diagnoses / Procedures Referred By Davide barclay Referred To Contact Diagnoses Preop examination Procedures ECG 12 lead Mitali Mares MD [address] [place] [address] Referral ID Status Reason Start Date Expiration Date V isits Requested Visits Authorized [id number] Pending Review 07/22/2024 07/22/2025 1 1 Additional Source Comments (unrecognized sect ion and content) No Status Records FoundNo Status Records FoundNo Status Records FoundNo Status Records FoundNo Status Records FoundNo Status Records FoundNo Status Records FoundNo Status Records Found INFORMATION SOURCE (unrecogn ized section and content) DATE CREATED AUTHOR 06/16/2019 [facility] DATE CREATED AUTHOR AUTHOR'S ORGANIZ ATION 06/25/2019 [facility] DATE CREATED AUTHOR AUTHOR'S ORGANIZ ATION 03/10/2020 [facility] DATE CREATED AUTHOR AUTHOR'S ORGANIZ ATION 02/23/2022 [facility] dical Specialist DATE CREATED AUTHOR AUTHOR'S ORGANIZ ATION 03/05/2023 [facility] DATE CREATED AUTHOR AUTHOR'S ORGANIZ ATION 03/17/2024 [facility] dical Specialists EPIC DATE CREATED AUTHOR AUTHOR'S ORGANIZ ATION 09/10/2024 [facility] DATE CREATED AUTHOR AUTHOR'S ORGANIZ ATION 11/12/2024 [facility] Reason for Visit (unrecogniz ed section and content) Status Reason Specialty Diagnoses / Procedures Referre d By Contact Referred To Contact Diagnoses Lumbago Lumbago [M54.5] Procedures IR EPIDURAL STEROID INJ Nicolasa Mitchell MD - 03/04/2020 10:11 AM EDT Procedure Notes (unrecognize d section and content) Vascular & Interventional Radiology Provided By [facility] (Diagnostic Radiology, Interventional and Neurointerventional Radiology and Vascular Medicine) Interventional Radiology Department @ [facility]: [phone] 14/05 [facility] physician contact: [phone]) VIR nurse practitioner contact @ [facility]: [phone] [facility]: [phone] [email or web address] ELEMENTARY SUPERVISOR DIRECTORY PROCEDURE: Fluoroscopic guided lumbar epidural steroid injection @ L5-S1 PLAN: Repeat epidural steroid injection can be offered, as needed Date: 03/04/2020 Patient Name: Neville Schmitz Patient : 1955 Physician: Nicolasa Mitchell MD Sedation Plan: None [place] Protocol: Pre-Procedural verification: Correct patient, correct site [...] Care Teams (unrecognized sec tion and content) Accreditation Specialist Relationship Specialty Start Date End Date Ruth Myers MD [address] [place] [address] PCP - General Family Medicine 12/31/17 Accreditation Specialist Relationship Specialty Start Date End Date Ruth Myers MD [address] [place] [address] PCP - General Family Medicine 05/10/23 Ruth Myers MD [address] [place] [address] PCP - Devoted 10/22/23 Accreditation Specialist Relationship Specialty Start Date End Date Ruth Myers MD [address] [place] [place] [address] PCP - General Family Medicine 05/10/23 Ruth Myers MD [address] [place] [address] PCP - Devoted 10/22/23 Accreditation Specialist Relationship Specialty Start Date End Date Ruth Myers MD [address] [place] [address] PCP - General Family Medicine 12/31/17 Accreditation Specialist Relationship Specialty Start Date End Date Ruth Myers MD [address] [place] [address] PCP - General Family Medicine 05/10/23 Ruth Myers MD [address] [place] [address] PCP - [facility]oted 10/22/23 FOR RECORDS PERTAINING [...] BE BASED ON THE PRIMARY CLINICAL RECORDS. [employer] [facility]. provides no warranty or guarantee of the accuracy or completeness of information in this document.
[2024-11-17 07:12] VITALS: BP 129/61; PULSE 57; TEMP 36.3; O2SAT 96
[2024-11-17 08:01] VITALS: BP 124/63; PULSE 56; O2SAT 96
[2024-11-17 08:13] VITALS: BP 166/81; PULSE 58; O2SAT 97
[2024-11-17] MEDS: BUPIVACAINE HCL 0.25% PF 25 MG/10 ML VIAL 4 ML INJ (08:15)
[2024-11-17] MEDS: METHYLPREDNISOLONE ACETATE 40 MG/ML VIAL 80 MG INJ (08:15)
[2024-11-17] MEDS: LIDOCAINE HCL 2% 400 MG/20 ML MDV 16 ML INJ (08:15)
--- NOTE | 2024-11-17 08:21 | P.ON_ITS ---
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 The site was marked.? Written informed consent was obtained and placed on the chart.? The patient was brought to the medical procedure unit and placed in the prone position.? A timeout was completed verifying correct patient, procedure, positioning, and special requirements.? The skin overlying the target points, the designated medial branch, were prepped and draped in the usual sterile fashion.? The target point was achieved with a 20-gauge 15 cm with a 10 mm curved active tip radiofrequency cannula under direct fluoroscopic visualizati on.? The needle was inserted at level L4 on the right side. Needle tip position was confirmed with lateral fluoroscopic position.? Motor stimulation was carried out at 2 Hz up to 5 volts with the absence of extremity activity.? This was repeated at level L5, S1 on right side.?? Sensory stimulation was carried out.? Concordant pain was realized at the above- mentioned sites.? Then radiofrequency lesioning was carried out times 90 seconds at 80 degrees times 2 lesions at each level.? The radiofrequency probe was removed prior to cannula removal.? The above-mentioned injectate was placed in 1 mL increments.? The needle was removed. The same procedure, with the same steps, was then completed on the left side at the same levels. Insertion sites were covered.? The patient was taken to the postoperative recovery area and monitored for an appropriate length of time before being found suitable for discharge in the company of a responsible adult. Anesthesia: Local Surgeon: Anamaria Pollock Pathology: none sent Condition: stable Disposition: no change
== END 2024-11-17 08:24 | disposition home or self-care (01) ==
LOC: SURGOUT 07:02
PROVIDERS: Visit Provider Anesthesiology
DX: M47.816 Spondylosis without myelopathy or radiculopathy, lumbar region (principal)
CPT/HCPCS: 64635; 64636; J0665; J1010

== ENCOUNTER 2024-12-17 09:58 | Outpatient (OUT) | payer MEDICARE, SELFPAY ==
--- OUTSIDE RECORDS SUMMARY | 2024-12-17 10:05 | XMS_ITS | CCD ---
Author Organization [facility] Care Team Providers Care Chemistry Laboratory Technician Name Role Phone ADALMITZI Admitting Unavailable ESQUIVEL SARAH L Primary Care Unavailable KATLIN KNOWLES Attending Unavailabl e PATTI ESQUIVELNY L Primary Care Unavailable Sarah Esquivel L Primary Care Provider Nicolasa MITCHELL Admitting Unavailable Nicolasa MITCHELL Attending Unavailable ESQUIVEL SARAH L Primary Care Unavailable Sarah Esquivel L Primary Care Provider JAYLON ., DR FRANCK Chaparro Admitting Unavailable IYER ., DR FRANCK Chaparro Attending Unavailable [facility] Primary Care Unavailable VALDEZ ., DORIE Consulting Unavailable IEYR ., DR FRANCK Chaparro Admitting Unavailable IYER [...] LAKSHMIPATHY ., NARENDEDDIEATH Attending Angelica vailable [facility] [place] Primary Care Unavailable HALKER .CARINE Consulting Unavailable [...] DAVID, Anamaria June Attending Unavailable Maris DAVID, Andkei June Attending Unavailable Maris DAVID, Andrius June Attending Unavailable Maris DAVID, Andrius June Attending Unavailable Maris DAVID, Anamaria June Attending Unavailable Ruth Myers MD Primary Care Provider [phone] Medications Current Medications Medication Drug Class(es) Dates [...] needed. 0 06/20/2016 Active Misc Natural Products (Republic ProjectTRONG MEMORY SUPPORT PO) (4 sources) Misc Natural [...] NON FORMULARY enrique bach supplement Active omega 3-xxo-hov-fish oil (Fish OiL) 300-1,000 mg capsule (2 [...] tablet 1 03/12/2024 Active polyethylene glycol 3350 60280 mg powder for oral solution (4 sources) [...] 0 02-21-2022 TSH 1.180 uIU/mL Normal 0.400-4.500 [facility] [employer] Comment on above: Performed By: #### T SH reflex FT4 #### [facility] [address], [place] [id number] US Aorta Screeningon 022 US Aorta Screening FINDINGS: Proximal Aorta2.9 x 2.3 cm Mid Aorta1.6 x 2.1 cm Distal Aorta1.3 x 1.3 cm Right Common Iliac9 x 10 mm Left Common Iliac10 x 13 mm No aneurysmal dilatation is identified. No neighboring fluid collections are seen. IMPRESSION: No significant aneurysmal formation. Report reported and signed by Kenneth Kan on 01/27/2022 0911 Normal [facility] [employer] Comprehensive Metabolic Pane zee 01-20-2022 Albumin [Mass/Vol] 4.5 g/dL Normal 3.6-5.1 [facility] Comment on above: Performed By: #### L IPD, CMP #### [facility] [address], [place] [id number] Albumin/Globulin [Mass ratio] 2.4 {ratio} Normal 1.0-2.5 [facility] Specialist Comment on above: Performed By: #### L IPD, CMP #### [facility] [address], [place] [id number] ALP [Catalytic activity/Vol] 69 U/L Normal 40-129 [facility] Specialist Comment on above: Performed By: #### L IPD, CMP #### [facility] [address], [place] [id number] ALT [Catalytic activity/Vol] 23 U/L Normal 9-46 [facility] Specialist Comment on above: Result Comment: 09/21 Female reference range changed. Performed By: #### L IPD, CMP #### [facility] [address], [place] [id number] Anion gap [Moles/Vol] 15 mmol/L Normal 12-20 [facility] Special[facility] Comment on above: Result Comment: Effe ctive 10/27/2019 reference range changed. Performed By: #### L IPD, CMP #### [facility] [address], [place] [id number] AST [Catalytic activity/Vol] 18 U/L Normal 10-40 [facility] Specialist Comment on above: Performed By: #### L IPD, CMP #### [facility] [address], [place] [id number] Bilirubin [Mass/Vol] 0.80 mg/dL Normal 0.30-1.20 [facility] Specialist Comment on above: Performed By: #### L IPD, CMP #### [facility] [address], [place] [id number] BUN/CREA 25 Ratio High 6-22 [facility] Specialist Comment on above: Performed By: #### L IPD, CMP #### [facility] [address], [place] [id number] Calcium [Mass/Vol] 9.9 mg/dL Normal 8.6-10.2 [facility] Comment on above: Performed By: #### L IPD, CMP #### [facility] [address], [place] [id number] Chloride [Moles/Vol] 106 mmol/L Normal 98-107 [facility] Specialist Comment on above: Performed By: #### L IPD, CMP #### [facility] [address], [place] [id number] CO2 [Moles/Vol] 25 mmol/L Normal 20-31 [facility] Specialist Comment on above: Performed By: #### L IPD, CMP #### [facility] [address], [place] [id number] Creatinine [Mass/Vol] 0.9 mg/dL Normal 0.7-1.4 [facility] Specialist Comment on above: Performed By: #### L IPD, CMP #### [facility] [address], [place] [id number] eGFRAA 102 mL/min/1.73m2 Normal >60 [facility] Specialist Comment on above: Performed By: #### L IPD, CMP #### [facility] [address], [place] [id number] eGFRNAA 84 mL/min/1.73m2 Normal >60 [facility] Specialist Comment on above: Performed By: #### L IPD, CMP #### [facility] [address], [place] [id number] Globulin (S) [Mass/Vol] 1.9 g/dL Normal 1.9-3.7 [facility] Specialist Comment on above: Performed By: #### L IPD, CMP #### [facility] [address], [place] [id number] Glucose [Mass/Vol] 101 mg/dL High 65-99 [facility] [employer] Comment on above: Result Comment: For FASTING Glucose --- ADA reference ranges: Normal 65-99 mg/dl Prediabetes 100-125 Diabetes >/= 126 Performed By: #### L IPD, CMP #### [facility] [address], [place] [id number] Potassium [Moles/Vol] 4.3 mmol/L Normal 3.5-5.5 [facility] Comment on above: Performed By: #### L IPD, CMP #### [facility] [address], [place] [id number] Protein [Mass/Vol] 6.4 g/dL Normal 6.1-8.1 [facility] Comment on above: Performed By: #### L IPD, CMP #### [facility] [address], [place] [id number] Sodium [Moles/Vol] 142 mmol/L Normal 135-146 [facility] Comment on above: Performed By: #### L IPD, CMP #### [facility] [address], [place] [id number] Urea nitrogen [Mass/Vol] 22 mg/dL Normal 7-25 [facility] Comment on above: Performed By: #### L IPD, CMP #### [facility] [address], [place] [id number] Lipid Panelon 01-20-2022 Cholesterol [Mass/Vol] 239 mg/dL High 125-200 [facility] Comment on above: Result Comment: Low risk < 200mg/dL Borderline risk 201-239 mg/dl High risk > or equal to 240 Performed By: #### L IPD, CMP #### [facility] [address], [place] [id number] Cholesterol in HDL [Mass/Vol] 66 mg/dL Normal >40 [facility] Specialist Comment on above: Result Comment: High Cardiovascular Risk HDL <40 mg/dL Low Cardiovascular Risk HDL > or equal to 60 mg/dl Performed By: #### L IPD, CMP #### [facility] [address], [place] [id number] Cholesterol in LDL [Mass/Vol] 149 mg/dL Normal [facility] Comment on above: Result Comment: LDL ATP III CLASSIFICATION LDL less than 100 mg/dl Optimal LDL 100-129 mg/dl Near or above optimal LDL 130-159 Borderline high LDL 160-189 High LDL greater than 189 mg/dl Very High Performed By: #### L IPD, CMP #### [facility] [address], [place] [id number] Cholesterol in VLDL [Mass/Vol] 24 mg/dL Normal [facility] Comment on above: Performed By: #### L IPD, CMP #### [facility] [address], [place] [id number] Cholesterol.total/C holesterol in HDL [Mass ratio] 4 {ratio} Normal [facility] Comment on above: Performed By: #### L IPD, CMP #### [facility] [address], [place] [id number] Triglyceride [Mass/Vol] 119 mg/dL Normal 30-150 [facility] Comment on above: Result Comment: TRIG ATPIII CLASSIFICATIONS TRIG less than 150 mg/dl Normal TRIG 150-199 mg/dl Borderline High TRIG 200-500 mg/dl High TRIG greather than 500 mg/dl Very High Performed By: #### L IPD, [facility] #### [facility] [address], [place] [id number] PSA SCREEN (MEDICARE)on TPSA 1.110 ng/mL Normal <4.000 [facility] Comment on above: Result Comment: PSA Test Method: ECLIA/Bre e 601 Performed By: #### P SA #### [facility] [address], [place] [id number] CV IR EPIDURAL STEROID INJon 03-04-2020 Fluoroscopically guided lumbar epidural steroid injection as outlined above. [email or web address] Workstation ID: [id number] [facility] HISTORY/CLINICAL DATA: Lumbago EXAMINATION: VIA A POSTERIOR APPROACH 1. FLUOROSCOPICALLY GUIDED LUMBAR EPIDURAL STEROID INJECTION. COMPARISON: None. CRNA(S): Nicolasa Mitchell MD. PROCEDURE: FLUOROSCOPY TIME: 0.2 [...] the procedure well without immediate postprocedural complications. [facility] Interface, Rad In [employer] Speechq - 03/04/2020 10:35 AM EDT HISTORY/CLINICAL DATA: Lumbago EXAMINATION: VIA A POSTERIOR APPROACH 1. FLUOROSCOPICALLY GUIDED LUMBAR EPIDURAL STEROID INJECTION. COMPARISON: None. CRNA(S): Nicolasa Mitchell MD. PROCEDURE: FLUOROSCOPY TIME: 0.2 [...] lumbar epidural steroid injection as outlined above. [email or web address] Workstation ID: [id number] [facility] PT/INRon 03-04-2020 INR Coag (PPP) [Relative time] 1.0 {INR} [facility] Interpretation and review of laboratory results Normal [facility] PT Coag (PPP) [Time] 12.4 s [facility] During the induction phase of oral anticoagulation, the INR may not reflect the anticoagulation status of the patient. Therapeutic ranges for INR's are: Most clinical situations: INR 2.0-3.0 Mechanical Prosthetic Valve: INR 2.5-3.5 Critical: INR >5.0 [facility] Platelet Counton 03-04-2020 Interpretation and review of laboratory results Normal [facility] Platelet mean volume (Bld) [Entitic vol] 11.0 fL 9 - 15.5 fL [facility] Platelets (Bld) [#/Vol] 178 10*3/uL [facility] CV IR EPIDURAL STEROID INJon 02-24-2020 CV IR EPIDURAL STEROID INJ HISTORY/CLINICAL DATA: Lumbago EXAMINATION: VIA A POSTERIOR APPROACH 1. FLUOROSCOPICALLY GUIDED LUMBAR EPIDURAL STEROID INJECTION. COMPARISON: None. CRNA(S): Nicolasa Mitchell MD. PROCEDURE: FLUOROSCOPY TIME: 0.2 [...] lumbar epidural steroid injection as outlined above. [employer] Workstation ID: [id number] Dictated by: Nicolasa MITCHELL on SunMarch 04, 2020 10:21:09 AM EDT Transcribed by: FIGUEROA GUTIERREZ on SunMarch 04, 2020 10:25:58 AM EDT Finalized by: Nicolasa MITCHELL on SunMarch 04, 2020 10:33:02 AM EDT Normal [facility] Vital Signs Date Time Vital Sign Value Performing Clinician Facility 07-29-2024 10:0400 Body height 175.3 cm [facility] 2 [facility] 07-29-2024 10:0400 Body mass index (BMI) [Ratio] 30.27 kg/m2 [address] 07-29-2024 10:0400 Body weight 92.[address] 03-04-2020 10:0400 Body Temperature 98.4 [degF] [facility] 03-04-2020 10:260400 BP Diastolic 83 mm[Hg] [facility] 03-04-2020 10:260400 BP Systolic 146 mm[Hg] [facility] 03-04-2020 10:26-0400 Pulse (Heart Rate) 53 /min [facility] 03-04-2020 10:260400 Pulse Oximetry 97 % [facility] 03-04-2020 10:260400 Respiratory Rate 14 /min [facility] 03-04-2020 08:15-0400 BMI (Body Mass Index) 31.57 kg/m2 [facility] 03-04-2020 08:15 Body weight 99.79 kg Nicolasa [facility] 03-04-2020 08: Height 177.8 cm Nicolasa [facility] Encounters Encounter Date Encounter Type Care Provider Facility Start: 11-17-2024 End: 11-17-2024 ambulatory Anamaria Pollock MD Facility:[facility] Start: 11-03-2024 End: 11-03-2024 ambulatory Anamaria Pollock MD Facility:[facility] Start: 10-08-2024 End: 10-20-2024 Refill Ruth Myers MD Work Phone: [facility] Comment on above: Urinary incontinence , unspecified type Start: 10-06-2024 End: 10-06-2024 ambulatory Anamaria Pollock MD Facility:[facility] Start: 09-10-2024 End: 09-10-2024 Telephone encounter Ruth Myers MD Work Phone: [facility] Start: 09-09-2024 End: 09-09-2024 Evaluation and management of inpatient MITALI Bobby MARES [facility] Start: 09-09-2024 End: 09-09-2024 Evaluation and management of inpatient EMILIE FORMAN [facility] Start: 09-08-2024 End: 09-08-2024 ambulatory [facility] Pat Phone Call Provider 1 [facility] - Pre Admit Start: 09-08-2024 End: 09-08-2024 ambulatory RUTH BHATTIHMAN [facility] Start: 08-26-2024 End: 08-26-2024 Telephone encounter Ruth Myers MD Work Phone: [facility] Comment on above: Mixed hyperlipidemia (CMS/HCC) Start: 08-19-2024 End: 08-19-2024 Evaluation and management of inpatient DIYAAnuel NAVARRETE [facility] Start: 08-19-2024 End: 08-19-2024 Evaluation and management of inpatient EMILIE FORMAN [facility] Start: 07-29-2024 End: 07-29-2024 Patient encounter procedure [facility] Pre-Admission Testing 2 [facility] - Pre Admit Comment on above: Preop examination (P rimary Dx) Start: 07-29-2024 End: 07-29-2024 Preprocedural examination done [facility] 2 [facility] Start: 07-29-2024 End: 07-29-2024 ambulatory MITALI Rosales SUZAN [facility] Start: 07-29-2024 Encounter for other preprocedural examination RUTH MYERS [facility] Start: 06-09-2024 End: 06-09-2024 ambulatory Anamaria Pollock MD Facility:[facility] Start: 05-26-2024 End: 05-26-2024 ambulatory Anamaria Pollock MD Facility:[facility] Start: 03-12-2024 End: 03-13-2024 ambulatory RAYNA JACQUES Not Available Start: 02-05-2024 End: 02-05-2024 ambulatory RUTH MYERS Not Available Start: 09-18-2023 End: 09-19-2023 ambulatory PHILIPPE OROSCO Not Available Start: 03-01-2023 End: 03-02-2023 ambulatory JAYLEEN NELSONMISAMREEN . Facility: Start: 11-30-2022 End: 12-01-[address] FRANCK IYER . Facility:[facility] Start: 08-24-2022 End: 08-25-[address] FRANCK IYER . Facility:[facility] Start: 06-01-2022 End: 06-02-[address] FRANCK IYER . Facility:[facility] Start: 03-09-2022 End: 03-10-[address] FRANCK IYER . Facility:[facility] Start: 12-16-2020 End: 12-16-2020 Orders Only Jayshree Solano Work Phone: [facility] Start: 03-04-2020 End: 03-04-2020 Patient encounter procedure Nicolasa ZELAYA [facility] Start: 03-04-2020 End: 03-04-2020 Subsequent hospital visit by physician Nicolasa Mitchell Work Phone: [facility] Comment on above: Lumbago Start: 06-24-2019 Patient encounter procedure KATLIN KNOWLES [facility] Start: 06-12-2019 End: 06-16-2019 Patient encounter procedure MITZI GALEAS [facility] Procedures Date Procedure Procedure Detail Performing [...] Screening for malign ant neoplasm of colon [facility] Start: 10-12-2025 DTaP,Tdap and Td Vac cines (2 - Td or Tdap) DTaP,Tdap and Td Vaccines (2 - Td or Tdap) [facility] Start: 10-12-2025 Tetanus vaccination Tetanus: Every 1 0yrs [facility] Start: 09-09-2025 Adult BMI Screening Adult BMI Screen [facility] Start: 09-09-2025 Tobacco Screening Tobacco Screening [facility] Start: 07-29-2025 Adult BMI Screening Adult BMI Screen [facility] Start: 07-29-2025 Tobacco Screening Tobacco Screening [facility] Start: 02-04-2025 Medicare Annual Well ness (AWV) Medicare Annual Wellness (AWV) [facility] Start: 09-09-2024 End: 09-09-2024 Admission to same day surgery center 09/09/2024 2:15 PM EST - 09/09/2024 3:00 PM EST Surgery [facility] - Surgery [address] [place] [id number] Emilie Forman MD [address] [place] [id number] EXTRACTION CATARACT INTRAOCULAR LENS [75558 (CPT )] [facility] Comment on above: EXTRACTION CATARACT INTRAOCULAR LENS [93043 (CPT )] Start: 09-09-2024 Subsequent hospital visit by physician 09/09/2024 2:15 PM EST Hospital Encounter [facility] - Surgery [address] [place] [phone] Emilie Forman MD [address] [place] [phone] [facility] Start: 09-09-2024 End: 09-09-2024 Xcapsl ctrc rmvl insj io lens prosth w/o ecp [facility] Start: 09-08-2024 End: 09-08-2024 ambulatory 09/08/2024 3:50 PM EST Support Visit [facility] Admit [address] [place] [address] [facility] - Pre Admit Start: 08-19-2024 End: 08-19-2024 Admission to same day surgery center 08/19/2024 3:00 PM EDT - 08/19/2024 3:45 PM EDT Surgery [facility] - Surgery [address] [place] [phone] Emilie Forman MD [address] [place] [address] [id number] EXTRACTION CATARACT INTRAOCULAR LENS [41692 (CPT )] [facility] Comment on above: EXTRACTION CATARACT INTRAOCULAR LENS [37341 (CPT )] Start: 08-19-2024 End: 08-19-2024 Anesthesia consultation 08/19/2024 3:00 PM EDT Anesthesia Event [facility] - Surgery [address] [place] [phone] Diya Navarrete, DO [address] [place] [address] [facility] Start: 08-19-2024 Subsequent hospital visit by physician 08/19/2024 3:00 PM EDT Hospital Encounter [facility] Surgery [address] [place] [address] Emilie Forman MD [address] [place], [place] [phone] [facility] Start: 08-19-2024 End: 08-19-2024 Xcapsl ctrc rmvl insj io lens prosth w/o ecp EXTRACTION CATARACT INTRAOCULAR LENS cataract right eye 08/19/2024 3:00 PM EDT [facility] Start: 06-22-2024 Influenza vaccination Influenza Vacc ine (#1) [facility] Start: 06-22-2020 Influenza vaccinatio n given [facility] Start: 2019 Abdominal aortic ane urysm screening Abdominal Aortic Aneurysm (AAA) Screen [facility] Start: 2019 Fall Risk Screening Fall Risk Screen ing [facility] Start: 2019 Pneumococcal vaccination Pneum ococcal Vaccine Age 65+ (1 of 2 - PCV13) [facility] Start: 12-07-2015 Administration of he rpes zoster vaccine Zoster Vaccines (2 of 3) [facility] Start: 12-07-2015 Administration of varicella zoster vaccine Zoster (Shingles) Vaccine (2 of 3) [facility] Start: 2004 Screening for malign ant neoplasm of colon [facility] Start: 1972 Adult BMI Follow Up Plan Adult BMI Follow Up Plan [facility] Start: 1972 Hepatitis C antibody , confirmatory test Hepatitis C Screening [facility] Start: 1970 COVID-19 Vaccine (1 of 2) COVI D-19 Vaccine (1 of 2) [facility] Start: 1966 Adolescent depressio n screening assessment [facility] Start: 1957 History and physical examination, annual for health maintenance Wellness Visit [facility] Start: 1954 Fall risk assessment Falls Risk Asse ssment [facility] Start: 1954 Hepatitis C antibody , confirmatory test Hepatitis C Screening [facility] Start: 1954 Medicare Annual Well ness Visit Medicare Annual Wellness Visit [facility] Start: 1954 Prostate specific an tigen measurement PSA Level [facility] Start: 1954 Screening for malign ant neoplasm of colon [facility] Start: 1954 US scan of abdominal aorta Abdominal Aortic Ultrasound [facility] Immunizations Immunization Date Immunization Notes Care Provider Fa cility 07-16-2023 Influenza, Seasonal, Quadrivalent, Adjuvanted Ruth Myers MD Work Phone: [facility] Work Phone: 07-16-2023 influenza virus vacc ine, unspecified formulation Ruth Myers MD Work Phone: [facility] 07-11-2022 Influenza, High-dose Seasonal, Quadrivalent, Preservative Free Ruth Myers MD Work Phone: [facility] 01-27-2022 Pneumococcal Conjuga te PCV 20 Ruth Myers MD Work Phone: [facility] 07-22-2021 Influenza, High-dose Seasonal, Quadrivalent, Preservative Free Ruth Myers MD Work Phone: [facility] 07-22-2020 Influenza, Seasonal, Quadrivalent, Adjuvanted Ruth Myers MD Work Phone: [facility] 08-29-2019 influenza, injectabl e, quadrivalent, preservative free Ruth Myers MD Work Phone: [facility] 08-22-2018 influenza, injectabl e, quadrivalent, preservative free Ruth Myers MD Work Phone: [facility] 08-03-2017 influenza, seasonal, injectable Ruth Myers MD Work Phone: [facility] 10-12-2015 pneumococcal polysaccharide vaccine, 23 valent Ruth Myers MD Work Phone: [facility] 10-12-2015 tetanus toxoid, redu desmond diphtheria toxoid, and acellular pertussis vaccine, adsorbed Ruth Myers MD Work Phone: [facility] 10-12-2015 zoster vaccine, live Reggie Myers MD Work Phone: [facility] 10-12-2015 zoster vaccine, unspecified formulation [facility] 2 [facility] Payers Date Payer Category Payer Unknown 2023 Medicare (Managed Care) [facility]ALTH [id number] 2023 Medicare HMO DEVOTED HE[employer] M [employer] ADVANTAGE [id number] 2023 Medicare 2023 Unknown [id number] 2015 Unknown [id number] 2015 Unknown ANTHEM BCBS OUT OF STATE [facility] xxxxxxxxxxxxxx 2015-Present xxxxxxxxxxxxxx [id number] 2015 Unknown ANTHEM BCBS OUT OF STATE [facility] [id number] 2015-Present [id number] 2009 Unknown [id number] 1959 Unknown [id number] 1954 Unknown [id number] 2.16.840.1.200684.3.579.2. 900 1954 Unknown [id number] 2.16.840.1.740147.3.579.2. 903 1954 Unknown [id number] 2.16.840.1.759311.3.579.2. 902 1954 Unknown [id number] 2.16.840.1.613351.3.579.2. 593 1954 Unknown [id number] 2.16.840.1.421248.3.579.2. 593 1954 Unknown [id number] 2.16.840.1.571738.3.579.2. 593 1954 Unknown [id number] 2.16.840.1.209942.3.579.2. 593 1954 Unknown [id number] 2.16.840.1.239372.3.579.2. 593 1954 Unknown [id number] 2.16.840.1.299667.3.579.2. 1259 1954 Unknown [id number] 2.16.840.1.506120.3.579.2. 1259 1954 Unknown [id number] 2.16.840.1.175962.3.579.2. 1259 1954 Unknown [id number] 2.16.840.1.955538.3.579.2. 1259 1954 Unknown [id number] 2.16.840.1.794728.3.579.2. 1286 1954 Unknown [id number] 2.16.840.1.029492.3.579.2. 1286 1954 Unknown [id number] 2.16.840.1.311566.3.579.2. 128 1954 Unknown [id number] 2.16.840.1.443495.3.579.2. 128 1954 Unknown [id number] 2.16.840.1.718591.3.579.2. 128 1954 Unknown [id number] 2.16.840.1.049228.3.579.2. 128 1954 Unknown [id number] 2.16.840.1.046257.3.579.2. 1285 1954 Unknown [id number] 2.16.840.1.398969.3.579.2. 1286 1954 Unknown [id number] 2.16.840.1.487369.3.579.2. 6 1954 Unknown [id number] 2.16.840.1.032396.3.579.2. 196 1954 Unknown [id number] 2.16.840.1.020151.3.579.2. 196 1954 Unknown [id number] 2.16.840.1.958019.3.579.2. 196 1954 Unknown [id number] 2.16.840.1.558756.3.579.2. 196 1954 Unknown [id number] 2.16.840.1.263901.3.579.2. 196 Social History Date Type Detail Facility Start: 12-31-2017 End: 03-04-2020 Tobacco smoking status [facility] Former smoker [facility] Start: 03-04-2020 End: 08-20-2024 Alcohol intake Current drinker of alcohol (finding) [facility] Start: 10-02-2016 Alcohol Comment occasional [facility] [facility] Start: 1955 Sex Assigned At Not on file [facility] Start: 12-31-2017 End: 03-05-2020 Tobacco use and exposure Never used [facility] Start: 1972 End: 2003 History of tobacco use Current smoker [facility] Start: 1972 End: 2003 History of tobacco use Cigarette Smoker [facility] Start: 12-02-2020 End: 02-05-2024 Cigarettes smoked current (pack per day) - Reported 1 [facility] Start: 02-05-2024 Alcoholic beverage intake Ex-drinker (finding) [facility] Start: 12-02-2020 End: 02-04-2024 Social connection and isolation panel [facility] Do you belong to any clubs or organizations such as mosque groups, unions, fraternal or athletic groups, or [...] to buy more. Never true [facility] In the past 12 month s, has lack of transportation kept you from medical appointments or from getting medications? No [facility] Start: 05-16-2023 Alcohol Comment Caffeine intake: more than 4 cups per day coffee [facility] Start: 1955 Sex assigned at Male [facility] Start: 01-03-2023 Gender identity Identifies as male gender (finding) [facility] Start: 03-11-2023 Sexual orientation Heterosexual (finding) [facility] Start: 04-30-2018 Alcohol Comment 1-2 a day [facility] [employer] [facility] Start: 05-27-2015 Sex Male (finding) [facility] Medical Equipment Procedure Code Equipment Code Equipment Origin al Text Equipment Identifier Dates Lens Iol [id number]. [address] [place] [facility] [id number] - [id number] - [id number] Start: 08-19-2024 Lens Iol [id number]. 220 [facility] [id number] - [id number] - [id number] Start: 09-09-2024 Clinical Notes 10-28-2021 to 10-08-2024 Telephone Encounter - Ruth Myers MD - 10/08/2024 4:25 PM ESTTelephone Encounter - Ruth Myers MD - 10/08/2024 4:25 PM ESTTelephone Encounter - Flory Mark - 09/10/2024 1:40 PM EST Note Date & Type Note Facility 10-08-2024 Telephone encounter Note Approving, but needs appt for additional refills. [facility] 10-08-2024 Miscellaneous Notes Approving, but needs appt for additional refills. documented in this encounter [facility] 09-10-2024 Telephone encounter Note Pt cannot get his Atorvastatin filled because it says he picked it up in July at the [facility]. He has no idea who that dr is that called it in.. and when I google her name, she works in [facility], which is 3 hrs [place] 55 mins away from [place]. I am going to first call [facility] and make sure the bday matches the pt (pt said there is another person in [place] with his name) [facility] is closed for lunch right now and I'm going to lunch :) So I told pt I will call them when I return from lunch and give him a call back to let him know what I find out. Just documenting. [facility] 09-10-2024 Miscellaneous Notes Pt cannot get his Atorvastatin filled because it says he picked it up in July at the [facility]. He has no idea who that dr is that called it in.. and when I google her name, she works in [facility], which is 3 hrs and 55 mins away from [place]. I am going to first call [facility] and make sure the bday matches the pt (pt said there is another person in [place] with his name) [facility] is closed for lunch right now and I'm going to lunch :) So I told pt I will call them when I return from lunch and give him a call back to let him know what I find out. Just documenting. documented in this encounter [facility] 09-08-2024 Miscellaneous Notes Preoperative Education Checklist- General Surgery date: 09/09/24 Surgery time: 1415 Arrival time: 1215 1. Bring a photo ID and your insurance card with you the day of surgery. You will check in at the main lobby registration desk as soon as you walk in the entrance. 2. If you have a Living Will/Durable Power of [employer] that is not on file here, please bring a copy the day of surgery. 3. Please wash your face with baby shampoo prior to procedure as instructed by your physician. 4. NO powder, lotion, perfume/cologne, aftershave, make-up, nail paraguayan on at least one finger, deodorant, or [...] please call the Preadmission Testing office at [phone], Mon.-Fri. 7 a.m.-3 p.m. Leave a voicemail [...] taking 0 days prior to procedure omega 3-rfs-lji-fish oil (Fish OiL) 300-1,000 mg capsule Stop taking 0 days prior to procedure pravastatin (PRAVACHOL) 80 mg tablet Stop taking 0 days prior to procedure documented in this encounter [facility] 09-08-2024 Nurse Note Preoperative Education Checklist- General Surgery date: 09/09/24 Surgery time: 1415 Arrival time: 1215 1. Bring a photo ID and your insurance card with you the day of surgery. You will check in at the main lobby registration desk as soon as you walk in the entrance. 2. If you have a Living Will/Durable Power of [employer] that is not on file here, please bring a copy the day of surgery. 3. Please wash your face with baby shampoo prior to procedure as instructed by your physician. 4. NO powder, lotion, perfume/cologne, aftershave, make-up, nail paraguayan on at least one finger, deodorant, or [...] please call the Preadmission Testing office at [phone], Mon.-Fri. 7 a.m.-3 p.m. Leave a voicemail [...] taking 0 days prior to procedure omega 1-uoh-hbh-fish oil (Fish OiL) 300-1,000 mg capsule Stop taking 0 days prior to procedure pravastatin (PRAVACHOL) 80 mg tablet Stop taking 0 days prior to procedure [facility] 08-26-2024 Telephone encounter Note Patient is requesting atorvastatin- he thinks it was increased to 40mg. [facility]ses [facility] [place]. Thank you. [facility] 08-26-2024 Miscellaneous Notes Patient is requesting atorvastatin- he thinks it was increased to 40mg. [facility] [place]. Thank you. documented in this encounter [facility] 07-29-2024 Instructions Jessica Perez RN - 07/29/2024 [...] have a Living Will/Durable Power of [employer] that is not on file here, please bring a copy the day of surgery. 3. Please wash your face with baby shampoo prior to procedure as instructed by your physician. 4. NO powder, lotion, perfume/cologne, aftershave, make-up, nail paraguayan on at least one finger, deodorant, or [...] please call the Preadmission Testing office at [phone], Mon.-Fri. 7 a.m.-3 p.m. Leave a voicemail [...] taking 0 days prior to procedure omega 2-ruf-ivo-fish oil (Fish OiL) 300-1,000 mg capsule Stop taking 0 days prior to procedure pravastatin (PRAVACHOL) 80 mg tablet Stop taking 0 days prior to procedure documented in this encounter [facility] 07-29-2024 Miscellaneous Notes Preoperative Education Checklist- General Surgery date: 08/19/24 Surgery time: 3:00 p.m. Arrival time: 1:00 p.m. 1. Bring a photo ID and your insurance card with you the day of surgery. You will check in at the main lobby registration desk as soon as you walk in the entrance. 2. If you have a Living Will/Durable Power of [employer] that is not on file here, please bring a copy the day of surgery. 3. Please wash your face with baby shampoo prior to procedure as instructed by your physician. 4. NO powder, lotion, perfume/cologne, aftershave, make-up, nail paraguayan on at least one finger, deodorant, or [...] please call the Preadmission Testing office at [phone], Mon.-Fri. 7 a.m.-3 p.m. Leave a voicemail [...] taking 0 days prior to procedure omega 5-yeh-xvh-fish oil (Fish OiL) 300-1,000 mg capsule Stop taking 0 days prior to procedure pravastatin (PRAVACHOL) 80 mg tablet Stop taking 0 days prior to procedure Surgical instructions reviewed. Patient verbalized understanding. documented in this encounter [facility] 07-29-2024 Nurse Note Preoperative Education Checklist- General Surgery date: 08/19/24 Surgery time: 3:00 p.m. Arrival time: 1:00 p.m. 1. Bring a photo ID and your insurance card with you the day of surgery. You will check in at the main lobby registration desk as soon as you walk in the entrance. 2. If you have a Living Will/Durable Power of [employer] that is not on file here, please bring a copy the day of surgery. 3. Please wash your face with baby shampoo prior to procedure as instructed by your physician. 4. NO powder, lotion, perfume/cologne, aftershave, make-up, nail paraguayan on at least one finger, deodorant, or [...] please call the Preadmission Testing office at [phone], Mon.-Fri. 7 a.m.-3 p.m. Leave a voicemail [...] taking 0 days prior to procedure omega 9-jii-ylf-fish oil (Fish OiL) 300-1,000 mg capsule Stop taking 0 days prior to procedure pravastatin (PRAVACHOL) 80 mg tablet Stop taking 0 days prior to procedure [facility] 07-29-2024 Nurse Note Surgical instructions reviewed. Patient verbalized understanding. [facility] 11-30-2022 Note CONSULTATION CONSULTATION DATE: 11/30/2022 HISTORY [...] walking, housework and lifting. He does use gvza-hqb-fibffio menthol patches which help decrease his pain. [...] be done in the office today. [facility] 08-24-2022 Note CONSULTATION CONSULTATION DATE: 08/24/2022 [...] and patient agrees with this plan. 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 At [...] 2 months' time unless otherwise indicated. [facility] 06-01-2022 Note CONSULTATION PROCEDURE DATE: 06/01/2022 [...] be followed up in the office. [facility] 03-09-2022 Note CONSULTATION CONSULTATION DATE: 03/09/2022 [...] DORIE VALDEZ . 03/13/2022 15:06:00 [facility] 01-27-2022 Note PROCEDURE: Without I V [...] signed by Kenneth Kan on 01/27/2022 0938 [facility] 10-28-2021 Note PROCEDURE: [facility] VCT 64, 5.0 mm slice axial images [...] signed by Kenneth Kan on 10/28/2021 0937 [facility] Specialist Evaluation note Diagnosis Mixed hyperlipidemia (CMS/HCC) Mixed hyperlipidemia [facility] Diagnosis Urinary incontinence, unspecified type [facility]* Diagnosis Preop examination- Primary Unspecified pre-operative examination Preop examination Unspecified pre-operative examination [facility] filed[facility] Summary Purpose Family History No Family History Records FoundNo Family History Records FoundNo Family History Records FoundNo Family History Records FoundNo Family History Records FoundNo Family History Records FoundNo Family History Records FoundNo Family History Records Found Advance Directives Documents on File Type Date Recorded Patient Preventive Medicine Physician Expl anation Advance Directives and Livin g Will 03/04/2020 8:02 AM Latest Code Status on File Code Status Date Activated Date Inactivated Comments Full Code - Unverified 03/04/2020 10:12 AM 03/04/2020 12 :43 PM Documents on File Type Date Recorded Patient Preventive Medicine Physician Expl anation Advance Directives and Livin g Will 03/04/2020 8:02 AM Latest Code Status on File Code Status Date Activated Date Inactivated Comments Full Code - Unverified 03/04/2020 10:12 AM 03/04/2020 12 :43 PM Discharge Instructions * Attachments The following attachments cannot be sent through Care Everywhere. * Lumbar Epidural Steroid Injections: General Info (Amharic) * Post-op Infection (Amharic) documented in this encounter Assessments Diagnosis Lumbago Reason for Referral Specialty Diagnoses / Procedures Referred By Contac t Referred To Contact Diagnoses Preop examination Procedures ECG 12 lead Mitali Mares MD [address] [place] [address] Referral ID Status Reason Start Date Expiration Date V isits Requested Visits Authorized [id number] Pending Review 07/22/2024 07/22/2025 1 1 Additional Source Comments (unrecognized sect ion and content) No Status Records FoundNo Status Records FoundNo Status Records FoundNo Status Records FoundNo Status Records FoundNo Status Records FoundNo Status Records FoundNo Status Records Found INFORMATION SOURCE (unrecogn ized section and content) DATE CREATED AUTHOR 06/16/2019 [facility] DATE CREATED AUTHOR AUTHOR'S ORGANIZ ATION 06/25/2019 [facility] DATE CREATED AUTHOR AUTHOR'S ORGANIZ ATION 03/10/2020 [facility] DATE CREATED AUTHOR AUTHOR'S ORGANIZ ATION 02/23/2022 [facility] dical Specialist DATE CREATED AUTHOR AUTHOR'S ORGANIZ ATION 03/05/2023 [facility] DATE CREATED AUTHOR AUTHOR'S ORGANIZ ATION 03/17/2024 [facility] dical Specialists [facility] DATE CREATED AUTHOR AUTHOR'S ORGANIZ ATION 09/10/2024 [facility] DATE CREATED AUTHOR AUTHOR'S ORGANIZ ATION 11/27/2024 [facility] Reason for Visit (unrecogniz ed section and content) Status Reason Specialty Diagnoses / Procedures Referre d By Contact Referred To Contact Diagnoses Lumbago Lumbago [M54.5] Procedures IR EPIDURAL STEROID INJ Nicolasa Mitchell MD - 03/04/2020 10:11 AM EDT Procedure Notes (unrecognize d section and content) Vascular & Interventional Radiology Provided By [facility] (Diagnostic Radiology, Interventional and Neurointerventional Radiology and Vascular Medicine) Interventional Radiology Department @ [facility]: [phone] 14/05 VIR physician contact: [phone]) Weekday VIR nurse practitioner contact @ [facility]: [phone] [facility]: [phone] [email or web address] [facility] [employer] REFINER DIRECTORY PROCEDURE: Fluoroscopic guided lumbar epidural steroid injection @ L5-S1 PLAN: Repeat epidural steroid injection can be offered, as needed Date: 03/04/2020 Patient Name: Neville Schmitz Patient : 1955 Physician: Nicolasa Mitchell MD Sedation Plan: None [place] Protocol: Pre-Procedural verification: Correct patient, correct site [...] Care Teams (unrecognized sec tion and content) Chemistry Laboratory Technician Relationship Specialty Start Date End Date Ruth Myers MD [address] [place] [address] PCP - General Family Medicine 05/10/23 Ruth Myers MD [address] [place] [address] PCP - Devoted 10/22/23 Chemistry Laboratory Technician Relationship Specialty Start Date End Date Ruth Myers MD [address] [place] [address] PCP - General Family Medicine 05/10/23 Ruth Myers MD [address] [place] [address] PCP - [facility]oted 10/22/23 Chemistry Laboratory Technician Relationship Specialty Start Date End Date Ruth Myers MD [address] [place] [address] PCP - General Family Medicine 05/10/23 Ruth Myers MD [address] [place] [address] PCP - [facility]oted 10/22/23 Chemistry Laboratory Technician Relationship Specialty Start Date End Date Ruth Myers MD [address] [place] [address] PCP - General Family Medicine 12/31/17 Chemistry Laboratory Technician Relationship Specialty Start Date End Date Ruth Myers MD [address] [place] [address] PCP - General Family Medicine 12/31/17 FOR [...] BE BASED ON THE PRIMARY CLINICAL RECORDS. [facility] [employer] [facility]. provides no warranty or guarantee of the accuracy or completeness of information in this document.
--- NOTE | 2024-12-17 10:18 | P.CN_ITS ---
Consult Note: HPI Data of Consult Patient: known to practice within the last 3 years Requesting Physician: Jenny Machuca NP Primary Care Provider: Non-Staff Physician, MD Consult Narrative Reason for consult: f/u Narrative: Neville Schmitz a pleasant 69 year old male presents for evaluation of chronic moderate to severe low back pain. Longstanding hx of back pain secondary to lumbar spondylosis, lumbar DDD, and lumbar stenosis. previously reported significant benefit with L4-5 TFESI, greater than 50% improvement greater than 3 months. recently underwent bilateral L4/5 L5/S1 facet RFA with less than 50% improvement per pt, however hes reporting increased back pain with numbness tingling to BLE with standing and walking that improves with sitting and sleeping. pain today 2/10 increasing to 8/10 with walking. has failed to benefit from tylenol, aleve, heat, ice and greater than 6 weeks of PT/HEP. utilizes tylenol #3 PRN for severe pain. cc:: CC: Jenny Machuca NP Review of Systems ROS Status of ROS 10 or more systems reviewed and unremark able except as noted in history and below Musculoskeletal Reports: back pain and extremity pain PFSH PFSH Medical History Hydrocele ?N43.3 - Hydrocele, unspecified (ICD-10) Jaw fracture ?S02.609A - Fracture of mandible, unspecified, initial encounter for closed fracture (ICD-10) High cholesterol ?E78.00 - Pure hypercholesterolemia, unspecified (ICD-10) Surgical History H/O hernia repair ?Z98.890 - Other specified postprocedural states (ICD-10) ?Z87.19 - Personal history of other diseases of the digestive system (ICD-10) History of appendectomy ?Z90.49 - Acquired absence of other specified parts of digestive tract (ICD- 10) History of fusion of cervical spine ?Z98.1 - Arthrodesis status (ICD-10) Meds Home Medications and Allergies Home Medications ?Medication ?Instructions ?Recorded ?Confirmed ?Type acetaminophen 300 mg-codeine 30 mg 1 tab PO BID 05/31/23 11/17/24 History tablet acetaminophen 325 mg capsule 325 mg PO Q6H PRN pain 05/31/23 11/17/24 History (Tylenol) aspirin 81 mg capsule 81 mg PO DAILY 05/31/23 11/17/24 History atorvastatin 80 mg tablet (Lipitor) 40 mg PO DAILY 05/31/23 11/17/24 History oxybutynin chloride 5 mg mg PO 11/17/24 History tablet,extended release 24 hr Allergies Allergy/AdvReac Type Severity Reaction Status Date / Time No Known Drug Allergies Allergy Verified 11/17/24 07:16 Exam Constitutional Documenting provider has reviewed patient's vital signs: yes Common normals: no apparent distress, oriented x3, healthy appearing, alert and well nourished General appearance: cooperative HENMT Common normals: normocephalic, hearing grossly normal bilaterally and moist oral mucous membranes Head and scalp: normocephalic Eye Common normals: PERRL Pupil: PERRL Neck & C-Spine Common normals: full ROM General: normal visual inspection Chest Common normals: inspection of chest normal Respiratory Common normals: normal respiratory effort, no retractions and no use of accessory muscles Back & Pelvis Lumbar spine/lower back: ROM limited, pain with ROM, lumbar spinal tenderness Lumbar spinal tenderness location: L1, L2 and L3, straight leg raise positive right and straight leg raise positive left Other: decreased sensation to BLE following L4,5 strength 4/5 in BLE negative facet loading L4-S1 on exam Neuro Common normals: oriented x3, CN's II-XII intact bilaterally, moves all extremiti es, no focal motor deficits, no sensory deficits noted and deep tendon reflexes 2+ bilaterally Sensorium/orientation: alert Motor exam: no movement abnormalities noted Psych Common normals: mental status grossly normal, thought process normal, cooperative, affect normal, speech normal and activity/motor behavior normal Speech: normal speech Thought process: normal thought process Results Additional Findings Additional findings: If on a controlled substance or opioids, I have checked an [place]AR[place] report on this patient and there are no aberrancies noted in the prescribing history.??If on a controlled substance or opioid a drug screen was completed and reviewed within the last year, and if there has not been a drug screen completed we ordered one today to monitor higher risk, state monitored pain medication use. As part of providing excellent, safe, comprehensive care, the following was completed at our patient's visit: 1. A medication reconciliation and review to ensure accurate knowledge of current/active medications, including asking our patients to inform us about any [id number] medications or herbal remedies/nutritional supplements/alternative remedies. 2. A review to specifically ensure our patients have had annual screening for screening for depression, screening for tobacco use, and screening for unhealthy alcohol use. For concerning screenings had a discussion with the patient, provided patient education, and recommended follow-up with primary care provider when appropriate. If patient noted with a risk of falling, they received e ducation on strength, gait, and balance training to prevent future risk of falling. Portions of this note may have been carried over from the previous visit and updated as appropriate. Please note this office utilizes paper charting in addition to the electronic medical record. A list of current medications, vitals, and PMH is available there as the clinical staff outside of myself do not have access to [place] [place] charting during the clinic day operations. As part of providing quality comprehensive care the current medications, vitals, and PMH were reviewed in the paper chart. Assessment and Plan Assessment and Plan (1) Lumbar stenosis with neurogenic claudication: Assessment and Plan: The patient has had over 3 months of moderate to severe low back pain with functional impairment and inadequate response to conservative care including NSAIDS (unless there are contraindication such as concurrent blood thinners), multiple oral or topical pain medications, and home exercise program/physical therapy.? Patient has completed >6 weeks of guided home exercise program and/or formal physical therapy program without relief of their symptoms.? I have reviewed the imaging of the lumbar spine and no red flags were identified.? The Oswestry Disability Index was completed, and the patient scored a 18%.? The patient noted the following:?? moderate to severe pain impacting ability to stand and walk We discussed the risks and benefits of the procedure with the patient, and we are NOT planning on using sedation as outlined in the guidelines from Medicare unless there is a documented reason that sedation would be strongly recommen ded.?? ?The procedure will be completed with fluoroscopic guidance.? (2) Lumbar spondylosis: Plan bilateral L4/5 L5/S1 facet RFA remains in healing phase, 1 month post RFA. as noted on exam significant improvement in facet loading at L4-S1 repeat bilateral L4-5 TFESI under fluoroscopy for lumbar stenosis with NC, previous injection provided >50% improvement in pain and functional ability greater than 3 months continue current medications f/u 2 weeks after TFESI
== END 2024-12-17 09:59 | disposition home or self-care (01) ==
LOC: PM 09:59
PROVIDERS: Visit Provider Nurse Practitioner
DX: M48.062 Spinal stenosis, lumbar region with neurogenic claudication (principal)
CPT/HCPCS: G0463

== ENCOUNTER 2024-12-29 08:30 | Day surgery (SDC) | payer MEDICARE, SELFPAY ==
--- OUTSIDE RECORDS SUMMARY | 2024-12-29 08:47 | XMS_ITS | CCD ---
Author Organization [facility] CliniSymn Care Team Providers Care Photo Print Specialist Name Role Phone ADALMITZI Admitting Unavailable ESQUIVEL SARAH L Primary Care Unavailable KATLIN KNOWLES Attending Unavailabl e PATTI ESQUIVELNY L Primary Care Unavailable Sarah Esquivel L Primary Care Provider [phone] Nicolasa MITCHELL Admitting Unavailable Nicolasa MITCHELL Attending Unavailable ESQUIVEL SARAH L Primary Care Unavailable Sarah Esquivel L Primary Care Provider [phone] JAYLON ., DR FRANCK Chaparro Admitting Unavailable IYER ., DR FRANCK Chaparro Attending Unavailable [facility] Primary Care Unavailable VALDEZ ., DORIE Consulting Unavailable IYER ., DR FRANCK Chaparro Admitting Unavailable IYER ., DR FRANCK Chaparro Attending Unavailable [facility] Primary Care Unavailable VALDEZ ., DORIE Consulting Unavailable IYER ., DR FRANCK Chaparro Admitting Unavailable IYER ., DR FRANCK Chaparro Attending Unavailable [facility] Primary Care Unavailable VALDEZ ., DORIE Consulting Unavailable IYER ., DR FRANCK Chaparro Admitting Unavailable IYER ., DR FRANCK Chaparro Attending Unavailable [facility] Primary Care Unavailable VALDEZ ., DORIE Consulting Unavailable LAKSHMIPATHY ., NARENDRANATH Admitting Angelica vailable LAKSHMIPATHY ., NARENDEDDIEATH Attending Angelica vailable [facility] [place] Primary Care Unavailable HALKER .CARINE Consulting Unavailable RUTH MYERS Attending Unavailable PHILIPPE OROSCO Referring Unavailable RAYNA JACQUES Referring Unavailable Ruth Myers MD Primary Care Provider Ruth Myers MD Unavailable [phone] RUTH MYERS Referring Unavailable RUTH MYERS Primary [...] Unavailable Ruth Myers MD Primary Care Provider [phone] Medications Current Medications Medication Drug Class(es) Dates [...] needed. 0 06/20/2016 Active Misc Natural Products (QwiteTRONG MEMORY SUPPORT PO) (4 sources) Misc Natural [...] NON FORMULARY enrique bach supplement Active omega 9-xmx-dpo-fish oil (Fish OiL) 300-1,000 mg capsule (2 [...] tablet 1 03/12/2024 Active polyethylene glycol 3350 49857 mg powder for oral solution (4 sources) [...] 0 02-21-2022 TSH 1.180 uIU/mL Normal 0.400-4.500 [facility]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 Comment on above: Performed By: #### T SH reflex FT4 #### [facility] [address], [place] [id number] US Aorta Screeningon 022 US Aorta Screening FINDINGS: Proximal Aorta2.9 x 2.3 cm Mid Aorta1.6 x 2.1 cm Distal Aorta1.3 x 1.3 cm Right Common Iliac9 x 10 mm Left Common Iliac10 x 13 mm No aneurysmal dilatation is identified. No neighboring fluid collections are seen. IMPRESSION: No significant aneurysmal formation. Report reported and signed by Kenneth Kan on 01/27/2022 0911 Normal [facility]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 Comprehensive Metabolic Pane zee 01-20-2022 Albumin [Mass/Vol] 4.5 g/dL Normal 3.6-5.1 [facility]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 Comment on above: Performed By: #### L IPD, CMP #### [facility] [address], [place] [id number] Albumin/Globulin [Mass ratio] 2.4 {ratio} Normal 1.0-2.5 [facility] Specialist Comment on above: Performed By: #### L IPD, CMP #### [facility] [address], [place] [id number] ALP [Catalytic activity/Vol] 69 U/L Normal 40-129 [facility] Specialist Comment on above: Performed By: #### L IPD, CMP #### [facility] [address], [place] [id number] ALT [Catalytic activity/Vol] 23 U/L Normal 9-46 [facility] Specialist Comment on above: Result Comment: 09/21 Female reference range changed. Performed By: #### L IPD, CMP #### [facility] [address], [place] [id number] Anion gap [Moles/Vol] 15 mmol/L Normal 12-20 [facility] Specialist Comment on above: Result Comment: Effe ctive 10/27/2019 reference range changed. Performed By: #### L IPD, CMP #### [facility] [address], [place] [id number] AST [Catalytic activity/Vol] 18 U/L Normal 10-40 [facility] Specialist Comment on above: Performed By: #### L IPD, CMP #### [facility] [address], [place] [id number] Bilirubin [Mass/Vol] 0.80 mg/dL Normal 0.30-1.20 [facility] Specialist Comment on above: Performed By: #### L IPD, CMP #### [facility] [address], [place] [id number] BUN/CREA 25 Ratio High 6-22 [facility] Specialist Comment on above: Performed By: #### L IPD, CMP #### [facility] [address], [place] [id number] Calcium [Mass/Vol] 9.9 mg/dL Normal 8.6-10.2 [facility] Comment on above: Performed By: #### L IPD, CMP #### [facility] [address], [place] [id number] Chloride [Moles/Vol] 106 mmol/L Normal 98-107 [facility] Specialist Comment on above: Performed By: #### L IPD, CMP #### [facility] [address], [place] [id number] CO2 [Moles/Vol] 25 mmol/L Normal 20-31 [facility] Specialist Comment on above: Performed By: #### L IPD, CMP #### [facility] [address], [place] [id number] Creatinine [Mass/Vol] 0.9 mg/dL Normal 0.7-1.4 [facility] Specialist Comment on above: Performed By: #### L IPD, CMP #### [facility] [address], [place] [id number] eGFRAA 102 mL/min/1.73m2 Normal >60 [facility] Specialist Comment on above: Performed By: #### L IPD, CMP #### [facility] [address], [place] [id number] eGFRNAA 84 mL/min/1.73m2 Normal >60 [facility] Specialist Comment on above: Performed By: #### L IPD, CMP #### [facility] [address], [place] [id number] Globulin (S) [Mass/Vol] 1.9 g/dL Normal 1.9-3.7 [facility] Specialist Comment on above: Performed By: #### L IPD, CMP #### [facility] [address], [place] [id number] Glucose [Mass/Vol] 101 mg/dL High 65-99 [facility]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 Comment on above: Result Comment: For FASTING Glucose --- ADA reference ranges: Normal 65-99 mg/dl Prediabetes 100-125 Diabetes >/= 126 Performed By: #### L IPD, CMP #### [facility] [address], [place] [id number] Potassium [Moles/Vol] 4.3 mmol/L Normal 3.5-5.5 [facility]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 Comment on above: Performed By: #### L IPD, CMP #### [facility] [address], [place] [id number] Protein [Mass/Vol] 6.4 g/dL Normal 6.1-8.1 [facility]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 Comment on above: Performed By: #### L IPD, CMP #### [facility] [address], [place] [id number] Sodium [Moles/Vol] 142 mmol/L Normal 135-146 [facility] Comment on above: Performed By: #### L IPD, CMP #### [facility] [address], [place] [id number] Urea nitrogen [Mass/Vol] 22 mg/dL Normal 7-25 [facility] Comment on above: Performed By: #### L IPD, CMP #### [facility] [address], [place] [id number] Lipid Panelon 01-20-2022 Cholesterol [Mass/Vol] 239 mg/dL High 125-200 [facility] Comment on above: Result Comment: Low risk < 200mg/dL Borderline risk 201-239 mg/dl High risk > or equal to 240 Performed By: #### L IPD, CMP #### [facility] [address], [place] [id number] Cholesterol in HDL [Mass/Vol] 66 mg/dL Normal >40 [facility] Specialist Comment on above: Result Comment: High Cardiovascular Risk HDL <40 mg/dL Low Cardiovascular Risk HDL > or equal to 60 mg/dl Performed By: #### L IPD, CMP #### [facility] [address], [place] [id number] Cholesterol in LDL [Mass/Vol] 149 mg/dL Normal [facility] Comment on above: Result Comment: LDL ATP III CLASSIFICATION LDL less than 100 mg/dl Optimal LDL 100-129 mg/dl Near or above optimal LDL 130-159 Borderline high LDL 160-189 High LDL greater than 189 mg/dl Very High Performed By: #### L IPD, CMP #### [facility] [address], [place] [id number] Cholesterol in VLDL [Mass/Vol] 24 mg/dL Normal [facility] Comment on above: Performed By: #### L IPD, CMP #### [facility] [address], [place] [id number] Cholesterol.total/C holesterol in HDL [Mass ratio] 4 {ratio} Normal [facility] Comment on above: Performed By: #### L IPD, CMP #### [facility] [address], [place] [id number] Triglyceride [Mass/Vol] 119 mg/dL Normal 30-150 [facility]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 Comment on above: Result Comment: TRIG ATPIII CLASSIFICATIONS TRIG less than 150 mg/dl Normal TRIG 150-199 mg/dl Borderline High TRIG 200-500 mg/dl High TRIG greather than 500 mg/dl Very High Performed By: #### L IPD, [facility] #### [facility] [address], [place] [id number] PSA SCREEN (MEDICARE)on TPSA 1.110 ng/mL Normal <4.000 [facility]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 Comment on above: Result Comment: PSA Test Method: ECLIA/Bre e 601 Performed By: #### P SA #### [facility] [address], [place] [id number] CV IR EPIDURAL STEROID INJon 03-04-2020 Fluoroscopically guided lumbar epidural steroid injection as outlined above. [employer] Workstation ID: [id number] [facility] HISTORY/CLINICAL DATA: Lumbago EXAMINATION: VIA A POSTERIOR APPROACH 1. FLUOROSCOPICALLY GUIDED LUMBAR EPIDURAL STEROID INJECTION. COMPARISON: None. HOOK AND EYE ATTACHER(S): Nicolasa Mitchell MD. PROCEDURE: FLUOROSCOPY TIME: 0.2 [...] the procedure well without immediate postprocedural complications. [facility] Interface, Rad In [employer] Speechq - 03/04/2020 10:35 AM EDT HISTORY/CLINICAL DATA: Lumbago EXAMINATION: VIA A POSTERIOR APPROACH 1. FLUOROSCOPICALLY GUIDED LUMBAR EPIDURAL STEROID INJECTION. COMPARISON: None. HOOK AND EYE ATTACHER(S): Nicolasa Mitchell MD. PROCEDURE: FLUOROSCOPY TIME: 0.2 [...] lumbar epidural steroid injection as outlined above. [employer] Workstation ID: [id number] [facility] PT/INRon 03-04-2020 INR Coag (PPP) [Relative time] 1.0 {INR} [facility] Interpretation and review of laboratory results Normal [facility] PT Coag (PPP) [Time] 12.4 s [facility] During the induction phase of oral anticoagulation, the INR may not reflect the anticoagulation status of the patient. Therapeutic ranges for INR's are: Most clinical situations: INR 2.0-3.0 Mechanical Prosthetic Valve: INR 2.5-3.5 Critical: INR >5.0 [facility] Platelet Counton 03-04-2020 Interpretation and review of laboratory results Normal [facility] Platelet mean volume (Bld) [Entitic vol] 11.0 fL 9 - 15.5 fL [facility] Platelets (Bld) [#/Vol] 178 10*3/uL [facility] CV IR EPIDURAL STEROID INJon 02-24-2020 CV IR EPIDURAL STEROID INJ HISTORY/CLINICAL DATA: Lumbago EXAMINATION: VIA A POSTERIOR APPROACH 1. FLUOROSCOPICALLY GUIDED LUMBAR EPIDURAL STEROID INJECTION. COMPARISON: None. HOOK AND EYE ATTACHER(S): Nicolasa Mitchell MD. PROCEDURE: FLUOROSCOPY TIME: 0.2 [...] lumbar epidural steroid injection as outlined above. [employer] Workstation ID: [id number] Dictated by: Nicolasa MITCHELL on SunMarch 04, 2020 10:21:09 AM EDT Transcribed by: FIGUEROA GUTIERREZ on SunMarch 04, 2020 10:25:58 AM EDT Finalized by: Nicolasa MITCHELL on SunMarch 04, 2020 10:33:02 AM EDT Normal [facility] Vital Signs Date Time Vital Sign Value Performing Clinician Facility 07-29-2024 10:0400 Body height 175.3 cm [facility] 2 [facility] 07-29-2024 10:0400 Body mass index (BMI) [Ratio] 30.27 kg/m2 [address] 07-29-2024 10:0400 Body weight 92.[address] 03-04-2020 10:0400 Body Temperature 98.4 [degF] [facility] 03-04-2020 10:260400 BP Diastolic 83 mm[Hg] [facility] 03-04-2020 10:260400 BP Systolic 146 mm[Hg] [facility] 03-04-2020 10:26-0400 Pulse (Heart Rate) 53 /min [facility] 03-04-2020 10:260400 Pulse Oximetry 97 % [facility] 03-04-2020 10:260400 Respiratory Rate 14 /min [facility] 03-04-2020 08:15-0400 BMI (Body Mass Index) 31.57 kg/m2 J. [facility] 03-04-2020 08:15 Body weight 99.79 kg Nicolasa [facility] 03-04-2020 08: Height 177.8 cm Nicolasa [facility] Encounters Encounter Date Encounter Type Care Provider Facility Start: 11-17-2024 End: 11-17-2024 ambulatory Anamaria Pollock MD Facility:[facility] Start: 11-03-2024 End: 11-03-2024 ambulatory Anamaria Pollock MD Facility:[facility] Start: 10-08-2024 End: 10-20-2024 Refill Ruth Myers MD Work Phone: [facility] Comment on above: Urinary incontinence , unspecified type Start: 10-06-2024 End: 10-06-2024 ambulatory Anamaria Pollock MD Facility:[facility] Start: 09-10-2024 End: 09-10-2024 Telephone encounter Ruth Myers MD Work Phone: [facility] Start: 09-09-2024 End: 09-09-2024 Evaluation and management of inpatient MITALI Bobby MARES [facility] Start: 09-09-2024 End: 09-09-2024 Evaluation and management of inpatient EMILIE FORMAN [facility] Start: 09-08-2024 End: 09-08-2024 ambulatory [facility] Pat Phone Call Provider 1 [facility] - Pre Admit Start: 09-08-2024 End: 09-08-2024 ambulatory RUTH BHATTIHMAN [facility] Start: 08-26-2024 End: 08-26-2024 Telephone encounter Ruth Myers MD Work Phone: [facility] Comment on above: Mixed hyperlipidemia (CMS/HCC) Start: 08-19-2024 End: 08-19-2024 Evaluation and management of inpatient DIYAAnuel NAVARRETE [facility] Start: 08-19-2024 End: 08-19-2024 Evaluation and management of inpatient EMILIE FORMAN [facility] Start: 07-29-2024 End: 07-29-2024 Patient encounter procedure [facility] Pre-Admission Testing 2 [facility] - Pre Admit Comment on above: Preop examination (P rimary Dx) Start: 07-29-2024 End: 07-29-2024 Preprocedural examination done [facility] 2 [facility] Start: 07-29-2024 End: 07-29-2024 ambulatory MITALI Rosales SUZAN [facility] Start: 07-29-2024 Encounter for other preprocedural examination RUTH MYERS [facility] Start: 06-09-2024 End: 06-09-2024 ambulatory Anamaria Pollock MD Facility:[facility] Start: 05-26-2024 End: 05-26-2024 ambulatory Anamaria Pollock MD Facility:[facility] Start: 03-12-2024 End: 03-13-2024 ambulatory RAYNA [...] 12-16-2020 Orders Only Jayshree Solano Work Phone: [facility] Start: 03-04-2020 End: 03-04-2020 Patient encounter procedure Nicolasa ZELAYA [facility] Start: 03-04-2020 End: 03-04-2020 Subsequent hospital visit by physician Nicolasa Mitchell Work Phone: [facility] [employer] Comment on above: Lumbago Start: 06-24-2019 Patient encounter procedure KATLIN KNOWLES [facility] Start: 06-12-2019 End: 06-16-2019 Patient encounter procedure MITZI GALEAS [facility] Procedures Date Procedure Procedure Detail [...] Screening for malign ant neoplasm of colon [facility] Start: 10-12-2025 DTaP,Tdap and Td Vac cines (2 - Td or Tdap) DTaP,Tdap and Td Vaccines (2 - Td or Tdap) [facility] Start: 10-12-2025 Tetanus vaccination Tetanus: Every 1 0yrs [facility] Start: 09-09-2025 Adult BMI Screening Adult BMI Screen [facility] Start: 09-09-2025 Tobacco Screening Tobacco Screening [facility] Start: 07-29-2025 Adult BMI Screening Adult BMI Screen [facility] Start: 07-29-2025 Tobacco Screening Tobacco Screening [facility] Start: 02-04-2025 Medicare Annual Well ness (AWV) Medicare Annual Wellness (AWV) [facility] Start: 09-09-2024 End: 09-09-2024 Admission to same day surgery center 09/09/2024 2:15 PM EST - 09/09/2024 3:00 PM EST Surgery [facility] Surgery [address] [place] [id number] Emilie Forman MD [address] [place] [address] [phone] EXTRACTION CATARACT INTRAOCULAR LENS [20011 (CPT )] [facility] Comment on above: EXTRACTION CATARACT INTRAOCULAR LENS [10425 (CPT )] Start: 09-09-2024 Subsequent hospital visit by physician 09/09/2024 2:15 PM EST Hospital Encounter [facility] [address] [place] [phone] Emilie Forman MD [address] [place] [address] [id number] [facility] Start: 09-09-2024 End: 09-09-2024 Xcapsl ctrc rmvl insj io lens prosth w/o ecp [facility] Start: 09-08-2024 End: 09-08-2024 ambulatory 09/08/2024 3:50 PM EST Support Visit [facility] Admit [address] [place] [address] [facility] - Pre Admit Start: 08-19-2024 End: 08-19-2024 Admission to same day surgery center 08/19/2024 3:00 PM EDT - 08/19/2024 3:45 PM EDT Surgery [facility] Surgery [address] [place] [phone] Emilie Forman MD [address] [place] [id number] EXTRACTION CATARACT INTRAOCULAR LENS [84384 (CPT )] [facility] Comment on above: EXTRACTION CATARACT INTRAOCULAR LENS [24288 (CPT )] Start: 08-19-2024 End: 08-19-2024 Anesthesia consultation 08/19/2024 3:00 PM EDT Anesthesia Event [facility] [address] [place] [phone] Diya Navarrete, DO [address] [place] [address] [facility] Start: 08-19-2024 Subsequent hospital visit by physician 08/19/2024 3:00 PM EDT Hospital Encounter [facility] Surgery [address] [place] [address] Emilie Forman MD [address] [place], [place] [phone] [facility] Start: 08-19-2024 End: 08-19-2024 Xcapsl ctrc rmvl insj io lens prosth w/o ecp EXTRACTION CATARACT INTRAOCULAR LENS cataract right eye 08/19/2024 3:00 PM EDT [facility] Start: 06-22-2024 Influenza vaccination Influenza Vacc ine (#1) [facility] Start: 06-22-2020 Influenza vaccinatio n given [facility] Start: 2019 Abdominal aortic ane urysm screening Abdominal Aortic Aneurysm (AAA) Screen [facility] Start: 2019 Fall Risk Screening Fall Risk Screen ing [facility] Start: 2019 Pneumococcal vaccination Pneum ococcal Vaccine Age 65+ (1 of 2 - PCV13) [facility] Start: 12-07-2015 Administration of he rpes zoster vaccine Zoster Vaccines (2 of 3) [facility] Start: 12-07-2015 Administration of varicella zoster vaccine Zoster (Shingles) Vaccine (2 of 3) [facility] Start: 2004 Screening for malign ant neoplasm of colon [facility] Start: 1972 Adult BMI Follow Up Plan Adult BMI Follow Up Plan [facility] Start: 1972 Hepatitis C antibody , confirmatory test Hepatitis C Screening [facility] Start: 1970 COVID-19 Vaccine (1 of 2) COVI D-19 Vaccine (1 of 2) [facility] Start: 1966 Adolescent depressio n screening assessment [facility] Start: 1957 History and physical examination, annual for health maintenance Wellness Visit [facility] Start: 1954 Fall risk assessment Falls Risk Asse ssment [facility] Start: 1954 Hepatitis C antibody , confirmatory test Hepatitis C Screening [facility] Start: 1954 Medicare Annual Well ness Visit Medicare Annual Wellness Visit [facility] Start: 1954 Prostate specific an tigen measurement PSA Level [facility] Start: 1954 Screening for malign ant neoplasm of colon [facility] Start: 1954 US scan of abdominal aorta Abdominal Aortic Ultrasound [facility] Immunizations Immunization Date Immunization Notes Care Provider Fa cility 07-16-2023 Influenza, Seasonal, Quadrivalent, Adjuvanted Ruth Myers MD Work Phone: [facility] Work Phone: 07-16-2023 influenza virus vacc ine, unspecified formulation Ruth Myers MD Work Phone: [facility] 07-11-2022 Influenza, High-dose Seasonal, Quadrivalent, Preservative Free Ruth Myers MD Work Phone: [facility] 01-27-2022 Pneumococcal Conjuga te PCV 20 Ruth Myers MD Work Phone: [facility] 07-22-2021 Influenza, High-dose Seasonal, Quadrivalent, Preservative Free Ruth Myers MD Work Phone: [facility] 07-22-2020 Influenza, Seasonal, Quadrivalent, Adjuvanted Ruth Myers MD Work Phone: [facility] 08-29-2019 influenza, injectabl e, quadrivalent, preservative free Ruth Myers MD Work Phone: [facility] 08-22-2018 influenza, injectabl e, quadrivalent, preservative free Ruth Myers MD Work Phone: [facility] 08-03-2017 influenza, seasonal, injectable Ruth Myers MD Work Phone: [facility] 10-12-2015 pneumococcal polysaccharide vaccine, 23 valent Ruth Myers MD Work Phone: [facility] 10-12-2015 tetanus toxoid, redu desmond diphtheria toxoid, and acellular pertussis vaccine, adsorbed Ruth Myers MD Work Phone: [facility] 10-12-2015 zoster vaccine, live Reggie Myers MD Work Phone: [facility] 10-12-2015 zoster vaccine, unspecified formulation [facility] 2 [facility] Payers Date Payer Category Payer Unknown 2023 Medicare (Managed Care) [facility] [id number] 2023 Medicare HMO [employer]OTED [employer] M [employer] ADVANTAGE [id number] 2023 Medicare 2023 Unknown [id number] 2015 Unknown [id number] 2015 Unknown [place]THEM [place] [facility] [place] 2015-Present xxxxxxxxxxxxxx [id number] 2015 Unknown [place]THE[place] [facility] [id number] 2015-Present [id number]. [id number] 2009 Unknown [id number] 1959 Unknown [id number] 1954 Unknown [id number] 2.16.840.1.183224.3.579.2. 900 1954 Unknown [id number] 2.16.840.1.144088.3.579.2. 903 1954 Unknown [id number] 2.16.840.1.723151.3.579.2. 902 1954 Unknown [id number] 2.16.840.1.302947.3.579.2. 593 1954 Unknown [id number] 2.16.840.1.244766.3.579.2. 593 1954 Unknown [id number] 2.16.840.1.125061.3.579.2. 593 1954 Unknown [id number] 2.16.840.1.681980.3.579.2. 593 1954 Unknown [id number] 2.16.840.1.288842.3.579.2. 593 1954 Unknown [id number] 2.16.840.1.381425.3.579.2. 1259 1954 Unknown [id number] 2.16.840.1.235455.3.579.2. 1259 1954 Unknown [id number] 2.16.840.1.977247.3.579.2. 1259 1954 Unknown [id number] 2.16.840.1.043988.3.579.2. 1259 1954 Unknown [id number] 2.16.840.1.225672.3.579.2. 1286 1954 Unknown [id number] 2.16.840.1.072126.3.579.2. 1286 1954 Unknown [id number] 2.16.840.1.914042.3.579.2. 128 1954 Unknown [id number] 2.16.840.1.615164.3.579.2. 128 1954 Unknown [id number] 2.16.840.1.622364.3.579.2. 128 1954 Unknown [id number] 2.16.840.1.485732.3.579.2. 128 1954 Unknown [id number] 2.16.840.1.491990.3.579.2. 1285 1954 Unknown [id number] 2.16.840.1.467650.3.579.2. 1286 1954 Unknown [id number] 2.16.840.1.111679.3.579.2. 6 1954 Unknown [id number] 2.16.840.1.782315.3.579.2. 196 1954 Unknown [id number] 2.16.840.1.830064.3.579.2. 196 1954 Unknown [id number] 2.16.840.1.500276.3.579.2. 196 1954 Unknown [id number] 2.16.840.1.577169.3.579.2. 196 1954 Unknown [id number] 2.16.840.1.620657.3.579.2. 196 Social History Date Type Detail Facility Start: 12-31-2017 End: 03-04-2020 Tobacco smoking status [facility] Former smoker [facility] Start: 03-04-2020 End: 08-20-2024 Alcohol intake Current drinker of alcohol (finding) [facility] Start: 10-02-2016 Alcohol Comment occasional [facility] Start: 1955 Sex Assigned At Not on file [facility] Start: 12-31-2017 End: 03-05-2020 Tobacco use and exposure Never used [facility] Start: 1972 End: 2003 History of tobacco use Current smoker [facility] Start: 1972 End: 2003 History of tobacco use Cigarette Smoker [facility] Start: 12-02-2020 End: 02-05-2024 Cigarettes smoked current (pack per day) - Reported 1 [facility] Start: 02-05-2024 Alcoholic beverage intake Ex-drinker (finding) [facility] Start: 12-02-2020 End: 02-04-2024 Social connection and isolation panel [facility] Do you belong to any clubs or organizations such as roman catholic groups, unions, fraternal or athletic groups, or [...] medical appointments or from getting medications? No [facility] Start: 05-16-2023 Alcohol Comment Caffeine intake: more than 4 cups per day coffee [facility] Start: 1955 Sex assigned at Male [facility] Start: 01-03-2023 Gender identity Identifies as male gender (finding) [facility] Start: 03-11-2023 Sexual orientation Heterosexual (finding) [facility] Start: 04-30-2018 Alcohol Comment 1-2 a day [facility] Start: 05-27-2015 Sex Male (finding) [facility] Medical Equipment Procedure Code Equipment Code Equipment Origin al Text Equipment Identifier Dates Lens Iol [id number]. [address] [facility] [id number] - [id number] - [id number] Start: 08-19-2024 Lens Iol [id number]. 220 [facility] [id number] - [id number] - [id number] Start: 09-09-2024 Clinical Notes 10-28-2021 to 10-08-2024 Telephone Encounter - Ruth Myers MD - 10/08/2024 4:25 PM ESTTelephone Encounter - Ruth Myers MD - 10/08/2024 4:25 PM ESTTelephone Encounter - Flory Mark - 09/10/2024 1:40 PM EST Note Date & Type Note Facility 10-08-2024 Telephone encounter Note Approving, but needs appt for additional refills. [facility] 10-08-2024 Miscellaneous Notes Approving, but needs appt for additional refills. documented in this encounter [facility] 09-10-2024 Telephone encounter Note Pt cannot get his Atorvastatin filled because it says he picked it up in July at the [facility]. He has no idea who that dr is that called it in.. and when I google her name, she works in [facility], which is 3 hrs [place] 55 mins away from [place]. I am going to first call [facility] and make sure the bday matches the pt (pt said there is another person in [place] with his name) [facility] is closed for lunch right now and I'm going to lunch :) So I told pt I will call them when I return from lunch and give him a call back to let him know what I find out. Just documenting. [facility] 09-10-2024 Miscellaneous Notes Pt cannot get his Atorvastatin filled because it says he picked it up in July at the [facility]. He has no idea who that dr is that called it in.. and when I google her name, she works in [facility], which is 3 hrs and 55 mins away from [place]. I am going to first call [facility] and make sure the bday matches the pt (pt said there is another person in [place] with his name) [facility] is closed for lunch right now and I'm going to lunch :) So I told pt I will call them when I return from lunch and give him a call back to let him know what I find out. Just documenting. documented in this encounter [facility] 09-08-2024 Miscellaneous Notes Preoperative Education Checklist- General Surgery date: 09/09/24 Surgery time: 1415 Arrival time: 1215 1. Bring a photo ID and your insurance card with you the day of surgery. You will check in at the main lobby registration desk as soon as you walk in the entrance. 2. If you have a Living Will/Durable Power of Office Machine Embossograph Operator for Health Care that is not on file here, please bring a copy the day of surgery. 3. Please wash your face with baby shampoo prior to procedure as instructed by your physician. 4. NO powder, lotion, perfume/cologne, aftershave, make-up, nail armenian on at least one finger, deodorant, or [...] please call the Preadmission Testing office at [phone], Mon.-Fri. 7 a.m.-3 p.m. Leave a voicemail [...] taking 0 days prior to procedure omega 6-yer-cuy-fish oil (Fish OiL) 300-1,000 mg capsule Stop taking 0 days prior to procedure pravastatin (PRAVACHOL) 80 mg tablet Stop taking 0 days prior to procedure documented in this encounter [facility] 09-08-2024 Nurse Note Preoperative Education Checklist- General Surgery date: 09/09/24 Surgery time: 1415 Arrival time: 1215 1. Bring a photo ID and your insurance card with you the day of surgery. You will check in at the main lobby registration desk as soon as you walk in the entrance. 2. If you have a Living Will/Durable Power of Office Machine Embossograph Operator for Health Care that is not on file here, please bring a copy the day of surgery. 3. Please wash your face with baby shampoo prior to procedure as instructed by your physician. 4. NO powder, lotion, perfume/cologne, aftershave, make-up, nail armenian on at least one finger, deodorant, or [...] please call the Preadmission Testing office at [phone], Mon.-Fri. 7 a.m.-3 p.m. Leave a voicemail [...] taking 0 days prior to procedure omega 7-xzf-uim-fish oil (Fish OiL) 300-1,000 mg capsule Stop taking 0 days prior to procedure pravastatin (PRAVACHOL) 80 mg tablet Stop taking 0 days prior to procedure [facility] 08-26-2024 Telephone encounter Note Patient is requesting atorvastatin- he thinks it was increased to 40mg. Uses [facility] [place]. Thank you. [facility] 08-26-2024 Miscellaneous Notes Patient is requesting atorvastatin- he thinks it was increased to 40mg. [facility]ses [facility] [place]. Thank you. documented in this encounter [facility] 07-29-2024 Instructions Jessica Perez RN - 07/29/2024 [...] you have a Living Will/Durable Power of Office Machine Embossograph Operator for Health Care that is not on file here, please bring a copy the day of surgery. 3. Please wash your face with baby shampoo prior to procedure as instructed by your physician. 4. NO powder, lotion, perfume/cologne, aftershave, make-up, nail armenian on at least one finger, deodorant, or [...] please call the Preadmission Testing office at [phone], Mon.-Fri. 7 a.m.-3 p.m. Leave a voicemail [...] taking 0 days prior to procedure omega 7-gfo-dlq-fish oil (Fish OiL) 300-1,000 mg capsule Stop taking 0 days prior to procedure pravastatin (PRAVACHOL) 80 mg tablet Stop taking 0 days prior to procedure documented in this encounter [facility] 07-29-2024 Miscellaneous Notes Preoperative Education Checklist- General Surgery date: 08/19/24 Surgery time: 3:00 p.m. Arrival time: 1:00 p.m. 1. Bring a photo ID and your insurance card with you the day of surgery. You will check in at the main lobby registration desk as soon as you walk in the entrance. 2. If you have a Living Will/Durable Power of Office Machine Embossograph Operator for Health Care that is not on file here, please bring a copy the day of surgery. 3. Please wash your face with baby shampoo prior to procedure as instructed by your physician. 4. NO powder, lotion, perfume/cologne, aftershave, make-up, nail armenian on at least one finger, deodorant, or [...] please call the Preadmission Testing office at [phone], Mon.-Fri. 7 a.m.-3 p.m. Leave a voicemail [...] taking 0 days prior to procedure omega 9-idu-acu-fish oil (Fish OiL) 300-1,000 mg capsule Stop taking 0 days prior to procedure pravastatin (PRAVACHOL) 80 mg tablet Stop taking 0 days prior to procedure Surgical instructions reviewed. Patient verbalized understanding. documented in this encounter [facility] 07-29-2024 Nurse Note Preoperative Education Checklist- General Surgery date: 08/19/24 Surgery time: 3:00 p.m. Arrival time: 1:00 p.m. 1. Bring a photo ID and your insurance card with you the day of surgery. You will check in at the main lobby registration desk as soon as you walk in the entrance. 2. If you have a Living Will/Durable Power of Office Machine Embossograph Operator for Health Care that is not on file here, please bring a copy the day of surgery. 3. Please wash your face with baby shampoo prior to procedure as instructed by your physician. 4. NO powder, lotion, perfume/cologne, aftershave, make-up, nail armenian on at least one finger, deodorant, or [...] please call the Preadmission Testing office at [phone], Mon.-Fri. 7 a.m.-3 p.m. Leave a voicemail [...] taking 0 days prior to procedure omega 5-tgg-ycg-fish oil (Fish OiL) 300-1,000 mg capsule Stop taking 0 days prior to procedure pravastatin (PRAVACHOL) 80 mg tablet Stop taking 0 days prior to procedure [facility] 07-29-2024 Nurse Note Surgical instructions reviewed. Patient verbalized understanding. [facility] 11-30-2022 Note CONSULTATION CONSULTATION DATE: 11/30/2022 [...] walking, housework and lifting. He does use gles-xdt-nobyvzc menthol patches which help decrease his pain. [...] in the office today. [facility] 08-24-2022 Note CONSULTATION CONSULTATION DATE: 08/24/2022 [...] agrees with this plan. [facility] 06-01-2022 Note CONSULTATION CONSULTATION DATE: 06/01/2022 [...] Activities such as pushing pulling, standing, walking, duct maker hours and lifting aggravate his pain. At [...] time unless otherwise indicated. [facility] 06-01-2022 Note CONSULTATION PROCEDURE DATE: 06/01/2022 [...] up in the office. [facility] 03-09-2022 Note CONSULTATION CONSULTATION DATE: 03/09/2022 [...] patient agrees and all questions were answered. [facility] Signed and Approved by: DORIE VALDEZ . 03/13/2022 15:06:00 [facility] 01-27-2022 Note PROCEDURE: Without I V [...] signed by Kenneth Kan on 01/27/2022 0938 [facility]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 10-28-2021 Note PROCEDURE: [employer] VCT 64, 5.0 mm slice axial images [...] signed by Kenneth Kan on 10/28/2021 0937 [facility] Specialist Evaluation note Diagnosis Mixed hyperlipidemia (CMS/HCC) Mixed hyperlipidemia [facility] Diagnosis Urinary incontinence, unspecified type documented [facility]* Diagnosis Preop examination- Primary Unspecified pre-operative examination Preop examination Unspecified pre-operative examination documented in this encounter [facility] filedocumented in this encounter [facility] Summary Purpose Family History No Family History Records FoundNo Family History Records FoundNo Family History Records FoundNo Family History Records FoundNo Family History Records FoundNo Family History Records FoundNo Family History Records FoundNo Family History Records Found Advance Directives Documents on File Type Date Recorded Patient Plant Protection Supervisor Expl anation Advance Directives and Livin g Will 03/04/2020 8:02 AM Latest Code Status on File Code Status Date Activated Date Inactivated Comments Full Code - Unverified 03/04/2020 10:12 AM 03/04/2020 12 :43 PM Documents on File Type Date Recorded Patient Plant Protection Supervisor Expl anation Advance Directives and Livin g Will 03/04/2020 8:02 AM Latest Code Status on File Code Status Date Activated Date Inactivated Comments Full Code - Unverified 03/04/2020 10:12 AM 03/04/2020 12 :43 PM Discharge Instructions * Attachments The following attachments cannot be sent through Care Everywhere. * Lumbar Epidural Steroid Injections: General Info (Bermudian) * Post-op Infection (Bermudian) documented in this encounter Assessments Diagnosis Lumbago Reason for Referral Specialty Diagnoses / Procedures Referred By Contac t Referred To Contact Diagnoses Preop examination Procedures ECG 12 lead Mitali Mares MD [address] [place] [address] Referral ID Status Reason Start Date Expiration Date V isits Requested Visits Authorized [id number] Pending Review 07/22/2024 07/22/2025 1 1 Additional Source Comments (unrecognized sect ion and content) No Status Records FoundNo Status Records FoundNo Status Records FoundNo Status Records FoundNo Status Records FoundNo Status Records FoundNo Status Records FoundNo Status Records Found INFORMATION SOURCE (unrecogn ized section and content) DATE CREATED AUTHOR 06/16/2019 [facility] DATE CREATED AUTHOR AUTHOR'S ORGANIZ ATION 06/25/2019 [facility] DATE CREATED AUTHOR AUTHOR'S ORGANIZ ATION 03/10/2020 [facility] DATE CREATED AUTHOR AUTHOR'S ORGANIZ ATION 02/23/2022 [facility] dical Specialist DATE CREATED AUTHOR AUTHOR'S ORGANIZ ATION 03/05/2023 [facility] DATE CREATED AUTHOR AUTHOR'S ORGANIZ ATION 03/17/2024 [facility] dical Specialists [facility] DATE CREATED AUTHOR AUTHOR'S ORGANIZ ATION 09/10/2024 [facility] DATE CREATED AUTHOR AUTHOR'S ORGANIZ ATION 11/27/2024 [facility] Reason for Visit (unrecogniz ed section and content) Status Reason Specialty Diagnoses / Procedures Referre d By Contact Referred To Contact Diagnoses Lumbago Lumbago [M54.5] Procedures IR EPIDURAL STEROID INJ Nicolasa Mitchell MD - 03/04/2020 10:11 AM EDT Procedure Notes (unrecognize d section and content) Vascular & Interventional Radiology Provided By [facility] (Diagnostic Radiology, Interventional and Neurointerventional Radiology and Vascular Medicine) Interventional Radiology Department @ [facility]: [phone] 14/05 VIR physician contact: [phone]) Weekday VIR nurse practitioner contact @ [facility]: [phone] [facility]: [phone] [email or web address] [facility] FEATHER SEPARATOR DIRECTORY PROCEDURE: Fluoroscopic guided lumbar epidural steroid injection @ L5-S1 PLAN: Repeat epidural steroid injection can be offered, as needed Date: 03/04/2020 Patient Name: Neville Schmitz Patient : 1955 Physician: Nicolasa Mitchell MD Sedation Plan: None [place] Protocol: Pre-Procedural verification: Correct patient, correct site [...] Care Teams (unrecognized sec tion and content) Photo Print Specialist Relationship Specialty Start Date End Date Ruth Myers MD [address] [place] [address] PCP - General Family Medicine 05/10/23 Ruth Myers MD [address] [place] [address] PCP - Devoted 10/22/23 Photo Print Specialist Relationship Specialty Start Date End Date Ruth Myers MD [address] [place] [address] PCP - General Family Medicine 05/10/23 Ruth Myers MD [address] [place] [address] PCP - Devoted 10/22/23 Photo Print Specialist Relationship Specialty Start Date End Date Ruth Myers MD [address] [place] [address] PCP - General Family Medicine 05/10/23 Ruth Myers MD [address] [place] [address] PCP - [employer]oted 10/22/23 Photo Print Specialist Relationship Specialty Start Date End Date Ruth Myers MD [address] [place] [address] PCP - General Family Medicine 12/31/17 Photo Print Specialist Relationship Specialty Start Date End Date Ruth Myers MD [address] [place] [address] PCP - General Family Medicine 12/31/17 FOR [...] BE BASED ON THE PRIMARY CLINICAL RECORDS. [facility]. provides no warranty or guarantee of the accuracy or completeness of information in this document.
[2024-12-29 09:19] VITALS: BP 169/73; BP 173/77; PULSE 60; PULSE 69; O2SAT 97
[2024-12-29] MEDS: 0.9 % SODIUM CHLORIDE 10 ML SYRINGE - SALINE FLUSH INJ (09:21)
[2024-12-29] MEDS: IOHEXOL 240 MG/ML - 10 ML VIAL INJ (09:22)
[2024-12-29] MEDS: METHYLPREDNISOLONE ACETATE 80 MG/ML VIAL INJ (09:22)
[2024-12-29] MEDS: BUPIVACAINE HCL 0.25% PF 25 MG/10 ML VIAL INJ (09:22)
[2024-12-29] MEDS: LIDOCAINE HCL 2% 400 MG/20 ML MDV 3 ML INJ (09:22)
--- NOTE | 2024-12-29 09:25 | W.PM.PROCNOT ---
Date of procedure: 12/29/24 Pre-op diagnosis: Pain due to lumbar stenosis with neurogenic claudication Post-op diagnosis: same as pre-op Procedure: Procedure: Bilateral L4-5 transforaminal epidural steroid injection Medications: Bupivacaine 0.25% 2cc, lidocaine 2% 1cc, depomedrol 80mg The patient was seen and examined in the preoperative holding area.? Informed consent was obtained and placed on the chart.? Patient was brought to the medical procedure unit and placed in the prone position where a timeout was completed verifying the correct patient, procedure site, position, and planned special equipment using sterile aseptic technique.? Under direct fluoroscopic visualization a 25-gauge Quincke tipped spinal needle was advanced at level left L4-5 to the designated neural foramen where contrast dye was injected to show adequate spread.? There was no evidence of vascular or adverse uptake.? Epidural spread was appreciated.? The above-mentioned injectate was then placed in a 1.5 mL aliquot preceded by negative aspiration.? The needle was removed. The same procedure, at the same level, was completed on the opposite side. ? Patient was taken to the postprocedural recovery area and monitored for an appropriate length of time before found suitable for discharge in the accompaniment of a responsible adult. Anesthesia: Local Surgeon: Anamaria Pollock Pathology: none sent Condition: stable Disposition: no change
[2024-12-30 09:26] VITALS: O2SAT 97
== END 2024-12-29 09:29 | disposition home or self-care (01) ==
PROVIDERS: Visit Provider Anesthesiology
DX: M48.062 Spinal stenosis, lumbar region with neurogenic claudication (principal)
CPT/HCPCS: 64483; J0665; J1010; Q9966

== ENCOUNTER 2025-01-29 08:45 | Outpatient (OUT) | payer MEDICARE, SELFPAY ==
--- OUTSIDE RECORDS SUMMARY | 2025-01-29 09:07 | XMS_ITS | CCD ---
Author Organization [facility] Care Team Providers Care Irrigation System Installer Name Role Phone ADALMITZI Admitting Unavailable ESQUIVEL SARAH L Primary Care Unavailable KATLIN KNOWLES Attending Unavailabl e PATTI ESQUIVELNY L Primary Care Unavailable Sarah Esuqivel L Primary Care Provider Nicolasa MITCHELL Admitting Unavailable Nicolasa MITCHELL Attending Unavailable ESQUIEVL SARAH L Primary Care Unavailable Sarah Esquivel L Primary Care Provider [phone] JAYLON ., DR FRANCK Chaparro Admitting Unavailable [...] vailable LAKSHMIPATHY ., NARENDEDDIEATH Attending Angelica vailable [facility] [place] Primary Care Unavailable HALKER .CARINE Consulting Unavailable [...] Attending Unavailable RUTH MYERS Primary Care Unavailable Ruth Myers MD Primary Care Provider [phone] Maris DAVID, Anamaria June Attending Unavailable Maris DAVID, Anamaria June Attending Unavailable Maris DAVID, Andkei June Attending Unavailable Maris DAVID, Andkei June Attending Unavailable Maris DAVID, Andkei June Attending Unavailable Maris DAVID, Anamaria June [...] a day as needed. 0 06/20/2016 Active [facility] Natural Products (BRAINSTRON MEMORY SUPPORT PO) (4 sources) Mis Natural Pro ducts ([facility] MEMORY SUPPORT PO) Take by mouth. Once [...] NON FORMULARY enrique bach supplement Active omega 7-blk-zof-fish oil (Fish OiL) 300-1,000 mg capsule (2 [...] tablet 1 03/12/2024 Active polyethylene glycol 3350 19991 mg powder for oral solution (4 sources) [...] 0 02-21-2022 TSH 1.180 uIU/mL Normal 0.400-4.500 [facility] Comment on above: Performed By: #### T SH reflex FT4 #### [facility] [address], [place] [id number] US Aorta Screeningon 022 US Aorta Screening FINDINGS: Proximal Aorta2.9 x 2.3 cm Mid Aorta1.6 x 2.1 cm Distal Aorta1.3 x 1.3 cm Right Common Iliac9 x 10 mm Left Common Iliac10 x 13 mm No aneurysmal dilatation is identified. No neighboring fluid collections are seen. IMPRESSION: No significant aneurysmal formation. Report reported and signed by Kenneth Kan on 01/27/2022 0911 Normal [facility] Comprehensive Metabolic Pane zee 01-20-2022 Albumin [Mass/Vol] 4.5 g/dL Normal 3.6-5.1 [facility] Comment on above: Performed By: #### L IPD, CMP #### [facility] [address], [place] [id number] Albumin/Globulin [Mass ratio] 2.4 {ratio} Normal 1.0-2.[address] [facility] Specialist Comment on above: Performed By: #### L IPD, CMP #### [facility] [address], [place] [id number] ALP [Catalytic activity/Vol] 69 U/L Normal 40-[address] [facility] Specialist Comment on above: Performed By: #### L IPD, CMP #### [facility] [address], [place] [id number] ALT [Catalytic activity/Vol] 23 U/L Normal 9-[address] [facility] Specialist Comment on above: Result Comment: 09/21 Female reference range changed. Performed By: #### L IPD, CMP #### [facility] [address], [place] [id number] Anion gap [Moles/Vol] 15 mmol/L Normal 12-[address] [facility] Specialist Comment on above: Result Comment: Effe ctive 10/27/2019 reference range changed. Performed By: #### L IPD, CMP #### [facility] [address], [place] [id number] AST [Catalytic activity/Vol] 18 U/L Normal 10-[address] [facility] Specialist Comment on above: Performed By: #### L IPD, CMP #### [facility] [address], [place] [id number] Bilirubin [Mass/Vol] 0.80 mg/dL Normal 0.30-1.[address] [facility] Specialist Comment on above: Performed By: #### L IPD, CMP #### [facility] [address], [place] [id number] BUN/CREA 25 Ratio High 6-[address] [facility] Specialist Comment on above: Performed By: #### L IPD, CMP #### [facility] [address], [place] [id number] Calcium [Mass/Vol] 9.9 mg/dL Normal 8.6-10.2 [facility] Comment on above: Performed By: #### L IPD, CMP #### [facility] [address], [place] [id number] Chloride [Moles/Vol] 106 mmol/L Normal 98-[address] [facility] Specialist Comment on above: Performed By: #### L IPD, CMP #### [facility] [address], [place] [id number] CO2 [Moles/Vol] 25 mmol/L Normal 20-31 [facility] Comment on above: Performed By: #### L IPD, CMP #### [facility] [address], [place] [id number] Creatinine [Mass/Vol] 0.9 mg/dL Normal 0.7-1.4 [facility] Comment on above: Performed By: #### L IPD, CMP #### [facility] [address], [place] [id number] eGFRAA 102 mL/min/1.73m2 Normal >60 [facility] Comment on above: Performed By: #### L IPD, CMP #### [facility] [address], [place] [id number] eGFRNAA 84 mL/min/1.73m2 Normal >[address] [facility] Specialist Comment on above: Performed By: #### L IPD, CMP #### [facility] [address], [place] [id number] Globulin (S) [Mass/Vol] 1.9 g/dL Normal 1.9-3.[address] [facility] Specialist Comment on above: Performed By: #### L IPD, CMP #### [facility] [address], [place] [id number] Glucose [Mass/Vol] 101 mg/dL High 65-99 [facility] Carrier Comment on above: Result Comment: For FASTING Glucose --- ADA reference ranges: Normal 65-99 mg/dl Prediabetes 100-125 Diabetes >/= 126 Performed By: #### L IPD, CMP #### [facility] [address], [place] [id number] Potassium [Moles/Vol] 4.3 mmol/L Normal 3.5-5.[address] [facility] Specialist Comment on above: Performed By: #### L IPD, CMP #### [facility] [address], [place] [id number] Protein [Mass/Vol] 6.4 g/dL Normal 6.1-8.1 [facility] Comment on above: Performed By: #### L IPD, CMP #### [facility] [address], [place] [id number] Sodium [Moles/Vol] 142 mmol/L Normal 135-146 [facility] Specialist Comment on above: Performed By: #### L IPD, CMP #### [facility] [address], [place] [id number] Urea nitrogen [Mass/Vol] 22 mg/dL Normal 7-[address] [facility] Specialist Comment on above: Performed By: #### L IPD, CMP #### [facility] [address], [place] [id number] Lipid Panelon 01-20-2022 Cholesterol [Mass/Vol] 239 mg/dL High 125-[address] [facility] Specialist Comment on above: Result Comment: Low risk < 200mg/dL Borderline risk 201-239 mg/dl High risk > or equal to 240 Performed By: #### L IPD, CMP #### [facility] [address], [place] [id number] Cholesterol in HDL [Mass/Vol] 66 mg/dL Normal >[address] [facility] Specialist Comment on above: Result Comment: High Cardiovascular Risk HDL <40 mg/dL Low Cardiovascular Risk HDL > or equal to 60 mg/dl Performed By: #### L IPD, CMP #### [facility] [address], [place] [id number] Cholesterol in LDL [Mass/Vol] 149 mg/dL Normal [facility] Comment on above: Result Comment: LDL ATP III CLASSIFICATION LDL less than 100 mg/dl Optimal LDL 100-129 mg/dl Near or above optimal LDL 130-159 Borderline high LDL 160-189 High LDL greater than 189 mg/dl Very High Performed By: #### L IPD, CMP #### [facility] [address], [place] [id number] Cholesterol in VLDL [Mass/Vol] 24 mg/dL Normal [facility] Specialist Comment on above: Performed By: #### L IPD, CMP #### [facility] [address] [facility] [place] [id number] Cholesterol.total/C holesterol in HDL [Mass ratio] 4 {ratio} Normal [facility] Specialist Comment on above: Performed By: #### L IPD, CMP #### [facility] [address], [place] [id number] Triglyceride [Mass/Vol] 119 mg/dL Normal 30-150 [facility] Comment on above: Result Comment: TRIG ATPIII CLASSIFICATIONS TRIG less than 150 mg/dl Normal TRIG 150-199 mg/dl Borderline High TRIG 200-500 mg/dl High TRIG greather than 500 mg/dl Very High Performed By: #### L IPD, CMP #### [facility] [address], [place] [id number] PSA SCREEN (MEDICARE)on TPSA 1.110 ng/mL Normal <4.000 [facility] Comment on above: Result Comment: PSA Test Method: ECLIA/Bre e 601 Performed By: #### P SA #### [facility] [address], [place] [id number] CV IR EPIDURAL STEROID INJon 03-04-2020 Fluoroscopically guided lumbar epidural steroid injection as outlined above. [employer] Workstation ID: [id number] [facility] HISTORY/CLINICAL DATA: Lumbago EXAMINATION: VIA A POSTERIOR APPROACH 1. FLUOROSCOPICALLY GUIDED LUMBAR EPIDURAL STEROID INJECTION. COMPARISON: None. CUSHION ASSEMBLER(S): Nicolasa Mitchell MD. PROCEDURE: FLUOROSCOPY TIME: 0.2 [...] the procedure well without immediate postprocedural complications. [facility] Interface, Rad In Edwardi Speechq - 03/04/2020 10:35 AM EDT HISTORY/CLINICAL DATA: Lumbago EXAMINATION: VIA A POSTERIOR APPROACH 1. FLUOROSCOPICALLY GUIDED LUMBAR EPIDURAL STEROID INJECTION. COMPARISON: None. CUSHION ASSEMBLER(S): Nicolasa Mitchell MD. PROCEDURE: FLUOROSCOPY TIME: 0.2 [...] lumbar epidural steroid injection as outlined above. [email or web address] Workstation ID: [id number] [facility] PT/INRon 03-04-2020 INR Coag (PPP) [Relative time] 1.0 {INR} [facility] Interpretation and review of laboratory results Normal [facility] PT Coag (PPP) [Time] 12.4 s [facility] During the induction phase of oral anticoagulation, the INR may not reflect the anticoagulation status of the patient. Therapeutic ranges for INR's are: Most clinical situations: INR 2.0-3.0 Mechanical Prosthetic Valve: INR 2.5-3.5 Critical: INR >5.0 [facility] Platelet Counton 03-04-2020 Interpretation and review of laboratory results Normal [facility] Platelet mean volume (Bld) [Entitic vol] 11.0 fL 9 - 15.5 fL [facility] Platelets (Bld) [#/Vol] 178 10*3/uL [facility] CV IR EPIDURAL STEROID INJon 02-24-2020 CV IR EPIDURAL STEROID INJ HISTORY/CLINICAL DATA: Lumbago EXAMINATION: VIA A POSTERIOR APPROACH 1. FLUOROSCOPICALLY GUIDED LUMBAR EPIDURAL STEROID INJECTION. COMPARISON: None. CUSHION ASSEMBLER(S): Nicolasa Mitchell MD. PROCEDURE: FLUOROSCOPY TIME: 0.2 [...] lumbar epidural steroid injection as outlined above. [email or web address] Workstation ID: [id number] Dictated by: Nicolasa MITCHELL on SunMarch 04, 2020 10:21:09 AM EDT Transcribed by: FIGUEROA GUTIERREZ on SunMarch 04, 2020 10:25:58 AM EDT Finalized by: Nicolasa MITCHELL on SunMarch 04, 2020 10:33:02 AM EDT Normal [facility] Vital Signs Date Time Vital Sign Value Performing Clinician Facility 07-29-2024 10:0400 Body height 175.3 cm [facility] 2 [facility] 07-29-2024 10:[id number] Body mass index (BMI) [Ratio] 30.27 kg/m2 [facility] 2 [facility] 07-29-2024 10:0400 Body weight 92.[address] 03-04-2020 10:0400 Body Temperature 98.4 [degF] [facility] 03-04-2020 10:26-0400 BP Diastolic 83 mm[Hg] [facility] 03-04-2020 10:26-0400 BP Systolic 146 mm[Hg] [facility] 03-04-2020 10:26-0400 Pulse (Heart Rate) 53 /min [facility] 03-04-2020 10:26-0400 Pulse Oximetry 97 % [facility] 03-04-2020 10:26-0400 Respiratory Rate 14 /min [facility] 03-04-2020 08:15-0400 BMI (Body Mass Index) 31.57 kg/m2 Nicolasa [facility] 03-04-2020 08: Body weight 99.79 kg Nicolasa [facility] 03-04-2020 08: Height 177.8 cm Nicolasa [facility] Encounters Encounter Date Encounter Type Care Provider Facility Start: 12-29-2024 End: 12-29-2024 ambulatory Anamaria Pollock MD Facility:[facility] Start: 11-17-2024 End: 11-17-2024 ambulatory Anamaria Pollock MD Facility:[facility] Start: 11-03-2024 End: 11-03-2024 ambulatory Anamaria Pollock MD Facility:[facility] Start: 10-08-2024 End: 10-20-2024 Refill Ruth Myers MD Work Phone: [facility] Comment on above: Urinary incontinence , unspecified type Start: 10-06-2024 End: 10-06-2024 ambulatory Anamaria Pollock MD Facility:[facility] Start: 09-10-2024 End: 09-10-2024 Telephone encounter Ruth Myers MD Work Phone: [facility] Start: 09-09-2024 End: 09-09-2024 Evaluation and management of inpatient MITALI MARES [facility] Start: 09-09-2024 End: 09-09-2024 Evaluation and management of inpatient EMILIE Ebony FORMAN [facility] Start: 09-08-2024 End: 09-08-2024 ambulatory [facility] Pat Phone Call Provider 1 [facility] - Pre Admit Start: 09-08-2024 End: 09-08-2024 ambulatory RUTH MYERS [facility] Start: 08-26-2024 End: 08-26-2024 Telephone encounter Ruth Myers MD Work Phone: [facility] Comment on above: Mixed hyperlipidemia (CMS/HCC) Start: 08-19-2024 End: 08-19-2024 Evaluation and management of inpatient DIYA NAVARRETE [facility] Start: 08-19-2024 End: 08-19-2024 Evaluation and management of inpatient EMILIE FORMAN [facility] Start: 07-29-2024 End: 07-29-2024 Patient encounter procedure [facility] Pre-Admission Testing 2 [facility] - Pre Admit Comment on above: Preop examination (P rimary Dx) Start: 07-29-2024 End: 07-29-2024 Preprocedural examination done Pm 2 [facility] Start: 07-29-2024 End: 07-29-2024 ambulatory MITALI MARES [facility] Start: 07-29-2024 Encounter for other preprocedural examination RUTH MYERS [facility] Start: 06-09-2024 End: 06-09-2024 ambulatory [facility] Start: 05-26-2024 End: 05-26-2024 ambulatory Anamaria Poll[facility] Start: 03-12-2024 End: 03-13-2024 ambulatory RAYNA JACQUES Not Available Start: 02-05-2024 End: 02-05-2024 ambulatory RUTH LOUIS Not Available Start: 09-18-2023 End: 09-19-2023 ambulatory PHILIPPE OROSCO Not Available Start: 03-01-2023 End: 03-02-2023 ambulatory JAYLEEN NELSONMIPATHJuliana . Facility:[facility] Start: 11-30-2022 End: 12-01-[address] FRANCK IYER . Facility:[facility] Start: 08-24-2022 End: 08-25-[address] FRANCK IYER . Facility:[facility] Start: 06-01-2022 End: 06-02-[address] FRANCK IYER . Facility:[facility] Start: 03-09-2022 End: 03-10-[address] FRANCK IYER . Facility:[facility] Start: 12-16-2020 End: 12-16-2020 Orders Only Jayshree Solano Work Phone: [facility] Start: 03-04-2020 End: 03-04-2020 Patient encounter procedure Nicolasa MITCHELL [facility] Start: 03-04-2020 End: 03-04-2020 Subsequent hospital visit by physician Nicolasa Mitchell Work Phone: [facility] Comment on above: Lumbago Start: 06-24-2019 Patient encounter procedure KATLIN KNOWLES [facility] Start: 06-12-2019 End: 06-16-2019 Patient encounter procedure MITZI GALEAS [facility] Procedures Date Procedure Procedure Detail Performing Clinician [...] Screening for malign ant neoplasm of colon [facility] Start: 10-12-2025 DTaP,Tdap and Td Vac cines (2 - Td or Tdap) DTaP,Tdap and Td Vaccines (2 - Td or Tdap) [facility] Start: 10-12-2025 Tetanus vaccination Tetanus: Every 1 0yrs [facility] Start: 09-09-2025 Adult BMI Screening Adult [facility] Screen ing [facility] [employer] [facility] Start: 09-09-2025 Tobacco Screening Tobacco Screening [facility] [employer] [facility] Start: 07-29-2025 Adult BMI Screening [facility] Start: 07-29-2025 Tobacco Screening Tobacco Screening [facility] Start: 02-04-2025 Medicare Annual Well ness (AWV) Medicare Annual Wellness (AWV) [facility] Start: 09-09-2024 End: 09-09-2024 Admission to same day surgery center 09/09/2024 2:15 PM EST - 09/09/2024 3:00 PM EST Surgery [facility] - Surgery [address] [facility] [place] [phone] Emilie Forman MD [address] [place] [phone] EXTRACTION CATARACT INTRAOCULAR LENS [79221 (CPT )] [facility] - Surgery Comment on above: EXTRACTION CATARACT INTRAOCULAR LENS [08336 (CPT )] Start: 09-09-2024 Subsequent hospital visit by physician 09/09/2024 2:15 PM EST Hospital Encounter [facility] Surgery [address] [facility] [place] [place] [address] Emilie Forman MD [address] [place] [address] [phone] [facility] - Surgery Start: 09-09-2024 End: 09-09-2024 Xcapsl ctrc rmvl insj io lens prosth w/o ecp [facility] Start: 09-08-2024 End: 09-08-2024 ambulatory 09/08/2024 3:50 PM EST Support Visit [facility] - Pre Admit [address] [facility] [place] [phone] [facility] - Pre Admit Start: 08-19-2024 End: 08-19-2024 Admission to same day surgery center 08/19/2024 3:00 PM EDT - 08/19/2024 3:45 PM EDT Surgery [facility] - Surgery [address] [place] [address] Emilie Forman MD [address] [place] [phone] EXTRACTION CATARACT INTRAOCULAR LENS [07669 (CPT )] [facility] - Surgery Comment on above: EXTRACTION CATARACT INTRAOCULAR LENS [67659 (CPT )] Start: 08-19-2024 End: 08-19-2024 Anesthesia consultation 08/19/2024 3:00 PM EDT Anesthesia Event [facility] [address] [place] [phone] Diya Navarrete, DO [address] [place] [address] [facility] Start: 08-19-2024 Subsequent hospital visit by physician 08/19/2024 3:00 PM EDT Hospital Encounter [facility] [address] [place] [address] Emilie Forman MD [address] [place] [address] [phone] [facility] Start: 08-19-2024 End: 08-19-2024 Xcapsl ctrc rmvl insj io lens prosth w/o ecp EXTRACTION CATARACT INTRAOCULAR LENS cataract right eye 08/19/2024 3:00 PM EDT [facility] Start: 06-22-2024 Influenza vaccination Influenza Vacc ine (#1) [facility] Start: 06-22-2020 Influenza vaccinatio n given [facility] Start: 2019 Abdominal aortic ane urysm screening Abdominal Aortic Aneurysm (AAA) Screen [facility] Start: 2019 Fall Risk Screening Fall Risk Screen ing [facility] Start: 2019 Pneumococcal vaccination Pneum ococcal Vaccine Age 65+ (1 of 2 - PCV13) [facility] Start: 12-07-2015 Administration of he rpes zoster vaccine Zoster Vaccines (2 of 3) [facility] Start: 12-07-2015 Administration of varicella zoster vaccine Zoster (Shingles) Vaccine (2 of 3) [facility] Start: 2004 Screening for malign ant neoplasm of colon [facility] Start: 1972 Adult BMI Follow Up Plan Adult BMI Follow Up Plan [facility] Start: 1972 Hepatitis C antibody , confirmatory test Hepatitis C Screening [facility] Start: 1970 COVID-19 Vaccine (1 of 2) COVI D-19 Vaccine (1 of 2) [facility] Start: 1966 Adolescent depressio n screening assessment [facility] Start: 1957 History and physical examination, annual for health maintenance Wellness Visit [facility] Start: 1954 Fall risk assessment Falls Risk Asse ssment [facility] Start: 1954 Hepatitis C antibody , confirmatory test Hepatitis C Screening [facility] Start: 1954 Medicare Annual Well ness Visit Medicare Annual Wellness Visit [facility] Start: 1954 Prostate specific an tigen measurement PSA Level [facility] Start: 1954 Screening for malign ant neoplasm of colon [facility] Start: 1954 US scan of abdominal aorta Abdominal Aortic Ultrasound [facility] Immunizations Immunization Date Immunization Notes Care Provider Fa cility 07-16-2023 Influenza, Seasonal, Quadrivalent, Adjuvanted Ruth Myers MD Work Phone: [facility] Work Phone: 07-16-2023 influenza virus vacc ine, unspecified formulation Ruth Myers MD Work Phone: [facility] 07-11-2022 Influenza, High-dose Seasonal, Quadrivalent, Preservative Free Ruth Myers MD Work Phone: [facility] 01-27-2022 Pneumococcal Conjuga te PCV 20 Ruth Myers MD Work Phone: [facility] 07-22-2021 Influenza, High-dose Seasonal, Quadrivalent, Preservative Free Ruth Myers MD Work Phone: [facility] 07-22-2020 Influenza, Seasonal, Quadrivalent, Adjuvanted Ruth Myers MD Work Phone: [facility] 08-29-2019 influenza, injectabl e, quadrivalent, preservative free Ruth Myers MD Work Phone: [facility] 08-22-2018 influenza, injectabl e, quadrivalent, preservative free Ruth Myers MD Work Phone: [facility] 08-03-2017 influenza, seasonal, injectable Ruth Myers MD Work Phone: [facility] 10-12-2015 pneumococcal polysaccharide vaccine, 23 valent Ruth Myers MD Work Phone: [facility] 10-12-2015 tetanus toxoid, redu desmond diphtheria toxoid, and acellular pertussis vaccine, adsorbed Ruth Myers MD Work Phone: [facility] 10-12-2015 zoster vaccine, live Reggie Myers MD Work Phone: [facility] 10-12-2015 zoster vaccine, unspecified formulation [facility] 2 [facility] Payers Date Payer Category Payer Unknown 2023 Medicare (Managed Care) [facility] [id number] 2023 Medicare HMO [employer] [id number] 2023 Medicare [id number]. [id number] 2023 Unknown [id number] 2015 Unknown [id number] 2015 Unknown ANTHE[place] BC[place] [facility] [place]x 2015-Present xxxxxxxxxxxxxx [id number] 2015 Unknown ANTHEM BC[place] [facility] [id number] 2015-Present [id number]. [id number] 2009 Unknown [id number] 1959 Unknown [id number] 1954 Unknown [id number] 2.16.840.1.981692.3.579.2. 900 1954 Unknown [id number] 2.16.840.1.111923.3.579.2. 903 1954 Unknown [id number] 2.16.840.1.278474.3.579.2. 902 1954 Unknown [id number] 2.16.840.1.723894.3.579.2. 593 1954 Unknown [id number] 2.16.840.1.746573.3.579.2. 593 1954 Unknown [id number] 2.16.840.1.797152.3.579.2. 593 1954 Unknown [id number] 2.16.840.1.791906.3.579.2. 593 1954 Unknown [id number] 2.16.840.1.018441.3.579.2. 593 1954 Unknown [id number] 2.16.840.1.492342.3.579.2. 1259 1954 Unknown [id number] 2.16.840.1.117764.3.579.2. 1259 1954 Unknown [id number] 2.16.840.1.654749.3.579.2. 1259 1954 Unknown [id number] 2.16.840.1.119925.3.579.2. 1259 1954 Unknown [id number] 2.16.840.1.477913.3.579.2. 1286 1954 Unknown [id number] 2.16.840.1.610132.3.579.2. 1286 1954 Unknown [id number] 2.16.840.1.409834.3.579.2. 6 1954 Unknown [id number] 2.16.840.1.005332.3.579.2. 6 1954 Unknown [id number] 2.16.840.1.274954.3.579.2. 1286 1954 Unknown [id number] 2.16.840.1.346107.3.579.2. 1286 1954 Unknown [id number] 2.16.840.1.572502.3.579.2. 1286 1954 Unknown [id number] 2.16.840.1.155879.3.579.2. 1286 1954 Unknown [id number] 2.16.840.1.618500.3.579.2. 1286 1954 Unknown [id number] 2.16.840.1.129143.3.579.2. 196 1954 Unknown [id number] 2.16.840.1.464014.3.579.2. 196 1954 Unknown [id number] 2.16.840.1.188963.3.579.2. 196 1954 Unknown [id number] 2.16.840.1.238166.3.579.2. 196 1954 Unknown [id number] 2.16.840.1.246873.3.579.2. 196 1954 Unknown [id number] 2.16.840.1.132252.3.579.2. 196 Social History Date Type Detail Facility Start: 12-31-2017 End: 03-04-2020 Tobacco smoking status NHIS Former smoker [facility] Start: 03-04-2020 End: 08-20-2024 Alcohol intake Current drinker of alcohol (finding) [facility] Start: 10-02-2016 Alcohol Comment occasional [facility] Start: 1955 Sex Assigned At Not on file [facility] Start: 12-31-2017 End: 03-05-2020 Tobacco use and exposure Never used [facility] Start: 1972 End: 2003 History of tobacco use Current smoker [facility] Start: 1972 End: 2003 History of tobacco use Cigarette Smoker [facility] Start: 12-02-2020 End: 02-05-2024 Cigarettes smoked current (pack per day) - Reported 1 [facility] Start: 02-05-2024 Alcoholic beverage intake Ex-drinker (finding) [facility] re Start: 12-02-2020 End: 02-04-2024 Social connection and isolation panel [facility] Do you belong to any clubs or organizations such as christianity groups, unions, fraternal or athletic groups, or [...] got money to buy more. Never true [facility] In the past 12 month s, has lack of transportation kept you from medical appointments or from getting medications? No [facility] Start: 05-16-2023 Alcohol Comment Caffeine intake: more than 4 cups per day coffee [facility] Start: 1955 Sex assigned at Male [facility] Start: 01-03-2023 Gender identity Identifies as male gender (finding) [facility] Start: 03-11-2023 Sexual orientation Heterosexual (finding) [facility] Start: 04-30-2018 Alcohol Comment 1-2 a day [facility] Start: 05-27-2015 Sex Male (finding) [facility] Medical Equipment Procedure Code Equipment Code Equipment Origin al Text Equipment Identifier Dates Lens Iol [id number]. [facility] [id number] - [id number] - [id number] Start: 08-19-2024 Lens Iol [id number]. 220 [facility] [id number] - [id number] - [id number] Start: 09-09-2024 Clinical Notes 10-28-2021 to 10-08-2024 Telephone Encounter - Ruth Myers MD - 10/08/2024 4:25 PM ESTTelephone Encounter - Ruth Myers MD - 10/08/2024 4:25 PM ESTTelephone Encounter - Flory Mark - 09/10/2024 1:40 PM EST Note Date & Type Note Facility 10-08-2024 Telephone encounter Note Approving, but needs appt for additional refills. [facility] 10-08-2024 Miscellaneous Notes Approving, but needs appt for additional refills. documented in this encounter [facility] 09-10-2024 Telephone encounter Note Pt cannot get his Atorvastatin filled because it says he picked it up in July at the [facility]. He has no idea who that dr is that called it in.. and when I google her name, she works in [facility], which is 3 hrs [place] 55 mins away from [place]. I am going to first call [facility] and make sure the bday matches the pt (pt said there is another person in [place] with his name) [facility] is closed for lunch right now and I'm going to lunch :) So I told pt I will call them when I return from lunch and give him a call back to let him know what I find out. Just documenting. [facility] 09-10-2024 Miscellaneous Notes Pt cannot get his Atorvastatin filled because it says he picked it up in July at the [facility]. He has no idea who that dr is that called it in.. and when I google her name, she works in [facility], which is 3 hrs and 55 mins away from [place]. I am going to first call [facility] and make sure the bday matches the pt (pt said there is another person in [place] with his name) [facility] is closed for lunch right now and I'm going to lunch :) So I told pt I will call them when I return from lunch and give him a call back to let him know what I find out. Just documenting. documented in this encounter [facility] 09-08-2024 Miscellaneous Notes Preoperative Education Checklist- General Surgery date: 09/09/24 Surgery time: 1415 Arrival time: 1215 1. Bring a photo ID and your insurance card with you the day of surgery. You will check in at the main lobby registration desk as soon as you walk in the entrance. 2. If you have a Living Will/Durable Power of Behavioral Health Clinician for Health Care that is not on file here, please bring a copy the day of surgery. 3. Please wash your face with baby shampoo prior to procedure as instructed by your physician. 4. NO powder, lotion, perfume/cologne, aftershave, make-up, nail congolese on at least one finger, deodorant, or [...] please call the Preadmission Testing office at [phone], Mon.-Fri. 7 a.m.-3 p.m. Leave a voicemail [...] taking 0 days prior to procedure omega 0-zzq-hix-fish oil (Fish OiL) 300-1,000 mg capsule Stop taking 0 days prior to procedure pravastatin (PRAVACHOL) 80 mg tablet Stop taking 0 days prior to procedure [facility] Nurse Note Preoperative Education Checklist- General Surgery date: 09/09/24 Surgery time: 1415 Arrival time: 1215 1. Bring a photo ID and your insurance card with you the day of surgery. You will check in at the main lobby registration desk as soon as you walk in the entrance. 2. If you have a Living Will/Durable Power of Behavioral Health Clinician for Health Care that is not on file here, please bring a copy the day of surgery. 3. Please wash your face with baby shampoo prior to procedure as instructed by your physician. 4. NO powder, lotion, perfume/cologne, aftershave, make-up, nail congolese on at least one finger, deodorant, or [...] please call the Preadmission Testing office at [phone], Mon.-Fri. 7 a.m.-3 p.m. Leave a voicemail [...] taking 0 days prior to procedure omega 2-vmj-fls-fish oil (Fish OiL) 300-1,000 mg capsule Stop taking 0 days prior to procedure pravastatin (PRAVACHOL) 80 mg tablet Stop taking 0 days prior to procedure [facility] 08-26-2024 Telephone encounter Note Patient is requesting atorvastatin- he thinks it was increased to 40mg. [facility]ses [facility] [place]. Thank you. [facility] 08-26-2024 Miscellaneous Notes Patient is requesting atorvastatin- he thinks it was increased to 40mg. [facility]ses [facility] [place]. Thank you. documented in this encounter [facility] 07-29-2024 Instructions Jessica Perez RN - [...] you have a Living Will/Durable Power of Behavioral Health Clinician for Health Care that is not on file here, please bring a copy the day of surgery. 3. Please wash your face with baby shampoo prior to procedure as instructed by your physician. 4. NO powder, lotion, perfume/cologne, aftershave, make-up, nail congolese on at least one finger, deodorant, or [...] please call the Preadmission Testing office at [phone], Mon.-Fri. 7 a.m.-3 p.m. Leave a voicemail [...] taking 0 days prior to procedure omega 0-axz-lyi-fish oil (Fish OiL) 300-1,000 mg capsule Stop taking 0 days prior to procedure pravastatin (PRAVACHOL) 80 mg tablet Stop taking 0 days prior to procedure documented in this encounter [facility] 07-29-2024 Miscellaneous Notes Preoperative Education Checklist- General Surgery date: 08/19/24 Surgery time: 3:00 p.m. Arrival time: 1:00 p.m. 1. Bring a photo ID and your insurance card with you the day of surgery. You will check in at the main lobby registration desk as soon as you walk in the entrance. 2. If you have a Living Will/Durable Power of Behavioral Health Clinician for Health Care that is not on file here, please bring a copy the day of surgery. 3. Please wash your face with baby shampoo prior to procedure as instructed by your physician. 4. NO powder, lotion, perfume/cologne, aftershave, make-up, nail congolese on at least one finger, deodorant, or [...] please call the Preadmission Testing office at [phone], Mon.-Fri. 7 a.m.-3 p.m. Leave a voicemail [...] taking 0 days prior to procedure omega 0-mva-fny-fish oil (Fish OiL) 300-1,000 mg capsule Stop taking 0 days prior to procedure pravastatin (PRAVACHOL) 80 mg tablet Stop taking 0 days prior to procedure Surgical instructions reviewed. Patient verbalized understanding. documented in this encounter [facility] 07-29-2024 Nurse Note Preoperative Education Checklist- General Surgery date: 08/19/24 Surgery time: 3:00 p.m. Arrival time: 1:00 p.m. 1. Bring a photo ID and your insurance card with you the day of surgery. You will check in at the main lobby registration desk as soon as you walk in the entrance. 2. If you have a Living Will/Durable Power of Behavioral Health Clinician for Health Care that is not on file here, please bring a copy the day of surgery. 3. Please wash your face with baby shampoo prior to procedure as instructed by your physician. 4. NO powder, lotion, perfume/cologne, aftershave, make-up, nail congolese on at least one finger, deodorant, or [...] please call the Preadmission Testing office at [phone], Mon.-Fri. 7 a.m.-3 p.m. Leave a voicemail [...] taking 0 days prior to procedure omega 9-gfv-aji-fish oil (Fish OiL) 300-1,000 mg capsule Stop taking 0 days prior to procedure pravastatin (PRAVACHOL) 80 mg tablet Stop taking 0 days prior to procedure [facility] 07-29-2024 Nurse Note Surgical instructions reviewed. Patient verbalized understanding. [facility] 11-30-2022 Note CONSULTATION CONSULTATION DATE: 11/30/2022 HISTORY [...] walking, housework and lifting. He does use wwtl-jjq-vdptuup menthol patches which help decrease his pain. [...] today. [facility] 08-24-2022 Note CONSULTATION CONSULTATION DATE: 08/24/2022 HISTORY [...] plan. 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 At [...] indicated. [facility] 06-01-2022 Note CONSULTATION PROCEDURE DATE: 06/01/2022 PRE [...] office. [facility] 03-09-2022 Note CONSULTATION CONSULTATION DATE: 03/09/2022 This [...] patient agrees and all questions were answered. [facility] Signed and Approved by: DORIE VALDEZ . 03/13/2022 15:06:00 [facility] 01-27-2022 Note PROCEDURE: Without I V [...] signed by Kenneth Kan on 01/27/2022 0938 [facility] 10-28-2021 Note PROCEDURE: [employer] VCT 64, 5.0 mm slice axial images [...] signed by Kenneth Kan on 10/28/2021 0937 [facility] Evaluation note Diagnosis Mixed hyperlipidemia (CMS/HCC) Mixed hyperlipidemia [facility] Diagnosis Urinary incontinence, unspecified type [facility]* Diagnosis Preop examination- Primary Unspecified pre-operative examination Preop examination Unspecified pre-operative examination documented in this encounter [facility] on filedocumented in this encounter [facility] Summary Purpose Family History No Family History Records FoundNo Family History Records FoundNo Family History Records FoundNo Family History Records FoundNo Family History Records FoundNo Family History Records FoundNo Family History Records FoundNo Family History Records Found Advance Directives No Advanced Directives Records FoundDocuments on File Type Date Recorded Patient Regional Engagement Consultant Expl anation Advance Directives and Livin g Will 03/04/2020 8:02 AM Latest Code Status on File Code Status Date Activated Date Inactivated Comments Full Code - Unverified 03/04/2020 10:12 AM 03/04/2020 12 :43 PM Documents on File Type Date Recorded Patient Regional Engagement Consultant Expl anation Advance Directives and Livin g Will 03/04/2020 8:02 AM Latest Code Status on File Code Status Date Activated Date Inactivated Comments Full Code - Unverified 03/04/2020 10:12 AM 03/04/2020 12 :43 PM Discharge Instructions * Attachments The following attachments cannot be sent through Care Everywhere. * Lumbar Epidural Steroid Injections: General Info (Burmese) * Post-op Infection (Burmese) documented in this encounter Assessments Diagnosis Lumbago Reason for Referral Specialty Diagnoses / Procedures Referred By Contac t Referred To Contact Diagnoses Preop examination Procedures ECG 12 lead Mitali Mares MD [address] [place] [address] Referral ID Status Reason Start Date Expiration Date V isits Requested Visits Authorized [id number] Pending Review 07/22/2024 07/22/2025 1 1 Additional Source Comments (unrecognized sect ion and content) No Status Records FoundNo Status Records FoundNo Status Records FoundNo Status Records FoundNo Status Records FoundNo Status Records FoundNo Status Records FoundNo Status Records Found INFORMATION SOURCE (unrecogn ized section and content) DATE CREATED AUTHOR 06/16/2019 [facility] DATE CREATED AUTHOR AUTHOR'S ORGANIZ ATION 06/25/2019 [facility] DATE CREATED AUTHOR AUTHOR'S ORGANIZ ATION 03/10/2020 [facility] DATE CREATED AUTHOR AUTHOR'S ORGANIZ ATION 02/23/[address] [facility] dical Specialist DATE CREATED AUTHOR AUTHOR'S ORGANIZ ATION 03/05/2023 [facility] DATE CREATED AUTHOR AUTHOR'S ORGANIZ ATION 03/17/[address] [facility] dical Specialists EPIC DATE CREATED AUTHOR AUTHOR'S ORGANIZ ATION 09/10/2024 [facility] DATE CREATED AUTHOR AUTHOR'S ORGANIZ ATION 01/05/2025 [facility] Reason for Visit (unrecogniz ed section and content) Status Reason Specialty Diagnoses / Procedures Referre d By Contact Referred To Contact Diagnoses Lumbago Lumbago [M54.5] Procedures IR EPIDURAL STEROID INJ Nicolasa Mitchell MD - 03/04/2020 10:11 AM EDT Procedure Notes (unrecognize d section and content) Vascular & Interventional Radiology Provided By [facility] (Diagnostic Radiology, Interventional and Neurointerventional Radiology and Vascular Medicine) Interventional Radiology Department @ [facility]: [phone] 14/05 VIR physician contact: [phone]) Weekday VIR nurse practitioner contact @ [facility]: [phone] [facility]: [phone] [email or web address] INTERIOR DESIGN PROFESSOR DIRECTORY PROCEDURE: Fluoroscopic guided lumbar epidural steroid injection @ L5-S1 PLAN: Repeat epidural steroid injection can be offered, as needed Date: 03/04/2020 Patient Name: Neville Schmitz Patient : 1955 Physician: Nicolasa Mitchell MD Sedation Plan: None [facility] Protocol: Pre-Procedural verification: Correct patient, correct site [...] Care Teams (unrecognized sec tion and content) Irrigation System Installer Relationship Specialty Start Date End Date Ruth Myers MD [address] [place] [address] PCP - General Family Medicine 05/10/23 Ruth Myers MD [address] [place] [address] PCP - Devoted 10/22/23 Irrigation System Installer Relationship Specialty Start Date End Date Ruth Myers MD [address] [place] [address] PCP - General Family Medicine 05/10/23 Ruth Myers MD [address] [place] [address] PCP - [facility] 10/22/23 Irrigation System Installer Relationship Specialty Start Date End Date Ruth Myers MD [address] [place] [address] PCP - General Family Medicine 05/10/23 Ruth Myers MD [address] [place] [address] PCP - [facility] 10/22/23 Irrigation System Installer Relationship Specialty Start Date End Date Ruth Myers MD [address] [facility] [place] [address] PCP - [facility] Family Medicine 12/31/17 Irrigation System Installer Relationship Specialty Start Date End Date Ruth Myers MD [address] [facility] [place] [address] PCP - General Family Medicine 12/31/17 FOR [...] BE BASED ON THE PRIMARY CLINICAL RECORDS. [facility] [employer] [facility]. provides no warranty or guarantee of the accuracy or completeness of information in this document.
--- NOTE | 2025-01-29 09:11 | P.CN_ITS ---
Consult Note: HPI Data of Consult Patient: known to practice within the last 3 years Requesting Physician: Jenny Machuca NP Primary Care Provider: Non-Staff Physician, MD Consult Narrative Reason for consult: f/u Narrative: Neville Schmitz a pleasant 69 year old male presents for evaluation of chronic moderate to severe low back pain. Longstanding hx of back pain secondary to lumbar spondylosis, lumbar DDD, and lumbar stenosis. recently underwent bilateral L4-5 TFESI with mid relief per pt. pain today 3/10 dull ache in low back increasing to 8/10 with standing, walking, sitting too long, lifting. pain improved with sleep and heat. continues to utilize tylenol and tylenol #3 PRN with benefit without side effects. cc:: CC: Jenny Machuca NP Review of Systems ROS Status of ROS 10 or more systems reviewed and unremark able except as noted in history and below Musculoskeletal Reports: back pain and joint pain; Denies: extremity pain PFSH PFSH Medical History Hydrocele ?N43.3 - Hydrocele, unspecified (ICD-10) Jaw fracture ?S02.609A - Fracture of mandible, unspecified, initial encounter for closed fracture (ICD-10) High cholesterol ?E78.00 - Pure hypercholesterolemia, unspecified (ICD-10) Surgical History H/O hernia repair ?Z98.890 - Other specified postprocedural states (ICD-10) ?Z87.19 - Personal history of other diseases of the digestive system (ICD-10) History of appendectomy ?Z90.49 - Acquired absence of other specified parts of digestive tract (ICD- 10) History of fusion of cervical spine ?Z98.1 - Arthrodesis status (ICD-10) Meds Home Medications and Allergies Home Medications ?Medication ?Instructions ?Recorded ?Confirmed ?Type acetaminophen 300 mg-codeine 30 mg 1 tab PO BID 05/31/23 12/29/24 History tablet acetaminophen 325 mg capsule 325 mg PO Q6H PRN pain 05/31/23 12/29/24 History (Tylenol) aspirin 81 mg capsule 81 mg PO DAILY 05/31/23 12/29/24 History atorvastatin 80 mg tablet (Lipitor) 40 mg PO DAILY 05/31/23 12/29/24 History oxybutynin chloride 5 mg mg PO 11/17/24 History tablet,extended release 24 hr Allergies Allergy/AdvReac Type Severity Reaction Status Date / Time No Known Drug Allergies Allergy Verified 12/29/24 08:53 Exam Constitutional Documenting provider has reviewed patient's vital signs: yes Common normals: no apparent distress, oriented x3, healthy appearing, alert and well nourished General appearance: cooperative HENMT Common normals: normocephalic, hearing grossly normal bilaterally and moist oral mucous membranes Head and scalp: normocephalic Eye Common normals: PERRL Pupil: PERRL Neck & C-Spine Common normals: full ROM General: normal visual inspection Chest Common normals: inspection of chest normal Respiratory Common normals: normal respiratory effort, no retractions and no use of accessory muscles Back & Pelvis Lumbar spine/lower back: paraspinal muscle tenderness and straight leg raise negative bilaterally; ROM not limited, no pain with ROM, no lumbar spinal tenderness and no paraspinal muscle spasm Sacroiliac joints: SI joint(s) abnormal Other: strength 5/5 in BLE bilateral sij positive maryam(patricks), gaenslens, thigh thrust, compression test negative facet loading L4-S1 on exam Neuro Common normals: oriented x3, CN's II-XII intact bilaterally, moves all extremities, no focal motor deficits, no sensory deficits noted and deep tendon reflexes 2+ bilaterally Sensorium/orientation: alert Motor exam: no movement abnormalities noted Psych Common normals: mental status grossly normal, thought process normal, cooperative, affect normal, speech normal and activity/motor behavior normal Speech: normal speech Thought process: normal thought process Results Additional Findings Additional findings: If on a controlled substance or opioids, I have checked an OARRS report on this patient and there are no aberrancies noted in the prescribing history.??If on a controlled substance or opioid a drug screen was completed and reviewed within the last year, and if there has not been a drug screen completed we ordered one today to monitor higher risk, state monitored pain medication use. As part of providing excellent, safe, comprehensive care, the following was completed at our patient's visit: 1. A medication reconciliation and review to ensure accurate knowledge of current/active medications, including asking our patients to inform us about any [id number] medications or herbal remedies/nutritional supplements/alternative remedies. 2. A review to specifically ensure our patients have had annual screening for screening for depression, screening for tobacco use, and screening for unhealthy alcohol use. For concerning screenings had a discussion with the patient, provided patient education, and recommended follow-up with primary care provider when appropriate. If patient noted with a risk of falling, they received education on strength, gait, and balance training to prevent future risk of falling. Portions of this note may have been carried over from the previous visit and updated as appropriate. Please note this office utilizes paper charting in addition to the electronic medical record. A list of current medications, vitals, and PMH is available there as the clinical staff outside of myself do not have access to [employer] charting during the clinic day operations. As part of providing quality comprehensive care the current medications, vitals, and PMH were reviewed in the paper chart. Assessment and Plan Assessment and Plan (1) Sacroiliitis: Assessment and Plan: The patient has had over 3 months of moderate to severe bilateral low back pain with functional impairment and inadequate response to conservative care including NSAIDS (unless there are contraindication such as concurrent blood thinners), multiple oral or topical pain medications, and home exercise program/physical therapy.? Patient has completed >6 weeks of guided home exercise program and/or formal physical therapy program without relief of their symptoms.? I have reviewed the imaging of the lumbar spine and no red flags were identified.? The Oswestry Disability Index was completed, and the patient scored a 22%.? The patient noted the following:?? moderate to severe pain impacting ability to stand and walk We discussed the risks and benefits of the procedure with the patient, and we are NOT planning on using sedation as outlined in the guidelines from Medicare unless there is a documented reason that sedation would be strongly recommended.?? ?The procedure will be completed with fluoroscopic guidance.? (2) Lumbar stenosis with neurogenic claudication: Assessment and Plan: 12/29/24 bilateral L4/5 TFESI minor relief per pt however significant improvement on exam (3) Lumbar spondylosis: (4) Myalgia, other site: (5) Chronic prescription opiate use: Assessment and Plan: I feel these medications are improving the patient's quality of life and allow them to tolerate activities of daily living as well as participate in recreational activity.? The patient does not report intolerable side effects. The patient is NOT opioid naive and non-pharmacologic and non-opioid treatment has failed to significantly relieve the patient's pain and improve functionality. The patient has a diagnosis that is related to a somatic or visceral pain etiology. ? ?? I reviewed with the patient the potential risks and side effects with the use of? opioid medications including but not limited to respiratory depression,? sedation, and even . Within the last 12 months I have verified the patient has access to naloxone should? these effects occur. The patient was advised to let? their family know they had Naloxone in case they would need to administer? the medication. I advised the patient to avoid the use of any other? sedation substances including alcohol, THC, and benzodiazepines while? taking opioid medications due to the risk of compounding side effects and? detrimental outcomes. within the last 12 months I have reviewed the [employer], pain treatment agreement and urine drug screen.? ?? A drug screen was completed within the last year, and no aberrancies were noted regarding their use of controlled substances. The patient understands they are subject to the terms and conditions of the pain contract that they have signed. ? ?? I have checked an OARRS report on this patient today and there are no aberrancies noted in the prescribing history.? Plan bilateral SIJ injection under fluoroscopy start baclofen 10mg BID PRN pain/spasms continue HEP as tolerated continue tylenol #3 BID PRN moderate to severe pain f/u 2 weeks after injection
== END 2025-01-29 08:46 | disposition home or self-care (01) ==
PROVIDERS: Visit Provider Nurse Practitioner
DX: M46.1 Sacroiliitis, not elsewhere classified (principal); M48.062 Spinal stenosis, lumbar region with neurogenic claudication; M47.816 Spondylosis without myelopathy or radiculopathy, lumbar region; M79.18 Myalgia, other site; Z79.891 Long term (current) use of opiate analgesic
CPT/HCPCS: G0463

== ENCOUNTER 2025-02-16 08:04 | Day surgery (SDC) | payer MEDICARE, SELFPAY ==
[2025-02-16 08:52] VITALS: BP 140/77; PULSE 53; TEMP 36.3; O2SAT 97
[2025-02-16] MEDS: BUPIVACAINE HCL 0.25% PF 25 MG/10 ML VIAL 4 ML INJ (09:15)
[2025-02-16] MEDS: METHYLPREDNISOLONE ACETATE 40 MG/ML VIAL 80 MG INJ (09:16)
[2025-02-16] MEDS: IOHEXOL 240 MG/ML - 10 ML VIAL 24 MG INJ (09:16)
[2025-02-16] MEDS: LIDOCAINE HCL 2% 400 MG/20 ML MDV INJ (09:16)
[2025-02-16 09:17] VITALS: BP 149/78; BP 173/81; PULSE 55; PULSE 56; O2SAT 96; O2SAT 97
--- NOTE | 2025-02-16 09:18 | W.PM.PROCNOT ---
Date of procedure: 02/16/25 Pre-op diagnosis: Pain due to bilateral sacroiliitis Post-op diagnosis: same as pre-op Procedure: Procedure: Bilateral sacroiliac joint injection Medications: Bupivacaine 0.25% 6cc After informed consent was obtained, the patient was brought to the medical procedure unit and placed in the prone position, when a timeout was completed verifying correct patient, procedure, site, positioning, implant, and/or special equipment.? The skin overlying the area was prepped and draped in standard sterile fashion using alcohol.? A 25-gauge needle was inserted towards the left sacroiliac joint under direct fluoroscopic imaging.? Needle tip was advanced until the joint was encountered.? We instilled a total of 2 mL of solution.? The same procedure was then completed on the right side.? Postoperatively needles were removed.? The patient tolerated the procedure well without complication.? The patient reported reduction in pain symptoms postoperatively. Anesthesia: Local Surgeon: Anamaria Pollock Pathology: none sent Condition: stable Disposition: no change
== END 2025-02-16 09:21 | disposition home or self-care (01) ==
LOC: SURGOUT 08:07
PROVIDERS: Visit Provider Anesthesiology
DX: M46.1 Sacroiliitis, not elsewhere classified (principal)
CPT/HCPCS: 64451; J0665; J1010; Q9966

== ENCOUNTER 2025-02-25 08:45 | Outpatient (OUT) | payer MEDICARE, SELFPAY ==
--- NOTE | 2025-02-25 09:10 | PM.CN ---
Consult Note: HPI Data of Consult Patient: known to practice within the last 3 years Requesting Physician: Jenny Machuca NP Primary Care Provider: Non-Staff Physician, MD Consult Narrative Reason for consult: f/u Narrative: Neville Schmitz a pleasant 69 year old male presents for evaluation of chronic moderate to severe low back pain. Longstanding hx of back pain secondary to lumbar spondylosis, lumbar DDD, and lumbar stenosis. recently underwent bilateral L4-5 TFESI and bilateral SIJ injection with >70% improvement ongoing. pain today 1/10 dull ache in low back increasing to 2/10 with standing, walking, sitting too long, lifting. pain improved with sleep and heat. continues to utilize baclofen, tylenol and tylenol #3 PRN with benefit without side effects. cc:: CC: Jenny Machuca NP Review of Systems ROS Status of ROS 10 or more systems reviewed and unremarkable except as noted in history and below Musculoskeletal Reports: back pain and joint pain; Denies: extremity pain PFSH PFSH Medical History Hydrocele ?N43.3 - Hydrocele, unspecified (ICD-10) Jaw fracture ?S02.609A - Fracture of mandible, unspecified, initial encounter for closed fracture (ICD-10) High cholesterol ?E78.00 - Pure hypercholesterolemia, unspecified (ICD-10) Surgical History H/O hernia repair ?Z98.890 - Other specified postprocedural states (ICD-10) ?Z87.19 - Personal history of other diseases of the digestive system (ICD-10) History of appendectomy ?Z90.49 - Acquired absence of other specified parts of digestive tract (ICD-10) History of fusion of cervical spine ?Z98.1 - Arthrodesis status (ICD-10) Meds Home Medications and Allergies Home Medications ?Medication ?Instructions ?Recorded ?Confirmed ?Type acetaminophen 325 mg capsule 325 mg PO Q6H PRN pain 05/31/23 02/16/25 History (Tylenol) aspirin 81 mg capsule 81 mg PO DAILY 05/31/23 02/16/25 History atorvastatin 80 mg tablet (Lipitor) 40 mg PO DAILY 05/31/23 02/16/25 History oxybutynin chloride 5 mg mg PO 11/17/24 History tablet,extended release 24 hr acetaminophen 300 mg-codeine 30 mg 1 tab PO BID PRN pain #60 tabs 01/29/25 02/16/25 Rx tablet baclofen 10 mg tablet 10 mg PO BID PRN muscle spasm #60 01/29/25 02/16/25 Rx tabs Allergies Allergy/AdvReac Type Severity Reaction Status Date / Time No Known Drug Allergies Allergy Verified 02/16/25 08:54 Exam Constitutional Documenting provider has reviewed patient's vital signs: yes Common normals: no apparent distress, oriented x3, healthy appearing, alert and well nourished General appearance: cooperative HENMT Common normals: normocephalic, hearing grossly normal bilaterally and moist oral mucous membranes Head and scalp: normocephalic Eye Common normals: PERRL Pupil: PERRL Neck & C-Spine Common normals: full ROM General: normal visual inspection Chest Common normals: inspection of chest normal Respiratory Common normals: normal respiratory effort, no retractions and no use of accessory muscles Back & Pelvis Lumbar spine/lower back: straight leg raise negative bilaterally; ROM not limited, no pain with ROM, no lumbar spinal tenderness, no paraspinal muscle tenderness and no paraspinal muscle spasm Sacroiliac joints: SI joints normal Other: strength 5/5 in BLE bilateral sij negative maryam(patricks), gaenslens, thigh thrust, compression test negative facet loading L4-S1 on exam Extremity Common normals: normal to inspection and full ROM Neuro Common normals: oriented x3, CN's II-XII intact bilaterally, moves all extremities, no focal motor deficits, no sensory deficits noted and deep tendon reflexes 2+ bilaterally Sensorium/orientation: alert Motor exam: no movement abnormalities noted Psych Common normals: mental status grossly normal, thought process normal, cooperative, affect normal, speech normal and activity/motor behavior normal Speech: normal speech Thought process: normal thought process Results Additional Findings Additional findings: If on a controlled substance or opioids, I have checked an OARRS report on this patient and there are no aberrancies noted in the prescribing history.??If on a controlled substance or opioid a drug screen was completed and reviewed within the last year, and if there has not been a drug screen completed we ordered one today to monitor higher risk, state monitored pain medication use. As part of providing excellent, safe, comprehensive care, the following was completed at our patient's visit: 1. A medication reconciliation and review to ensure accurate knowledge of current/active medications, including asking our patients to inform us about any [id number] medications or herbal remedies/nutritional supplements/alternative remedies. 2. A review to specifically ensure our patients have had annual screening for screening for depression, screening for tobacco use, and screening for unhealthy alcohol use. For concerning screenings had a discussion with the patient, provided patient education, and recommended follow-up with primary care provider when appropriate. If patient noted with a risk of falling, they received education on strength, gait, and balance training to prevent future risk of falling. Portions of this note may have been carried over from the previous visit and updated as appropriate. Please note this office utilizes paper charting in addition to the electronic medical record. A list of current medications, vitals, and PMH is available there as the clinical staff outside of myself do not have access to [employer] charting during the clinic day operations. As part of providing quality comprehensive care the current medications, vitals, and PMH were reviewed in the paper chart. Assessment and Plan Assessment and Plan (1) Sacroiliitis: Assessment and Plan: 02/16/25 bilateral SIJ injection >50% improvement ongoing (2) Lumbar stenosis with neurogenic claudication: Assessment and Plan: 12/29/24 bilateral L4/5 TFESI >50% improvement ongoing (3) Lumbar spondylosis: (4) Myalgia, other site: (5) Chronic prescription opiate use: Assessment and Plan: A drug screen was completed within the last year, and no aberrancies were noted regarding their use of controlled substances. The patient understands they are subject to the terms and conditions of the pain contract that they have signed. ? ?? I have checked an OARRS report on this patient today and there are no aberrancies noted in the prescribing history.? Plan continue current medications continue HEP as tolerated f/u 3 months, sooner if needed
== END 2025-02-25 08:46 | disposition home or self-care (01) ==
LOC: PM 08:45
PROVIDERS: Visit Provider Nurse Practitioner
DX: M46.1 Sacroiliitis, not elsewhere classified (principal); M48.062 Spinal stenosis, lumbar region with neurogenic claudication; M47.816 Spondylosis without myelopathy or radiculopathy, lumbar region; M79.18 Myalgia, other site; Z79.891 Long term (current) use of opiate analgesic
CPT/HCPCS: G0463

== ENCOUNTER 2025-05-27 08:49 | Outpatient (OUT) | payer MEDICARE, SELFPAY ==
--- OUTSIDE RECORDS SUMMARY | 2025-05-27 08:52 | XMS_ITS | Encounter Summary ---
Author Organization [facility] Address [id number] 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 Name Role Phone Ruth Pak MD Primary Care Provider [phone] Encounter Details Date Type Department Care Team (Late st Contact Info) Description 05/18/2025 Abstract [facility] Cardiology [address] [place] [address] [phone] EmilyKwadwo MD [address] [place], [place] [id number] Social History Tobacco Use Types Packs/Day Years Used Date Smoking Tobacco: Former Smokeless Tobacco: Never Alcohol Use Standard Drinks/Week Comments Yes 0 (1 standard drink = 0.6 oz pur e alcohol) 1-2 a day Childcare Answer Date Recorded Childcare Unknown 04/02/2019 Employment Answer Date Recorded Employment Unknown 04/02/2019 Purpose - Life Answer Date Recorded Purpose and direction in life Unknown Sex and Gender Information Value Date Recorded Sex Assigned at Not on file Legal Sex Male 11:43 AM EDT Gender Identity Not on file Sexual Orientation Not on file documented as of this encounter Plan of Treatment Not on file documented as of this encounter Visit Diagnoses Not on filedocumented in this encounter Care Teams Commercial Journeyman Electrician Relationship Specialty Start Date End Date Ruth Pak MD [address] [place], [place] [id number] PCP - General Family Medicine 12/31/17 documented as of this encounter
--- OUTSIDE RECORDS SUMMARY | 2025-05-27 08:52 | XMS_ITS | Clinical Summary ---
Author Organization [facility] Address [address] [place] [address] Care Team Providers Care Medical Van Driver Name Role Phone Ruth Pak MD Primary Care Provider [phone] Ruth Pak MD Unavailable [phone] Allergies No known active allergies Medications polyethylene glycol, PEG, 3350 (MiraLax) 17 GM/SCOOP powder Take 17 g by mouth in the morning. Active aspirin 81 MG EC tablet Take 81 mg by mouth in the morning. Active omega-3 (Fish Oil) 1000 MG capsule Take 1,000 mg by mouth in the morning. Active acetaminophen-codei ne (Tylenol w/ Codeine #3) 300-30 MG tablet Take 1 tablet by mouth 2 (two) times a day as needed Active LIONS YESENIA MUSHROOM 1 PO DAILY 3 Active oxybutynin XL (Ditropan-XL) 5 MG 24 hr tabletIndications:U rinary incontinence, unspecified type TAKE 1 TABLET BY MOUTH EVERY DAY DO NOT CRUSH,CHEW OR SPLIT 90 tablet 4 Active atorvastatin (Lipitor) 20 MG tabletIndications:M ixed hyperlipidemia Take 1 tablet (20 mg) by mouth Daily 90 tablet 5 Active baclofen (Lioresal) 10 MG tablet TAKE 1 TABLET ORALLY TWICE A DAY NEEDED FOR MUSCLE SPASM 5 Active Cholecalciferol (VITAMIN D3 PO) Take by mouth Active folic acid (Folvite) 400 MCG tablet Take by mouth Daily Active SEMAGLUTIDE PO Take 47 mL by mouth 1 (one) time per week Active Active Problems Problem Noted Date Diagnosed Date Constipation by delayed colonic transit 05/17/20 23 Lumbago with sciatica, left side 05/17/2023 Lumbago with sciatica, right side 05/17/2023 Memory change 05/17/2023 Mixed hyperlipidemia 05/17/2023 Other chronic pain 05/17/2023 Pure hypercholesterolemia 05/17/2023 Tinnitus of both ears 05/17/2023 Urinary dribbling 05/17/2023 Disc displacement, lumbar 10/29/2018 Overview (05/17/2023): Added automatically from request for surgery [id number] Cervical spondylosis without myelopathy 04/03/20 18 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 04/03/2018 DDD (degenerative disc disease), lumbar 01/01/20 18 Resolved Problems Problem Noted Date Diagnosed Date Resolved Date DVT, lower extremity 08/29/2012 024 Encounters Date Type Department Care Team Description 05/01/2025 9:45 AM EDT Ancillary Procedure [facility] [address] [facility] [address] [place] [address] Thyroid nodule 05/01/2025 Orders Only [facility] [address] [facility] [place] [phone] Ruth Casey MA Thyroid nodule (Primary Dx) 05/01/2025 Results Follow-Up [facility] [address] [facility] [place] [phone] Ruth Pak MD 05/01/2025 Travel 04/29/2025 Travel 04/27/2025 Orders Only [facility] [address] [facility] [place] [phone] Ruth Pak MD Thyroid nodule (Primary Dx); Elevated coronary artery calcium score 04/24/2025 Results Follow-Up [facility] [address] [facility] [place] [phone] Ruth Pak MD 04/23/2025 10:20 AM EDT Office Visit [facility] [address] [facility] [place] [phone] Ruth Pak MD Bruising (Primary Dx); Thyroid nodule ; Elevated coronary artery calcium score 04/23/2025 Bamboo flowsheet [facility] [address] [facility] [place] [phone] Ruth Pak MD 04/23/2025 Travel 04/13/2025 Telephone [facility] [address] [facility] [place] [phone] Ruth Pak MD Appt - skin issue from Last 3 Months Immunizations Immunization Administration Dates Next Due Influenza, High-dose Seasona l, Quadrivalent, Preservative Free 07/11/2022,07/22/2021 Influenza, Seasonal, Quadrivalent, Adjuvanted ,07/22/2020 Influenza, injectable, quadrivalent, preservativ e free 08/29/2019,08/22/2018 Influenza, seasonal, injectable 08/03/2017 Influenza, trivalent, adjuvanted 07/23/2024 Pneumococcal Conjugate PCV 20 01/27/2022 Pneumococcal Polysaccharide PPSV23 10/12/2015 Tdap 10/12/2015 Zoster, live 10/12/2015 Family History Medical History Relation Name Comments Hearing loss Father an Arthritis Maternal Grandmother dn Alzheimer's disease Mother Dementia Mother Hearing loss Paternal Grandfather vn Relation Name Status Comments Father an Maternal Grandmother dn Mother Paternal Grandfather vn Social History Tobacco Use Types Packs/Day Years Used Date Smoking Tobacco: Former Cigarettes 1 31 1 11/04/1971 - 2003 Smokeless Tobacco: Never Tobacco Cessation:Counseling Given: Not Answered Alcohol Use Standard Drinks/Week Comments Not Currently 9 (1 standard drink = 0.6 oz pure alcohol) Caffeine intake: more than 4 cups per day coffee Social Connection and Isolat ion Panel [NHANES] Answer Date Recorded In a typical week, how many times do you talk on the phone with family, friends, or neighbors? Three times a week 02/04/2024 How often do you get togethe r with friends or relatives? Three times a week 02/04/2024 How often do you attend chur ch or sikhism services? 1 to 4 times per year 02/04/2024 Do you belong to any clubs o r organizations such as oriental orthodox groups, unions, fraternal or athletic groups, or school groups? No 02/04/2024 How often do you attend meet ings of the clubs or organizations you belong to? More than 4 times per year 02/04/2024 Are you , , di vorced, , never , or living with a partner? 02/04/2024 AUDIT-C Answer Date Recorded Q1: How often do you have a drink containing alc ohol? 2-3 times a week 02/04/2024 Q2: How many drinks containi ng alcohol do you have on a typical day when you are drinking? 3 or 4 02/04/2024 Q3: How often do you have si x or more drinks on one occasion? Monthly 02/04/2024 Overall Financial Resource Strain (CARDIA) Answe r Date Recorded How hard is it for you to pa y for the very basics like food, housing, medical care, and heating? Not very hard 02/04/2024 PHQ-2 Answer Date Recorded Patient Health Questionnaire-2 Score 0 04/23/2025 [facility] - Occupational Stress Questionnaire Answer Date Recorded Do you feel stress - tense, restless, nervous, or anxious, or unable to sleep at night because your mind is troubled all the time - these days? Not at all 02/04/2024 Exercise Vital Sign Answer Date Recorde d On average, how many days pe r week do you engage in moderate to strenuous exercise (like a brisk walk)? 3 days 02/04/2024 On average, how many minutes do you engage in exercise at this level? 150+ min 02/04/2024 Hunger Vital Sign Answer Date Recorded Within the past 12 months, y ou worried that your food would run out before you got the money to buy more. Never true 02/04/20 24 Within the past 12 months, t he food you bought just didn't last and you didn't have money to get more. Never true 02/04/2024 PRAPARE - Transportation Answer Date Re corded In the past 12 months, has l ack of transportation kept you from medical appointments or from getting medications? No 01/20 In the past 12 months, has l ack of transportation kept you from meetings, work, or from getting things needed for daily living? No 02/04/2024 Housing Stability Vital Sign Answer Maulik e Recorded In the last 12 months, was t here a time when you were not able to pay the mortgage or rent on time? No 02/04/2024 In the last 12 months, how many places have you lived? 1 02/04/2024 In the last 12 months, was t here a time when you did not have a steady place to sleep or slept in a snf (including now)? No 02/04/2024 Sex and Gender Information Value Date Recorded Sex Assigned at Male 03/11/2023 8:42 AM EDT Legal Sex Male 6:41 PM EDT Gender Identity Male 01/03/2023 6:41 PM EDT Sexual Orientation Straight 03/11/2023 8: 42 AM EDT Last Filed Vital Signs Vital Sign Reading Time Taken Comments Blood Pressure 138/76 04/23/2025 10:25 AM EDT Pulse 59 04/23/2025 10:25 AM EDT Temperature 36.3 C (97.3 F) 02/20/2025 10:58 AM EDT Respiratory Rate - - Oxygen Saturation 98% 04/23/2025 10:25 AM EDT Inhaled Oxygen Concentration - - Weight 79.4 kg (175 lb) 04/23/2025 10:25 AM EDT Height 172.7 cm (5' 8 ) 02/05/2024 10:02 AM EDT Body Mass Index 26.61 02/05/2024 10:02 AM EDT Plan of Treatment Health Maintenance Due Date Last Done Comments CT Colonography 1954 FIT-DNA 1954 FIT 1955 FOBT 1955 Sigmoidoscopy 1955 Influenza Vaccine (#1) 2025 , 07/16/2023, 07/11/2022, Additional history exists Medicare Annual Wellness (AWV) 02/20/2026 02/20/2025 , 02/05/2024 Colonoscopy 06/10/2028 06/10/2018, 05/23, 06/04/2017 Colorectal Cancer Screening 06/10/2028 Pneumococcal Vaccine: 65+ Years Completed , 10/12/2015 Procedures Procedure Name Priority Date/Time Associated Diagnosis Comments US THYROID Routine 05/01/2025 10:06 AM EDT Thyroid nodule COMPREHENSIVE METABOLIC PANEL Routine 04/23/2025 11:12 AM EDT Low serum total protein level PARTIAL THROMBOPLASTIN TIME, ACTIVATED Routine 04/23/2025 10:53 AM EDT Bruising PROTHROMBIN TIME-INR Routine 04/23/2025 10:53 AM EDT Bruising CBC Routine 04/23/2025 10:53 AM EDT Bruising COLONOSCOPY Routine 06/10/2018 12:00 PM EDT from Last 3 Months or Most Recently Relevant to Health Maintenance Results * US thyroid (05/01/2025 10:06 AM EDT) Anatomical Region Laterality Modality Head, Neck Ultrasound 05/01/2025 10:3 5 AM EDT Impressions 05/01/2025 10:38 AM EDT Thyroid nodules as discussed. 1 year follow-up recommended. Please note that description of thyroid nodules in this report is based on the 2017 Thyroid Imaging, Reporting and Data System (TI- RADS) established by the [employer] to help provide guidance regarding management of thyroid nodules based on their appearance. These are offered in an attempt to assist the referring physician in their decision process and help address the current over diagnosis of thyroid cancer. These guidelines are considered recommendations and guidance and do not represent rules or absolute standards of care ELECTRONICALLY SIGNED BY: MD Mack Mendez 05/01/2025 10:38 AM EDT EXAMINATION: THYROID ULTRASOUND HISTORY: Thyroid nodule on outside study. TECHNIQUE: Sonography and Doppler imaging of the thyroid was performed. Images were obtained and stored in a permanent archive. COMPARISON: None. RESULT: RIGHT LOBE: 6.1 x 1.8 x 1.6 cm; heterogeneous echogenicity, expected vascular flow LEFT LOBE: 4.8 x 1.6 x 1.5 cm; heterogeneous echogenicity, expected vascular flow ISTHMUS: 0.2 cm Nodules: -1.1 cm solid hypoechoic TR 4 nodule right mid thyroid. 1 year follow-up recommended. -1.1 cm TR 3 nodule right lower pole, no follow-up needed. - 1.1 cm TR 4 nodule left mid thyroid, 1 year follow-up recommended. -Additional subcentimeter nodules, not requiring follow-up. Lymph nodes: No enlarged cervical lymph nodes. Procedure Note Marcos Augustine MD - 05/01/2025 EXAMINATION: THYROID ULTRASOUND HISTORY: Thyroid nodule on outside study. TECHNIQUE: Sonography and Doppler imaging of the thyroid was performed.Images were obtained and stored in a permanent archive. COMPARISON: None. RESULT: RIGHT LOBE: 6.1 x 1.8 x 1.6 cm; heterogeneous echogenicity, expectedvascular flow LEFT LOBE: 4.8 x 1.6 x 1.5 cm; heterogeneous echogenicity, expectedvascular flow ISTHMUS: 0.2 cm Nodules: -1.1 cm solid hypoechoic TR 4 nodule right mid thyroid. 1 year follow- uprecommended. -1.1 cm TR 3 nodule right lower pole, no follow-up needed. - 1.1 cm TR 4 nodule left mid thyroid, 1 year follow-up recommended. -Additional subcentimeter nodules, not requiring follow-up. Lymph nodes: No enlarged cervical lymph nodes. IMPRESSION: Thyroid nodules as discussed. 1 year follow-up recommended. Please note that description of thyroid nodules in this report is based onthe 2017 Thyroid Imaging, Reporting and Data System (TI- RADS) establishedby the [employer] to help provide guidance regardingmanagement of thyroid nodules based on their appearance. These areoffered in an attempt to assist the referring physician in theirdecision process and help address the current over diagnosis of thyroidcancer. These guidelines are considered recommendations and guidance anddo not represent rules or absolute standards of care ELECTRONICALLY SIGNED BY: Marcos Augustine MD us Ruth Pak MD IMG US PROCEDURES Final Resul t * (ABNORMAL) Comprehensive metabolic panel (04/23/2025 11:12 AM EDT) Glucose 85 65 - 99 mg/dL [facility] Comment: Fasting reference interval BUN 12 7 - 25 mg/dL [facility] Creatinine 0.78 0.70 - 1.28 mg/dL [facility] EGFR 96 > OR = 60 mL/min/1. 73m2 [facility] BUN/CREATININE RATIO SEE NOTE: 6 - 22 (calc) [facility] Comment: Not Reported: BUN and Creatinine are within reference range. Sodium 141 135 - 146 mmol/L [facility] Potassium, Bld 4.5 3.5 - 5.3 mmol/L [facility] Chloride 105 98 - 110 mmol/L [facility] Carbon Dioxide 29 20 - 32 mmol/L [facility] Calcium 9.1 8.6 - 10.3 mg/dL [facility] PROTEIN, TOTAL 5.9(L) 6.1 - 8.1 g/dL [facility] ALBUMIN 3.9 3.6 - 5.1 g/dL [facility] GLOBULIN 2.0 1.9 - 3.7 g/dL (calc) [facility] ALBUMIN/GLOBULIN RATIO 2.0 1.0 - 2.5 (calc) [facility] BILIRUBIN, TOTAL 1.1 0.2 - 1.2 mg/dL [facility] ALKALINE PHOSPHATASE 41 35 - 144 U/L [facility] AST 12 10 - 35 U/L [facility] ALT 11 9 - 46 U/L [facility] Blood Venous blood specimen / Unknown 04/23/2025 11:12 AM EDT 04/23/2025 11:13 AM EDT Narrative Resulting Agency Comment Performing Organization Information Site ID: QPT Name: [facility] Address: [address] [place] [address], [address] [place] [id number] Director: Jeff Velasco MD us Ruth Pak MD LAB BLOOD ORDERABLES Final Re sult [facility] * APTT (04/23/2025 10:53 AM EDT) PARTIAL THROMBOPLASTIN TIME, ACTIVATED 29 23 - 32 sec [facility] Comment: This test has not been validated for monitoring unfractionated heparin therapy. For testing that is validated for this type of therapy, please refer to the Heparin Anti-Xa assay (test code 05141). For additional information, please refer to http://education.Real Estate Direct/faq/BYF260 (This link is being provided for informational/educational purposes only.) Blood Venous blood specimen / Unknown 04/23/2025 10:53 AM EDT 04/23/2025 10:54 AM EDT Narrative Resulting Agency Comment Performing Organization Information Site ID: QPT Name: [facility] Address: [address] [place] [address], [address] [place] [address] Director: Jeff Velasco MD us Ruth Pak MD LAB BLOOD ORDERABLES Final Re sult Performing Organization Address [facility] de Phone Number [facility] * Protime-INR (04/23/2025 10:53 AM EDT) Pathologist [facility] INR 1.0 [facility] Comment: Reference Range 0.9-1.1 Moderate-intensity Warfarin Therapy 2.0-3.0 Higher-intensity Warfarin Therapy 3.0-4.0 PT 10.4 9.0 - 11.5 sec [facility] Comment: For additional information, please refer to http://Circle Technology.Inhale Digital.OpDemand/faq/BTO702 (This link is being provided for informational/ educational purposes only.) Blood Venous blood specimen / Unknown 04/23/2025 10:53 AM EDT 04/23/2025 10:54 AM EDT Narrative Resulting Agency Comment Performing Organization Information Site ID: QPT Name: [facility] Address: [address] [place] [address], [address] [place] [address] Director: Jeff Velasco MD us Ruth Pak MD LAB BLOOD ORDERABLES Final Re sult Performing Organization Address [facility] de Phone Number [facility] * (ABNORMAL) CBC (04/23/2025 10:53 AM EDT) WHITE BLOOD CELL COUNT 3.7(L) 3.8 - 10.8 Thousand/u L [facility] RED BLOOD CELL COUNT 4.39 4.20 - 5.80 Million/uL [facility] HEMOGLOBIN 14.1 13.2 - 17.1 g/dL [facility] HEMATOCRIT 42.8 38.5 - 50.0 % [facility] MCV 97.5 80.0 - 100.0 fL [facility] MCH 32.1 27.0 - 33.0 pg [facility] MCHC 32.9 32.0 - 36.0 g/dL [facility] Comment: For adults, a slight decrease in the calculated MCHC value (in the range of 30 to 32 g/dL) is most likely not clinically significant; however, it should be interpreted with caution in correlation with other red cell parameters and the patient's clinical condition. RDW 11.7 11.0 - 15.0 % [facility] PLATELET COUNT 218 140 - 400 Thousand/u L [facility] MPV 11.1 7.5 - 12.5 fL [facility] Blood Venous blood specimen / Unknown 04/23/2025 10:53 AM EDT 04/23/2025 10:54 AM EDT Narrative Resulting Agency Comment Performing Organization Information Site ID: QPT Name: [facility] Address: [address] [place] [address], [address] [place] [id number] Director: Jeff Velasco MD us Ruth Pak MD LAB BLOOD ORDERABLES Final Re sult [facility] * Colonoscopy (06/10/2018 12:00 PM EDT) Anatomical Region Laterality Modality Endoscopy 06/10/2018 12:0 0 PM EDT Narrative 06/10/2018 12:00 PM EDT PERFORMED AT [facility] LOCATION:[id number] Procedure Note CONVERSION, GENERIC - 03/07/2023 PERFORMED AT [facility] LOCATION:[id number] us Saira Yoon NP ENDOSCOPY PROCEDURE ORDERABL ES Final Result from Last 3 Months or Most Recently Relevant to Health Maintenance Insurance [facility] MEDICARE ADVANTAGE Care Teams Medical Van Driver Relationship Specialty Start Date End Date Ruth Pak MD [address] [facility] [place] [address] PCP - General Family Medicine 05/10/23 Ruth Pak MD [address] [facility] [place] [address] PCP - Bernie LEOS 10/22/24
--- OUTSIDE RECORDS SUMMARY | 2025-05-27 08:52 | XMS_ITS | Patient Health Record ---
Author Organization [facility] Address [address] [place], [place] [id number] Care Team Providers Care Sales Closer Name Role Phone Kemi Mendez Unavailable [phone] Allergies No Known Allergies Reason For Referral No Information Medications Medication SIG (Take, Route, Frequency, Duration) Notes Start Date End Date Status traMADol HCl 50 MG TAKE 1 TABLET BY DOUG TH EVERY 8 HOURS NEEDED FOR PAIN FOR 2 DAYS Oral; Duration: 2 Days Not-Takin g Meloxicam 15 MG TAKE 1 TABLET BY DOUG TH DAILY Oral; Duration: 30 Days Not-Taking DULoxetine HCl 30 MG Oral; Duration: 30 Days Active Folic Acid Active Atorvastatin Calcium 10 MG TAKE 1 TABLET BY MOUTH EVERY DAY *RECHECK LABS IN 3 MONTHS* Oral; Duration: 90 Days Active [place] 3 Active Vitamin E Active Vitamin C Active Social History Sex Assigned At : Social History Observation Description Sex Assigned At Male Tobacco Use/Smoking Question Answer Notes Additional Findings: Tobacco Non-User Current no n-smoker PRAPARE Question Answer Notes Date Completed/Updated: 1955 anabel nt entered data What is your current housing situation? I have housing patient entered data Are you worried about losing your housing? No patient entered data What is the highest level of school that you have finished? More than high school patient entered data What is your current work situation? Otherwise unemployed but not seeking work (ex. 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 No patient entered marcos a How often do you see or talk to people that you care about and feel close to? (For example: talking to friends on the phone, visiting friends or family, going to mormonism or club meetings) More than 5 times a week patient entered data In the past year have you sp ent more than 2 nights in a row in a mcc, retirement, care home center, or juvenile correctional facility? No patient entered data Do you feel physically and emotionally safe where you currently live? Yes patient entered data In the past year, have you b een afraid of your partner or ex-partner? No patient entered data Are you a refugee? No patient en tered data What country are you from? [place] juany castillo entered data Problems Problem Type SNOMED Code ICD Code Onset Dates Problem Status W/U Status Risk Notes Problem BMI 30.0-30.9,ad ult (Z68.30) Active confirmed Plan Of Treatment No Information Insurance Providers Payer Name Payer Address Payer Phone Subscriber Number Group Number Insured Name Patient Relationship to Insured Coverage Start Date Coverage End Date [employer] [facility] [address] [place], [place] [id number] [facility] Self - patient is the insured 4
--- OUTSIDE RECORDS SUMMARY | 2025-05-27 08:52 | XMS_ITS | Encounter Summary ---
Author Organization [facility] Address [address] [place] [address] Care Team Providers Care Pipe Fitter [employer] Name Role Phone Ruth Pak MD Primary Care Provider [phone] Ruth Pak MD Unavailable [phone] Ruth Pak MD Unavailable [phone] Reason for Visit * Reason Comments Med Refill Encounter Details Date Type Department Care Team (Late st Contact Info) Description 08/17/2024 Refill [facility] Family Medicine [address] [place] [address] Ruth Pak MD [address] [place], [place] [id number] Mixed hyperlipidemia Social History Tobacco Use Types Packs/Day Years Used Date Smoking Tobacco: Former Cigarettes 1 31 1 11/04/1971 - 2003 Smokeless Tobacco: Never Alcohol Use Standard Drinks/Week Comments Not Currently 10 (1 standard drink = 0.6 oz pure [...] week 02/04/2024 How often do you attend [facility] or [facility] orthodox services? 1 to 4 times per year 02/04/2024 Do you belong to any clubs o r organizations such as hoahaoism groups, unions, fraternal or athletic groups, or [...] Date Recorded Patient Health Questionnaire-2 Score 0 02/04/2024 [facility] Occupat ional [facility] - Occupational Stress Questionnaire Answer Date Recorded [...] place to sleep or slept in a residential (including now)? No 02/04/2024 Sex and Gender Information Value Date Recorded Sex Assigned at Male 03/11/2023 8:42 AM EDT Legal Sex Male 6:41 PM EDT Gender Identity Male 01/03/2023 6:41 PM EDT Sexual Orientation Straight 03/11/2023 8: 42 AM EDT documented as of this encounter Miscellaneous Notes * Telephone Encounter - Kenia Wasserman MA - 08/18/2024 9:59 AM EDT Approving, but needs appt for additional refills. documented in this encounter Plan of Treatment Not on file documented as of this encounter Visit Diagnoses Diagnosis Mixed hyperlipidemia Mixed hyperlipidemia documented in this encounter Care Teams Pipe Fitter [employer] Relationship Specialty Start Date End Date Ruth Pak MD [address] [facility] [place] [address] PCP - General Family Medicine 05/10/23 Ruth Pak MD [address] [facility] [place] [address] PCP - Devoted 10/22/23 10/21/24 Ruth Pak MD [address] [facility] [place] [address] PCP - Bernie LEOS 10/22/24 documented as of this encounter
--- OUTSIDE RECORDS SUMMARY | 2025-05-27 08:52 | XMS_ITS | Patient Health Record ---
Author Organization [facility] Address [address] [place] [address] Care Team Providers Care Photography Spotter Name Role Phone Beatriz Valenzuela Unavailable [phone] Allergies No Known Allergies Reason For Referral No Information Medications Medication SIG (Take, Route, Frequency, Duration) Notes Start Date End Date Status atorvastatin Active oxyBUTYnin Active DULoxetine Active acetaminophen Active sildenafil Active Vitamins Active Supplements Active Social History Tobacco Use: Social History Observation Description Date Details (start date - stop date) Former Smoker NA - NA AUDIT-C (Standard) Question Answer Notes Did you have a drink contain ing alcohol in the past year? Yes How often did you have six o r more drinks on one occasion in the past year? Declined to specify (0 point) How many drinks did you have on a typical day when you were drinking in the past year? 1 or 2 drinks (0 point) How often did you have a dri nk containing alcohol in the past year? Declined to specify (0 point) Points 0 Interpretation Negative Tobacco Control (Standard) Question Answer Notes Tobacco use: Former smoker Problems Problem Type SNOMED Code ICD Code Onset Dates Problem Status W/U Status Risk Notes Problem 83873977 Spondylosis without myelopathy or radiculopathy, lumbosacral region (M47.817) Active confirmed Problem 32232718 Other intervertebral disc degeneration, lumbosacral region (M51.37) Active confirmed Problem 70364663064328680 Sciatica, righ t side (M54.31) Active confirmed Problem 431386077856096 Sciatica, left side (M54.32) Active confirmed Problem 695022216 Compression fracture of L1 vertebra with routine healing, subsequent encounter (S32.010D) Active confirmed Plan Of Treatment Pending Test Test Name Order Date Lumbar spine, 4v flex ext - 44065 2023 MRI : Lumbosacral Spine W/O Contrast - 7 214702/29/2024 Insurance Providers Payer Name Payer Address Payer Phone Subscriber Number Group Number Insured Name Patient Relationship to Insured Coverage Start Date Coverage End Date Medicare [facility] [address] [place] [phone] [id number] GINNY ORTIZ Self - patient is the insured Medical (General) History Medical History History ICD Code Blood clots in legs/lung: Yes Surgical History Surgery Date(Month/Year) Fusion
--- OUTSIDE RECORDS SUMMARY | 2025-05-27 08:52 | XMS_ITS | Clinical Summary ---
Author Organization [facility] Address [address] [place] [address], [address] [place] [address] Care Team Providers Care Roll Repairer Name Role Phone Unavailable Primary Care Provider Unavailabl e Allergies No known active allergies Medications pravastatin (PRAVACHOL) 40 MG tablet Take 40 mg by mouth daily. Active Multiple Vitamins-Minera ls (ONE DAILY 50 PLUS PO) Take by mouth daily. Active ascorbic acid (VITAMIN C) 500 MG tablet Take 1,000 mg by mouth daily. Active warfarin (COUMADIN) 5 MG tablet Take 7.5 mg by mouth Daily. 5 mg on Sunday and [facility] Active Mcdowell 3 1000 MG CAPS Take 1,000 mg by mouth daily. Active aspirin 81 MG EC tablet Take 81 mg by mouth daily. Active Active Problems Problem Noted Date Diagnosed Date DVT, lower extremity 08/29/2012 Social History Tobacco Use Types Packs/Day Years Used Date Smoking Tobacco: Never Assessed Sex and Gender Information Value Date Recorded Sex Assigned at Not on file Legal Sex Male 9:16 AM EST Gender Identity Not on file Sexual Orientation Not on file Last Filed Vital Signs Vital Sign Reading Time Taken Comments Blood Pressure 134/67 04/28/2013 7:08 AM EDT Pulse 53 04/28/2013 7:08 AM EDT Temperature - - Respiratory Rate - - Oxygen Saturation - - Inhaled Oxygen Concentration - - Weight 103 kg (227 lb) 04/28/2013 7:08 AM EDT Height - - Body Mass Index - - Plan of Treatment Not on file
--- OUTSIDE RECORDS SUMMARY | 2025-05-27 08:52 | XMS_ITS | Clinical Summary ---
Author Organization [facility] Address [id number] [place] [address] Care Team Providers Care Home Advisor Name Role Phone Ruth Pak MD Primary Care Provider [phone] Allergies No known active allergies Medications pravastatin (PRAVACHOL) 80 mg tablet Take 0.5 tablets (40 mg total) by mouth in the morning. 1 8 Active aspirin 81 mg Take 1 tablet (81 mg total) by mouth in the morning. Active acetaminophen (TYLENOL) 650 mg 8 hr tablet Take 1 tablet (650 mg total) by mouth every 8 (eight) hours as needed for pain. Active ibuprofen (ADVIL,MOTRIN) 100 MG tablet Take 1 tablet (100 mg total) by mouth every 6 (six) hours as needed for pain. Active melatonin 10 mg capsule Take 1 capsule (10 mg total) by mouth nightly. Active acetaminophen-c odeine (TYLENOL #3) 300-30 mg per tablet Take by mouth every 6 (six) hours as needed. 6 Active omega 2-yyy-mqk-fish oil (Fish OiL) 300-1,000 mg capsule Take by mouth daily. Active NON FORMULARY daily. 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 12/31/2017 Encounters Date Type Department Care Team Description 05/18/2025 Abstract [facility] [address] [place] [phone] Kwadwo Weathers MD 04/29/2025 Travel from Last 3 Months Family History Medical History Relation Name Comments Lung disease Father No Known Problems Mother Relation Name Status Comments Father Mother Social History Tobacco Use Types Packs/Day Years [...] Sign Reading Time Taken Comments Blood Pressure 151/74 09/09/2024 2:30 PM EST Pulse 57 09/09/2024 2:30 PM EST Temperature 36.5 C (97.7 F) 09/09/2024 12:28 PM EST Respiratory Rate 12 09/09/2024 2:30 PM EST Oxygen Saturation 94% 09/09/2024 2:30 PM EST Inhaled Oxygen Concentration - - Weight 92.5 kg (204 lb) 09/09/2024 12:28 PM EST Height 172.7 cm (5' 8 ) 09/09/2024 12:28 PM EST Body Mass Index 31.02 09/09/2024 12:28 PM EST Plan of Treatment Health Maintenance Due Date Last Done Comments Depression Screening 1966 Adult BMI Follow Up Plan 1972 Zoster (Shingles) Vaccine (2 of 3) 12/07/2015 10/12/2015 Abdominal Aortic Aneurysm (A AA) Screen 2019 Fall Risk Screening 2019 COVID-19 Vaccine (7 - 4-2 5 season) 2025 07/23/2024, 07/16/2023, 07/11/2022, Additional history exists Influenza Vaccine 06/22/2025 07/23/2024, , 07/11/2022, Additional history exists Adult BMI Screening 09/09/2025 09/09/2024 Tobacco Screening 09/09/2025 09/09/2024 DTaP,Tdap and Td Vaccines (2 - Td or Tdap) 10/12/2025 10/12/2015 Colonoscopy 06/10/2028 06/10/2018, 05/23, 06/10/2018, Additional history exists Medical Devices Implanted Type Area Industrial Sweeper Cleaner Device Identifier Shelf Expiration Date Model / Serial / Lot Lens Iol Sy60wf.220 [facility] 054070 - [id number] - [id number] Implanted:Qty : 1 on 08/19/2024 by Emilie Forman MD at [facility] [employer] 02/12/2028 SY60WF.2 20 / [id number] / NA Lens Iol [id number] [facility] 714399 - [id number] - [id number] Implanted:Qty : 1 on 09/09/2024 by Emilie Forman MD at [facility] [employer] 03/05/2028 SY60WF.2 20 / [id number] / N/A Orthopedic Implant Orthopedic Implant Spine Cervical Orthopedic Implant Orthopedic Implant Description:jaw neck fusion Neck Hardware Procedures Procedure Name Priority Date/Time Associated Diagnosis Comments PROVATION COLONOSCOPY Routine 06/10/2018 7:05 AM EDT from Last 3 Months or Most Recently Relevant to Health Maintenance Results * ES colonoscopy imaging (06/10/2018 7:05 AM EDT) Narrative SYSTEMGENERATED, DOCUMENTATION - 06/10/2018 7:05 AM EDT This order has been auto-finalized for image and report archival. *See procedures tab in Epic or report included with PACS images for full interpretation.* us Delfino Hook DO IMG OR IMG ORDERABLES Final Result from Last 3 Months or Most Recently Relevant to Health Maintenance Insurance [employer] MEDIC[employer] ADVANTAGE Care Teams Home Advisor Relationship Specialty Start Date End Date Ruth Pak MD [address] [place] [address] PCP - General Family Medicine 12/31/17
--- OUTSIDE RECORDS SUMMARY | 2025-05-27 08:52 | XMS_ITS | Encounter Summary ---
Author Organization [facility] Address [address] [facility] [place] [address] Care Team Providers Care Drafting Technician Name Role Phone Ruth Pak MD Unavailable Ruth Pak MD Primary Care Provider Ruth Pak MD Unavailable Ruth Pak MD Unavailable [phone] Reason for Visit * Reason Comments Med Refill Encounter Details Date Type Department Care Team (Late st Contact Info) Description 04/26/2023 Refill [facility] Family Medicine [address] [place] [phone] Iqra Alegre MD [address] [place], [place] [id number] Mixed hyperlipidemia (Primary Dx) Social History Tobacco Use Types Packs/Day Years Used Date Smoking Tobacco: Never Assessed Sex and Gender Information Value Date Recorded Sex Assigned at Male 03/11/2023 8:42 AM EDT Legal Sex Male 6:41 PM EDT Gender Identity Male 01/03/2023 6:41 PM EDT Sexual Orientation Straight 03/11/2023 8: 42 AM EDT documented as of this encounter Miscellaneous Notes * Telephone Encounter - Iqra Alegre MD - 04/26/2023 9:05 AM EDT Approvals with refills documented in this encounter Plan of Treatment Not on file documented as of this encounter Visit Diagnoses Diagnosis Mixed hyperlipidemia- Primary Mixed hyperlipidemia documented in this encounter Care Teams Drafting Technician Relationship Specialty Start Date End Date Ruth Pak MD [address] [place] [address] PCP - Bernie LEOS 10/22/21 10/21/23 Ruth Pak MD [address] [place] [address] PCP - General Family Medicine 05/10/23 Ruth Pak MD [address] [place] [address] PCP - Devoted 10/22/23 10/21/24 Ruth Pak MD [address] [place], [place] [id number] PCP - Bernie LEOS 10/22/24 documented as of this encounter
--- OUTSIDE RECORDS SUMMARY | 2025-05-27 08:52 | XMS_ITS | Encounter Summary ---
Author Organization [facility] Address [address] [place] [address] Care Team Providers Care Leading Firefighter Name Role Phone Ruth Pak MD Unavailable [phone] Ruth Pak MD Primary Care Provider Ruth Pak MD Unavailable Ruth Pak MD Unavailable Encounter Details Date Type Department Care Team (Late st Contact Info) Description 03/21/2023 Abstract [facility] [address] [place] [address] Christy Montes NP [address] [place], [place] [id number] Social History Tobacco Use Types Packs/Day Years Used Date Smoking Tobacco: Never Assessed Sex and Gender Information Value Date Recorded Sex Assigned at Male 03/11/2023 8:42 AM EDT Legal Sex Male 6:41 PM EDT Gender Identity Male 01/03/2023 6:41 PM EDT Sexual Orientation Straight 03/11/2023 8: 42 AM EDT COVID-19 Exposure Response Date Recorded In the last 10 days, have yo u been in contact with someone who was confirmed or suspected to have Coronavirus/COVID-19? No / Unsure 03/12/2023 8:34 AM EDT documented as of this encounter Plan of Treatment Not on file documented as of this encounter Visit Diagnoses Not on filedocumented in this encounter Care Teams Leading Firefighter Relationship Specialty Start Date End Date Ruth Pak MD [address] [place] [address] PCP - Bernie LEOS 10/22/21 10/21/23 Ruth Pak MD [address] [place] [address] PCP - General Family Medicine 05/10/23 Ruth Pak MD [address] [facility] [place] [address] PCP - Devoted 10/22/23 10/21/24 Ruth Pak MD [address] [facility] [place] [address] PCP - Bernie LEOS 10/22/24 documented as of this encounter
--- OUTSIDE RECORDS SUMMARY | 2025-05-27 08:52 | XMS_ITS | Encounter Summary ---
Author Organization [facility] Address [address] [place] [address] Care Team Providers Care Waiter Waitress Name Role Phone Ruth Pak MD Primary Care Provider [phone] Ruth Pak MD Unavailable Ruth Pak MD Unavailable [phone] Reason for Visit * Reason Onset Date Comments Med Refill 09/26/2024 Encounter Details Date Type Department Care Team (Late st Contact Info) Description 09/26/2024 Refill [facility] Family Medicine [address] [place] [address] Ruth Pak MD [address] [place], [place] [phone] Urinary incontinence, unspecified type Social History Tobacco Use Types Packs/Day Years [...] week 02/04/2024 How often do you attend [facility] or restoration services? 1 to 4 times per year 02/04/2024 Do you belong to any clubs o r organizations such as buddhism groups, unions, fraternal or athletic groups, or [...] Patient Health Questionnaire-2 Score 0 02/04/2024 [facility] - Occupational Stress Questionnaire Answer Date Recorded [...] place to sleep or slept in a intermediate (including now)? No 02/04/2024 Sex and Gender Information Value Date Recorded Sex Assigned at Male 03/11/2023 8:42 AM EDT Legal Sex Male 6:41 PM EDT Gender Identity Male 01/03/2023 6:41 PM EDT Sexual Orientation Straight 03/11/2023 8: 42 AM EDT documented as of this encounter Miscellaneous Notes * Telephone Encounter - Ruth Pak MD - 09/26/2024 12:32 PM EST Approving, but needs appt for additional refills. documented in this encounter Plan of Treatment Not on file documented as of this encounter Visit Diagnoses Diagnosis Urinary incontinence, unspecified type documented in this encounter Care Teams Waiter Waitress Relationship Specialty Start Date End Date Ruth Pak MD [address] [facility] [place] [address] PCP - General Family Medicine 05/10/23 Ruth Pak MD [address] [facility] [place] [place] [address] PCP - Devoted 10/22/23 10/21/24 Ruth Pak MD [address] [facility] [place] [address] PCP - Bernie LEOS 10/22/24 documented as of this encounter
--- OUTSIDE RECORDS SUMMARY | 2025-05-27 08:52 | XMS_ITS | Encounter Summary ---
[facility] Address [id number] [address] [place] [address] Care Team Providers Care Emg Technician Name Role Phone Ruth Pak MD Primary Care Provider [phone] Reason for Visit * Reason Comments Med Refill Encounter Details Date Type Department Care Team (Late st Contact Info) Description 07/22/2017 Refill [facility] [address] [place] [address] Sarah Esquivel MD [facility] [place] [address] Social History Tobacco Use Types Packs/Day Years [...] on filedocumented in this encounter Care Teams Emg Technician Relationship Specialty Start Date End Date Ruth Pak MD [address] [place] [address] PCP - General Family Medicine 12/31/17 documented as of this encounter
--- OUTSIDE RECORDS SUMMARY | 2025-05-27 08:52 | XMS_ITS | Encounter Summary ---
Author Organization [facility] Address [facility] [place] [address] Care Team Providers Care Automotive Specialty Technician Name Role Phone Sarah Esquivel MD Primary Care Provider [phone] Reason for Referral * Consultation (Routine) - Closed Specialty Diagnoses / Procedures Referred By Contac t Referred To Contact Neurosurgery Diagnoses Lumbar radiculopathy Chronic low back pain with sciatica, sciatica laterality unspecified, unspecified back pain laterality [place] [address] Phone: tel: fax: Saira Etienne MD [address] [place] [address] [address] [place] [address] Phone: tel: fax: Referral ID Status Reason Start Date Expiration Date Visits Re quested Visits Authorized [id number] Closed 07/18/2016 07/09/2018 1 1 Encounter Details Date Type Department Care Team (Latest Contact Info) Description 07/18/2016 Transcribe Orders [facility], Neuroscience [address] [place] [phone] [place] [address] Lumbar radiculopathy (Primary Dx); Chronic low back pain with sciatica, sciatica laterality unspecified, unspecified back pain laterality Social History Tobacco Use Types Packs/Day Years Used Date Smoking Tobacco: Never Assessed Sex and Gender Information Value Date Recorded Sex Assigned at Not on file Legal Sex Male 10:55 AM EDT Gender Identity Male 03/02/2020 8:52 AM EDT Sexual Orientation Straight 03/02/2020 8: 52 AM EDT documented as of this encounter Plan of Treatment Scheduled Referrals Name Type Priority Associated Diagnoses Order Schedule Ambulatory referral to Neurosurgery Outpatient Referral Routine Lumbar radiculopathy Chronic low back pain with sciatica, sciatica laterality unspecified, unspecified back pain laterality 1 Occurrences starting 07/18/2016 until 07/18/2017 documented as of this encounter Visit Diagnoses Diagnosis Lumbar radiculopathy- Primary Thoracic or lumbosacral neuritis or radiculitis, unspecified Chronic low back pain with sciatica, sciatica laterality unspecified, unspecified back pain laterality documented in this encounter Care Teams Automotive Specialty Technician Relationship Specialty Start Date End Date Sarah Esquivel MD [place] [id number] PCP - General Family Medicine 07/31/16 documented as of this encounter
--- OUTSIDE RECORDS SUMMARY | 2025-05-27 08:52 | XMS_ITS | Encounter Summary ---
Author Organization [facility] Address [address] [place] [address] Care Team Providers Care Skin Peeling Machine Operator Name Role Phone Ruth Pak MD Primary Care Provider [phone] Ruth Pak MD Unavailable [phone] Encounter Details Date Type Department Care Team (Late st Contact Info) Description 05/01/2025 Results Follow-Up [facility] Family Medicine [address] [place] [address] Ruth Pak MD [address] [place] [address] Social History Tobacco Use Types [...] week 02/04/2024 How often do you attend [facility] or caodaism services? 1 to 4 times per year 02/04/2024 Do you belong to any clubs o r organizations such as mormonism groups, unions, fraternal or athletic groups, or [...] Recorded Patient Health Questionnaire-2 Score 0 04/23/2025 [facility] - Occupational Stress Questionnaire Answer Date [...] place to sleep or slept in a senior living (including now)? No 02/04/2024 Sex and Gender [...] Diagnoses Not on filedocumented in this encounter Additional Health Concerns Assessment Noted Time PHQ-9 Depression Total Score: 3 02/21/20 25 11:00 AM EDT documented as of this encounter Care Teams Skin Peeling Machine Operator Relationship Specialty Start Date End Date Ruth Pak MD [address] [place] [address] PCP - General Family Medicine 05/10/23 Ruth Pak MD [address] [place] [address] PCP - Bernie LEOS 10/22/24 documented as of this encounter
--- OUTSIDE RECORDS SUMMARY | 2025-05-27 08:52 | XMS_ITS | Clinical Summary ---
Author Organization [facility] Address [facility] [place] [id number] Care Team Providers Care Switchboard Wire Worker Helper Name Role Phone Sarah Esquivel MD Primary Care Provider [phone] Allergies No known active allergies Medications pravastatin (PRAVACHOL) 40 MG tablet Take 40 mg by mouth daily. Active aspirin 81 MG EC tablet Take 81 mg by mouth daily. Active acetaminophen-co deine (TYLENOL #3) 300-30 mg per tablet Take by mouth every 6 (six) hours as needed. 0 06/20/2016 Active methocarbamol (ROBAXIN) 500 MG tablet Take 500 mg by mouth 4 (four) times a day as needed. 0 06/20/2016 Active folic acid (FOLVITE) 1 MG tablet Take 1 mg by mouth daily. Active Active Problems No known active problems Family History Medical History Relation Comments Alzheimer's disease Mother Relation Status Comments Brother 1 Alive Brother 2 Alive Brother 3 Alive Father Mother Social History Tobacco Use Types Packs/Day Years Used Date Smoking Tobacco: Former Smokeless Tobacco: Never Alcohol Use Standard Drinks/Week Comments Yes 0 (1 standard drink = 0.6 oz pur e alcohol) occasional Sex and Gender Information Value Date Recorded Sex Assigned at Not on file Legal Sex Male 10:55 AM EDT Gender Identity Male 03/02/2020 8:52 AM EDT Sexual Orientation Straight 03/02/2020 8: 52 AM EDT Last Filed Vital Signs Vital Sign Reading Time Taken Comments Blood Pressure 146/83 03/04/2020 10:26 AM EDT Pulse 53 03/04/2020 10:26 AM EDT Temperature 36.9 C (98.4 F) 03/04/2020 10:26 AM EDT Respiratory Rate 14 03/04/2020 10:26 AM EDT Oxygen Saturation 97% 03/04/2020 10:26 AM EDT Inhaled Oxygen Concentration - - Weight 99.8 kg (220 lb) 03/04/2020 8:15 AM EDT Height 177.8 cm (5' 10 ) 03/04/2020 8:15 AM EDT Body Mass Index 31.57 03/04/2020 8:15 AM EDT Plan of Treatment Health Maintenance Due Date Last Done Comments CT Colonography 1954 Fecal DNA 1954 Fecal occult blood test (FOBT,FIT) 1954 PSA Level 1954 Wellness Visit 1957 Depression Screening/Follow-Up (PHQ-2/9) 1966 Hepatitis C Screening 1972 Pneumococcal Vaccine: Age 50 + (1 of 1 - PCV) 2004 Zoster Vaccines (2 of 3) 12/07/2015 10/12/2015 Falls Risk Assessment 2019 COVID-19 Vaccine (1 - 2023- season) 2024 Influenza Vaccine (#1) 2025 08/22/2018, 2016 Tetanus: Every 10yrs 10/12/2025 10/12/2015 Colonoscopy 06/10/2028 06/10/2018 Colorectal Cancer Screening/Monitoring 06/10/2028 Respiratory Syncytial Virus Immunization: Risk, 60-74 Risk, or 75+ (1 - 1-dose 75+ series) 2029 Insurance [place] OF [place] [facility] [place] For more information, please contact: [phone] * Full Code - Unverified (Latest Code Status on File) Date Activated Date Inactivated Comments 03/04/2020 10:12 AM 03/04/2020 12:43 PM Care Teams Switchboard Wire Worker Helper Relationship Specialty Start Date End Date Sarah Esquivel MD [place] [id number] PCP - General Family Medicine 07/31/16
--- NOTE | 2025-05-27 09:12 | P.CN_ITS ---
Consult Note: HPI Data of Consult Patient: known to practice within the last 3 years Requesting Physician: Jenny Machuca NP Primary Care Provider: Non-Staff Physician, MD Consult Narrative Reason for consult: f/u Narrative: Neville Schmitz a pleasant 69 year old male presents for evaluation of chronic moderate to severe low back pain. Longstanding hx of back pain secondary to lumbar spondylosis, lumbar DDD, and lumbar stenosis. previously underwent bilateral L4-5 TFESI and bilateral SIJ injection with >70% improvement ongoing. pain today 1/10 dull ache in low back increasing to 2/10 with standing, walking, sitting too long, lifting. pain improved with sleep and heat. continues to utilize baclofen, tylenol and tylenol #3 PRN with benefit without side effects. has not needed since last visit per pt. cc:: CC: Jenny Machuca NP Review of Systems ROS Status of ROS 10 or more systems reviewed and unremark able except as noted in history and below Musculoskeletal Reports: back pain and joint pain; Denies: extremity pain PFSH PFSH Medical History Hydrocele ?N43.3 - Hydrocele, unspecified (ICD-10) Jaw fracture ?S02.609A - Fracture of mandible, unspecified, initial encounter for closed fracture (ICD-10) High cholesterol ?E78.00 - Pure hypercholesterolemia, unspecified (ICD-10) Surgical History H/O hernia repair ?Z98.890 - Other specified postprocedural states (ICD-10) ?Z87.19 - Personal history of other diseases of the digestive system (ICD-10) History of appendectomy ?Z90.49 - Acquired absence of other specified parts of digestive tract (ICD- 10) History of fusion of cervical spine ?Z98.1 - Arthrodesis status (ICD-10) Meds Home Medications and Allergies Home Medications ?Medication ?Instructions ?Recorded ?Confirmed ?Type acetaminophen 325 mg capsule 325 mg PO Q6H PRN pain 02/16/25 History (Tylenol) aspirin 81 mg capsule 81 mg PO DAILY 05/31/23 04/06/15 History atorvastatin 80 mg tablet (Lipitor) 40 mg PO DAILY 08/1302/16/25 History oxybutynin chloride 5 mg mg PO 11/17/24 History tablet,extended release 24 hr acetaminophen 300 mg-codeine 30 mg 1 tab PO BID PRN pa in #60 tabs 01/29/25 02/16/25 Rx tablet baclofen 10 mg tablet 10 mg PO BID PRN muscle spas m #60 01/29/25 02/16/25 Rx tabs Allergies Allergy/AdvReac Type Severity Reaction Status Date / Time No Known Drug Allergies Allergy Verified 02/16/25 08:54 Exam Constitutional Documenting provider has reviewed patient's vital signs: yes Common normals: no apparent distress, oriented x3, healthy appearing, alert and well nourished General appearance: cooperative HENMT Common normals: normocephalic, hearing grossly normal bilaterally and moist oral mucous membranes Head and scalp: normocephalic Eye Common normals: PERRL Pupil: PERRL Neck & C-Spine Common normals: full ROM General: normal visual inspection Chest Common normals: inspection of chest normal Respiratory Common normals: normal respiratory effort, no retractions and no use of accessory muscles Back & Pelvis Lumbar spine/lower back: straight leg raise negative bilaterally; ROM not limited, no pain with ROM, no lumbar spinal tenderness, no paraspinal muscle tenderness and no paraspinal muscle spasm Sacroiliac joints: SI joints normal Other: strength 5/5 in BLE bilateral sij negative maryam(patricks), gaenslens, thigh thrust, compression test negative facet loading L4-S1 on exam Extremity Common normals: normal to inspection and full ROM Neuro Common normals: oriented x3, CN's II-XII intact bilaterally, moves all extrem ities, no focal motor deficits, no sensory deficits noted and deep tendon reflexes 2+ bilaterally Sensorium/orientation: alert Motor exam: no movement abnormalities noted Psych Common normals: mental status grossly normal, thought process normal, cooperative, affect normal, speech normal and activity/motor behavior normal Speech: normal speech Thought process: normal thought process Results Additional Findings Additional findings: If on a controlled substance or opioids, I have checked an [place] report on this patient and there are no aberrancies noted in the prescribing history.??If on a controlled substance or opioid a drug screen was completed and reviewed within the last year, and if there has not been a drug screen completed we ordered one today to monitor higher risk, state monitored pain medication use. As part of providing excellent, safe, comprehensive care, the following was completed at our patient's visit: 1. A medication reconciliation and review to ensure accurate knowledge of current/active medications, including asking our patients to inform us about any [id number] medications or herbal remedies/nutritional supplements/alterna tive remedies. 2. A review to specifically ensure our patients have had annual screening for screening for depression, screening for tobacco use, and screening for unhealthy alcohol use. For concerning screenings had a discussion with the patient, provided patient education, and recommended follow-up with primary care provider when appropriate. If patient noted with a risk of falling, they received education on strength, gait, and balance training to prevent future risk of falling. Portions of this note may have been carried over from the previous visit and updated as appropriate. Please note this office utilizes paper charting in addition to the electronic medical record. A list of current medications, vitals, and PMH is available there as the clinical staff outside of myself do not have access to [employer] charting during the clinic day operations. As part of providing quality comprehensive care the current medications, vitals, and PMH were reviewed in the paper chart. Assessment and Plan Assessment and Plan (1) Sacroiliitis: Assessment and Plan: 02/16/25 bilateral SIJ injection >50% improvement ongoing (2) Lumbar stenosis with neurogenic claudication: Assessment and Plan: 12/29/24 bilateral L4/5 TFESI >50% improvement ongoing (3) Lumbar spondylosis: (4) Myalgia, other site: (5) Chronic prescription opiate use: Assessment and Plan: A drug screen was completed within the last year, and no aberrancies were noted regarding their use of controlled substances. The patient understands they are subject to the terms and conditions of the pain contract that they have signed. ? ?? I have checked an [place] report on this patient today and there are no aberrancies noted in the prescribing history.? Plan continue current medications as needed continue HEP as tolerated f/u PRN as pain is very well controlled
== END 2025-05-27 08:50 | disposition home or self-care (01) ==
LOC: PM 08:49
PROVIDERS: Visit Provider Nurse Practitioner
DX: M46.1 Sacroiliitis, not elsewhere classified (principal); M48.062 Spinal stenosis, lumbar region with neurogenic claudication; M47.816 Spondylosis without myelopathy or radiculopathy, lumbar region; M79.18 Myalgia, other site; Z79.891 Long term (current) use of opiate analgesic
CPT/HCPCS: G0463